=== PATIENT | male | born 1935 | race Caucasian/White ===

== ENCOUNTER 2024-04-27 17:08 | Outpatient (CLI) | payer MEDICARE, OTHER, SELFPAY | END 2024-04-27 17:09 | disposition home or self-care (01) | LOC: AMB 04-28 17:43 | PROVIDERS: PCP Family Medicine; Visit Provider Emergency Medicine | DX: R06.09 Other forms of dyspnea (principal); R53.1 Weakness | CPT/HCPCS: A0425; A0427 ==

== ENCOUNTER 2024-04-27 17:49 | Inpatient (IN) | payer MEDICARE, OTHER, SELFPAY ==
[2024-04-27] VITALS (52 sets, daily range): BP systolic 81–118; BP diastolic 43–64; PULSE 79–116; RESP 3–32; TEMP 37.4–39.1; O2SAT 88–99; BMI 38.6
--- NOTE | 2024-04-27 18:24 | ED.GENADULT ---
HPI - General Adult General Time Seen by Provider: 18:25 Date Seen: 04/27/24 Chief complaint: Shortness of Breath/Dyspnea Stated complaint: shortness of breath Time Seen by Provider: 04/27/24 18:21 Source: patient, EMS and RN notes reviewed Mode of arrival: EMS Limitations: altered mental status History of Present Illness HPI narrative: This 88-year-old male is brought in by [facility] from his home where his noted weakness, clearing of his throat or possibly coughing repetitively today. He he was shaky later this afternoon, stating he did not feel well. He tells me he has no pain anywhere but really does not answer much for questions. He resides independently with his . He has had no vomiting, no diarrhea, no complaints of urinary symptoms. She describes that he has been clearing his throat or almost coughing repetitively today. She is not aware of any ill contacts. He did not complain of pain anywhere. This evening he went to get out of his chair in simply went to the ground. He was seeming disoriented, she thought he was maybe having trouble breathing. EMS got his blood sugar to be 215. He has a history of stage 4 kidney disease, history of quadruple bypass, history of atrial fibrillation, history of type 2 diabetes. He was noted to be hypoxic per nursing staff. Related Data Home Medications ?Medication ?Instructions ?Recorded ?Confirmed apixaban 5 mg tablet (Eliquis) 5 mg PO BID 04/27/24 04/27/24 aspirin 81 mg capsule 81 mg PO DAILY 04/27/24 04/27/24 atenolol 50 mg tablet 50 mg PO DAILY 04/27/24 04/27/24 atorvastatin 20 mg tablet 20 mg PO DAILY 04/27/24 04/27/24 cholecalciferol (vitamin D3) 50 50 mcg PO DAILY 04/27/24 04/27/24 mcg (2,000 unit) capsule finasteride 5 mg tablet 5 mg PO DAILY 04/27/24 04/27/24 furosemide 20 mg tablet 20 mg PO DAILY 04/27/24 04/27/24 furosemide 40 mg tablet 40 mg PO DAILY 04/27/24 04/27/24 glimepiride 1 mg tablet 1 mg PO DAILY 04/27/24 04/27/24 lisinopril 2.5 mg tablet 2.5 mg PO DAILY 04/27/24 04/27/24 niacin 500 mg tablet,extended 500 mg PO DAILY 04/27/24 04/27/24 release 24 hr nitroglycerin 0.4 mg sublingual 0.4 mg sublingual Q5M PRN 04/27/24 04/27/24 tablet tamsulosin 0.4 mg capsule 0.8 mg PO DAILY 04/27/24 04/27/24 vitamin E 268 mg (400 unit) capsule 268 mg PO DAILY 04/27/24 04/27/24 zinc gluconate 50 mg tablet 100 mg PO DAILY 04/27/24 04/27/24 Allergies Allergy/AdvReac Type Severity Reaction Status Date / Time No Known Drug Allergies Allergy Verified 04/27/24 18:04 Review of Systems Status of ROS: Reports: unobtainable due to mental status Narrative: Most of history obtained from his . Did ask patient if he knew where he was, opened his eyes and stated no. I told him he was at [facility]. He really had no response to that. Exam Const: Vital Signs, click to edit/add: Vital Signs - 24 hr 04/27/24 17:57 04/27/24 17:58 04/27/24 18:03 Temperature Pulse Rate 108 H 116 H 109 H Pulse Rate [Pulse Oximeter] Respiratory Rate Blood Pressure 107/54 L Blood Pressure [Le ft Upper Arm] Pulse Oximetry 89 88 91 Oxygen Delivery Me thod Nasal Cannula Nasal Cannula Nasal Cannula Oxygen Flow Rate 2 2 2 04/27/24 18:04 04/27/24 18:07 04/27/24 18:15 Temperature 102.4 F H Pulse Rate 103 H 106 H Pulse Rate [Pulse Oximeter] 94 Respiratory Rate 28 H Blood Pressure 118/64 Blood Pressure [Le ft Upper Arm] 118/64 Pulse Oximetry 90 91 92 Oxygen Delivery Me thod Nasal Cannula Nasal Cannula Nasal Cannula Oxygen Flow Rate 2 2 04/27/24 18:30 04/27/24 18:31 04/27/24 18:32 Temperature Pulse Rate 88 103 H 85 Pulse Rate [Pulse Oximeter] Respiratory Rate Blood Pressure 117/64 Blood Pressure [Le ft Upper Arm] Pulse Oximetry 94 95 94 Oxygen Delivery Me thod Nasal Cannula Oxygen Flow Rate 2 04/27/24 18:45 04/27/24 19:00 04/27/24 19:02 Temperature Pulse Rate 101 H 104 H 91 Pulse Rate [Pulse Oximeter] Respiratory Rate Blood Pressure 103/50 L Blood Pressure [Le ft Upper Arm] Pulse Oximetry 94 92 97 Oxygen Delivery Me thod Nasal Cannula Nasal Cannula Nasal Cannula Oxygen Flow Rate 2 2 2 04/27/24 19:05 04/27/24 19:15 04/27/24 19:30 Temperature Pulse Rate 92 92 92 Pulse Rate [Pulse Oximeter] Respiratory Rate Blood Pressure 107/56 L Blood Pressure [Le ft Upper Arm] Pulse Oximetry 94 95 95 Oxygen Delivery Me thod Nasal Cannula Nasal Cannula Nasal Cannula Oxygen Flow Rate 2 2 2 04/27/24 19:32 04/27/24 19:43 04/27/24 19:45 Temperature Pulse Rate 93 100 93 Pulse Rate [Pulse Oximeter] Respiratory Rate Blood Pressure 88/52 L 106/46 L Blood Pressure [Le ft Upper Arm] Pulse Oximetry 96 94 95 Oxygen Delivery Me thod Nasal Cannula Nasal Cannula Nasal Cannula Oxygen Flow Rate 2 2 2 04/27/24 20:00 04/27/24 20:02 04/27/24 20:03 Temperature 99.4 F Pulse Rate 94 89 96 Pulse Rate [Pulse Oximeter] Respiratory Rate Blood Pressure 85/48 L Blood Pressure [Le ft Upper Arm] Pulse Oximetry 94 94 95 Oxygen Delivery Me thod Nasal Cannula Nasal Cannula Oxygen Flow Rate 2 2 04/27/24 20:09 04/27/24 20:15 04/27/24 20:35 Temperature Pulse Rate 103 H 96 102 H Pulse Rate [Pulse Oximeter] Respiratory Rate 30 H 32 H Blood Pressure 88/54 L 94/52 L Blood Pressure [Le ft Upper Arm] Pulse Oximetry 94 95 Oxygen Delivery Me thod Oxygen Flow Rate 04/27/24 20:41 04/27/24 20:45 04/27/24 20:47 Temperature Pulse Rate 96 92 100 Pulse Rate [Pulse Oximeter] Respiratory Rate 32 H Blood Pressure 84/51 L Blood Pressure [Le ft Upper Arm] Pulse Oximetry 94 94 93 Oxygen Delivery Me thod Oxygen Flow Rate 04/27/24 21:00 04/27/24 21:01 04/27/24 21:15 Temperature Pulse Rate 92 89 94 Pulse Rate [Pulse Oximeter] Respiratory Rate 3 L Blood Pressure 92/58 L Blood Pressure [Le ft Upper Arm] Pulse Oximetry 94 93 94 Oxygen Delivery Me thod Oxygen Flow Rate 04/27/24 21:19 04/27/24 21:37 04/27/24 21:47 Temperature Pulse Rate 94 Pulse Rate [Pulse Oximeter] Respiratory Rate 28 H Blood Pressure 86/59 L 86/53 L 85/43 L Blood Pressure [Le ft Upper Arm] Pulse Oximetry 94 Oxygen Delivery Me thod Oxygen Flow Rate 04/27/24 22:02 04/27/24 22:06 04/27/24 22:13 Temperature Pulse Rate 92 87 Pulse Rate [Pulse Oximeter] Respiratory Rate 28 H Blood Pressure 83/45 L 86/57 L Blood Pressure [Le ft Upper Arm] Pulse Oximetry 98 Oxygen Delivery Me thod Oxygen Flow Rate 04/27/24 22:15 04/27/24 22:17 04/27/24 22:30 Temperature Pulse Rate 85 88 93 Pulse Rate [Pulse Oximeter] Respiratory Rate 28 H Blood Pressure 81/52 L Blood Pressure [Le ft Upper Arm] Pulse Oximetry 98 98 99 Oxygen Delivery Me thod Oxygen Flow Rate 04/27/24 22:32 04/27/24 22:45 04/27/24 22:47 Temperature Pulse Rate 90 91 92 Pulse Rate [Pulse Oximeter] Respiratory Rate 30 H Blood Pressure 110/46 L Blood Pressure [Le ft Upper Arm] Pulse Oximetry 97 95 94 Oxygen Delivery Me thod Oxygen Flow Rate 04/27/24 22:49 Temperature Pulse Rate 86 Pulse Rate [Pulse Oximeter] Respiratory Rate 24 Blood Pressure 90/53 L Blood Pressure [Le ft Upper Arm] Pulse Oximetry 95 Oxygen Delivery Me thod Oxygen Flow Rate This patient is lying under the covers in exam room 8, shivering at times but no rigors noted. He will open his eyes when I speak to him or touch him. He is breathing independently, he is febrile. Pupils are equal round, sclera clear, conjugate gaze, symmetrical facial function when he does talk. Deck thick, do not feel any adenopathy or masses. Lungs anteriorly with no wheezing or crackles, is mildly tachypneic, unable to listen to his lungs sounds by myself posteriorly. CV is slightly fast, possibly irregular, at times sounds more regular. I do not hear any murmur, normal S1-S2, no S3-S4. Abdomen is soft, nontender, nondistended, no organomegaly. No lower extremity edema of feet her ankles but above his sock has maybe 1 to 2+ edema, skin visualize the out any rash or erythema. Will move arms and legs when ask him to. Documenting provider has reviewed patient's vital signs: yes Course Course ED Course: This is a febrile 88-year-old male. Certainly could be developing respiratory symptoms with what his describes, could be viral like COVID, possibly early influenza. Will do the triple viral swab. Pneumonia certainly is a possibility. He could have other infectious etiology, will be doing full complement of labs. We will only be doing 1 blood culture as we are still in the midst of a blood culture shortage and this is our current protocol. Likewise, need to consider sepsis in this patient with a fever but we are in a IV fluid crisis. Currently his blood pressure is maintaining, pulse is mildly elevated but he is known to have reportedly have atrial fibrillation and is febrile. Will give him Tylenol and see if that helps bring down his pulse. Will monitor his vitals, see where his lactate is before initiating IV fluids with the current IV fluids shortage. Will start with a portable chest x-ray, have requested urinalysis, will be getting full complement of labs. Do not have medication is on him yet but will work with nursing staff and family to see if we can get a list. Reevaluation(s) Time of Reevaluation #1: 19:13 Reevaluation #1: Did review triple viral swab is negative. Patient did open his eyes when I started talking in there. I asked him how he was doing and he said good. Have asked nursing staff to collect a in an out catheterized specimen for urinalysis. Did review with family that this can be a source of infection. He will continue to be worked up for infectious etiology. Radiology is just getting to his portable chest x-ray now, may need to consider CT imaging if we are not finding identifiable etiology. Lactate is just mildly elevated at 2.5, have ordered 500 mL of normal saline bolus, will continue to assess but do not feel he needs more fluids than that at this time given the IV fluid shortage crisis. Time of Reevaluation #2: 20:35 Reevaluation #2: Patient is just back from CT and I see that his blood pressure has dropped, he had a systolic of 88, recheck is 94/52. He has only received 100 mL of the 500 mL. His lung bases sound clear. He is more alert, states he is breathing fine, denies any pain. Will get antibiotics started, this is likely sepsis. His temperature is down in his pulse did improve with this. His blood pressure will be monitored closely. Complete the initial 500 mL, initiate broad-spectrum antibiotics. Family was here, but not here right now at this time. Will need to try to see if patient has a POLST. Time of Reevaluation #3: 21:09 Reevaluation #3: Have reviewed CT results with patient, patient's and his son (believe him to be his son). There is pneumonia, he does have a pleural effusion but there is no noted significant congestive heart failure on the CT. We discussed that we are starting antibiotics. I will talk to the hospitalist about admission, do feel he might meet criteria for full admission as I am seeing blood pressure changes consistent with sepsis. We did discuss that fluid management with his chronic kidney disease can be difficult. He does need some fluids in support of his blood pressure but need to be judicious because of his congestive heart failure. He may benefit from low-dose medication for blood pressure support. They have brought his CPAP which will be helpful. Hopefully initiating antibiotics, continuing with some low does judicious IV fluid dosing will be enough. He actually is more alert now and fever is improved. He is DNR DNI. Additional Reevaluation(s): Have reviewed his old records when he was hospitalized in 2020. His admission proBNP was in the 8000 range, looks like he stabilize any new where around [id number]. His EKG is stable with a wide complex AFib, no significant change from 2020. Family has not called back. I do not feel comfortable having this patient transfer to another facility without talking to the family 1st. The hospitalist did come back down. She is concerned she feels that he is in congestive heart failure and needs high-dose diuresis which could put him into renal failure requiring dialysis. We most certainly cannot do this without talking to the family, I did not broach any subjective dialysis before leaving. His lactate is slightly better at 2.3, was 2.5 on arrival. Again we have not given him extensive fluid so as not to precipitate CHF. Patient does have underlying atrial fibrillation, pressors are likely to escalated heart rate. I personally favor a short period of having him on his CPAP, watching quite closely, some low-dose fluid support followed by a dose of Lasix if he is becoming fluid overloaded. We may have to observe him here in the ER until he stabilizes. He did have lower blood pressures when he was in the hospital for his congestive heart failure in 2020, was not in for infection at that time. 10:23 p.m.: Did have almost a 15 minute conversation with Juan F. We discussed the concerns of the hospitalist, that she did not want to take him here for concerns that he would need Lasix and could potentiate the need for dialysis. They know his kidneys are bad, they have not had to broach the subject of dialysis. Even after discussion is unclear that this is something that they are aware of or considering. He is upset that the hospitalist would not accept the patient, does not understand how that can be a thing. Did review with him that she had concerns that he needed higher level of care and would benefit from being transferred. They really did not want to have him transferred, we did discuss that other facilities have other specialties such as Cardiology for an example. He has been hospitalized here in the past, they would prefer him to stay. I did discuss with him that may hope was is if we can give him enough time to allow the antibiotics to work, we may certainly see improvement without having to do pressor support, extensive IV fluids or even Lasix. It is my contention that he does have congestive heart failure but seems to be somewhat stable based on his clinical exam, improving vitals outside of the hypotension, has had decreased respiratory rate. His proBNP is stable. Juan F and I did discuss that pneumonia can be terminal in the elderly, it is the leading cause of . 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 We did discuss the lower blood pressures, possibility of starting pressor support, this could increase his heart rate in worsen is atrial fibrillation which would potentially strain is heart further in could precipitate congestive heart failure. Lasix may need to be given but I think we can hold off at this point. He would prefer that we not transfer, I did agree that we would observe the patient here further in the ER and see if he did stabilize. 11:20 p.m.: Dr. Jimenes the hospitalist did kindly come back down here, had an extensive discussion with her regarding this patient. I personally do not feel that he needs any Lasix at this point, we have had some trending upward of his systolic pressures and his map is not going below 60. I did go back in and evaluate patient, his respiratory rate is down, heart rate down, blood pressure was in the 90s systolic at that point. He is much more alert, talking to me, was able to roll over, lungs really do not have any significant crackles, overall he seems like he is stabilizing. In full review, he has not received these with her my sin for atypical coverage for pneumonia, will get this ordered. Did order 500 mg IV, there will be IV fluid with this which will give him his next small bolus. Hospitalist does say he will be admit. Consultations Consultation #1: Have reviewed with the hospitalist Dr. Jimenes. We have discussed that he is septic, does have chronic kidney disease, does have congestive heart failure, etiology for infection appears to be pneumonia on CT imaging. Discussed low-dose pressure support. She is concerned, have reviewed with her that I have talked to the family about his tenuous status and that there are concerns. She would like to see him here which I certainly support and feel is reasonable. Unfortunately family left in between my phone call with the hospitalist and her coming down here, did go out to the parking lot as a reportedly had just walked out, they were not there. We have placed phone calls to all the phone numbers we have and no one is answering, there are no return calls yet. The hospitalist is not accepting him, she is worried that he might need to go to dialysis. I have reviewed that he is DNR DNI, I do think that we have room to try some gentle fluid support, even low-dose pressor support and follow with gentle diuresis. She is worried about him potentially needing to go to dialysis, I unfortunately cannot pose this question the family now is they are not here. Time: 21:17 Vital Signs Vital signs: Initial Vital Signs Pulse Rate 108 H 04/27/24 17:57 Pulse Oximetry 89 04/27/24 17:57 Oxygen Delivery Method Nasal Cannula 04/27/24 17:57 Oxygen Flow Rate 2 04/27/24 17:57 Vital Signs Pulse Rate 108 H 04/27/24 17:57 Pulse Oximetry 89 04/27/24 17:57 Oxygen Delivery Method Nasal Cannula 04/27/24 17:57 Oxygen Flow Rate 2 04/27/24 17:57 Temperature 99.4 F 04/27/24 20:02 Pulse Rate 86 04/27/24 22:49 Respiratory Rate 24 04/27/24 22:49 Blood Pressure 90/53 L 04/27/24 22:49 Pulse Oximetry 95 04/27/24 22:49 Oxygen Delivery Method Nasal Cannula 04/27/24 20:02 Oxygen Flow Rate 2 04/27/24 20:02 Medications Administered Medications: Discontinued Medications Generic Name Dose Route Start Last Admin Trade Name Freq PRN Reason Stop Dose Admin Acetaminophen 1,000 mg 04/27/24 18:29 04/27/24 18:58 Acetaminophen 500 Mg Tablet PO 04/27/24 18:30 1,000 mg ONCE ONE Administration Sodium Chloride 500 mls @ 500 mls/hr 04/27/24 19:17 04/27/24 19:53 0.9 % Sodium Chloride 500 Ml IV 04/27/24 20:16 250 mls/hr .Q1H ONE Administration Vancomycin/PEG/NADA/Lysine/Water 1 gm in 200 mls @ 200 mls/hr 04/27/24 20:36 04/27/24 21:12 Vancomycin 1 Gm/200 Ml IVPB 04/27/24 21:35 200 mls/hr ONCE ONE Administration Protocol Cefepime HCl 1 gm/ Sodium 100 mls @ 200 mls/hr 04/27/24 20:36 04/27/24 21:10 Chloride IVPB 04/27/24 20:37 200 mls/hr ONCE ONE Administration Medical Decision Making Lab Data Labs: Lab Results 04/27/24 04/27/24 04/27/24 Range/Units 18:00 18:42 19:42 WBC 8.19 (4.50-11.00) K/uL RBC 3.98 L (4.30-5.90) m/uL Hgb 12.1 L (13.5-17.5) gm/dL Hct 39.0 (37.0-53.0) % MCV 98 (80-100) fL MCH 30 (26-34) pg MCHC 31 L (32-36) gm/dL RDW Coeff of Guillermo 14.5 (11.5-15.5) % Plt Count 52 L (140-440) K/uL Neut % (Auto) 94.8 H (42.0-72.0) % Lymph % (Auto) 2.8 L (20-44) % [place] % (Auto) 2.0 (0.0-11.0) % Eos % (Auto) 0.1 (0.0-7.0) % Baso % (Auto) 0.1 (0.0-3.0) % Neut # (Auto) 7.80 H (1.7-7.0) K/uL Lymph # (Auto) 0.20 L (0.90-2.90) K/uL [place] # (Auto) 0.20 (0.00-0.90) K/UL Eos # (Auto) 0.01 (0.00-0.50) K/uL Baso # (Auto) 0.01 (0.00-0.30) K/uL Abs Immat Gran (auto) 0.02 (0.00-0.30) K/uL Imm/Tot Granulo (auto) 0.2 % Sodium 140 (135-149) mmol/L Potassium 4.0 (3.6-5.1) mmol/L Chloride 107 (96-114) mmol/L Carbon Dioxide 20 (20-32) mmol/L Anion Gap 13 (7-15) mEq/L BUN 42 H (7-30) mg/dL Creatinine 2.7 H (0.5-1.5) mg/dL Estimated Creat Clear 19.00 Estimated GFR 22 ml/min Glucose 172 H (60-115) mg/dL Lactate 2.5 H (0.5-1.9) mmol/L Calcium 9.2 (8.4-10.6) mg/dL Total Bilirubin 2.0 H (0.1-1.5) mg/dL AST 23 (12-35) U/L ALT 20 (4-50) U/L Alkaline Phosphatase 64 (40-150) U/L Troponin I 0.02 (0.01-0.04) ng/mL C-Reactive Protein 0.7 (0.5-1.0) mg/dL NT-Pro-B Natriuret Pep 4530 pg/mL Total Protein 7.4 (6.0-8.3) g/dL Albumin 4.3 (3.3-5.0) g/dL Procalcitonin 1.88 H (<0.50) ng/mL Urine Color Yellow (Yellow) Urine Appearance Clear (Clear) Urine pH 5.5 (5.0-8.5) Ur Specific [place] 1.010 (1.000-1.030) Urine Protein Negative (Negative) Urine Glucose (UA) Negative (Negative) Urine Ketones Negative (Negative) Urine Blood Trace-lysed A (Negative) Urine Nitrite Negative (Negative) Urine Bilirubin Negative (Negative) Urine Urobilinogen 0.2 (0.2-1.0) Ur Leukocyte Esterase Negative (Negative) Urine RBC 0-2 (0-2) Urine WBC 0-2 (0-5) Ur Squamous Epith Cells Few (None-Few) Urine Bacteria Few A (None) SARS-CoV-2 (PCR) Negative SARS-CoV-2 (Negative) Influenza Type A (PCR) Negative PCR FLU A (Negative) Influenza Type B (PCR) Negative PCR FLU B (Negative) RSV (PCR) Negative PCR RSV (Negative) 04/27/24 Range/Units 22:02 WBC (4.50-11.00) K/uL RBC (4.30-5.90) m/uL Hgb (13.5-17.5) gm/dL Hct (37.0-53.0) % MCV (80-100) fL MCH (26-34) pg MCHC (32-36) gm/dL RDW Coeff of Guillermo (11.5-15.5) % Plt Count (140-440) K/uL Neut % (Auto) (42.0-72.0) % Lymph % (Auto) (20-44) % [place] % (Auto) (0.0-11.0) % Eos % (Auto) (0.0-7.0) % Baso % (Auto) (0.0-3.0) % Neut # (Auto) (1.7-7.0) K/uL Lymph # (Auto) (0.90-2.90) K/uL [place] # (Auto) (0.00-0.90) K/UL Eos # (Auto) (0.00-0.50) K/uL Baso # (Auto) (0.00-0.30) K/uL Abs Immat Gran (auto) (0.00-0.30) K/uL Imm/Tot Granulo (auto) % Sodium (135-149) mmol/L Potassium (3.6-5.1) mmol/L Chloride (96-114) mmol/L Carbon Dioxide (20-32) mmol/L Anion Gap (7-15) mEq/L BUN (7-30) mg/dL Creatinine (0.5-1.5) mg/dL Estimated Creat Clear Estimated GFR ml/min Glucose (60-115) mg/dL Lactate 2.3 H (0.5-1.9) mmol/L Calcium (8.4-10.6) mg/dL Total Bilirubin (0.1-1.5) mg/dL AST (12-35) U/L ALT (4-50) U/L Alkaline Phosphatase (40-150) U/L Troponin I (0.01-0.04) ng/mL C-Reactive Protein (0.5-1.0) mg/dL NT-Pro-B Natriuret Pep pg/mL Total Protein (6.0-8.3) g/dL Albumin (3.3-5.0) g/dL Procalcitonin (<0.50) ng/mL Urine Color (Yellow) Urine Appearance (Clear) Urine pH (5.0-8.5) Ur Specific [place] (1.000-1.030) Urine Protein (Negative) Urine Glucose (UA) (Negative) Urine Ketones (Negative) Urine Blood (Negative) Urine Nitrite (Negative) Urine Bilirubin (Negative) Urine Urobilinogen (0.2-1.0) Ur Leukocyte Esterase (Negative) Urine RBC (0-2) Urine WBC (0-5) Ur Squamous Epith Cells (None-Few) Urine Bacteria (None) SARS-CoV-2 (PCR) (Negative) Influenza Type A (PCR) (Negative) Influenza Type B (PCR) (Negative) RSV (PCR) (Negative) Imaging Data CT Chest/Ab/Pelvis: Attestation: I have reviewed the pertinent imaging results. Radiologist's impression: Patient: STEVEN CHAKRABORTY Facility:?[facility] Patient ID:?[id number] Site Patient ID:?[id number]. Site :?[id number] Study:?CT-Chest/Abd/Pelvis -04/27/2024 8:37:43 PM Ordering Physician:Ledy Gray Final Report: Indication: Fever of unknown origin Technique: Noncontrast CT of the chest, abdomen, and pelvis with multiplanar reformats. Comparison: CT chest performed 06/29/2021 Findings: Chest: Lungs: Moderate right pleural effusion. Patchy left basilar opacity. Mild atelectasis. Mediastinum: Cardiomegaly. Postoperative changes. Lymph nodes: Prominent and large nodes. Posterior right upper mediastinal node measures 13 millimeters. Soft tissues: No acute abnormality appreciated. Bones: Median sternotomy wires. Degenerative changes of the spine. Abdomen and Pelvis: Hepatobiliary: No significant parenchymal abnormality is appreciated. Cholelithiasis. Spleen: Unremarkable. Pancreas: No acute abnormality appreciated. Adrenal glands: No acute abnormality appreciated. Kidneys: Nonobstructing stones versus renal sinus vascular calcifications. No hydronephrosis or acute parenchymal abnormality. No solid-appearing mass. Bowel: No obstruction. No focal perienteric or pericolonic stranding is appreciated. Vascular: Calcified atherosclerosis. Mild infrarenal abdominal aortic ectasia. Lymph nodes: Prominent retroperitoneal nodes, not technically enlarged. Peritoneum: Mild stranding in the [id number]-right retroperitoneum. : No acute abnormality appreciated. Soft tissues: No acute abnormality appreciated. Bones: Degenerative changes of the spine. Left hip replacement. Impression: 1. Patchy consolidation in the left lung base compatible with pneumonia in the setting of fever. Follow-up CT in 3 months may be considered to ensure there is no underlying neoplasm. 2. Moderate right pleural effusion. 3. Additional chronic findings as above with no other acute abnormality appreciated. Please note that all CT scans at this facility use dose modulation, iterative reconstruction, and/or weight-based dosing when appropriate to reduce radiation dose to as low as reasonably achievable. Dictated by Spencer Jackson MD @ 04/27/2024 9:02:03 PM (Electronic Signature) ECG Data Attestation: I personally reviewed and interpreted this ECG as follows: (Significant artifact, poor quality, heart rate 115 beats per minute with wide complex, significant appearance minus the artifact to EKGs from 2020. Right bundle branch block.) Prior ECG tracings: available for review Interpretation: EKG timed 2213 shows atrial fibrillation with wide complex. Right bundle branch block. Rate has improved to 97 beats per minute. Critical Care Time Critical Care Time Critical Care Time: Yes Attestation: The patient required my highest level preparedness to intervene emergently and I personally spent this critical care time directly and personally managing the patient. This critical care time included: Obtaining a history; Examining the patient; Pulse oximetry; Ordering and reviewing of studies; Arranging urgent treatment with development of a management plan; Evaluation of patients response to treatment; Frequent reassessment discussions with other providers. This critical care time was performed to assess and manage the high probability of imminent life-threatening deterioration that could result in multiorgan failure. It was exclusive of separate billable procedures and treating other patients and teaching time. Total Critical Care Time in Minutes: 60 Discharge Plan Discharge Clinical Impression: Community acquired pneumonia Qualifiers: Laterality: left Lung location: lower lobe of lung Qualified Code(s): J18.9 - Pneumonia, unspecified organism Sepsis Qualifiers: Sepsis type: sepsis due to unspecified organism Sepsis acute organ dysfunction status: unspecified Qualified Code(s): A41.9 - Sepsis, unspecified organism Patient Disposition: Admitted As Inpatient Prescriptions: No Action aspirin 81 mg capsule 81 mg PO DAILY vitamin E 268 mg (400 unit) capsule 268 mg PO DAILY atorvastatin 20 mg tablet 20 mg PO DAILY atenolol 50 mg tablet 50 mg PO DAILY cholecalciferol (vitamin D3) 50 mcg (2,000 unit) capsule 50 mcg PO DAILY Eliquis 5 mg tablet 5 mg PO BID furosemide 40 mg tablet 40 mg PO DAILY furosemide 20 mg tablet 20 mg PO DAILY finasteride 5 mg tablet 5 mg PO DAILY niacin 500 mg tablet extended release 24 hr 500 mg PO DAILY glimepiride 1 mg tablet 1 mg PO DAILY nitroglycerin 0.4 mg tablet, sublingual 0.4 mg sublingual Q5M PRN lisinopril 2.5 mg tablet 2.5 mg PO DAILY tamsulosin 0.4 mg capsule 0.8 mg PO DAILY zinc gluconate 50 mg tablet 100 mg PO DAILY Follow Up/Referrals: Alok Persaud MD [Referring] -
--- NOTE | 2024-04-27 18:28 | CRLHL7_ITS ---
For Patients: As a result of the Century Cures Act, medical imaging exams and procedure reports are released immediately into your electronic medical record. You may view this report before your referring provider. If you have questions, please contact your health care provider. INDICATION: Fever. TECHNIQUE: Chest 1 view. COMPARISON: Chest radiograph 07/11/2021 FINDINGS: Low lung volumes. There are patchy bibasilar opacities which may be due to atelectasis or infiltrate. Probable tiny left pleural effusion. No pneumothorax. Stable mild cardiomegaly. Pulmonary vasculature is within normal limits. Sternotomy. The bones are unremarkable. IMPRESSION: 1. Patchy bibasilar opacities may be due to atelectasis or infiltrate. Probable tiny left pleural effusion. 2. Stable mild cardiomegaly. Dictated by Martha Russell MD @ 04/27/2024 8:09:57 PM (Electronically Signed)
[2024-04-27 18:49] LABS: Lactate* 2.5 mmol/L (0.5-1.9)
[2024-04-27 18:54] LABS: Basophils Absolute Auto 0.01 K/uL (0.00-0.30); Basophils Percent Auto 0.1 % (0.0-3.0); Eosinophils Absolute Auto 0.01 K/uL (0.00-0.50); Eosinophils Percent Auto 0.1 % (0.0-7.0); Hemoglobin* 12.1 gm/dL (13.5-17.5); Immature Granulocytes Abs Auto 0.02 K/uL (0.00-0.30); Immature Granulocytes Pct Auto 0.2 %; Lymphocytes Percent Auto 2.8 % (20-44); Mean Corpuscular HGB Conc 31 gm/dL (32-36); Mean Corpuscular Hemoglobin 30 pg (26-34); Mean Corpuscular Volume 98 fL (80-100); Neutrophils Percent Auto 94.8 % (42.0-72.0); Platelet Count* 52 K/uL (140-440); RDW Coefficient of Variation % 14.5 % (11.5-15.5); Red Blood Count 3.98 m/uL (4.30-5.90); White Blood Count* 8.19 K/uL (4.50-11.00)
[2024-04-27 18:56] LABS: Slide Review Reflex No
[2024-04-27 18:56] LABS: PCR FLU A Negative PCR FLU A (Negative); PCR FLU B Negative PCR FLU B (Negative); PCR RSV Negative PCR RSV (Negative); SARS PCR* Negative SARS-CoV-2 (Negative)
[2024-04-27] MEDS: ACETAMINOPHEN 500 MG TABLET 1000 MG PO (18:58)
[2024-04-27 19:07] LABS: Albumin* 4.3 g/dL (3.3-5.0); Chloride* 107 mmol/L (96-114); Sodium* 140 mmol/L (135-149)
[2024-04-27 19:09] LABS: Creatinine* 2.7 mg/dL (0.5-1.5); Estimated Glomerular Filt Rate 22 ml/min
[2024-04-27 19:10] LABS: Alanine Aminotransferase* 20 U/L (4-50); Alkaline Phosphatase* 64 U/L (40-150); Anion Gap 13 mEq/L (7-15); Aspartate Amino Transferase* 23 U/L (12-35); Blood Urea Nitrogen* 42 mg/dL (7-30); Carbon Dioxide* 20 mmol/L (20-32); Total Protein* 7.4 g/dL (6.0-8.3)
[2024-04-27 19:11] LABS: Calcium* 9.2 mg/dL (8.4-10.6); Glucose* 172 mg/dL (60-115)
[2024-04-27 19:13] LABS: C Reactive Protein* 0.7 mg/dL (0.5-1.0)
[2024-04-27 19:21] LABS: NT Pro B Type NatriureticPept* 4530 pg/mL
[2024-04-27 19:22] LABS: Troponin I* 0.02 ng/mL (0.01-0.04)
[2024-04-27 19:27] LABS: Procalcitonin* 1.88 ng/mL (<0.50)
[2024-04-27 19:47] LABS: Appearance Urine Clear (Clear); Bilirubin Urine Negative (Negative); Blood Urine Trace-lysed (Negative); Color Urine Yellow (Yellow); Glucose Urine Negative (Negative); Ketones Urine Negative (Negative); Leukocyte Esterase Urine Negative (Negative); Nitrite Urine Negative (Negative); Protein Urine Negative (Negative); Urobilinogen Urine 0.2 (0.2-1.0); pH Urine 5.5 (5.0-8.5)
[2024-04-27] MEDS: 0.9 % SODIUM CHLORIDE 500 ML 500 ML 250 ML IV (19:53)
--- NOTE | 2024-04-27 20:05 | CRLHL7_ITS ---
For Patients: As a result of the Century Cures Act, medical imaging exams and procedure reports are released immediately into your electronic medical record. You may view this report before your referring provider. If you have questions, please contact your health care provider. Indication: Fever of unknown origin Technique: Noncontrast CT of the chest, abdomen, and pelvis with multiplanar reformats. Comparison: CT chest performed 06/29/2021 Findings: Chest: Lungs: Moderate right pleural effusion. Patchy left basilar opacity. Mild atelectasis. Mediastinum: Cardiomegaly. Postoperative changes. Lymph nodes: Prominent and large nodes. Posterior right upper mediastinal node measures 13 millimeters. Soft tissues: No acute abnormality appreciated. Bones: Median sternotomy wires. Degenerative changes of the spine. Abdomen and Pelvis: Hepatobiliary: No significant parenchymal abnormality is appreciated. Cholelithiasis. Spleen: Unremarkable. Pancreas: No acute abnormality appreciated. Adrenal glands: No acute abnormality appreciated. Kidneys: Nonobstructing stones versus renal sinus vascular calcifications. No hydronephrosis or acute parenchymal abnormality. No solid-appearing mass. Bowel: No obstruction. No focal perienteric or pericolonic stranding is appreciated. Vascular: Calcified atherosclerosis. Mild infrarenal abdominal aortic ectasia. Lymph nodes: Prominent retroperitoneal nodes, not technically enlarged. Peritoneum: Mild stranding in the [id number]-right retroperitoneum. : No acute abnormality appreciated. Soft tissues: No acute abnormality appreciated. Bones: Degenerative changes of the spine. Left hip replacement. Impression: 1. Patchy consolidation in the left lung base compatible with pneumonia in the setting of fever. Follow-up CT in 3 months may be considered to ensure there is no underlying neoplasm. 2. Moderate right pleural effusion. 3. Additional chronic findings as above with no other acute abnormality appreciated. Please note that all CT scans at this facility use dose modulation, iterative reconstruction, and/or weight-based dosing when appropriate to reduce radiation dose to as low as reasonably achievable. Dictated by Spencer Jackson MD @ 04/27/2024 9:02:03 PM (Electronically Signed)
[2024-04-27 20:10] LABS: Bacteria Urine Few; RBC Urine 0-2 (0-2); Squamous Epithelial Cell Urine Few (None-Few); WBC Urine 0-2 (0-5)
[2024-04-27] MEDS: CEFEPIME HCL 1 GM in 0.9 % SODIUM CHLORIDE Mini-bag 100 ML IVPB (21:10)
[2024-04-27] MEDS: VANCOMYCIN 1 GM/200 ML 1 GM/200 ML PIGGYBACK IVPB (21:12)
[2024-04-27 22:07] LABS: Lactate* 2.3 mmol/L (0.5-1.9)
[2024-04-28] VITALS (40 sets, daily range): BP systolic 90–125; BP diastolic 29–81; PULSE 70–96; RESP 20–32; TEMP 36.4–37.8; O2SAT 93–99; BMI 39.6
--- NOTE | 2024-04-28 00:04 | PM.IMHP1 ---
Hospitalist- H&P: HPI History of Present Illness Date Seen: 04/28/24 Chief complaint: shortness of breath Narrative: Vernon Mckinley is a 88 year old male An 88-year-old male patient with past medical history of hypertension, hyperlipidemia, DM, CAD, congestive heart failure with low normal ejection fraction, AFib on apixaban, ASA and CKD stage 4 who presents to the ED with weakness altered mentation and was found feverish at the ED with a temperature of 102? F and hypoxia. CT chest showed left sided consolidation in addition to congestion and a moderate right pleural effusion. At the ED patient's blood pressure was/in the 80s/50s which improved with her 500 mL to the 90s. Upon presentation was tachycardic, but after IVF pulse was in the 80s. Lactic acid elevated at 2.5 pre calcitonin elevated at 1.8. Troponin was negative, his EKG showed wide QRS rhythm that is not new, has been seen on previous EKGs. Rhythm was intermittently irregular with frequent PVCs. Heart rate in the 80s, no ischemia noted at this EKG. Patient was given vancomycin and cefepime at the ED. Because of all the comorbidities and his age, this patient is at risk of serious complications including but not limited to KRYSTEN on his CKD 4 and the need for dialysis, and up to . Dr. Don talked extensively to the patient's son who understands these possibilities and want him to be admitted at [facility] and declined transfer to a higher level of care in another hospital. Review of Systems Status of ROS: Reports: 6 or more systems reviewed and unremarkable except as noted in History and below [facility] Medical History (Updated 04/28/24 @ 00:28 by Florina Jimenes MD) Diabetes type 2 with atherosclerosis of arteries of extremities ?E11.51 - Type 2 diabetes mellitus with diabetic peripheral angiopathy without gangrene (ICD-10) ?I70.209 - Unspecified atherosclerosis of [place] arteries of extremities, unspecified extremity (ICD-10) Hyperlipidemia ?E78.5 - Hyperlipidemia, unspecified (ICD-10) Hypertension ?I10 - Essential (primary) hypertension (ICD-10) 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Type apixaban 5 mg tablet (Eliquis) 5 mg PO BID 04/27/24 04/27/24 History aspirin 81 mg capsule 81 mg PO DAILY 04/27/24 04/27/24 History atenolol 50 mg tablet 50 mg PO DAILY 04/27/24 04/27/24 History atorvastatin 20 mg tablet 20 mg PO DAILY 04/27/24 04/27/24 History cholecalciferol (vitamin D3) 50 50 mcg PO DAILY 04/27/24 04/27/24 History mcg (2,000 unit) capsule finasteride 5 mg tablet 5 mg PO DAILY 04/27/24 04/27/24 History furosemide 20 mg tablet 20 mg PO DAILY 04/27/24 04/27/24 History furosemide 40 mg tablet 40 mg PO DAILY 04/27/24 04/27/24 History glimepiride 1 mg tablet 1 mg PO DAILY 04/27/24 04/27/24 History lisinopril 2.5 mg tablet 2.5 mg PO DAILY 04/27/24 04/27/24 History niacin 500 mg tablet,extended 500 mg PO DAILY 04/27/24 04/27/24 History release 24 hr nitroglycerin 0.4 mg sublingual 0.4 mg sublingual Q5M PRN 04/27/24 04/27/24 History tablet tamsulosin 0.4 mg capsule 0.8 mg PO DAILY 04/27/24 04/27/24 History vitamin E 268 mg (400 unit) capsule 268 mg PO DAILY 04/27/24 04/27/24 History zinc gluconate 50 mg tablet 100 mg PO DAILY 04/27/24 04/27/24 History Allergies Allergy/AdvReac Type Severity Reaction Status Date / Time No Known Drug Allergies Allergy Verified 04/27/24 18:04 Exam Narrative: Exam Narrative: Physical exam GENERAL: Elderly, obese, on 2 L oxygen HEAD AND NECK: Atraumatic, normocephalic CARDIOVASCULAR: RRR. Normal S1, S2. No murmurs. RESPIRATORY: Decreased lower right lobe breathing to auscultation , +ve crackles. GASTROINTESTINAL: Obese, not tender to palpation. NEUROLOGY: Alert, awake, confused mildly agitated. Const: Vital Signs, click to edit/add: Vital Signs - 24 hr 04/27/24 17:57 04/27/24 17:58 04/27/24 18:03 Temperature Pulse Rate 108 H 116 H 109 H Pulse Rate [Pulse Oximeter] Respiratory Rate Blood Pressure 107/54 L Blood Pressure [Le ft Upper Arm] Pulse Oximetry 89 88 91 Oxygen Delivery Me thod Nasal Cannula Nasal Cannula Nasal Cannula Oxygen Flow Rate 2 2 2 04/27/24 18:04 04/27/24 18:07 04/27/24 18:15 Temperature 102.4 F H Pulse Rate 103 H 106 H Pulse Rate [Pulse Oximeter] 94 Respiratory Rate 28 H Blood Pressure 118/64 Blood Pressure [Le ft Upper Arm] 118/64 Pulse Oximetry 90 91 92 Oxygen Delivery Me thod Nasal Cannula Nasal Cannula Nasal Cannula Oxygen Flow Rate 2 2 04/27/24 18:30 04/27/24 18:31 04/27/24 18:32 Temperature Pulse Rate 88 103 H 85 Pulse Rate [Pulse Oximeter] Respiratory Rate Blood Pressure 117/64 Blood Pressure [Le ft Upper Arm] Pulse Oximetry 94 95 94 Oxygen Delivery Me thod Nasal Cannula Oxygen Flow Rate 2 04/27/24 18:45 04/27/24 19:00 04/27/24 19:02 Temperature Pulse Rate 101 H 104 H 91 Pulse Rate [Pulse Oximeter] Respiratory Rate Blood Pressure 103/50 L Blood Pressure [Le ft Upper Arm] Pulse Oximetry 94 92 97 Oxygen Delivery Me thod Nasal Cannula Nasal Cannula Nasal Cannula Oxygen Flow Rate 2 2 2 04/27/24 19:05 04/27/24 19:15 04/27/24 19:30 Temperature Pulse Rate 92 92 92 Pulse Rate [Pulse Oximeter] Respiratory Rate Blood Pressure 107/56 L Blood Pressure [Le ft Upper Arm] Pulse Oximetry 94 95 95 Oxygen Delivery Me thod Nasal Cannula Nasal Cannula Nasal Cannula Oxygen Flow Rate 2 2 2 04/27/24 19:32 04/27/24 19:43 04/27/24 19:45 Temperature Pulse Rate 93 100 93 Pulse Rate [Pulse Oximeter] Respiratory Rate Blood Pressure 88/52 L 106/46 L Blood Pressure [Le ft Upper Arm] Pulse Oximetry 96 94 95 Oxygen Delivery Me thod Nasal Cannula Nasal Cannula Nasal Cannula Oxygen Flow Rate 2 2 2 04/27/24 20:00 04/27/24 20:02 04/27/24 20:03 Temperature 99.4 F Pulse Rate 94 89 96 Pulse Rate [Pulse Oximeter] Respiratory Rate Blood Pressure 85/48 L Blood Pressure [Le ft Upper Arm] Pulse Oximetry 94 94 95 Oxygen Delivery Me thod Nasal Cannula Nasal Cannula Oxygen Flow Rate 2 2 04/27/24 20:09 04/27/24 20:15 04/27/24 20:35 Temperature Pulse Rate 103 H 96 102 H Pulse Rate [Pulse Oximeter] Respiratory Rate 30 H 32 H Blood Pressure 88/54 L 94/52 L Blood Pressure [Le ft Upper Arm] Pulse Oximetry 94 95 Oxygen Delivery Me thod Oxygen Flow Rate 04/27/24 20:41 04/27/24 20:45 04/27/24 20:47 Temperature Pulse Rate 96 92 100 Pulse Rate [Pulse Oximeter] Respiratory Rate 32 H Blood Pressure 84/51 L Blood Pressure [Le ft Upper Arm] Pulse Oximetry 94 94 93 Oxygen Delivery Me thod Oxygen Flow Rate 04/27/24 21:00 04/27/24 21:01 04/27/24 21:15 Temperature Pulse Rate 92 89 94 Pulse Rate [Pulse Oximeter] Respiratory Rate 3 L Blood Pressure 92/58 L Blood Pressure [Le ft Upper Arm] Pulse Oximetry 94 93 94 Oxygen Delivery Me thod Oxygen Flow Rate 04/27/24 21:19 04/27/24 21:37 04/27/24 21:47 Temperature Pulse Rate 94 Pulse Rate [Pulse Oximeter] Respiratory Rate 28 H Blood Pressure 86/59 L 86/53 L 85/43 L Blood Pressure [Le ft Upper Arm] Pulse Oximetry 94 Oxygen Delivery Me thod Oxygen Flow Rate 04/27/24 22:02 04/27/24 22:06 04/27/24 22:13 Temperature Pulse Rate 92 87 Pulse Rate [Pulse Oximeter] Respiratory Rate 28 H Blood Pressure 83/45 L 86/57 L Blood Pressure [Le ft Upper Arm] Pulse Oximetry 98 Oxygen Delivery Me thod Oxygen Flow Rate 04/27/24 22:15 04/27/24 22:17 04/27/24 22:30 Temperature Pulse Rate 85 88 93 Pulse Rate [Pulse Oximeter] Respiratory Rate 28 H Blood Pressure 81/52 L Blood Pressure [Le ft Upper Arm] Pulse Oximetry 98 98 99 Oxygen Delivery Me thod Oxygen Flow Rate 04/27/24 22:32 04/27/24 22:45 04/27/24 22:47 Temperature Pulse Rate 90 91 92 Pulse Rate [Pulse Oximeter] Respiratory Rate 30 H Blood Pressure 110/46 L Blood Pressure [Le ft Upper Arm] Pulse Oximetry 97 95 94 Oxygen Delivery Me thod Oxygen Flow Rate 04/27/24 22:49 04/27/24 22:50 04/27/24 23:00 Temperature Pulse Rate 86 97 96 Pulse Rate [Pulse Oximeter] Respiratory Rate 24 Blood Pressure 90/53 L Blood Pressure [Le ft Upper Arm] Pulse Oximetry 95 91 92 Oxygen Delivery Me thod Oxygen Flow Rate 04/27/24 23:02 04/27/24 23:15 04/27/24 23:17 Temperature Pulse Rate 79 93 93 Pulse Rate [Pulse Oximeter] Respiratory Rate 24 24 Blood Pressure 93/48 L 90/59 L Blood Pressure [Le ft Upper Arm] Pulse Oximetry 90 92 94 Oxygen Delivery Me thod Oxygen Flow Rate 04/27/24 23:30 04/27/24 23:32 04/27/24 23:45 Temperature Pulse Rate 85 88 94 Pulse Rate [Pulse Oximeter] Respiratory Rate Blood Pressure 95/63 Blood Pressure [Le ft Upper Arm] Pulse Oximetry 94 94 91 Oxygen Delivery Me thod Oxygen Flow Rate 04/27/24 23:47 Temperature Pulse Rate 89 Pulse Rate [Pulse Oximeter] Respiratory Rate Blood Pressure 95/47 L Blood Pressure [Le ft Upper Arm] Pulse Oximetry 89 Oxygen Delivery Me thod Oxygen Flow Rate Hospitalist - H&P: Result Labs Labs: Short CBC 04/27/24 Range/Units 18:42 WBC 8.19 (4.50-11.00) K/uL Hgb 12.1 L (13.5-17.5) gm/dL Hct 39.0 (37.0-53.0) % Plt Count 52 L (140-440) K/uL BMP 04/27/24 18:42 Sodium 140 Potassium 4.0 Chloride 107 Carbon Dioxide 20 BUN 42 H Creatinine 2.7 H Glucose 172 H Calcium 9.2 Cardiac Enzymes 04/27/24 Range/Units 18:42 Troponin I 0.02 (0.01-0.04) ng/mL Liver Function 04/27/24 Range/Units 18:42 Total Bilirubin 2.0 H (0.1-1.5) mg/dL AST 23 (12-35) U/L ALT 20 (4-50) U/L Alkaline Phosphatase 64 (40-150) U/L Albumin 4.3 (3.3-5.0) g/dL Urine 04/27/24 Range/Units 19:42 Urine Color Yellow (Yellow) Urine Appearance Clear (Clear) Urine pH 5.5 (5.0-8.5) Ur Specific [place] 1.010 (1.000-1.030) Urine Protein Negative (Negative) Urine Glucose (UA) Negative (Negative) ECG Attestation: I personally reviewed and interpreted this ECG as follows: Interpretation: EKG showed wide QRS rhythm that is not new, has been seen on previous EKGs. ?Rhythm was intermittently irregular with frequent PVCs. ?Heart rate in the 80s, no ischemia noted at this EKG. ? Imaging CT scan - chest: Attestation: I have reviewed the pertinent imaging results. Radiologist's impression: Noncontrast CT of the chest, abdomen, and pelvis with multiplanar reformats. Comparison: CT chest performed 06/29/2021 Findings: Chest: Lungs: Moderate right pleural effusion. Patchy left basilar opacity. Mild atelectasis. Mediastinum: Cardiomegaly. Postoperative changes. Lymph nodes: Prominent and large nodes. Posterior right upper mediastinal node measures 13 millimeters. Soft tissues: No acute abnormality appreciated. Bones: Median sternotomy wires. Degenerative changes of the spine. Abdomen and Pelvis: Hepatobiliary: No significant parenchymal abnormality is appreciated. Cholelithiasis. Spleen: Unremarkable. Pancreas: No acute abnormality appreciated. Adrenal glands: No acute abnormality appreciated. Kidneys: Nonobstructing stones versus renal sinus vascular calcifications. No hydronephrosis or acute parenchymal abnormality. No solid-appearing mass. Bowel: No obstruction. No focal perienteric or pericolonic stranding is appreciated. Vascular: Calcified atherosclerosis. Mild infrarenal abdominal aortic ectasia. Lymph nodes: Prominent retroperitoneal nodes, not technically enlarged. Peritoneum: Mild stranding in the [id number]-irvddml-vbfc-right retroperitoneum. : No acute abnormality appreciated. Soft tissues: No acute abnormality appreciated. Bones: Degenerative changes of the spine. Left hip replacement. Impression: 1. Patchy consolidation in the left lung base compatible with pneumonia in the setting of fever. Follow-up CT in 3 months may be considered to ensure there is no underlying neoplasm. 2. Moderate right pleural effusion. 3. Additional chronic findings as above with no other acute abnormality appreciated. Please note that all CT scans at this facility use dose modulation, iterative reconstruction, and/or weight-based dosing when appropriate to reduce radiation dose to as low as reasonably achievable. Dictated by Spencer Jackson MD @ 04/27/2024 9:02:03 PM Assessment and Plan Assessment and plan (1) Acute hypoxic respiratory failure: Problem comment: -hair tinter -Urinary output monitoring with a Rivera catheter -oxygen support, O2 sat goal is is at range between 90 and 92%, if patient?s respiratory status deteriorates, will repeat a chest x-ray order an ABG/VBG and would put him on a CPAP. -follow-up blood culture and urine culture. -start broad IV antibiotics to cover community-acquired pneumonia, ceftriaxone and azithromycin IV. -follow-up lactic acid until < 2. -CPAP if needed Status: Acute (2) Sepsis associated hypotension: Problem comment: -follow-up blood culture and urine culture. -start broad IV antibiotics -follow-up lactic acid until < 2. -Resume apixaban for AFib -hold blood pressure medications due to soft blood pressures. -patient is fluid overloaded with moderate pleural effusion and elevated BNP of more than 4500. Cannot overload him with fluids though he is in sepsis. Once antibiotics kick in and unless he develops acute respiratory distress due to pulmonary edema we will hold Lasix for the next few hours and re-evaluate in the morning. Status: Acute (3) Severe sepsis: Status: Acute (4) Community acquired pneumonia: Problem comment: Start ceftriaxone and IV azithromycin Sputum culture Pneumoniae and legionella antigen Status: Acute (5) Pleural effusion on right: Problem comment: -consolidation and pleural effusion are suspicious of malignancy. If pleural effusion continues to be chronic it will need thoracentesis and analysis +cytology. Status: Acute (6) Lactic acidosis: Problem comment: Follow-up lactic acid Status post IV fluids IV fluid maintenance at 75 mL Status: Acute (7) CKD (chronic kidney disease) stage 4, GFR 15-29 ml/min: Problem comment: Patient is at his baseline Status: Acute (8) Coronary artery disease: Problem comment: No chest pain EKG and troponin are unremarkable Status: Acute (9) Fluid overload: Problem comment: -patient is fluid overloaded with moderate pleural effusion and elevated BNP of more than 4500. Cannot overload him with fluids though he is in sepsis. Once antibiotics kick in and unless he develops acute respiratory distress due to pulmonary edema we will hold Lasix for the next few hours and re-evaluate in the morning. Status: Acute (10) Diastolic congestive heart failure: Status: Acute (11) Atrial fibrillation: Problem comment: On apixaban Status: Acute (12) Current use of mcfp anticoagulation: Status: Chronic (13) Thrombocytopenia: Problem comment: Monitor labs at a.m. Status: Acute (14) Hypertension: Problem comment: Hold blood pressure medications Status: Acute (15) Hyperlipidemia: Status: Acute (16) Diabetes type 2 with atherosclerosis of arteries of extremities: Problem comment: Start low-dose insulin sliding scale Hold oral antidiabetic medication Status: Acute Plan -hair tinter -Urinary output monitoring with a Rivera catheter -oxygen support, O2 sat goal is is at range between 90 and 92%, if patient?s respiratory status deteriorates, will repeat a chest x-ray order an ABG/VBG and would put him on a CPAP. -follow-up blood culture and urine culture. -start broad IV antibiotics to cover community-acquired pneumonia, ceftriaxone and azithromycin IV. -follow-up lactic acid until < 2. -Resume apixaban for AFib -hold blood pressure medications due to soft blood pressures. -patient is fluid overloaded with moderate pleural effusion and elevated BNP of more than 4500. Cannot overload him with fluids though he is in sepsis. Once antibiotics kick in and unless he develops acute respiratory distress due to pulmonary edema we will hold Lasix for the next few hours and re-evaluate in the morning. -consolidation and pleural effusion are suspicious of malignancy. If pleural effusion continues to be chronic it will need thoracentesis and analysis +cytology. -PT/OT -Discuss goals of care with the family. Prognosis is guarded (D/W family at ED, 10:23 PM). Total Time Spent Total Time Spent: Time spent: Today I spent 75 minutes seeing the patient, discussing the patient with ER staff, reviewing [facility] and EPIC notes/diagnostics, discussing the care plan with our care time that includes social work, PT/OT, pharmacy, RT, penitentiary and documenting my impressions and plan in the medical record.
[2024-04-28] MEDS: AZITHROMYCIN 500 MG in 0.9 % SODIUM CHLORIDE 250 ml 250 ML 255 MG IVPB ×2 (00:30→23:49)
--- NOTE | 2024-04-28 01:50 | PC.NURSE ---
Patient arrived to the unit around 12 am. Was assisted to the bed by using the air flow mattress and three of us. Respiratory sounds were able to hear that he sounds course without using my stethoscope and did also verify by listening with it. He sounds very course throughout. It was reported that he was intermittently confused per ER nurse report. While doing his admission appears to answer all questions appropriately he is just very [place]. If you get down close to him appear to hear and understand what is being said. He did have IV fluids ordered holding off for the moment d/t how his lungs sound. Have also had him cough and deep breathe. He is currently on 1L NC and his sats are 97%. He does have a cpap and its currently hear but in transport the unit did get a little wet from the water in the machine. Heart rate is irregular and does have a history of afib and tele does show afib in a controlled rate. His blood pressure are better and have not had to start the Levophed medication. See charting for vitals. Will continue to monitor his respiratory status and update provider as needed.
[2024-04-28 03:13] LABS: Legionella pneumo Ag Urine L. pneumo Negative (Negative); S pneumo Ag Urine S. pneumo Negative (Negative)
[2024-04-28] MEDS: cefTRIAXone 2 GM in 0.9 % SODIUM CHLORIDE Mini-bag 100 ML IVPB (04:08)
--- NOTE | 2024-04-28 06:08 | PC.NURSE ---
End of Shift Note: Patient blood pressure has been stable all night. Resp rate has been on the higher side did ask him how much he uses his cpap at home and states I don't think that it does much Did consider applying his cpap but due to water possibly getting into places it should be when it was brought in did hold off on applying his cpap and his oxygen sat has been above 90%. Have also had him using a aerobika with vitals. He only slept a little bit tonight in between cares. He kept sliding down and bed so this am he did stand up with little assistance and took a few steps and sat in the recliner. He then ambulated from the recliner to the bathroom as he feels he needs to have a BM. Thought this time continues to be alert and orientated. Will continue to monitor until next shift arrives.
[2024-04-28 06:25] LABS: Lactate* 2.8 mmol/L (0.5-1.9)
[2024-04-28 06:31] LABS: Hematocrit 38.5 % (37.0-53.0); Hemoglobin* 11.8 gm/dL (13.5-17.5); Immature Granulocytes Pct Auto 0.4 %; Lymphocytes Percent Auto 5.9 % (20-44); Mean Corpuscular HGB Conc 31 gm/dL (32-36); Mean Corpuscular Hemoglobin 30 pg (26-34); Mean Corpuscular Volume 99 fL (80-100); Monocytes Percent Auto 7.3 % (0.0-11.0); Neutrophils Percent Auto 86.4 % (42.0-72.0); RDW Coefficient of Variation % 14.6 % (11.5-15.5); Red Blood Count 3.89 m/uL (4.30-5.90); White Blood Count* 13.77 K/uL (4.50-11.00)
[2024-04-28 06:34] LABS: Platelet Count* 48 K/uL (140-440); Slide Review Reflex Yes
[2024-04-28 06:49] LABS: Albumin* 3.9 g/dL (3.3-5.0); Chloride* 106 mmol/L (96-114)
[2024-04-28 06:50] LABS: Potassium* 4.3 mmol/L (3.6-5.1); Sodium* 139 mmol/L (135-149)
[2024-04-28 06:52] LABS: Alkaline Phosphatase* 61 U/L (40-150); Anion Gap 12 mEq/L (7-15); Aspartate Amino Transferase* 41 U/L (12-35); Bilirubin Total* 2.5 mg/dL (0.1-1.5); Carbon Dioxide* 21 mmol/L (20-32); Estimated Glomerular Filt Rate 20 ml/min; Total Protein* 6.9 g/dL (6.0-8.3)
[2024-04-28 06:53] LABS: Alanine Aminotransferase* 23 U/L (4-50); Blood Urea Nitrogen* 47 mg/dL (7-30); Calcium* 8.8 mg/dL (8.4-10.6); Glucose* 108 mg/dL (60-115); Magnesium* 2.2 mg/dL (1.5-2.6); Phosphorus* 3.9 mg/dL (2.5-4.5)
[2024-04-28 07:11] LABS: Slide Review Acceptable Review (Acceptable)
[2024-04-28] MEDS: SODIUM CHLORIDE 0.9 % (FLUSH) 10 ML SYRINGE 5 ML IVF ×3 (09:17→23:53)
[2024-04-28] MEDS: ATORVASTATIN 10 MG TABLET 20 MG PO (09:18)
[2024-04-28] MEDS: 0.9 % SODIUM CHLORIDE 250 ml 250 ML IV (09:18)
[2024-04-28] MEDS: ASPIRIN 81 MG TABLET EC PO (09:18)
--- NOTE | 2024-04-28 09:32 | PM.IMPN1 ---
Progress Note: A&P Assessment and plan (1) Acute hypoxic respiratory failure: Problem details: - secondary to pneumonia and possibly complicated by pleural effusion - not currently requiring oxygen support. Due to tachypnea I have obtained a VBG, which is fairly unremarkable, and started him on his usual home CPAP. If patient?s respiratory status deteriorates, will repeat a chest x-ray order a repeat ABG/VBG. - Treat pneumonia and diastolic CHF as below Status: Acute (2) Sepsis associated hypotension: Problem details: - Severe sepsis - continue follow-up blood culture and urine culture, both still pending. - continue broad IV antibiotics, azithromycin, cefepime and vanco for persistent severe sepsis (based on elevated lactate, no longer hypotensive) - continue to treat with IVF and follow lactic acid until < 2, IVF held overnight for concern of CHF/volume overload with developing tachypnea, pleural effusion and BNP >4500. Holding lasix. Ordering reduced IVF boluses this am due to CHF and pleural effusion. Will need to monitor respiratory status as patient is at risk for pulmonary edema. Patient is DNR/DNI. Patient uses CPAP at home and I have asked RT to see him and use his home CPAP today even while awake to try to prevent pulmonary edema during IVF resuscitation. -continue environmental monitoring specialist, CCU status, obtain ECHO, place central line for CVP monitoring. -Urinary output monitoring with a Rivera catheter, UO low, 0.11cc/hr. Continue IVF resuscitation as above, continue to monitor UO. -hold apixaban for AFib, as below - continue hold blood pressure medications due to soft blood pressures. Status: Acute (3) Severe sepsis: Problem details: - as above Status: Acute (4) Lactic acidosis: Problem details: Lactate continues to increase. Patient is not hypoxic despite having h/o CHF and signs of current volume overload. Be more aggressive with fluid resuscitation. Restart IV fluid maintenance at 75 mL. Give more boluses (low volume each), reassess labs. I've asked Dr. Tucker from gen surg to place a central line for CVP monitoring. Status: Acute (5) Community acquired pneumonia: Problem details: Treatment as above for sepsis Sputum culture pending Pneumoniae and legionella antigen negative MRSA screen pending Status: Acute (6) Pleural effusion on right: Problem details: -consolidation and pleural effusion are suspicious of malignancy. If pleural effusion continues to be chronic it will need thoracentesis and analysis +cytology. Discussed this with patient and family today. Status: Acute (7) KRYSTEN (acute kidney injury): Problem details: - Mild increase from baseline of 2.5. Cr 3 today. Continue to hold diuretics and give IVF as above. Monitor. Status: Acute (8) CKD (chronic kidney disease) stage 4, GFR 15-29 ml/min: Problem details: baseline Cr 2.5 Status: Chronic (9) Coronary artery disease: Problem details: No chest pain EKG and troponin are unremarkable Status: Chronic (10) Fluid overload: Problem details: -possible, see severe sepsis above, treating severe sepsis as above Status: Acute (11) Diastolic congestive heart failure: Problem details: chronic, stable Status: Chronic (12) Atrial fibrillation: Problem details: holding apixaban due to thrombocytopenia and KRYSTEN Status: Chronic (13) Current use of long term care pharmacist anticoagulation: Status: Chronic (14) Hypertension: Problem details: Hold blood pressure medications Status: Chronic (15) Hyperlipidemia: Status: Chronic (16) Thrombocytopenia: Problem details: - suspect due to sepsis Status: Acute (17) Diabetes type 2 with atherosclerosis of arteries of extremities: Problem details: Continue low-dose insulin sliding scale, goal inpatient glucoses are 140-180s to avoid hypoglycemia Hold oral antidiabetic medication Status: Chronic (18) Elevated LFTs: Problem details: - mild, suspect due to hypotension yesterday, monitor Status: Acute Time Spent With Patient Total time spent: Today I spent 55 minutes in critical care for the patient. Greater than 50% included discussing care with the patient, family, team, reviewing data, updating and managing the care plan, managing severe sepsis, contacting Dr. Tucker about central line. Subjective Time Seen by Provider: 08:50 Date Seen: 04/28/24 Interval history: Vernon is feeling much better today. He denies shortness of breath. He complains of a mild pain in his left abdomen from where he hit it on the armchair of his couch yesterday when he fell. His , Maritza, and son, Juan F, are here with him this morning. We discussed pneumonia, the possibility of postobstructive pneumonia, severe sepsis, thrombocytopenia, acute renal failure, chronic kidney disease, elevated lactate, elevated LFTs, anticoagulation, atrial fibrillation, tachypnea, hypotension, heart failure, potential for pulmonary edema, diuretics, and antibiotics. I answered any questions that they had for me. Exam Narrative: Exam Narrative: 04/28/24 08:50 a.m. General: No acute distress. Sitting comfortably in the chair. Able to talk in full sentences, smiling, expressing concerns about his who was supposed to have some tooth extractions today. Tachypneic. Awake, alert, oriented x3. No pallor. No jaundice. Oropharynx: Clear. Mucous membranes moist. Cardiovascular: Irregularly irregular. No murmurs, gallops, or rubs. Respiratory: Decreased breath sounds over bilateral lower lung cl[place]. No crackles, no wheezes. Poor air movement. Abdomen: Obese, protuberant. No ecchymosis. Bowel sounds present. Soft, nondistended, nontender. Extremities: Trace bilateral pretibial edema. 04/28/24 11:30 a.m. reassessment for more elevated lactate and fever. VS: T 100.1, BP 110/71, RR 32, HR 95, O2sats 97% on CPAP General: No acute distress. Sitting comfortably in the bedside chair. Able to talk in full sentences, smiling, using CPAP, took it off himself and put it back on himself to talk with me. Tachypneic. Awake, alert, oriented x3. No pallor. No jaundice. Oropharynx: Clear. Mucous membranes moist. Cardiovascular: Irregularly irregular. No murmurs, gallops, or rubs. Respiratory: Decreased breath sounds over bilateral lower lung [place]. No crackles, no wheezes. Improved air movement. Abdomen: Obese, protuberant. No ecchymosis. Bowel sounds present. Soft, nondistended, nontender. Extremities: Trace bilateral pretibial edema. Cap refill <2 seconds, good color, no mottling. Const: Vital Signs, click to edit/add: Vital Signs - 24 hr 04/27/24 17:57 04/27/24 17:58 04/27/24 18:03 Temperature Pulse Rate 108 H 116 H 109 H Pulse Rate [Pulse Oximeter] Pulse Rate [Right Radial] Respiratory Rate Blood Pressure 107/54 L Blood Pressure [Le ft Arm] Blood Pressure [Le ft Upper Arm] Blood Pressure [Ri ght Arm] Pulse Oximetry 89 88 91 Oxygen Delivery Me thod Nasal Cannula Nasal Cannula Nasal Cannula Oxygen Flow Rate 2 2 2 04/27/24 18:04 04/27/24 18:07 04/27/24 18:15 Temperature 102.4 F H Pulse Rate 103 H 106 H Pulse Rate [Pulse Oximeter] 94 Pulse Rate [Right Radial] Respiratory Rate 28 H Blood Pressure 118/64 Blood Pressure [Le ft Arm] Blood Pressure [Le ft Upper Arm] 118/64 Blood Pressure [Ri ght Arm] Pulse Oximetry 90 91 92 Oxygen Delivery Me thod Nasal Cannula Nasal Cannula Nasal Cannula Oxygen Flow Rate 2 2 04/27/24 18:30 04/27/24 18:31 04/27/24 18:32 Temperature Pulse Rate 88 103 H 85 Pulse Rate [Pulse Oximeter] Pulse Rate [Right Radial] Respiratory Rate Blood Pressure 117/64 Blood Pressure [Le ft Arm] Blood Pressure [Le ft Upper Arm] Blood Pressure [Ri ght Arm] Pulse Oximetry 94 95 94 Oxygen Delivery Me thod Nasal Cannula Oxygen Flow Rate 2 04/27/24 18:45 04/27/24 19:00 04/27/24 19:02 Temperature Pulse Rate 101 H 104 H 91 Pulse Rate [Pulse Oximeter] Pulse Rate [Right Radial] Respiratory Rate Blood Pressure 103/50 L Blood Pressure [Le ft Arm] Blood Pressure [Le ft Upper Arm] Blood Pressure [Ri ght Arm] Pulse Oximetry 94 92 97 Oxygen Delivery Me thod Nasal Cannula Nasal Cannula Nasal Cannula Oxygen Flow Rate 2 2 2 04/27/24 19:05 04/27/24 19:15 04/27/24 19:30 Temperature Pulse Rate 92 92 92 Pulse Rate [Pulse Oximeter] Pulse Rate [Right Radial] Respiratory Rate Blood Pressure 107/56 L Blood Pressure [Le ft Arm] Blood Pressure [Le ft Upper Arm] Blood Pressure [Ri ght Arm] Pulse Oximetry 94 95 95 Oxygen Delivery Me thod Nasal Cannula Nasal Cannula Nasal Cannula Oxygen Flow Rate 2 2 2 04/27/24 19:32 04/27/24 19:43 04/27/24 19:45 Temperature Pulse Rate 93 100 93 Pulse Rate [Pulse Oximeter] Pulse Rate [Right Radial] Respiratory Rate Blood Pressure 88/52 L 106/46 L Blood Pressure [Le ft Arm] Blood Pressure [Le ft Upper Arm] Blood Pressure [Ri ght Arm] Pulse Oximetry 96 94 95 Oxygen Delivery Me thod Nasal Cannula Nasal Cannula Nasal Cannula Oxygen Flow Rate 2 2 2 04/27/24 20:00 04/27/24 20:02 04/27/24 20:03 Temperature 99.4 F Pulse Rate 94 89 96 Pulse Rate [Pulse Oximeter] Pulse Rate [Right Radial] Respiratory Rate Blood Pressure 85/48 L Blood Pressure [Le ft Arm] Blood Pressure [Le ft Upper Arm] Blood Pressure [Ri ght Arm] Pulse Oximetry 94 94 95 Oxygen Delivery Me thod Nasal Cannula Nasal Cannula Oxygen Flow Rate 2 2 04/27/24 20:09 04/27/24 20:15 04/27/24 20:35 Temperature Pulse Rate 103 H 96 102 H Pulse Rate [Pulse Oximeter] Pulse Rate [Right Radial] Respiratory Rate 30 H 32 H Blood Pressure 88/54 L 94/52 L Blood Pressure [Le ft Arm] Blood Pressure [Le ft Upper Arm] Blood Pressure [Ri ght Arm] Pulse Oximetry 94 95 Oxygen Delivery Me thod Oxygen Flow Rate 04/27/24 20:41 04/27/24 20:45 04/27/24 20:47 Temperature Pulse Rate 96 92 100 Pulse Rate [Pulse Oximeter] Pulse Rate [Right Radial] Respiratory Rate 32 H Blood Pressure 84/51 L Blood Pressure [Le ft Arm] Blood Pressure [Le ft Upper Arm] Blood Pressure [Ri ght Arm] Pulse Oximetry 94 94 93 Oxygen Delivery Me thod Oxygen Flow Rate 04/27/24 21:00 04/27/24 21:01 04/27/24 21:15 Temperature Pulse Rate 92 89 94 Pulse Rate [Pulse Oximeter] Pulse Rate [Right Radial] Respiratory Rate 3 L Blood Pressure 92/58 L Blood Pressure [Le ft Arm] Blood Pressure [Le ft Upper Arm] Blood Pressure [Ri ght Arm] Pulse Oximetry 94 93 94 Oxygen Delivery Me thod Oxygen Flow Rate 04/27/24 21:19 04/27/24 21:37 04/27/24 21:47 Temperature Pulse Rate 94 Pulse Rate [Pulse Oximeter] Pulse Rate [Right Radial] Respiratory Rate 28 H Blood Pressure 86/59 L 86/53 L 85/43 L Blood Pressure [Le ft Arm] Blood Pressure [Le ft Upper Arm] Blood Pressure [Ri ght Arm] Pulse Oximetry 94 Oxygen Delivery Me thod Oxygen Flow Rate 04/27/24 22:02 04/27/24 22:06 04/27/24 22:13 Temperature Pulse Rate 92 87 Pulse Rate [Pulse Oximeter] Pulse Rate [Right Radial] Respiratory Rate 28 H Blood Pressure 83/45 L 86/57 L Blood Pressure [Le ft Arm] Blood Pressure [Le ft Upper Arm] Blood Pressure [Ri ght Arm] Pulse Oximetry 98 Oxygen Delivery Me thod Oxygen Flow Rate 04/27/24 22:15 04/27/24 22:17 04/27/24 22:30 Temperature Pulse Rate 85 88 93 Pulse Rate [Pulse Oximeter] Pulse Rate [Right Radial] Respiratory Rate 28 H Blood Pressure 81/52 L Blood Pressure [Le ft Arm] Blood Pressure [Le ft Upper Arm] Blood Pressure [Ri ght Arm] Pulse Oximetry 98 98 99 Oxygen Delivery Me thod Oxygen Flow Rate 04/27/24 22:32 04/27/24 22:45 04/27/24 22:47 Temperature Pulse Rate 90 91 92 Pulse Rate [Pulse Oximeter] Pulse Rate [Right Radial] Respiratory Rate 30 H Blood Pressure 110/46 L Blood Pressure [Le ft Arm] Blood Pressure [Le ft Upper Arm] Blood Pressure [Ri ght Arm] Pulse Oximetry 97 95 94 Oxygen Delivery Me thod Oxygen Flow Rate 04/27/24 22:49 04/27/24 22:50 04/27/24 23:00 Temperature Pulse Rate 86 97 96 Pulse Rate [Pulse Oximeter] Pulse Rate [Right Radial] Respiratory Rate 24 Blood Pressure 90/53 L Blood Pressure [Le ft Arm] Blood Pressure [Le ft Upper Arm] Blood Pressure [Ri ght Arm] Pulse Oximetry 95 91 92 Oxygen Delivery Me thod Oxygen Flow Rate 04/27/24 23:02 04/27/24 23:15 04/27/24 23:17 Temperature Pulse Rate 79 93 93 Pulse Rate [Pulse Oximeter] Pulse Rate [Right Radial] Respiratory Rate 24 24 Blood Pressure 93/48 L 90/59 L Blood Pressure [Le ft Arm] Blood Pressure [Le ft Upper Arm] Blood Pressure [Ri ght Arm] Pulse Oximetry 90 92 94 Oxygen Delivery Me thod Oxygen Flow Rate 04/27/24 23:30 04/27/24 23:32 04/27/24 23:45 Temperature Pulse Rate 85 88 94 Pulse Rate [Pulse Oximeter] Pulse Rate [Right Radial] Respiratory Rate Blood Pressure 95/63 Blood Pressure [Le ft Arm] Blood Pressure [Le ft Upper Arm] Blood Pressure [Ri ght Arm] Pulse Oximetry 94 94 91 Oxygen Delivery Me thod Oxygen Flow Rate 04/27/24 23:47 04/28/24 00:39 04/28/24 00:40 Temperature 97.9 F 97.5 F L Pulse Rate 89 Pulse Rate [Pulse Oximeter] Pulse Rate [Right Radial] 91 Respiratory Rate 24 Blood Pressure 95/47 L Blood Pressure [Le ft Arm] Blood Pressure [Le ft Upper Arm] Blood Pressure [Ri ght Arm] 100/59 L Pulse Oximetry 89 95 Oxygen Delivery Me thod Nasal Cannula Oxygen Flow Rate 1 04/28/24 00:40 04/28/24 01:02 04/28/24 01:22 Temperature Pulse Rate 87 Pulse Rate [Pulse Oximeter] Pulse Rate [Right Radial] 96 Respiratory Rate 24 24 Blood Pressure Blood Pressure [Le ft Arm] Blood Pressure [Le ft Upper Arm] Blood Pressure [Ri ght Arm] 101/58 L Pulse Oximetry 96 96 Oxygen Delivery Me thod Nasal Cannula Nasal Cannula Oxygen Flow Rate 1 1 04/28/24 01:39 04/28/24 02:00 04/28/24 02:02 Temperature Pulse Rate Pulse Rate [Pulse Oximeter] Pulse Rate [Right Radial] 77 Respiratory Rate 20 Blood Pressure Blood Pressure [Le ft Arm] Blood Pressure [Le ft Upper Arm] Blood Pressure [Ri ght Arm] 90/62 Pulse Oximetry 93 95 95 Oxygen Delivery Me thod Room Air Room Air Room Air Oxygen Flow Rate 04/28/24 03:00 04/28/24 03:02 04/28/24 03:03 Temperature Pulse Rate Pulse Rate [Pulse Oximeter] Pulse Rate [Right Radial] 74 Respiratory Rate 20 Blood Pressure Blood Pressure [Le ft Arm] Blood Pressure [Le ft Upper Arm] Blood Pressure [Ri ght Arm] 104/59 L Pulse Oximetry 96 94 96 Oxygen Delivery Me thod Room Air Room Air Room Air Oxygen Flow Rate 04/28/24 04:00 04/28/24 04:02 04/28/24 05:00 Temperature Pulse Rate Pulse Rate [Pulse Oximeter] Pulse Rate [Right Radial] 73 81 Respiratory Rate 23 28 H 28 H Blood Pressure Blood Pressure [Le ft Arm] Blood Pressure [Le ft Upper Arm] Blood Pressure [Ri ght Arm] 117/81 104/68 Pulse Oximetry 93 97 95 Oxygen Delivery Me thod Room Air Room Air Room Air Oxygen Flow Rate 04/28/24 05:02 04/28/24 06:00 04/28/24 06:02 Temperature Pulse Rate 83 Pulse Rate [Pulse Oximeter] Pulse Rate [Right Radial] 73 Respiratory Rate 29 H 29 H 29 H Blood Pressure 121/68 Blood Pressure [Le ft Arm] Blood Pressure [Le ft Upper Arm] Blood Pressure [Ri ght Arm] 121/68 Pulse Oximetry 97 95 96 Oxygen Delivery Me thod Room Air Oxygen Flow Rate 04/28/24 07:00 04/28/24 07:00 04/28/24 07:00 Temperature Pulse Rate 80 80 Pulse Rate [Pulse Oximeter] Pulse Rate [Right Radial] 84 Respiratory Rate 32 H 30 H Blood Pressure Blood Pressure [Le ft Arm] Blood Pressure [Le ft Upper Arm] Blood Pressure [Ri ght Arm] Pulse Oximetry 97 Oxygen Delivery Me thod Oxygen Flow Rate 04/28/24 07:02 04/28/24 08:00 Temperature 99.4 F Pulse Rate 76 Pulse Rate [Pulse Oximeter] 84 Pulse Rate [Right Radial] Respiratory Rate 30 H Blood Pressure 117/62 Blood Pressure [Le ft Arm] 125/62 Blood Pressure [Le ft Upper Arm] Blood Pressure [Ri ght Arm] Pulse Oximetry 95 97 Oxygen Delivery Me thod Room Air Room Air Oxygen Flow Rate Labs Labs: Laboratory Results - last 24 hr 04/27/24 04/27/24 04/27/24 18:00 18:42 19:42 WBC 8.19 RBC 3.98 L Hgb 12.1 L Hct 39.0 MCV 98 MCH 30 MCHC 31 L RDW Coeff of Guillermo 14.5 Plt Count 52 L Neut % (Auto) 94.8 H Lymph % (Auto) 2.8 L [place] % (Auto) 2.0 Eos % (Auto) 0.1 Baso % (Auto) 0.1 Neut # (Auto) 7.80 H Lymph # (Auto) 0.20 L [place] # (Auto) 0.20 Eos # (Auto) 0.01 Baso # (Auto) 0.01 Abs Immat Gran (auto) 0.02 Imm/Tot Granulo (auto) 0.2 Diff Slide Review Sodium 140 Potassium 4.0 Chloride 107 Carbon Dioxide 20 Anion Gap 13 BUN 42 H Creatinine 2.7 H Estimated Creat Clear 19.00 Estimated GFR 22 Glucose 172 H Lactate 2.5 H Calcium 9.2 Phosphorus Magnesium Total Bilirubin 2.0 H AST 23 ALT 20 Alkaline Phosphatase 64 Troponin I 0.02 C-Reactive Protein 0.7 NT-Pro-B Natriuret Pep 4530 Total Protein 7.4 Albumin 4.3 Procalcitonin 1.88 H Urine Color Yellow Urine Appearance Clear Urine pH 5.5 Ur Specific [place] 1.010 Urine Protein Negative Urine Glucose (UA) Negative Urine Ketones Negative Urine Blood Trace-lysed A Urine Nitrite Negative Urine Bilirubin Negative Urine Urobilinogen 0.2 Ur Leukocyte Esterase Negative Urine RBC 0-2 Urine WBC 0-2 Ur Squamous Epith Cells Few Urine Bacteria Few A Urine L. pneumophilia Ag Urine Strep pneumoniae Ag SARS-CoV-2 (PCR) Negative SARS-CoV-2 Influenza Type A (PCR) Negative PCR FLU A Influenza Type B (PCR) Negative PCR FLU B RSV (PCR) Negative PCR RSV 04/27/24 04/28/24 04/28/24 22:02 06:10 Unknown WBC 13.77 H RBC 3.89 L Hgb 11.8 L Hct 38.5 MCV 99 MCH 30 MCHC 31 L RDW Coeff of Guillermo 14.6 Plt Count 48 L* Neut % (Auto) 86.4 H Lymph % (Auto) 5.9 L [place] % (Auto) 7.3 Eos % (Auto) 0.0 Baso % (Auto) 0.0 Neut # (Auto) 11.90 H Lymph # (Auto) 0.80 L [place] # (Auto) 1.00 H Eos # (Auto) 0.00 Baso # (Auto) 0.00 Abs Immat Gran (auto) 0.10 Imm/Tot Granulo (auto) 0.4 Diff Slide Review Acceptable Review Sodium 139 Potassium 4.3 Chloride 106 Carbon Dioxide 21 Anion Gap 12 BUN 47 H Creatinine 3.0 H Estimated Creat Clear 17.10 Estimated GFR 20 Glucose 108 Lactate 2.3 H 2.8 H Calcium 8.8 Phosphorus 3.9 Magnesium 2.2 Total Bilirubin 2.5 H AST 41 H ALT 23 Alkaline Phosphatase 61 Troponin I C-Reactive Protein NT-Pro-B Natriuret Pep Total Protein 6.9 Albumin 3.9 Procalcitonin Urine Color Urine Appearance Urine pH Ur Specific [place] Urine Protein Urine Glucose (UA) Urine Ketones Urine Blood Urine Nitrite Urine Bilirubin Urine Urobilinogen Ur Leukocyte Esterase Urine RBC Urine WBC Ur Squamous Epith Cells Urine Bacteria Urine L. pneumophilia Ag L. pneumo Negative Urine Strep pneumoniae Ag S. pneumo Negative SARS-CoV-2 (PCR) Influenza Type A (PCR) Influenza Type B (PCR) RSV (PCR) 10:56 a.m. Lactate 5.2.
[2024-04-28 09:37] LABS: HCO3 VBG 20 mmol/L (21-28); PCO2 VBG 32 mmHG (40-50)
--- NOTE | 2024-04-28 09:39 | REH.OT ---
OT: Orders received, chart reviewed, OT/PT to hold today per MD. Will recheck status tomorrow and eval when appropriate.
--- NOTE | 2024-04-28 09:58 | NUTR.NU ---
Addendum entered and electronically signed by Precious Godfrey RD 04/28/24 10:06: I provided patient with a Heart Healthy menu which also has carbohydrates counts included, which is appropriate for his current diet orders. Original Note: RDN with diet education related to diabetic and heart healthy diet orders. Patient admitted for respiratory failure, sepsis and pneumonia. Past medical history includes Diabetes type 2 with atherosclerosis of arteries of extremities, Hyperlipidemia, Hypertension, Diastolic congestive heart failure, Coronary artery disease and CKD (chronic kidney disease) stage 4. Current weight 261 lb 4.8 oz; height 5ft 8in; BMI 39.7 kg/m2. No weight history to assess. Current diet diabetic and heart healthy. No intakes yet to assess. RDN visited with patient whom reported his weight has been stable recently. He reports good intakes at home. Tries to stick to a low sodium diet, never uses salt. RDN offered diet education related to diabetes, heart health, and CKD. Patient and designated caregiver () declined at this time. They had no questions or concerns. No nutrition interventions at this time as patient's weight is stable and intakes good. RDN will continue to monitor and follow-up prn.
[2024-04-28] MEDS: ACETAMINOPHEN 325 MG TABLET 975 MG PO (10:17)
[2024-04-28 11:01] LABS: Lactate* 5.2 mmol/L (0.5-1.9)
[2024-04-28] MEDS: 0.9 % SODIUM CHLORIDE 500 ML 500 ML 1000 ML IV ×2 (11:23→12:11)
--- NOTE | 2024-04-28 12:33 | PC.PHA ---
Vancomycin consult note: Indication for vancomycin: [SUSPTECTED SEPSIS] Age: [88] Height: [118.5 KG] Weight: [173 CM] Most recent SCr: [3.0] Estimated CrCL: [17 ML/MIN] Recommended dose and frequency: [1000 MG IV Q36 HR OVER ONE HOUR (AUC 512, TR APPROX 17)] to obtain an estimated AUC/GORGE of 400-600 mcg*hr/m Additional comment: [ALSO ON CEFTRIAXONE AND AZITHROMYCIN]
[2024-04-28 13:16] LABS: Lactate* 2.8 mmol/L (0.5-1.9)
[2024-04-28 13:34] LABS: Chloride* 108 mmol/L (96-114); Potassium* 4.2 mmol/L (3.6-5.1); Sodium* 139 mmol/L (135-149)
[2024-04-28 13:37] LABS: Creatinine* 3.1 mg/dL (0.5-1.5); Est. Creatinine Clearance* 16.55; Estimated Glomerular Filt Rate 19 ml/min
[2024-04-28 13:38] LABS: Anion Gap 13 mEq/L (7-15); Blood Urea Nitrogen* 55 mg/dL (7-30); Calcium* 8.6 mg/dL (8.4-10.6); Carbon Dioxide* 18 mmol/L (20-32); Glucose* 132 mg/dL (60-115)
--- NOTE | 2024-04-28 13:55 | CRLHL7_ITS ---
For Patients: As a result of the Century Cures Act, medical imaging exams and procedure reports are released immediately into your electronic medical record. You may view this report before your referring provider. If you have questions, please contact your health care provider. Indication: PICC placement Technique: AP view of the chest. Comparison: 04/27/2024. Findings: Postsurgical changes from median sternotomy. Right PICC with tip near the superior cavoatrial junction. Moderately enlarged cardiomediastinal silhouette. Low lung volumes. Retrocardiac opacity. Impression: Right PICC with tip near the superior cavoatrial junction. Retrocardiac opacity may represent atelectasis or infection. Dictated by Yaya Leal MD @ 04/28/2024 7:39:54 PM (Electronically Signed)
[2024-04-28] MEDS: PERFLUTREN LIPID MICROSPHERES 2 ML VIAL IVP (14:01)
[2024-04-28] MEDS: 0.9 % SODIUM CHLORIDE 1000 ml 1,000 ML 250 ML IV (14:20)
[2024-04-28 17:15] LABS: HCO3 VBG 21 mmol/L (21-28); Lactate* 2.3 mmol/L (0.5-1.9); PCO2 VBG 39 mmHG (40-50); PO2 VBG 31.3 mmHG (25-47); pH VBG 7.343 (7.32-7.43)
[2024-04-28] MEDS: INSULIN ASPART 100 UNIT/ML SUBCUT (17:17)
--- NOTE | 2024-04-28 18:55 | PC.NURSE ---
End of shift [id number]: Pt has been A&O this shift. He is very TRIBAL which could be mistaken for confusion. Pt had T-max of 100.1 late this morning which was resolved with x1 dose PRN Tylenol @ 1015. VSS with exception to intermittent soft BPs. MAP?s have maintained > 60. Pt received x1 250mL bolus and x2 500mL bolus. 1L maintenance fluids given @ 250 mL/hr. Pt had an XL loose BM this morning. Sputum & MRSA cultures obtained with results still pending. PIV in bilateral forearms SL and C/D/I. Myla is currently on hold d/t low platelets (48). TELE showed A. Fib with BBB and a known prolonged QT. He is on a heart healthy diet and has been compliant with ordering. Coarse crackles heard through bilateral bases this morning but more inspiratory rhonchi with diminished bases this afternoon. He is Ax1 with gait belt and 2ww for transfers and ambulation. Rivera catheter is intact & patent, urine has been clementina in color with some blood clots. Total output this shift: 400 mL. Pt has been wearing CPAP most of the day when he is not eating or visiting to prevent pulmonary edema. Blood sugars have been 104 > 133 > 239; see eMAR for insulin admin. Lactate has been 2.8 > 5.2 > 2.8 > 2.3. ABG?s were WNL with exception to a slightly low pCO2 at 39. Bedside ECHO completed today showing EF on the lower end of normal. PICC stat here at [address] PICC line. ?
[2024-04-28 21:06] LABS: HCO3 VBG 23 mmol/L (21-28); Lactate* 1.6 mmol/L (0.5-1.9); PCO2 VBG 38 mmHG (40-50); PO2 VBG < 30.1 mmHG (25-47); pH VBG 7.393 (7.32-7.43)
[2024-04-29] VITALS (12 sets, daily range): BP systolic 119–142; BP diastolic 64–86; PULSE 75–98; RESP 20–28; TEMP 36.4–37; O2SAT 96–99
[2024-04-29] MEDS: cefTRIAXone 2 GM in 0.9 % SODIUM CHLORIDE Mini-bag 100 ML IVPB (01:56)
[2024-04-29 06:16] LABS: Basophils Percent Auto 0.1 % (0.0-3.0); Hemoglobin* 10.4 gm/dL (13.5-17.5); Immature Granulocytes Pct Auto 0.5 %; Mean Corpuscular HGB Conc 31 gm/dL (32-36); Mean Corpuscular Hemoglobin 30 pg (26-34); Mean Corpuscular Volume 98 fL (80-100); Monocytes Percent Auto 6.3 % (0.0-11.0); Neutrophils Percent Auto 87.1 % (42.0-72.0); RDW Coefficient of Variation % 14.7 % (11.5-15.5); Red Blood Count 3.47 m/uL (4.30-5.90)
[2024-04-29 06:19] LABS: Platelet Count* 43 K/uL (140-440); Slide Review Reflex Yes
[2024-04-29 06:20] LABS: Slide Review Acceptable Review (Acceptable)
--- NOTE | 2024-04-29 06:23 | PC.NURSE ---
End of shift note [id number]: Pt noted to be alert & oriented x 4 and able to make needs known. He is OUZINKIE at baseline and reports he does not hear well out of L ear. He is transferring/ambulating with SBA using FWW and gait belt. Pt on telemetry with A fib noted throughout the shift which is not a new finding. Pt also has occasional PVCs noted & BBB which are also not new findings. Pt has been afebrile and CPAP has been worn throughout the shift with home settings in place. Pt has been denying pain throughout the shift. Lung sounds noted to have expiratory rhonchi at start of shift assessment though no further rhonchi heard upon auscultation for remainder of shift. Double lumen PICC in place to RUE per order given on 04/28/24. Pt also has IVs to bilateral forearms which are patent and SL. Bed/chair alarms on for safety and call light within reach. Rivera catheter in place with 775 mL of light clementina urinary output noted throughout the shift. Pt continent of bowel using toilet. Pt able to reposition independently in bed- staff did assist with placement of pillows and assist if pt needed help boosting up in bed.
[2024-04-29 06:29] LABS: Albumin* 3.6 g/dL (3.3-5.0); Chloride* 109 mmol/L (96-114)
[2024-04-29 06:30] LABS: Potassium* 3.9 mmol/L (3.6-5.1); Sodium* 138 mmol/L (135-149)
[2024-04-29 06:32] LABS: Alkaline Phosphatase* 63 U/L (40-150); Anion Gap 11 mEq/L (7-15); Aspartate Amino Transferase* 61 U/L (12-35); Bilirubin Direct* 0.6 mg/dL (0.0-0.5); Bilirubin Total* 1.7 mg/dL (0.1-1.5); Blood Urea Nitrogen* 54 mg/dL (7-30); Carbon Dioxide* 18 mmol/L (20-32); Creatinine* 2.8 mg/dL (0.5-1.5); Est. Creatinine Clearance* 18.32; Estimated Glomerular Filt Rate 21 ml/min; Glucose* 123 mg/dL (60-115); Total Protein* 6.8 g/dL (6.0-8.3)
[2024-04-29 06:33] LABS: Alanine Aminotransferase* 32 U/L (4-50); Calcium* 8.5 mg/dL (8.4-10.6)
[2024-04-29] MEDS: ATORVASTATIN 10 MG TABLET 20 MG PO (10:31)
[2024-04-29] MEDS: ASPIRIN 81 MG TABLET EC PO (10:31)
[2024-04-29] MEDS: SODIUM CHLORIDE 0.9 % (FLUSH) 10 ML SYRINGE 5 ML IVF ×3 (10:31→23:37)
[2024-04-29] MEDS: 0.9 % SODIUM CHLORIDE 250 ml IV (10:32)
[2024-04-29] MEDS: VANCOMYCIN 1 GM/200 ML 1 GM/200 ML PIGGYBACK IVPB (10:32)
--- NOTE | 2024-04-29 14:53 | P.IMPN_ITS ---
Progress Note: A&P Assessment and plan (1) Acute hypoxic respiratory failure: Problem details: - secondary to pneumonia and possibly complicated by pleural effusion - not currently requiring oxygen support. Due to tachypnea I have obtained a VBG, which is fairly unremarkable, and started him on his usual home CPAP. If patient?s respiratory status deteriorates, will repeat a chest x-ray order a repeat ABG/VBG. - Treat pneumonia and diastolic CHF as below - 04/29 No longer hypoxic or tachypneic Status: Resolved (2) Sepsis associated hypotension: Problem details: - Severe sepsis - continue follow-up blood culture and urine culture, both still pending. - continue broad IV antibiotics, azithromycin, cefepime and vanco for persistent severe sepsis (based on elevated lactate, no longer hypotensive) - continue to treat with IVF and follow lactic acid until < 2, IVF held overnight for concern of CHF/volume overload with developing tachypnea, pleural effusion and BNP >4500. Holding lasix. Ordering reduced IVF boluses this am due to CHF and pleural effusion. Will need to monitor respiratory status as patient is at risk for pulmonary edema. Patient is DNR/DNI. Patient uses CPAP at home and I have asked RT to see him and use his home CPAP today even while awake to try to prevent pulmonary edema during IVF resuscitation. -continue alarm security or surveillance monitor, CCU status, obtain ECHO, place central line for CVP monitoring. -Urinary output monitoring with a Olivares catheter, UO low, 0.11cc/hr. Continue IVF resuscitation as above, continue to monitor UO. -hold apixaban for AFib, as below - continue hold blood pressure medications due to soft blood pressures. - 04/29 Lactate improved to 1.6 yesterday after IVF. No longer hypotensive. Status: Resolved (3) Severe sepsis: Problem details: - as above Status: Resolved (4) Lactic acidosis: Problem details: Lactate continues to increase. Patient is not hypoxic despite having h/o CHF and signs of current volume overload. Be more aggressive with fluid resuscitation. Restart IV fluid maintenance at 75 mL. Give more boluses (low volume each), reassess labs. I've asked Dr. Tucker from gen surg to place a central line for CVP monitoring. Status: Resolved (5) Community acquired pneumonia: Problem details: Treatment as above for sepsis Sputum culture pending Pneumoniae and legionella antigen negative MRSA screen negative, stop vancomycin. Continue cefepime and azithromycin. Status: Acute (6) Pleural effusion on right: Problem details: -consolidation and pleural effusion are suspicious of malignancy. If pleural effusion continues to be chronic it will need thoracentesis and analysis +cytology. Discussed this with patient and family 04/28/24. Status: Acute (7) KRYTSEN (acute kidney injury): Problem details: - Cr 2.5 at baseline. Cr 3 on 04/28. Cr 2.8 today. - Restart home lasix this afternoon, recheck labs in am. - Probable d/c olivares in am. Status: Acute (8) CKD (chronic kidney disease) stage 4, GFR 15-29 ml/min: Problem details: baseline Cr 2.5 Status: Chronic (9) Coronary artery disease: Problem details: No chest pain EKG and troponin are unremarkable Status: Chronic (10) Fluid overload: Problem details: -possible, see severe sepsis above, treating severe sepsis as above, restarting home lasix this afternoon. Status: Acute (11) Diastolic congestive heart failure: Problem details: chronic, stable Status: Chronic (12) Atrial fibrillation: Problem details: holding apixaban due to thrombocytopenia (platelets less than 50). Status: Chronic (13) Current use of long term care social worker anticoagulation: Status: Chronic (14) Hypertension: Problem details: Hold blood pressure medications yet today. May restart them tomorrow. Status: Chronic (15) Hyperlipidemia: Status: Chronic (16) Thrombocytopenia: Problem details: - - Unclear if severe thrombocytopenia is chronic, may need anticoagulation held long term care social worker and outpatient w/u for severe thrombocytopenia, since platelets are less than 50. Most recent outpatient platelet count was at [facility] in 2017, platelets were 100. 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 Greater than 50% included discussing care with the patient, family, team, reviewing data, updating and managing the care plan. Subjective Time Seen by Provider: 07:55 Date Seen: 04/29/24 Interval history: Vernon tells me that he had trouble with his home CPAP for most of the night. This morning his RR has improved and he was able to take his BiPAP off when he woke up for the day. He denies shortness of breath. Pain in his left abdomen from where he hit it on the arm of his couch is getting better. UO improving. His , Maritza, and son, Juan F, came in later in the morning. I went back in to see him and gave them an update, noting that sepsis had resolved, pneumonia was responding to antibiotics and his platelets remain low. His son asked about the urinary catheter, noting that it was placed in the ER. Exam Narrative: Exam Narrative: General: No acute distress. Sitting comfortably in the chair. Able to talk in full sentences, smiling, expressing concerns about his who was supposed to have some tooth extractions today. Tachypneic. Awake, alert, oriented x3. No pallor. No jaundice. Oropharynx: Clear. Mucous membranes moist. Cardiovascular: Irregularly irregular. No murmurs, gallops, or rubs. Respiratory: Decreased breath sounds over bilateral lower lung clifton. No crackles, no wheezes. Abdomen: Obese, protuberant. No ecchymosis. Bowel sounds present. Soft, nondistended, nontender. Extremities: Trace bilateral pretibial edema, unchanged. Const: Vital Signs, click to edit/add: Vital Signs - 24 hr 04/28/24 15:00 04/28/24 15:00 04/28/24 16:00 Temperature 98.4 F Pulse Rate 74 Pulse Rate [Pulse Oximeter] 73 70 Respiratory Rate 28 H 26 H Blood Pressure [Le ft Arm] 117/61 Pulse Oximetry 99 Oxygen Delivery Me thod Room Air 04/28/24 18:00 04/28/24 19:22 04/28/24 19:31 Temperature 97.9 F 97.8 F Pulse Rate 82 Pulse Rate [Pulse Oximeter] 81 83 Respiratory Rate 28 H 28 H Blood Pressure [Le ft Arm] 108/66 116/68 Pulse Oximetry 99 97 Oxygen Delivery Me thod CPAP CPAP 04/28/24 19:59 04/28/24 21:03 04/28/24 22:52 Temperature 98.0 F Pulse Rate 84 Pulse Rate [Pulse Oximeter] 83 74 Respiratory Rate 28 H 24 Blood Pressure [Le ft Arm] 119/63 Pulse Oximetry 97 Oxygen Delivery Me thod CPAP 04/28/24 23:00 04/28/24 23:09 04/29/24 01:07 Temperature 97.7 F 97.7 F Pulse Rate Pulse Rate [Pulse Oximeter] 88 88 98 Respiratory Rate 20 20 24 Blood Pressure [Le ft Arm] 114/72 119/73 Pulse Oximetry 98 98 Oxygen Delivery Me thod CPAP CPAP 04/29/24 03:00 04/29/24 03:05 04/29/24 03:13 Temperature 98.1 F Pulse Rate 94 Pulse Rate [Pulse Oximeter] 85 85 Respiratory Rate 20 20 Blood Pressure [Le ft Arm] 123/64 Pulse Oximetry 97 Oxygen Delivery Me thod CPAP 04/29/24 05:02 04/29/24 07:00 04/29/24 07:00 Temperature 97.6 F Pulse Rate 91 Pulse Rate [Pulse Oximeter] 87 91 Respiratory Rate 24 26 H Blood Pressure [Le ft Arm] 123/69 Pulse Oximetry 98 Oxygen Delivery Me thod CPAP 04/29/24 07:00 04/29/24 11:00 Temperature 98.6 F 97.9 F Pulse Rate Pulse Rate [Pulse Oximeter] 91 89 Respiratory Rate 26 H 22 Blood Pressure [Le ft Arm] 140/72 H 142/86 H Pulse Oximetry 97 96 Oxygen Delivery Me thod Room Air Room Air Labs Labs: Laboratory Results - last 24 hr 04/28/24 04/28/24 04/29/24 17:05 21:03 05:57 WBC 15.20 H RBC 3.47 L Hgb 10.4 L Hct 34.0 L MCV 98 MCH 30 MCHC 31 L RDW Coeff of Guillermo 14.7 Plt Count 43 L* Neut % (Auto) 87.1 H Lymph % (Auto) 6.0 L [place] % (Auto) 6.3 Eos % (Auto) 0.0 Baso % (Auto) 0.1 Neut # (Auto) 13.20 H Lymph # (Auto) 0.90 [place] # (Auto) 1.00 H Eos # (Auto) 0.00 Baso # (Auto) 0.00 Abs Immat Gran (auto) 0.10 Imm/Tot Granulo (auto) 0.5 Diff Slide Review Acceptable Review VBG pH 7.343 7.393 VBG pCO2 39 L 38 L VBG pO2 31.3 < 30.1 VBG HCO3 21 23 Sodium 138 Potassium 3.9 Chloride 109 Carbon Dioxide 18 L Anion Gap 11 BUN 54 H Creatinine 2.8 H Estimated Creat Clear 18.32 Estimated GFR 21 Glucose 123 H Lactate 2.3 H 1.6 Calcium 8.5 Total Bilirubin 1.7 H Direct Bilirubin 0.6 H AST 61 H ALT 32 Alkaline Phosphatase 63 Total Protein 6.8 Albumin 3.6
[2024-04-29] MEDS: FUROSEMIDE 20 MG TABLET 60 MG PO (16:30)
--- NOTE | 2024-04-29 18:45 | PC.NURSE ---
PATIENT UP WITH A1, WALKER AND GAIT BELT TO BATHROOM AND RECLINER. SOB WITH EXERTION BUT O2 SATS 94-98%RA. PRODUCTIVE COUGH WITH RUST, BLOOD STREAKED SPUTUM. REPORTS DECREASED APPETITE BUT DENIES N/V. DENIES PAIN. BP'S 130'S-140'S/70-80'S. AFEBRILE.
[2024-04-29] MEDS: AZITHROMYCIN 500 MG in 0.9 % SODIUM CHLORIDE 250 ml 250 ML 255 MG IVPB (23:35)
[2024-04-30] VITALS (9 sets, daily range): BP systolic 120–135; BP diastolic 66–89; PULSE 73–97; RESP 20–28; TEMP 36.3–37.1; O2SAT 93–98
[2024-04-30] MEDS: cefTRIAXone 2 GM in 0.9 % SODIUM CHLORIDE Mini-bag 100 ML IVPB (02:08)
[2024-04-30 06:17] LABS: Basophils Percent Auto 0.1 % (0.0-3.0); Eosinophils Percent Auto 0.3 % (0.0-7.0); Hematocrit 32.2 % (37.0-53.0); Immature Granulocytes Pct Auto 0.4 %; Lymphocytes Percent Auto 5.8 % (20-44); Mean Corpuscular HGB Conc 31 gm/dL (32-36); Mean Corpuscular Hemoglobin 30 pg (26-34); Mean Corpuscular Volume 98 fL (80-100); Monocytes Percent Auto 5.6 % (0.0-11.0); Neutrophils Percent Auto 87.8 % (42.0-72.0); RDW Coefficient of Variation % 14.6 % (11.5-15.5); Red Blood Count 3.29 m/uL (4.30-5.90); White Blood Count* 12.81 K/uL (4.50-11.00)
[2024-04-30 06:22] LABS: Platelet Count* 42 K/uL (140-440); Slide Review Reflex Yes
[2024-04-30 06:25] LABS: Slide Review Acceptable Review (Acceptable)
[2024-04-30 06:33] LABS: Albumin* 3.4 g/dL (3.3-5.0)
[2024-04-30 06:34] LABS: Chloride* 109 mmol/L (96-114); Potassium* 3.6 mmol/L (3.6-5.1); Sodium* 139 mmol/L (135-149)
[2024-04-30 06:36] LABS: Anion Gap 10 mEq/L (7-15); Aspartate Amino Transferase* 54 U/L (12-35); Bilirubin Direct* 0.6 mg/dL (0.0-0.5); Bilirubin Total* 1.5 mg/dL (0.1-1.5); Blood Urea Nitrogen* 51 mg/dL (7-30); Carbon Dioxide* 20 mmol/L (20-32); Creatinine* 2.4 mg/dL (0.5-1.5); Est. Creatinine Clearance* 21.38; Estimated Glomerular Filt Rate 26 ml/min; Total Protein* 6.7 g/dL (6.0-8.3)
[2024-04-30 06:37] LABS: Alanine Aminotransferase* 45 U/L (4-50); Alkaline Phosphatase* 77 U/L (40-150); Calcium* 8.6 mg/dL (8.4-10.6); Glucose* 130 mg/dL (60-115)
[2024-04-30] MEDS: FUROSEMIDE 20 MG TABLET 60 MG PO ×2 (07:53→14:43)
[2024-04-30 08:02] LABS: Immature Reticulocyte Fraction 26.7 % (2.3-13.4); Reticulocyte Hemoglobin Equivi 28.1 pg (29.0-35.0); Reticulocyte Percent 1.6 % (0.5-2.0); Reticulocytes Absolute 0.05 # (0.03-0.08)
[2024-04-30] MEDS: TAMSULOSIN HCL 0.4 MG CAPSULE 0.8 MG PO (08:53)
[2024-04-30] MEDS: ATORVASTATIN 10 MG TABLET 20 MG PO (08:53)
[2024-04-30] MEDS: FINASTERIDE 5 MG TABLET PO (08:53)
--- NOTE | 2024-04-30 16:04 | P.IMPN_ITS ---
Progress Note: A&P Assessment and plan (1) Acute hypoxic respiratory failure: Problem details: - secondary to pneumonia and possibly complicated by pleural effusion - not currently requiring oxygen support. Due to tachypnea I have obtained a VBG, which is fairly unremarkable, and started him on his usual home CPAP. If patient?s respiratory status deteriorates, will repeat a chest x-ray order a repeat ABG/VBG. - Treat pneumonia and diastolic CHF as below - 04/29 No longer hypoxic or tachypneic Status: Resolved (2) Sepsis associated hypotension: Problem details: - Severe sepsis - continue follow-up blood culture and urine culture, both still pending. - continue broad IV antibiotics, azithromycin, cefepime and vanco for persistent severe sepsis (based on elevated lactate, no longer hypotensive) - continue to treat with IVF and follow lactic acid until < 2, IVF held overnight for concern of CHF/volume overload with developing tachypnea, pleural effusion and BNP >4500. Holding lasix. Ordering reduced IVF boluses this am due to CHF and pleural effusion. Will need to monitor respiratory status as patient is at risk for pulmonary edema. Patient is DNR/DNI. Patient uses CPAP at home and I have asked RT to see him and use his home CPAP today even while awake to try to prevent pulmonary edema during IVF resuscitation. -continue athletic monitor, CCU status, obtain ECHO, place central line for CVP monitoring. -Urinary output monitoring with a Olivares catheter, UO low, 0.11cc/hr. Continue IVF resuscitation as above, continue to monitor UO. -hold apixaban for AFib, as below - continue hold blood pressure medications due to soft blood pressures. - 04/29 Lactate improved to 1.6 yesterday after IVF. No longer hypotensive. Status: Resolved (3) Severe sepsis: Problem details: - as above Status: Resolved (4) Lactic acidosis: Problem details: Lactate continues to increase. Patient is not hypoxic despite having h/o CHF and signs of current volume overload. Be more aggressive with fluid resuscitation. Restart IV fluid maintenance at 75 mL. Give more boluses (low volume each), reassess labs. I've asked Dr. Tucker from gen surg to place a central line for CVP monitoring. Status: Resolved (5) Community acquired pneumonia: Problem details: Sputum culture negative Pneumoniae and legionella antigen negative MRSA screen negative, stopped vancomycin. - Continue cefepime and azithromycin, WBC improving, afebrile x24 hours, BP improving, no hypoxia. May be able to d/c home tomorrow. Status: Acute (6) Pleural effusion on right: Problem details: -consolidation and pleural effusion are suspicious of malignancy. If pleural effusion continues to be chronic it will need thoracentesis and analysis +cytology. Discussed this with patient and family 04/28/24. Status: Acute (7) KRYSTEN (acute kidney injury): Problem details: - Cr 2.5 at baseline. Cr 3 on 04/28. Cr 2.8 on 04/29. Cr 2.4 today. - Restarted home lasix yesterday. Restart home BP meds tomorrow. - d/c olivares today Status: Resolved (8) CKD (chronic kidney disease) stage 4, GFR 15-29 ml/min: Problem details: baseline Cr 2.5 Status: Chronic (9) Coronary artery disease: Problem details: No chest pain EKG and troponin are unremarkable Status: Chronic (10) Fluid overload: Problem details: -possible, see severe sepsis above, treating severe sepsis as above, restarted home lasix Status: Acute (11) Diastolic congestive heart failure: Problem details: chronic, stable Status: Chronic (12) Atrial fibrillation: Problem details: holding apixaban due to thrombocytopenia (platelets less than 50). Status: Chronic (13) Current use of predatory animal exterminator anticoagulation: Problem details: - on hold due to thrombocytopenia Status: Chronic (14) Hypertension: Problem details: Hold blood pressure medications yet today. Restart home meds tomorrow. Status: Chronic (15) Hyperlipidemia: Status: Chronic (16) Thrombocytopenia: Problem details: - Unclear if severe thrombocytopenia is chronic, may need anticoagulation held predatory animal exterminator and outpatient w/u for severe thrombocytopenia, since platelets are less than 50. Most recent outpatient platelet count was at [facility] in 2017, platelets were 100. - thrombocytopenia is stable - blood smear sent this morning - will have patient follow-up as an outpatient with his primary care provider to recheck a platelet count about 5-7 days. 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 Greater than 50% included discussing care with the patient, family, team, reviewing data, updating and managing the care plan. Subjective Time Seen by Provider: 11:05 Date Seen: 04/30/24 Interval history: Dejuan feels well. He denies complaints. His family was there with him in the late morning when I saw him. We talked extensively about thrombocytopenia, and I noted that he had a history of it, but his last platelet count was many years ago and so it is possible that he has had low platelets for a while and we just were not aware. We talked about how he will likely go home off Eliquis and aspirin due to the risk of bleeding with thrombocytopenia, however this also puts him at risk for stroke, but the risk of bleeding far outweighs the risk of stroke at this point. The patient and his family were understanding and will follow up with Dr. Chang as an outpatient for recheck of his labs. Exam Narrative: Exam Narrative: General: No acute distress. Awake, alert, oriented x3. No pallor. No jaundice. Oropharynx: Clear. Mucous membranes moist. Cardiovascular: Irregularly irregular. No murmurs, gallops, or rubs. Respiratory: Decreased breath sounds over bilateral lower lung clif[place]. No crackles, no wheezes. Abdomen: Obese, protuberant. Bowel sounds present. Soft, nondistended, nonten ronnie. Extremities: Trace bilateral pretibial edema, unchanged. Const: Vital Signs, click to edit/add: Vital Signs - 24 hr 04/29/24 19:21 04/29/24 22:33 04/29/24 22:35 Temperature 98.6 F 98.1 F Pulse Rate 75 Pulse Rate [Pulse Oximeter] 90 79 Respiratory Rate 28 H 24 Blood Pressure [Le ft Arm] 127/80 136/77 Pulse Oximetry 96 99 Oxygen Delivery Me thod Room Air CPAP Oxygen Flow Rate 0 04/29/24 22:57 04/30/24 04:11 04/30/24 07:00 Temperature 97.6 F Pulse Rate 84 Pulse Rate [Pulse Oximeter] 79 88 Respiratory Rate 24 28 H Blood Pressure [Le ft Arm] 127/71 Pulse Oximetry 97 Oxygen Delivery Me thod CPAP Oxygen Flow Rate 0 04/30/24 07:56 04/30/24 11:30 04/30/24 15:41 Temperature 98.7 F 98.5 F Pulse Rate 91 Pulse Rate [Pulse Oximeter] 97 Respiratory Rate 26 H 28 H Blood Pressure [Le ft Arm] 120/70 132/77 Pulse Oximetry 97 93 Oxygen Delivery Me thod Room Air Room Air Oxygen Flow Rate Labs Labs: Laboratory Results - last 24 hr 04/30/24 05:45 WBC 12.81 H RBC 3.29 L Hgb 10.0 L Hct 32.2 L MCV 98 MCH 30 MCHC 31 L RDW Coeff of Guillermo 14.6 Plt Count 42 L* Neut % (Auto) 87.8 H Lymph % (Auto) 5.8 L [place] % (Auto) 5.6 Eos % (Auto) 0.3 Baso % (Auto) 0.1 Neut # (Auto) 11.20 H Lymph # (Auto) 0.70 L [place] # (Auto) 0.70 Eos # (Auto) 0.00 Baso # (Auto) 0.00 Abs Immat Gran (auto) 0.10 Imm/Tot Granulo (auto) 0.4 Diff Slide Review Acceptable Review Absolute Retic 0.05 Percent Retic 1.6 Immature Retic Fraction 26.7 H Retic Hgb Equivalent 28.1 L Sodium 139 Potassium 3.6 Chloride 109 Carbon Dioxide 20 Anion Gap 10 BUN 51 H Creatinine 2.4 H Estimated Creat Clear 21.38 Estimated GFR 26 Glucose 130 H Calcium 8.6 Total Bilirubin 1.5 Direct Bilirubin 0.6 H AST 54 H ALT 45 Alkaline Phosphatase 77 Total Protein 6.7 Albumin 3.4
--- NOTE | 2024-04-30 16:08 | RESP.RT ---
Patient own CPAP was brought in by family and had water still in the reservoir that leaked throughout the CPAP unit. The CPAP was allowed to dry and seems to be working properly. We are recommending that he conitinue to wear his CPAP during the day when resting along with his traditional night time use.
--- NOTE | 2024-04-30 18:52 | PC.NURSE ---
End of Shift: The patient is alert and orientated. Although, the patient does not follow directions/ recommendations to press the call button to ambulate with assistance despite education throughout the day. The patients olivares was removed and has voided a few times since. No reports of pain. Tachypnea persist @ rest MD is aware. The patient hopes to go home tomorrow. NELLY PICC is patent. Tele in place. Nasreen KENNY BSN
[2024-05-01] MEDS: SODIUM CHLORIDE 0.9 % (FLUSH) 10 ML SYRINGE 5 ML IVF ×2 (01:59→08:25)
[2024-05-01] MEDS: cefTRIAXone 2 GM in 0.9 % SODIUM CHLORIDE Mini-bag 100 ML IVPB (02:00)
[2024-05-01 02:02] VITALS: BP 140/82; PULSE 78; RESP 20; TEMP 36.9; O2SAT 96
--- NOTE | 2024-05-01 06:18 | PC.NURSE ---
End of shift [id number]: Pt AxOx4, cooperative, and pleasant. Pt has used call light appropriately during shift.?Pt denies pain/nausea/headache. SOB upon exertion. TELE in place. Pt continent/incontinent of the bladder. Pt had 1 wet brief with a scant BM. Pt used the bathroom multiple times throughout the night. SBA GB W. CIPAP malfunction while Pt was wearing ? CPAP no longer operating correctly. Pt has been on RA since 2329, tolerating well. Pt appears resting comfortably with call light in reach. ?
[2024-05-01 06:44] LABS: Basophils Absolute Auto 0.01 K/uL (0.00-0.30); Basophils Percent Auto 0.1 % (0.0-3.0); Eosinophils Absolute Auto 0.07 K/uL (0.00-0.50); Eosinophils Percent Auto 0.8 % (0.0-7.0); Hematocrit 30.3 % (37.0-53.0); Hemoglobin* 9.4 gm/dL (13.5-17.5); Immature Granulocytes Abs Auto 0.06 K/uL (0.00-0.30); Immature Granulocytes Pct Auto 0.7 %; Lymphocytes Percent Auto 7.6 % (20-44); Mean Corpuscular HGB Conc 31 gm/dL (32-36); Mean Corpuscular Hemoglobin 30 pg (26-34); Mean Corpuscular Volume 97 fL (80-100); Monocytes Percent Auto 7.2 % (0.0-11.0); Neutrophils Percent Auto 83.6 % (42.0-72.0); RDW Coefficient of Variation % 14.4 % (11.5-15.5); Red Blood Count 3.12 m/uL (4.30-5.90); White Blood Count* 8.81 K/uL (4.50-11.00)
[2024-05-01 06:56] LABS: Platelet Count* 49 K/uL (140-440); Slide Review Reflex No
[2024-05-01 06:57] LABS: Albumin* 3.3 g/dL (3.3-5.0); Chloride* 109 mmol/L (96-114)
[2024-05-01 06:58] LABS: Potassium* 3.6 mmol/L (3.6-5.1); Sodium* 140 mmol/L (135-149)
[2024-05-01 07:00] VITALS: BP 152/92; PULSE 77; PULSE 96; RESP 22; TEMP 36.6; O2SAT 96
[2024-05-01 07:00] LABS: Anion Gap 9 mEq/L (7-15); Bilirubin Direct* 0.8 mg/dL (0.0-0.5); Bilirubin Total* 1.7 mg/dL (0.1-1.5); Carbon Dioxide* 22 mmol/L (20-32); Creatinine* 2.1 mg/dL (0.5-1.5); Est. Creatinine Clearance* 24.43; Estimated Glomerular Filt Rate 30 ml/min; Total Protein* 6.6 g/dL (6.0-8.3)
[2024-05-01 07:01] LABS: Alanine Aminotransferase* 70 U/L (4-50); Alkaline Phosphatase* 93 U/L (40-150); Aspartate Amino Transferase* 65 U/L (12-35); Blood Urea Nitrogen* 46 mg/dL (7-30); Calcium* 8.6 mg/dL (8.4-10.6); Glucose* 138 mg/dL (60-115)
[2024-05-01 07:45] LABS: INR 1.29 (0.91-1.10); Prothrombin Time 16.9 Seconds
[2024-05-01] MEDS: VITAMIN E 400 UNIT CAPSULE PO (08:23)
[2024-05-01] MEDS: atenoloL 50 MG TABLET PO (08:23)
[2024-05-01] MEDS: FUROSEMIDE 20 MG TABLET 60 MG PO ×2 (08:24→14:40)
[2024-05-01] MEDS: FINASTERIDE 5 MG TABLET PO (08:24)
[2024-05-01] MEDS: GLIMEPIRIDE 1 MG TABLET PO (08:24)
[2024-05-01] MEDS: TAMSULOSIN HCL 0.4 MG CAPSULE 0.8 MG PO (08:24)
[2024-05-01 12:26] LABS: Hemoglobin* 10.9 gm/dL (13.5-17.5)
--- NOTE | 2024-05-01 13:47 | PC.NURSE ---
End of shift Note: Patient has been up and about in his room indep with a walker. He was a little upset that he is not able to discharge as soon as he wants too. He needs to have an US d/t increase LFT's. He had breakfast early this am so d/t is why he is having to wait for this scan. He is currently NPO and is in bed awaiting his US will most likely discharge home after his scan. Will continue to monitor until next shift arrives. I have not taken out his IV's or PICC line as waiting to make sure he is for sure discharging home before removing these. His monitoring specialist was discontinued this am.
--- NOTE | 2024-05-01 14:00 | CRLHL7_ITS ---
For Patients: As a result of the Century Cures Act, medical imaging exams and procedure reports are released immediately into your electronic medical record. You may view this report before your referring provider. If you have questions, please contact your health care provider. INDICATION: Elevated LFTs. TECHNIQUE: Ultrasound abdomen limited. Sonographic images of the right upper quadrant were obtained using garza-scale and color Doppler images. COMPARISON: None. FINDINGS: Liver: Increased size and echogenicity. No masses. No intrahepatic biliary dilatation. Gallbladder: Multiple gallbladder stones are present. No sign of gallbladder wall thickening or pericholecystic fluid. Common bile duct: Not visualized. Pancreas: Not visualized. Right kidney: Normal in size. Cystic changes are appreciated. normal echotexture and cortex. No masses, stones, or hydronephrosis. Vasculature: Proximal abdominal aorta and IVC are normal. IMPRESSION: Cholelithiasis without further evidence of cholecystitis. Otherwise, mildly limited exam due to bowel gas shadowing. Dictated by Cornel Light MD @ 05/01/2024 3:03:58 PM (Electronically Signed)
--- NOTE | 2024-05-01 14:36 | P.DS_ITS ---
DS: Providers Provider Time Seen by Provider: 07:45 Date Seen: 05/01/24 Date of admission: 04/27/24 23:59 Primary care physician: Abdi Chang MD Admitting Clinician: Florina Jimenes MD Consults: 04/28/24 00:03 Consult to Occupational Therapy [CONS] Routine Comment: Reason(s) for OT Consult:: Evaluate and Treat Any Restrictions?:: No Restrictions Consult to Physical Therapy [CONS] Routine Comment: Reason(s) for PT Consult:: Evaluate and Treat Any Restrictions?:: No Restrictions Attending Physician on discharge: Imelda Barker MD Date of Discharge: 05/01/24 DS: Diagnosis Discharge Diagnosis (1) Acute hypoxic respiratory failure: Status: Resolved Problem details: - secondary to pneumonia and possibly complicated by pleural effusion - not currently requiring oxygen support. Due to tachypnea I have obtained a VBG, which is fairly unremarkable, and started him on his usual home CPAP. If patient?s respiratory status deteriorates, will repeat a chest x-ray order a repeat ABG/VBG. - Treat pneumonia and diastolic CHF as below - 04/29 No longer hypoxic or tachypneic (2) Sepsis associated hypotension: Status: Resolved Problem details: - Severe sepsis - continue follow-up blood culture and urine culture, both still pending. - continue broad IV antibiotics, azithromycin, ceftriaxone and vanco for persistent severe sepsis (based on elevated lactate, no longer hypotensive) - continue to treat with IVF and follow lactic acid until < 2, IVF held overnight for concern of CHF/volume overload with developing tachypnea, pleural effusion and BNP >4500. Holding lasix. Ordering reduced IVF boluses this am due to CHF and pleural effusion. Will need to monitor respiratory status as patient is at risk for pulmonary edema. Patient is DNR/DNI. Patient uses CPAP at home and I have asked RT to see him and use his home CPAP today even while awake to try to prevent pulmonary edema during IVF resuscitation. 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 -Urinary output monitoring with a Olivares catheter, UO low, 0.11cc/hr. Continue IVF resuscitation as above, continue to monitor UO. -hold apixaban for AFib, as below - continue hold blood pressure medications due to soft blood pressures. - 04/29 Lactate improved to 1.6 yesterday after IVF. No longer hypotensive. (3) Severe sepsis: Status: Resolved Problem details: - as above (4) Lactic acidosis: Status: Resolved Problem details: Lactate continues to increase. Patient is not hypoxic despite having h/o CHF and signs of current volume overload. Be more aggressive with fluid resuscitation. Restart IV fluid maintenance at 75 mL. Give more boluses (low volume each), reassess labs. I've asked Dr. Tucker from gen surg to place a central line for CVP monitoring. (5) Community acquired pneumonia: Status: Acute Problem details: Sputum culture negative Pneumoniae and legionella antigen negative MRSA screen negative, stopped vancomycin. - Continue cefepime and azithromycin, WBC improving, afebrile x24 hours, BP improving, no hypoxia. May be able to d/c home tomorrow. (6) Pleural effusion on right: Status: Acute Problem details: -consolidation and pleural effusion are suspicious of malignancy. If pleural effusion continues to be chronic it will need thoracentesis and analysis +cytology. Discussed this with patient and family 04/28/24. (7) KRYSTEN (acute kidney injury): Status: Resolved Problem details: - Cr 2.5 at baseline. Cr 3 on 04/28. Cr 2.8 on 04/29. Cr 2.4 today. - Restarted home lasix yesterday. Restart home BP meds tomorrow. - d/c olivares today (8) CKD (chronic kidney disease) stage 4, GFR 15-29 ml/min: Status: Chronic Problem details: baseline Cr 2.5 (9) Coronary artery disease: Status: Chronic Problem details: No chest pain EKG and troponin are unremarkable (10) Atrial fibrillation: Status: Chronic Problem details: holding apixaban due to thrombocytopenia (platelets less than 50). (11) Current use of chcf anticoagulation: Status: Chronic Problem details: - on hold due to thrombocytopenia (12) Hypertension: Status: Chronic Problem details: Hold blood pressure medications yet today. Restart home meds tomorrow. 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 Most recent outpatient platelet count was at [facility] in 2017, platelets were 100. - thrombocytopenia is stable - blood smear sent this morning - will have patient follow-up as an outpatient with his primary care provider to recheck a platelet count about 5-7 days. If it remains low, he may benefit from hematology referral (15) Diabetes type 2 with atherosclerosis of arteries of extremities: Status: Chronic Problem details: Continue low-dose insulin sliding scale, goal inpatient glucoses are 140-180s to avoid hypoglycemia Hold oral antidiabetic medication (16) Diastolic congestive heart failure: Status: Chronic Problem details: chronic, stable (17) Elevated LFTs: Status: Acute Problem details: - mild, stable, suspect due to hypotension/sepsis, improving DS: Summary Hospital Course Hospital Course: Per H&P: Vernon Mckinley is a 88 year old male An 88-year-old male patient with past medical history of hypertension, hyperlipidemia, DM, CAD, congestive heart failure with low normal ejection fraction, AFib on apixaban, ASA and CKD stage 4 who presents to the ED with weakness altered mentation and was found feverish at the ED with a temperature of 102? F and hypoxia. CT chest showed left sided consolidation in addition to congestion and a moderate right pleural effusion. At the ED patient's blood pressure was/in the 80s/50s which improved with her 500 mL to the 90s. Upon presentation was tachycardic, but after IVF pulse was in the 80s. Lactic acid elevated at 2.5 pre calcitonin elevated at 1.8. Troponin was negative, his EKG showed wide QRS rhythm that is not new, has been seen on previous EKGs. Rhythm was intermittently irregular with frequent PVCs. Heart rate in the 80s, no ischemia noted at this EKG. Patient was given vancomycin and cefepime at the ED. Because of all the comorbidities and his age, this patient is at risk of serious complications including but not limited to KRYSTEN on his CKD 4 and the need for dialysis, and up to . Dr. Don talked extensively to the patient's son who understands these possibilities and want him to be admitted at [facility] and declined transfer to a higher level of care in another hospital. Despite fluid resuscitation, azithromycin, cefepime, and vancomycin, patient had persistent severe sepsis. Lactate trended upward, he was hypotensive, and he had lower urine output as measured by Olivares catheter placed in the emergency department. It was a confusing picture because patient's BNP was greater than 4500 and he was tachypneic, has a history of CHF, and a pleural effusion seen on CT. He used his home CPAP during the day to help prevent pulmonary edema while we were more aggressive with IV fluid resuscitation. Severe sepsis, hypotension, lactic acidosis, and KRYSTEN resolved. MRSA swab was obtained and ultimately came back negative, so vancomycin was discontinued. After 3 doses of 500 mg each of azithromycin, azithromycin was discontinued. Platelets were persistently low, for which Eliquis and aspirin were held. Patient's urine did not appear blood tinged while the Olivares catheter was in place, but when this was discontinued patient had gross hematuria. Hemoglobin did trend downward from 12.1 on admission to a oanh of 9.4 and is now 10.9 on discharge. Some this is likely hemodilutional rather than due to blood loss. I have cautioned him what to look for with regards to hematuria, such as blood clots or inability to urinate. Additionally I spoke with him and his family about possible symptoms of anemia. I have asked him to return for re-evaluation for any of these. We discussed thrombocytopenia at length and he is aware that he should hold Eliquis and aspirin until he has been seen by his primary care provider with a repeat check of his platelet count. Additionally due to elevated LFTs I will have him get those rechecked when he sees his primary care provider in a week. He is much improved today and strongly desires homegoing. He told me that he does not want any further workup and is not even sure he wants further doctor's appointments, but his family has convinced him to follow the advice that I have given him. Note to PCP: Please follow-up on the following: - gross hematuria, I have ordered a UA to be done at the clinic appointment with you. I think this was secondary to having a Olivares catheter and thrombocytopenia with a platelet count of less than 50. He may need further investigation or a for all to Urology however. - anemia. His hemoglobin was stable at the time of discharge and I think that the oanh that we saw was likely hemodilutional and improved once we got him back on his usual diuretic. He does have evidence of gross hematuria, however, and platelet counts less than 50. - thrombocytopenia. As far as I can tell his last platelet check prior to admission was about 7 years ago. His platelets were 100 at that time. He does have a known history of thrombocytopenia, but I am unclear as to what the underlying cause is. His platelet count has been stable here, just below 50. So I have held Eliquis and aspirin until he sees you and get a recheck of his platelets. There is a peripheral smear that is pending at the time of this dictation. He may benefit from referral to Hematology. - he had a right pleural effusion and a possible lung nodule that will need to follow-up with a CT chest in 3 months. - his LFTs were mildly elevated. He has no right upper quadrant pain. I think this was likely secondary to antibiotics, however I did go ahead and obtain an abdominal ultrasound which was unremarkable other than cholelithiasis without evidence of cholecystitis. I have asked him to hold atorvastatin until he sees you to get his LFTs rechecked. Time Spent with Patient Time attestation: Total time spent providing and/or coordinating discharge services: Exam Narrative: Exam Narrative: General: No acute distress. Awake, alert, oriented x3. Mild pallor. No jaundice. Gross hematuria. Oropharynx: Clear. Mucous membranes moist. Cardiovascular: Irregularly irregular. No murmurs, gallops, or rubs. Respiratory: Decreased breath sounds over bilateral lower lung clifton, unchanged. No crackles, no wheezes. Abdomen: Obese, protuberant. Bowel sounds present. Soft, nondistended, nontender. Extremities: Trace bilateral pretibial edema, unchanged. Const: Vital Signs, click to edit/add: Vital Signs - 24 hr 04/30/24 15:00 04/30/24 15:00 04/30/24 15:41 Temperature 98.1 F Pulse Rate 91 Pulse Rate [Pulse Oximeter] 88 Respiratory Rate 22 22 Blood Pressure [Le ft Arm] 135/72 Pulse Oximetry 94 Oxygen Delivery Me thod Room Air Oxygen Flow Rate 04/30/24 19:00 04/30/24 22:22 04/30/24 22:43 Temperature 98.4 F 97.4 F L Pulse Rate 73 Pulse Rate [Pulse Oximeter] 85 80 Respiratory Rate 20 22 Blood Pressure [Le ft Arm] 126/66 134/89 Pulse Oximetry 96 98 Oxygen Delivery Me thod Room Air CPAP Oxygen Flow Rate 0 0 05/01/24 02:02 05/01/24 07:00 05/01/24 07:00 Temperature 98.5 F 97.8 F Pulse Rate 77 Pulse Rate [Pulse Oximeter] 78 96 Respiratory Rate 20 22 Blood Pressure [Le ft Arm] 140/82 H 152/92 H Pulse Oximetry 96 96 Oxygen Delivery Me thod Room Air Room Air Oxygen Flow Rate 0 05/01/24 07:00 Temperature Pulse Rate Pulse Rate [Pulse Oximeter] 96 Respiratory Rate 22 Blood Pressure [Le ft Arm] Pulse Oximetry Oxygen Delivery Me thod Oxygen Flow Rate DS: Data Data Completed and Pending Completed studies during hospitalization: 04/27/2024 EKG: Atrial fibrillation with premature ventricular or aberrantly conducted complexes. 97 beats per minute. Right bundle-branch block. 04/28/2024 echocardiogram: Technically limited exam. LVEF 40-45%. Normal LV size. RV not well seen. Severe LAE. Mild mitral regurgitation and moderate tricuspid regurgitation. Mean RAP 15 mm Hg. No LV thrombus (Contrast study). Ordering Physician: Marina Don M.D. Date of Service: 04/27/24 Procedure(s): XR chest 1V portable Accession Number(s): [id number] cc: Abdi Chang M.D.; Marina Don M.D.~ For Patients: As a result of the Century Cures Act, medical imaging exams and procedure reports are released immediately into your electronic medical record. You may view this report before your referring provider. If you have questions, please contact your health care provider. INDICATION: Fever. TECHNIQUE: Chest 1 view. COMPARISON: Chest radiograph 07/11/2021 FINDINGS: Low lung volumes. There are patchy bibasilar opacities which may be due to atelectasis or infiltrate. Probable tiny left pleural effusion. No pneumothorax. Stable mild cardiomegaly. Pulmonary vasculature is within normal limits. Sternotomy. The bones are unremarkable. IMPRESSION: 1. Patchy bibasilar opacities may be due to atelectasis or infiltrate. Probable tiny left pleural effusion. 2. Stable mild cardiomegaly. Dictated by Martha Russell MD @ 04/27/2024 8:09:57 PM (Electronically Signed) Ordering Physician: Marina Don M.D. Date of Service: 04/27/24 Procedure(s): CT chest abdomen pelv wo con Accession Number(s): [id number] cc: Abdi Chang M.D.; Marina Don M.D.~ For Patients: As a result of the Century Cures Act, medical imaging exams and procedure reports are released immediately into your electronic medical record. You may view this report before your referring provider. If you have questions, please contact your health care provider. Indication: Fever of unknown origin Technique: Noncontrast CT of the chest, abdomen, and pelvis with multiplanar reformats. Comparison: CT chest performed 06/29/2021 Findings: Chest: Lungs: Moderate right pleural effusion. Patchy left basilar opacity. Mild atelectasis. Mediastinum: Cardiomegaly. Postoperative changes. Lymph nodes: Prominent and large nodes. Posterior right upper mediastinal node measures 13 millimeters. Soft tissues: No acute abnormality appreciated. Bones: Median sternotomy wires. Degenerative changes of the spine. Abdomen and Pelvis: Hepatobiliary: No significant parenchymal abnormality is appreciated. Cholelithiasis. Spleen: Unremarkable. Pancreas: No acute abnormality appreciated. Adrenal glands: No acute abnormality appreciated. Kidneys: Nonobstructing stones versus renal sinus vascular calcifications. No hydronephrosis or acute parenchymal abnormality. No solid-appearing mass. Bowel: No obstruction. No focal perienteric or pericolonic stranding is appreciated. Vascular: Calcified atherosclerosis. Mild infrarenal abdominal aortic ectasia. Lymph nodes: Prominent retroperitoneal nodes, not technically enlarged. Peritoneum: Mild stranding in the cebd-szwctxm-cwfh-right retroperitoneum. : No acute abnormality appreciated. Soft tissues: No acute abnormality appreciated. Bones: Degenerative changes of the spine. Left hip replacement. Impression: 1. Patchy consolidation in the left lung base compatible with pneumonia in the setting of fever. Follow-up CT in 3 months may be considered to ensure there is no underlying neoplasm. 2. Moderate right pleural effusion. 3. Additional chronic findings as above with no other acute abnormality appreciated. Please note that all CT scans at this facility use dose modulation, iterative reconstruction, and/or weight-based dosing when appropriate to reduce radiation dose to as low as reasonably achievable. Dictated by Spencer Jackson MD @ 04/27/2024 9:02:03 PM (Electronically Signed) Ordering Physician: Maegan Tucker M.D. Date of Service: 04/28/24 Procedure(s): XR chest PICC placement conf Accession Number(s): [id number] cc: Maegan Tucker M.D.; Abdi Chang M.D.~ For Patients: As a result of the Cures Act, medical imaging exams and procedure reports are released immediately into your electronic medical record. You may view this report before your referring provider. If you have questions, please contact your health care provider. Indication: PICC placement Technique: AP view of the chest. Comparison: 04/27/2024. Findings: Postsurgical changes from median sternotomy. Right PICC with tip near the superior cavoatrial junction. Moderately enlarged cardiomediastinal silhouette. Low lung volumes. Retrocardiac opacity. Impression: Right PICC with tip near the superior cavoatrial junction. Retrocardiac opacity may represent atelectasis or infection. Dictated by Yaya Leal MD @ 04/28/2024 7:39:54 PM (Electronically Signed) Ordering Physician: Imelda Barker M.D. Date of Service: 05/01/24 Procedure(s): US abdomen limited Accession Number(s): [id number] cc: Imelda Barker M.D.; Abdi Chang M.D.~ For Patients: As a result of the Cures Act, medical imaging exams and procedure reports are released immediately into your electronic medical record. You may view this report before your referring provider. If you have questions, please contact your health care provider. INDICATION: Elevated LFTs. TECHNIQUE: Ultrasound abdomen limited. Sonographic images of the right upper quadrant were obtained using garza-scale and color Doppler images. COMPARISON: None. FINDINGS: Liver: Increased size and echogenicity. No masses. No intrahepatic biliary dilatation. Gallbladder: Multiple gallbladder stones are present. No sign of gallbladder wall thickening or pericholecystic fluid. Common bile duct: Not visualized. Pancreas: Not visualized. Right kidney: Normal in size. Cystic changes are appreciated. normal echotexture and cortex. No masses, stones, or hydronephrosis. Vasculature: Proximal abdominal aorta and IVC are normal. IMPRESSION: Cholelithiasis without further evidence of cholecystitis. Otherwise, mildly limited exam due to bowel gas shadowing. Dictated by Cornel Light MD @ 05/01/2024 3:03:58 PM (Electronically Signed) Pending studies at discharge: Peripheral blood smear for thrombocytopenia Labs on day of discharge: Labs from last 24 hours 05/01/24 05/01/24 05/01/24 12:20 06:25 05:55 WBC 8.81 RBC 3.12 L Hgb 10.9 L 9.4 L Hct 30.3 L MCV 97 MCH 30 MCHC 31 L RDW Coeff of Guillermo 14.4 Plt Count 49 L* Neut % (Auto) 83.6 H Lymph % (Auto) 7.6 L Johnston % (Auto) 7.2 Eos % (Auto) 0.8 Baso % (Auto) 0.1 Neut # (Auto) 7.40 H Lymph # (Auto) 0.70 L Johnston # (Auto) 0.60 Eos # (Auto) 0.07 Baso # (Auto) 0.01 Abs Immat Gran (auto) 0.06 Imm/Tot Granulo (auto) 0.7 INR 1.29 H Sodium 140 Potassium 3.6 Chloride 109 Carbon Dioxide 22 Anion Gap 9 BUN 46 H Creatinine 2.1 H Estimated Creat Clear 24.43 Estimated GFR 30 Glucose 138 H Calcium 8.6 Total Bilirubin 1.7 H Direct Bilirubin 0.8 H AST 65 H ALT 70 H Alkaline Phosphatase 93 Total Protein 6.6 Albumin 3.3 Preliminary micro results at discharge 04/27/24 18:42 Blood Culture - Preliminary Blood NO GROWTH AFTER 72 HOURS Discharge Plan Discharge Disposition: Home, Self-Care Date of Admission: 04/27/24 23:59 Attending Provider on Discharge: Imelda Barker Primary Care Provider: Abdi Chang Condition: Improved Anticipated Discharge Date/Time: 05/01/24 15:11 Discharge Medications: New cefdinir 300 mg capsule 300 mg PO BID 4 Days Qty: 8 0RF Continued vitamin E 268 mg (400 unit) capsule 268 mg PO DAILY atenolol 50 mg tablet 50 mg PO DAILY cholecalciferol (vitamin D3) 50 mcg (2,000 unit) capsule 50 mcg PO DAILY furosemide 40 mg tablet 40 mg PO BID Rx Instructions: PLUS 0 MG FOR TOTAL OF 60 MG TWICE A DAY furosemide 20 mg tablet 20 mg PO BID Rx Instructions: PLUS 40 MG FOR TOTAL OF 60 MG TWICE A DAY finasteride 5 mg tablet 5 mg PO DAILY niacin 500 mg tablet extended release 24 hr 500 mg PO DAILY glimepiride 1 mg tablet 1 mg PO DAILY nitroglycerin 0.4 mg tablet, sublingual 0.4 mg sublingual Q5M PRN lisinopril 2.5 mg tablet 2.5 mg PO DAILY tamsulosin 0.4 mg capsule 0.8 mg PO DAILY zinc gluconate 50 mg tablet 100 mg PO DAILY Held aspirin 81 mg capsule 81 mg PO DAILY Hold Instructions: Resume on 05/12/24. hold until addressed by Charlene atorvastatin 20 mg tablet 20 mg PO DAILY Hold Instructions: Resume on 05/12/24. hold until addressed by Charlene Eliquis 5 mg tablet 5 mg PO BID Hold Instructions: Resume on 05/12/24. hold until addressed by Charlene Discharge Orders: Discharge Order (Routine); Ordered 05/01/24 Ordered By: Imelda Barker Activity Level: Activity as Tolerated Discharge Diet: Diabetic Follow Up Appointments: Alok Persaud MD [Referring] - Abdi Chang MD [Primary Care Provider] - (5-7 days, CBC, LFTs, UA) Forms: [facility] Info Instructions
--- NOTE | 2024-05-01 17:12 | PC.NURSE ---
Discharge: The patient is eager to discharge this afternoon and is noted to not be receptive to teaching/ or recommendations. After the patients PICC was removed, he was found to have soiled his undergarments and pants. The patient was initially very against changing them... despite education regarding the risk for a UTI. All discharge information was also reviewed... the patient was noted to not be very receptive of this. The patients and son were at the bedside and were noted to be receptive. The patient did allow me to eventually change his pants and undergarments with the families encouragement as well. All belongings were sent home with the patient. Nasreen KENNY BSN
== END 2024-05-01 17:00 | disposition home or self-care (01) | DRG 871 ==
LOC: ED 23:35 → MEDSURG 04-28
PROVIDERS: Family Medicine; Internal Medicine; Admitting Provider Student in an Organized Health Care Education/Training Program; Emergency Provider Family Medicine; PCP Family Medicine; Visit Provider Student in an Organized Health Care Education/Training Program
DX: A41.9 Sepsis, unspecified organism (principal); I50.33 Acute on chronic diastolic (congestive) heart failure; J18.9 Pneumonia, unspecified organism; J96.01 Acute respiratory failure with hypoxia; J91.8 Pleural effusion in other conditions classified elsewhere; I13.0 Hypertensive heart and chronic kidney disease with heart failure and stage 1 through stage 4 chronic kidney disease, or unspecified chronic kidney disease; N18.4 Chronic kidney disease, stage 4 (severe); E87.21 Acute metabolic acidosis; N17.9 Acute kidney failure, unspecified; R65.20 Severe sepsis without septic shock; E11.22 Type 2 diabetes mellitus with diabetic chronic kidney disease; Z79.84 Long term (current) use of oral hypoglycemic drugs; D69.6 Thrombocytopenia, unspecified; E87.79 Other fluid overload; I25.10 Atherosclerotic heart disease of native coronary artery without angina pectoris; E78.5 Hyperlipidemia, unspecified; E11.51 Type 2 diabetes mellitus with diabetic peripheral angiopathy without gangrene; E11.65 Type 2 diabetes mellitus with hyperglycemia; I70.209 Unspecified atherosclerosis of native arteries of extremities, unspecified extremity; Z79.4 Long term (current) use of insulin
CPT/HCPCS: 36415; 36573; 71045; 71250; 74176; 76705; 80048; 80053; 80076; 81001; 82803; 82962; 83605; 83735; 83880; 84100; 84145; 84484; 85018; 85025; 85045; 85610; 86140; 87040; 87070; 87081; 87086; 87449; 87631; 87899; 93005; 93306; 94761; 97110; 97116; 97161; 97165; 97535; 99285; 99291; A9270; C1751; J0456; J0692; J0696; J3372; J7030; J7050; Q9957

== ENCOUNTER 2024-08-26 11:01 | Inpatient (IN) | payer MEDICARE, OTHER, SELFPAY ==
[2024-08-26] VITALS (11 sets, daily range): BP systolic 119–176; BP diastolic 64–93; PULSE 61–78; RESP 16–18; TEMP 36.2–36.5; O2SAT 98–100; BMI 36.9; BMI 37.5
--- OUTSIDE RECORDS SUMMARY | 2024-08-26 11:03 | XMS_ITS | Continuity of Care Document ---
Author Organization [facility] Address [address] [place] [address] Phone Care Team Providers Care Ingot Stripper Name Role Phone Domenic Patrick MD Unavailable Unavailable Allergies, Adverse Reactions, Alerts Substance Reaction Status Criticality No Known Allergies Active No Inform ation Medications Medication Instructions Dosage Effective Dates (start - stop) Status Comments ATENOLOL (unknown strength) Not Available - Active FINASTERIDE (unknown strength) Not Available - Active FUROSEMIDE (unknown strength) Not Available - Active LIPITOR (unknown strength) Not Available - Active NIACIN (unknown strength) Not Available - Active NITROSTAT (unknown strength) Not Available - Active VITAMIN E (unknown strength) Not Available - Active VITAMIN B COMPLEX (unknown strength) Not Available - Active ZINC (unknown strength) Not Available - Active TAMSULOSIN HCL (unknown strength) Not Available - Active DURLAZA (unknown strength) Not Available - Active Procedures Procedure Date Postop Followup Visit Remove Lumbar Spine Lamina, 1 Seg Remove Added Spine Lamina, 1 Seg 2016 Low Back Disk Surgery/Decompress 2016 Pa Assist Remove Lumbar Spine Lamina, 1 Seg Pa Assist Remove Added Spine Lamina, 1 S eg Low Back Disk Surgery/Decompress 2016 Office/Outpatient Visit,New, Mod 2016 X-Ray Exam Lwr Spine, Min 4 Views Advance Directives Directive Yes / No Effective Date File Name No Information Encounters Encounter Description Practice Location Reason(s) For Visit Diagnoses Date Provider Providers Copied on Encounter [facility], [address], [place], [place], [id number] , [place] tel:[phone] [facility] No Information 9 Transfeldt Ensor. [facility], [address], [facility] [address], [place], [place], [id number], [place]. tel:[phone] [facility], [address], [place], [place], [id number] , [place] tel:[phone] [facility] Encounter for other specified surgical aftercare 7 Silvana Valdez. [facility], [address] [place] [address] [address], [place], [address], [place]. tel:[phone] Referring Provider: Nicholas Ortega, [employer] [facility], [place], [address]. tel:[phone] [facility], [address], [place], [place], [id number] , [place] tel: [phone] [facility] No Information 7 Transfeldt Ensor. [facility], [address], [facility] [address], [place], [place], [id number], [place]. tel:[phone] Referring Provider: Nicholas Ortega, [employer] [facility], [place], [address]. tel:[phone] Office/Outpa tient Visit,[facility], [address], [place], [place], [id number] , [place] tel:[phone] [facility] Spinal stenosis, lumbar region 7 Transfeldt Ensor. [facility], [address], [facility] [address], [place], [place], [id number], [place]. tel:[phone] Referring Provider: [employer] [facility], [place], [address]. tel:[phone] Family History Family Member Type Diagnosis Age At Onset No Information Payers Payer name Insurance type Covered republican ID Authoriza tion(s) Medicare [id number] For Life/Retired [facility] [id number] Social History Type Description Quantity Date Captured Comments Sex Male Smoking Status No Information Chief Complaint And Reason For Visit No Information Reason For Referral Reason For Referral No Information Plan Of Treatment Date Type Action Status Future Order: Radiology Order AP /Lat/Flex/Ext Lumb (APLatFlExL), Ordered on: Ordered History Of Present Illness Encounter Date Complaint History Of Prese nt Illness No Information Functional Status Date Functional Assessmen t No Information Instructions Date Instruction Additional Infor cassius Weight Management Education Rela casimiro to Overweight Weight management: I nstructed to return to General Practitioner timeframe: 1 Month. Related to Overweight Assessments Type Assessment Date No Information Patient Care Teams Name Effective Dates (start - stop) Status Members No Information
--- OUTSIDE RECORDS SUMMARY | 2024-08-26 11:03 | XMS_ITS | Clinical Summary ---
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 Active VITAMIN E, DL,TOCOPHERYL ACET, (VITAMIN E, DL, ACETATE,) 400 unit capsule Take 400 Units by mouth once daily. Active zinc gluconate 50 mg tablet Take 100 mg by mouth once daily. Active Walker - 4 wheelsIndications:S humberto stenosis, lumbar region, without neurogenic claudication For home use. Length of need: 99 months 1 Device 01/05/20 18 Active cholecalciferol (Vitamin D-3) 2,000 unit capsuleIndications: Vitamin D deficiency Take 1 Capsule (2,000 units) by mouth once daily. 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 0 04/13/20 22 Active Additional Information Patient taking differently:81 mg Oral DAILY WITH MEAL,Held per hospital stay 04/2024, Reported on 05/09/2024 CPAPIndications:WILDA (obstructive sleep apnea) CPAP machine for home use at pressure 15 cm/H2O, full face mask x1/3month with a full face cushion x1/mo 1 Each 11 07/22/19 24 Active apixaban (Eliquis) 5 mg tabletIndications:N ew onset atrial fibrillation (HC) Take 1 Tablet (5 mg) by mouth two times daily. 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 90 Tablet 3 08/01/19 25 Active lisinopriL (PRINIVIL; ZESTRIL) 2.5 mg tabletIndications:E ssential hypertension Take 1 Tablet (2.5 mg) by mouth once daily. 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 90 Tablet 3 08/01/19 25 Active furosemide (LASIX) 40 mg tabletIndications:D iastolic CHF, chronic (HC),Hypertension Take 1 Tablet (40 mg) by mouth two times daily. Take with 20 mg tab to total 60 mg bid. 180 Tablet 3 08/01/19 25 Active furosemide (LASIX) 20 mg tabletIndications:E ssential hypertension,Diasto lic CHF, chronic (HC) Take 1 Tablet (20 mg) by mouth two times daily. Take with Lasix 40 mg to equal 60 mg twice daily. 180 Tablet 3 08/01/19 25 Active finasteride (PROSCAR) 5 mg tabletIndications:B PH with urinary obstruction Take 1 Tablet (5 mg) by mouth once daily in the morning. 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 90 Tablet 3 08/01/19 25 Active atenoloL (TENORMIN) 50 mg tabletIndications:E ssential hypertension Take 1 Tablet (50 mg) by mouth once daily. 90 Tablet 3 08/01/19 25 Active nitroglycerin (Nitrostat) 0.4 mg sublingual tabletIndications:C oronary atherosclerosis due to lipid rich plaque Place 1 Tablet (0.4 mg) under the tongue every 5 minutes if needed for Chest Pain. 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 90 Tablet 2 12/08/19 24 025 Discontin ued(Reord er (E-cancel not sent)) finasteride (PROSCAR) 5 mg tabletIndications:B PH with urinary obstruction Take 1 Tablet (5 mg) by mouth once daily in the morning. 90 Tablet 3 01/25/20 24 025 Discontin ued(Reord er (E-cancel not sent)) atenoloL (TENORMIN) 50 mg tabletIndications:E ssential hypertension Take 1 Tablet (50 mg) by mouth once daily. 90 Tablet 3 01/25/20 24 025 Discontin ued(Reord er (E-cancel not sent)) tamsulosin (FLOMAX) 0.4 mg capsuleIndications: BPH with urinary obstruction TAKE 2 CAPSULES ONCE DAILY AFTER A MEAL 180 Capsule 3 01/25/20 24 025 Discontin ued(Reord er (E-cancel not sent)) lisinopriL (PRINIVIL; ZESTRIL) 2.5 mg tabletIndications:E ssential hypertension Take 1 Tablet (2.5 mg) by mouth once daily. 90 Tablet 3 01/25/20 24 025 Discontin ued(Reord er (E-cancel not sent)) furosemide (LASIX) 20 mg tabletIndications:E ssential hypertension,Diasto lic CHF, chronic (HC) Take 1 Tablet (20 mg) by mouth two times daily. Take with Lasix 40 mg to equal 60 mg twice daily. 180 Tablet 3 01/25/20 025 Discontin ued(Reord er (E-cancel not sent)) furosemide (LASIX) 40 mg tabletIndications:D iastolic CHF, chronic (HC),Hypertension Take 1 Tablet (40 mg) by mouth two times daily. Take with 20 mg tab to total 60 mg bid. 180 Tablet 3 01/25/20 025 Discontin ued(Reord er (E-cancel not sent)) ferrous sulfate 325 mg delayed release tabletIndications:A nemia in stage 4 chronic kidney disease (HC) Take 1 Tablet (325 mg) by mouth once daily with a meal. 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 90 Tablet 2 07/13/20 24 025 Discontin ued(Reord er (E-cancel not sent)) Active Problems Problem Noted Date Diagnosed Date Thrombocytopenia 08/01/2024 Overview (08/01/2024): Due to his thrombocytopenia he has been off his Eliquis and aspirin since his 04/2024 hospitalization for pneumonia and hematuria. Acute on chronic diastolic heart failure 024 Essential hypertension 04/20/2023 Anemia in stage 4 chronic kidney disease 022 New onset atrial fibrillation 08/18/2021 CKD (chronic kidney disease) stage 4, GFR 15-29 ml/min 07/04/2020 Secondary renal hyperparathyroidism 05/11/2018 Vitamin D deficiency 02/10/2018 Status post hip replacement, left 04/30/2017 Spinal stenosis, lumbar hanna on, without neurogenic claudication 11/19/2016 Renal cysts, acquired, bilateral 09/29/2016 Exotropia of right eye 09/29/2016 Morbid obesity with BMI of 40.0-44.9, adult 04/19 Diastolic CHF, chronic 03/26/2016 WILDA 11/13/2015 AHI-82 11/27/2015 Sleep disorder, circadian, advanced sleep phase type 11/27/2015 Coronary atherosclerosis due to lipid rich plaqu e 05/13/2015 BPH with urinary obstruction 03/13/2015 Adenomatous colon polyp 05/16/2012 Overview (03/18/2021): Colonoscopy 04/2012 polyps repeat in 3 years Colonoscopy 04/2015 large polyp repeat in 2 years Colonoscopy 05/2017 3 polyps repeat in 3 years Colonoscopy 02/2021 4-TA, repeat in 5 years depending on the patient's overall health Hypertension 11/20/2009 Overview (02/15/2011): [facility] recommends BP <120. 02/15/2011 Unspecified hearing loss 11/28/2008 Overview (06/13/2012): Left; has Hearing Aide; uses occasionally 06/13/2012 Dupuytren's contracture of hand 11/28/2008 Overview (11/28/2008): left hand Elevated prostate specific antigen (PSA) 009 Overview (06/13/2012): PSA 3.0 11/2007; 4.19 11/2008 will recheck in early 2009 PSA TOTAL (SCREEN) (ng/mL) Date Value 11/22/2008 4.19* PSA TOTAL (DIAGNOSTIC) (ng/mL) Date Value 06/06/2012 4.65* Other and unspecified hyperlipidemia 01/24/2007 Overview (02/15/2011): [facility] recommends LDL < 70. 02/15/2011 Type 2 diabetes mellitus wit h stage 4 chronic kidney disease, without long-term current use of insulin 08/25/2006 Resolved Problems Problem Noted Date Diagnosed Date Resolved Date ACP (advance care planning) 12/18/2010 09/29/2016 Overview (12/18/2010): Papers submitted 12/18/2010 Hypertrophy of prostate with urinary obstruction and other lower urinary tract symptoms (LUTS) 12/18/2010 03/13/2015 Bilateral knee pain 11/28/2008 03/07/20 09 Encounters Date Type Department Care Team Description 08/26/2024 Telephone [facility] [place] [address] VoKg benjamin MD Abnormal Lab Results 08/25/2024 9:15 AM COPER HAND Orders Only [address] [facility] [place] [address] Lab, [place] [facility] 08/25/2024 Travel 08/01/2024 7:55 AM COPER HAND Office Visit [facility] [place] [address] Abdi Chang MD Medicare ANNUAL (subsequent) Visit (87 years); Immunization/Inject ion 08/01/2024 Travel 07/27/2024 Telephone [facility] [place] [address] Abdi Chang MD Abnormal Lab Results 07/26/2024 9:00 AM COPER HAND Ancillary Procedure [facility] [place] [address] 07/26/2024 Travel 07/25/2024 7:00 AM COPER HAND Orders Only [facility] [address] [facility] [address] Lab, [place] [facility] 07/24/2024 Travel 07/10/2024 Refill [facility] [address] [facility] [address] Abdi Chang MD Refill Request (Atorvastatin) 06/22/2024 Refill [facility] [address] [facility] [address] Abdi Chang MD Refill Request (Niacin Er) 06/08/2024 Telephone [facility] [address] [facility] [address] Abdi Chang MD Abnormal Lab Results from Last 3 Months Immunizations Name Administration Dates Next Due AMB INFLUENZA IIV3 (AGE 65+ YRS) PF (Flu Clinic Only) 05/03/2019 COVID-19 VACCINE SPIKEVAX (M ODERNA 50MCG/0.5ML) 12YO+ PFS 01/25/2024,05/04/2023 COVID-19 vaccine (Pfizer-Bio NTech 30mcg/0.3mL) 12YO+ BIVALENT PF, MDV 04/13/2022 COVID-19 vaccine (Pfizer-Bio NTech 30mcg/0.3mL) 12YO+ PAUL-SUCROSE PF, MDV 12/08/2021 COVID-19 vaccine (Pfizer-Bio NTech 30mcg/0.3mL) PF, MDV 06/09/2021,09/28/2020,09/07/2020 Influenza, High-dose Inactivated 05/26/2016,06/18,03/29/2014 Influenza, IIV3 (Age 6-35 mos) 05/11/2011 Influenza, IIV3 (Age >=3 years) 06/14/20 13,04/04/2012,05/11/2011,2009,04/16/2009,05/10/2008,09/01/2006 Influenza, Inactivated AIIV4 (Age 65+ Years) Preserv Free 04/20/2023,04/13/2022,03/31/2021,2020,08/26/2019 Influenza, Inactivated IIV3 (Age 65+ Years) Preserv Free 08/01/2024,05/04/2018,04/15/2017 Pneumococcal Poly,23-Valent (Pneumovax) 06/01/2005 Pneumococcal conj 13-Valent (Prevnar 13) 07/04/2015 Td (Age >=7 Years) 12/24/1998 Td, Preservative Free (age > = 7 Years) 11/28/2008 Tdap 07/04/2015 Family History Medical History Relation Name Comments Diabetes Maternal Grandmother Cancer-colon Mother Yelena of this at 73. Diabetes Mother Yelena Diabetes type II Sister 1 Annabella at 69 Stroke Sister 2 Marva Heart Disease Sister 3 Olga Bypass or Sten t approx 1999 Anesthesia Problem No Family History Blood Disease No Family History Relation Name Status Comments Father Perfecto (Age 63) of [place]! Maternal Grandmother Mother Yelena (Age 73) Colon Ca Sister 1 Annabella (Age 69) Diabetes a nd Heart Trouble Sister 2 Marva Alive Sister 3 Olga Alive Social History Tobacco Use Types Packs/Day Years Used Date Smoking Tobacco: Former Cigarettes 2 10 0 07/19/1975 - 07/19/1985 Smokeless Tobacco: Never Tobacco Cessation:Counseling Given: Yes Comments:quit in 1985 Alcohol Use Standard Drinks/Week Comments Yes 7 (1 standard drink = 0.6 oz pur e alcohol) PHQ-2 Answer Date Recorded PHQ-2 TOTAL SCORE 0 08/01/2024 Social Connections Answer Date Recorded Do you often feel lonely or isolated from those around you? 0 10/26/2023 Alcohol Use Answer Date Recorded How often do you have a drink containing alcohol ? 4 08/01/2024 How many drinks containing a lcohol do you have on a typical day when you are drinking? 0 08/01/2024 How often do you have five or more drinks on one occasion? 0 08/01/2024 Financial Resource Strain Answer Date R ecorded Difficulty of Paying Living Expenses 3 10/26/2023 Difficulty of Paying Living Expenses Not on file 10/26/2023 Food Insecurity Answer Date Recorded Do you worry your food will run out before you are able to buy more? 1 10/26/2023 Transportation Needs Answer Date Record ed Does lack of transportation keep you from medica l appointments? 1 10/26/2023 Does lack of transportation keep you from work, meetings or getting things that you need? 1 10/26/2023 Housing Stability Answer Date Recorded What is your housing situation today? 1 10/26/2023 Utilities Answer Date Recorded Do you have trouble paying f or utilities (for example, heat, electricity, water, phone)? 1 10/26/2023 Sex and Gender Information Value Date Recorded Sex Assigned at Not on file Legal Sex Male 6:41 AM COPER HAND Gender Identity Not on file Sexual Orientation Not on file Occupation Industry Job Start Date Job End Date Retired Not on file Not on file Not on file Obstetrics History Last Filed Vital Signs Vital Sign Reading Time Taken Comments Blood Pressure 123/71 08/01/2024 7:45 AM COPER HAND Pulse 65 08/01/2024 7:45 AM COPER HAND Temperature 36.2 C (97.1 F) 08/01/2024 7:45 AM COPER HAND Respiratory Rate 20 01/01/2022 1:45 PM CDT Oxygen Saturation 100% 08/01/2024 7:45 AM COPER HAND Inhaled Oxygen Concentration - - Weight 113.5 kg (250 lb 4.8 oz) 08/01/2024 7:40 AM COPER HAND Height 166.3 cm (5' 5.47) 08/01/2024 7:40 AM CS T Body Mass Index 41.05 08/01/2024 7:40 AM COPER HAND Plan of Treatment Upcoming Encounters Date Type Department Care Team (Late st Contact Info) Description 08/29/2024 8:20 AM COPER HAND [facility] [address] [facility] [address] Abdi Chang MD [address] [place] [address] 01/25/2025 7:00 AM CDT Orders Only [facility] [place] [address] Lab, [place] 01/30/2025 7:30 AM CDT Office Visit [facility] [place] [address] Abdi Chang MD [address] [place] [address] Health Maintenance Due Date Last Done Comments Zoster (shingles) series for age 50+ (1 of 2) 1987 RSV vaccine for adults or (1 - 1-dose 75+ series) 2012 COVID-19 vaccine series ( season) 2024 01/25/2024, 05/04/2023, 04/13/2022, Additional history exists Tetanus booster 07/04/2025 07/04/2015, 11/16, 12/24/1998 BMI (ht and wt on same day) for age 18+ 08/01/2025 08/01/2024, 07/22/2023, 06/18/2022, Additional history exists Depression screening for age 12+ 08/01/2025 08/01/2024, 04/20/2023, 04/14/2022, Additional history exists Medicare Wellness for age 65+ 08/02/2025, 04/20/2023, 04/13/2022, Additional history exists Pneumococcal series for age 50+ Completed 07/04/2015, 07/04/2015, 06/01/2005 Tdap Completed 07/04/2015 Influenza for age 65+ Completed 08/01/2024 , 04/20/2023, 04/13/2022, Additional history exists Procedures Procedure Name Priority Date/Time Associated Diagnosis Comments PLATELET ESTIMATION (QUEST REFLEX ONLY) Routine 08/25/2024 8:55 AM COPER HAND CBC WITH AUTO DIFFERENTIAL Routine 08/25/2024 8:55 AM COPER HAND Thrombocytopenia (HC) CT CHEST WO Routine 07/26/2024 8:39 AM COPER HAND Pneumonia of left lower lobe due to infectious organism PLATELET ESTIMATION (QUEST REFLEX ONLY) Routine 07/25/2024 6:59 AM COPER HAND CBC WITH AUTO DIFFERENTIAL Routine 07/25/2024 6:59 AM COPER HAND 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) HEMOGLOBIN A1C Routine 07/25/2024 6:59 AM COPER HAND Type 2 diabetes mellitus with stage 4 chronic kidney disease, 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) LIPID PANEL W REFLEX MEASURED LDL Routine 07/25/2024 6:59 AM COPER HAND Type 2 diabetes mellitus with stage 4 chronic kidney disease, 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) BASIC METABOLIC PANEL Routine 07/25/2024 6:59 AM COPER HAND Type 2 diabetes mellitus with stage 4 chronic kidney disease, 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) from Last 3 Months Results * (ABNORMAL) PLATELET ESTIMATION (QUEST REFLEX ONLY) (08/25/2024 8:55 AM COPER HAND) Only the most recent of2 resultswithin the time period is included. Pathologist [facility] PLATELET ESTIMATION DECREASED( A) ADEQUATE [facility] 08/25/2024 8:55 AM COPER HAND 08/25/2024 8:55 AM COPER HAND us Abdi Chang MD HEMATOLOGY Final Resu lt [facility] [address] [place] [address], [facility] [address] [place] [address] * (ABNORMAL) CBC AND DIFFERENTIAL (08/25/2024 8:55 AM COPER HAND) Only the most recent of2 resultswithin the time period is included. WHITE BLOOD CELL COUNT 6.3 3.8 - 10.8 Thousand/u L [facility] RED BLOOD CELL COUNT 4.28 4.20 - 5.80 Million/uL [facility] HEMOGLOBIN 13.0(L) 13.2 - 17.1 g/dL [facility] HEMATOCRIT 40.2 38.5 - 50.0 % [facility] MCV 93.9 80.0 - 100.0 fL [facility] MCH 30.4 27.0 - 33.0 pg [facility] MCHC 32.3 32.0 - 36.0 g/dL [facility] Comment: For adults, a slight decrease in the calculated MCHC value (in the range of 30 to 32 g/dL) is most likely not clinically significant; however, it should be interpreted with caution in correlation with other red cell parameters and the patient's clinical condition. RDW 13.8 11.0 - 15.0 % [facility] PLATELET COUNT 2(LL) 140 - 400 Thousand/u L [facility] Comment: Verified by repeat analysis. MPV [facility] Comment: Due to platelet or RBC variability in size or shape the result cannot be reported accurately. ABSOLUTE NEUTROPHILS 3,793 1,500 - 7,800 cells/uL [facility] ABSOLUTE LYMPHOCYTES 1,770 850 - 3,900 cells/uL [facility] ABSOLUTE MONOCYTES 599 200 - 950 cells/uL [facility] ABSOLUTE EOSINOPHILS 107 15 - 500 cells/uL [facility] ABSOLUTE BASOPHILS 32 0 - 200 cells/uL [facility] NEUTROPHILS 60.2 % [facility] LYMPHOCYTES 28.1 % [facility] MONOCYTES 9.5 % [facility] EOSINOPHILS 1.7 % [facility] BASOPHILS 0.5 % [facility] CBC (INCLUDES DIFF/PLT) COMMENTS [facility] Comment: Review of the peripheral smear reveals decreased numbers of platelets. Blood BLOOD SPECIMEN / Unknown 08/25/2024 8:55 AM COPER HAND 08/25/2024 8:55 AM COPER HAND us Abdi Chang MD HEMATOLOGY Final Resu lt [facility] [address] [place] [address], [facility] [address] [place] [address] * CT CHEST WO (07/26/2024 8:39 AM COPER HAND) Anatomical Region Laterality Modality CHEST, THORAX, HEART Computed To mography 07/26/2024 4:28 PM COPER HAND Narrative 07/26/2024 4:28 PM COPER HAND For Patients: As a result of the Cures Act, medical imaging exams and procedure reports are released immediately into your electronic medical record. You may view this report before your referring provider. If you have questions, please contact your health care provider. Indication: Follow-up pneumonia Technique: Noncontrast CT chest Please note that all CT scans at this facility use dose modulation, iterative reconstruction, and/or weight-based dosing when appropriate to reduce radiation dose to as low as reasonably achievable. Comparison: Outside CT 04/27/2024 Findings: Stable exophytic cyst anterior aspect upper pole left kidney. No adrenal nodule. Spleen is not enlarged. Pancreatic atrophy. Calcified stones in the gallbladder. Atherosclerotic changes. No upper abdominal adenopathy. No hiatal hernia. No thyroid nodule. No enlarged intrathoracic lymph nodes. Postop changes of CABG. Small bilateral pleural effusions. Bridging osteophyte formation throughout the thoracic spine. No vertebral body compression fracture. Round atelectasis within the right lower lobe again noted. Interval clearing of the airspace densities within the left lower lobe since the prior study. No suspicious pulmonary nodule. Impression: Clearing of previously noted left lower lobe pneumonia. Small bilateral pleural effusions with rounded atelectasis right lower lobe. Please note that all CT scans at this facility use dose modulation, iterative reconstruction, and/or weight-based dosing when appropriate to reduce radiation dose to as low as reasonably achievable. Dictated by Miky Dunne MD @ 07/26/2024 4:28:51 PM (Electronically Signed) Procedure Note Miky Dunne MD - 07/26/2024 For Patients: As a result of the Cures Act, medical imagingexams and procedure reports are released immediately into your electronicmedical record. You may view this report before your referring provider.If you have questions, please contact your health care provider. Indication: Follow-up pneumonia Technique: Noncontrast CT chest Please note that all CT scans at this facility use dose modulation,iterative reconstruction, and/or weight-based dosing when appropriate toreduce radiation dose to as low as reasonably achievable. Comparison: Outside CT 04/27/2024 Findings: Stable exophytic cyst anterior aspect upper pole left kidney. No adrenalnodule. Spleen is not enlarged. Pancreatic atrophy. Calcified stones inthe gallbladder. Atherosclerotic changes. No upper abdominal adenopathy.No hiatal hernia. No thyroid nodule. No enlarged intrathoracic lymphnodes. Postop changes of CABG. Small bilateral pleural effusions. Bridgingosteophyte formation throughout the thoracic spine. No vertebral bodycompression fracture. Round atelectasis within the right lower lobe againnoted. Interval clearing of the airspace densities within the left lowerlobe since the prior study. No suspicious pulmonary nodule. Impression: Clearing of previously noted left lower lobe pneumonia. Small bilateral pleural effusions with rounded atelectasis right lowerlobe. Please note that all CT scans at this facility use dose modulation,iterative reconstruction, and/or weight-based dosing when appropriate toreduce radiation dose to as low as reasonably achievable. Dictated by Miky Dunne MD @ 07/26/2024 4:28:51 PM (Electronically Signed) Abdi Chang MD CT Final Resu lt * (ABNORMAL) HEMOGLOBIN A1C (07/25/2024 6:59 AM COPER HAND) HEMOGLOBIN A1C 6.6(H) <5.7 % of total Hgb [facility] Comment: For someone without known diabetes, a hemoglobin A1c value of 6.5% or greater indicates that they may have diabetes and this should be confirmed with a follow-up test. For someone with known diabetes, a value <7% indicates that their diabetes is well controlled and a value greater than or equal to 7% indicates suboptimal control. A1c targets should be individualized based on duration of diabetes, age, comorbid conditions, and other considerations. Currently, no consensus exists regarding use of hemoglobin A1c for diagnosis of diabetes for children. Blood BLOOD SPECIMEN / Unknown 07/25/2024 6:59 AM COPER HAND 07/25/2024 6:59 AM COPER HAND Abdi Chang MD CHEMISTRY Final Resu lt Performing Organization Address City/[facility]/ZIP Co de Phone Number [facility] [address] [place] [address], [place] [phone] [facility] [address] [place] [address] * LIPID PANEL W REFLEX MEASURED LDL (07/25/2024 6:59 AM COPER HAND) [facility] CHOLESTEROL, TOTAL 108 <200 mg/dL [facility] HDL CHOLESTEROL 44 > OR = 40 mg/dL [facility] TRIGLYCERIDES 87 <150 mg/dL [facility] LDL-CHOLESTEROL 47 mg/dL (calc) [facility] Comment: Reference range: <100 Desirable range <100 mg/dL for primary prevention; <70 mg/dL for patients with CHD or diabetic patients with > or = 2 CHD risk factors. LDL-C is now calculated using the Chino-Jackie calculation, which is a validated novel method providing better accuracy than the Friedewald equation in the estimation of LDL-C. Chino SS et al. ZORAN. 2013;310(19): 2041-1393 (http://education.CrowdSystems/faq/QMO166) CHOL/HDLC RATIO 2.5 <5.0 (calc) [facility] NON HDL CHOLESTEROL 64 <130 mg/dL (calc) [facility] Comment: For patients with diabetes plus 1 major ASCVD risk factor, treating to a non-HDL-C goal of <100 mg/dL (LDL-C of <70 mg/dL) is considered a therapeutic option. Blood BLOOD SPECIMEN / Unknown 07/25/2024 6:59 AM COPER HAND 07/25/2024 6:59 AM COPER HAND Abdi Chang MD CHEMISTRY Final Resu lt Performing Organization Address City/[facility]/ZIP Co de Phone Number [facility] [address] [place] [address], [place] [phone] [facility] [address] [place] [address] * (ABNORMAL) BASIC METABOLIC PANEL (07/25/2024 6:59 AM COPER HAND) GLUCOSE 160(H) 65 - 99 mg/dL [facility] Comment: Fasting reference interval For someone without known diabetes, a glucose value >125 mg/dL indicates that they may have diabetes and this should be confirmed with a follow-up test. UREA NITROGEN (BUN) 68(H) 7 - 25 mg/dL [facility] CREATININE 2.40(H) 0.70 - 1.22 mg/dL [facility] EGFR 25(L) > OR = 60 mL/min/1.7 3m2 [facility] BUN/CREATININE RATIO 28(H) 6 - 22 (calc) [facility] SODIUM 142 135 - 146 mmol/L [facility] POTASSIUM 3.9 3.5 - 5.3 mmol/L [facility] CHLORIDE 110 98 - 110 mmol/L [facility] CARBON DIOXIDE 22 20 - 32 mmol/L [facility] ELECTROLYTE BALANCE 10 7 - 17 mmol/L (calc) [facility] CALCIUM 9.3 8.6 - 10.3 mg/dL [facility] Blood BLOOD SPECIMEN / Unknown 07/25/2024 6:59 AM COPER HAND 07/25/2024 6:59 AM COPER HAND us Abdi Chang MD CHEMISTRY Final Resu lt [facility] [address] [place] [address], [facility] [address] [place] [address] from Last [address] [place] [id number] MEDICARE PB ONLY FOR LIFE MEDICARE PART A HB ONLY MEDICARE PART B HB ONLY Advance Directives Documents on File Type Date Recorded Patient Sleeve Turner Expl anation Healthcare Directive 04/20/2005 LIVING WILL, [facility], 04/20/05 * Full Code (Latest Code Status on File) Date Activated Date Inactivated Comments 11/19/2016 3:17 PM 11/20/2016 4:26 PM * Full Code Date Activated Date Inactivated Comments 11/19/2016 7:12 AM 11/19/2016 2:43 PM Question Answer Comments Code Status Discussion: Not Discussed Care Teams Vacuum Cleaner Assembler Relationship Specialty Start Date End Date Abdi Chang MD [address] [facility] [place] [address] PCP - General Family Practice 07/13/22 Travis Mariano MD [address] [place] [address] Ophthalmology Surgery 02/24/12 Chino Valdez MD [address] [facility] [place] [address] Gastroenterology Gastroenterology 06/14/13 Vega Singh MD [address] [place] [address] Cardiology Cardiovascular Disease 06/14/13 Bear Barahona MD [address] [address] Nephrology Nephrology 06/14/13
--- OUTSIDE RECORDS SUMMARY | 2024-08-26 11:03 | XMS_ITS | Continuity of Care Document ---
Author Name [facility] Organization [facility] Care Team Providers Care Nail Sticker Name Role Phone [facility] Unavailable Unavailable Medications Combined list of outpatient medications from Department of Defense and Veterans Affairs facilities.Medications provided include 1) outpatient medications from the last 15 months, and 2) patient-reported medications. Medication Details Route Status Patient Instructions Prescription Expires Prescription Number Last Dispense Date Ordering Provider Order Date Order Qty Source ATENOLOL (ATENOLOL), 50 MG, TABLET, ORAL, [employer] 1000 ea. BOTTLE Cancele d [id number] : 2022 0 Pharmac y Data Transac tion Service Facilit y FUROSEMIDE (furosemide ), 40 MG, TABLET, ORAL, AVKARE, 1000 ea. BOTTLE Cancele d [id number] : 2022 0 Pharmac y Data Transac tion Service Facilit y GLIMEPIRIDE (glimepirid e), 1 MG, TABLET, ORAL, [employer] 100 ea. BOTTLE Active [id number] 4 2023 90 Pharmac y Data Transac tion Service Facilit y GLIMEPIRIDE (glimepirid e), 1 MG, TABLET, ORAL, [employer] 100 ea. BOTTLE Cancele d [id number] : 2023 0 Pharmac y Data Transac tion Service Facilit y GLIMEPIRIDE (glimepirid e), 1 MG, TABLET, ORAL, [employer] 100 ea. BOTTLE Active [id number] 4 2023 90 Pharmac y Data Transac tion Service Facilit y JARDIANCE (EMPAGLIFLO ZIN), 10 MG, TABLET, ORAL, BOEHRINGER ING., 90 ea. BOTTLE Active [id number] 4 2023 45 Pharmac y Data Transac tion Service Facilit y JARDIANCE (EMPAGLIFLO ZIN), 10 MG, TABLET, ORAL, BOEHRINGER ING., 90 ea. BOTTLE Cancele d [id number] : 2023 0 Pharmac y Data Transac tion Service Facilit y LISINOPRIL (lisinopril ), 5 MG, TABLET, ORAL, EXELAN PHARMACE, 1000 ea. BOTTLE Cancele d [id number] : 2022 0 Pharmac y Data Transac tion Service Facilit y NITROGLYCER IN (nitroglyce rin), 0.4 MG, TAB SUBL, SUBLINGUAL, [employer] 25 ea. BOTTLE Active [id number] 4 2023 25 Pharmac y Data Transac tion Service Facilit y Social History Combined list of available smoking, tobacco, and other social history from Department of Defense and Veterans Affairs facilities. Social History Type Response Date Comment [facility] e This section is an empty social history section. DoD
--- NOTE | 2024-08-26 11:35 | ED.GENADULT ---
HPI - General Adult General Chief complaint: Unspecified Complaint, Adult Stated complaint: sent by doctor [facility] platelets Time Seen by Provider: 08/26/24 11:05 History of Present Illness HPI narrative: Patient is an 89 year white male who had a history of low platelets in the 40,000 range, with his last hospitalization. He has had AFib, he was on Eliquis for period of time it has been held. He has been on aspirin as well and that is been held. It is not really clear why he has low platelets. He was sent to the ER by his clinic physician after he had ?abnormally low platelets and a ?. The patient's chart from the clinic was obtained and it looks like they could not read the platelet count because of the size of the red blood cells. The patient denies any bleeding although when he had his blood drawn he said he bled for about 40 minutes. He has not had any medication for low platelets he has not apparently had a bone marrow biopsy or other workup. He is asymptomatic. No chest pain, no shortness of breath, no bruising. Related Data Home Medications ?Medication ?Instructions ?Recorded ?Confirmed apixaban 5 mg tablet (Eliquis) 5 mg PO BID 04/27/24 04/27/24 aspirin 81 mg capsule 81 mg PO DAILY 04/27/24 04/27/24 atenolol 50 mg tablet 50 mg PO DAILY 04/27/24 04/27/24 atorvastatin 20 mg tablet 20 mg PO DAILY 04/27/24 04/27/24 cholecalciferol (vitamin D3) 50 50 mcg PO DAILY 04/27/24 04/27/24 mcg (2,000 unit) capsule finasteride 5 mg tablet 5 mg PO DAILY 04/27/24 04/27/24 furosemide 20 mg tablet 20 mg PO BID 04/27/24 04/29/24 furosemide 40 mg tablet 40 mg PO BID 04/27/24 04/29/24 glimepiride 1 mg tablet 1 mg PO DAILY 04/27/24 04/27/24 lisinopril 2.5 mg tablet 2.5 mg PO DAILY 04/27/24 04/27/24 niacin 500 mg tablet,extended 500 mg PO DAILY 04/27/24 04/27/24 release 24 hr nitroglycerin 0.4 mg sublingual 0.4 mg sublingual Q5M PRN 04/27/24 04/27/24 tablet tamsulosin 0.4 mg capsule 0.8 mg PO DAILY 04/27/24 04/27/24 vitamin E 268 mg (400 unit) capsule 268 mg PO DAILY 04/27/24 04/27/24 zinc gluconate 50 mg tablet 100 mg PO DAILY 04/27/24 04/27/24 Previous Rx's ?Medication ?Instructions ?Recorded cefdinir 300 mg capsule 300 mg PO BID 4 days #8 caps 05/01/24 Allergies Allergy/AdvReac Type Severity Reaction Status Date / Time No Known Drug Allergies Allergy Verified 08/26/24 11:09 Review of Systems Status of ROS: Reports: 6 or more systems reviewed and unremarkable except as noted in History and below [facility] Medical History Diabetes type 2 with atherosclerosis of arteries of extremities ?E11.51 - Type 2 diabetes mellitus with diabetic peripheral angiopathy without gangrene (ICD-10) ?I70.209 - Unspecified atherosclerosis of hughes arteries of extremities, unspecified extremity (ICD-10) Hyperlipidemia ?E78.5 - Hyperlipidemia, unspecified (ICD-10) Hypertension ?I10 - Essential (primary) hypertension (ICD-10) Current use of terminologist anticoagulation ?Z79.01 - half-way (current) use of anticoagulants (ICD-10) Atrial fibrillation ?I48.91 - Unspecified atrial fibrillation (ICD-10) Diastolic congestive heart failure ?I50.30 - Unspecified diastolic (congestive) heart failure (ICD-10) Coronary artery disease ?I25.10 - Atherosclerotic heart disease of hughes coronary artery without angina pectoris (ICD-10) CKD (chronic kidney disease) stage 4, GFR 15-29 ml/min ?N18.4 - Chronic kidney disease, stage 4 (severe) (ICD-10) Social History What is your current living situation?: I presently have a place to live Problems where you live: no known problems Problems where you live details: NA In the past 12 months, utilities in danger of being shut off: no In past 12 months, lack of transportation kept you from medical appts, meetings, work, or getting things needed for daily living: no In the past 12 mos, have been you worried that your food would run out before you had money to buy more?: never true In the past 12 mos, the food you bought just didn't last and you didn't have money to buy more?: never true Highest level of school completed/degree received: some college, no degree Smoking Status: Former smoker Do you use any of these nicotine containing products: None Second hand tobacco smoke exposure: No How often do you have a drink containing alcohol: 4 or more times a week Alcohol type: beer How many standard drinks containing alcohol do you have on a typical day: 1 or 2 How often do you have six or more drinks on one occasion: Never AUDIT-C Alcohol total score: 4 Non-prescribed substance use: denies use Caffeine: Yes (rarely) How often does anyone, including family, friends and others, physically hurt you: unable to answer How often does anyone, including family, friends and others, insult or talk down to you: unable to answer How often does anyone, including family, friends and others, threaten you with harm: unable to answer How often does anyone, including family, friends and others, scream or curse at you: unable to answer service: Yes Exam Narrative: Exam Narrative: Objective: Patient's vital signs look within normal limits he is alert orient x3 Skin a couple areas of bruising where his blood was drawn in his antecubital area. No focal neurologic weakness or other abnormalities in muscular strength. Const: Vital Signs, click to edit/add: Vital Signs - 24 hr 08/26/24 11:09 Temperature 97.7 F Pulse Rate [Pulse Oximeter] 74 Respiratory Rate 18 Blood Pressure [Ri ght Forearm] 124/74 Pulse Oximetry 99 Course Vital Signs Vital signs: Initial Vital Signs Temperature 97.7 F 08/26/24 11:09 Temperature Source Temporal Artery Scan 08/26/24 11:09 Pulse Rate 74 08/26/24 11:09 Pulse Rhythm Irregular 08/26/24 11:09 Respiratory Rate 18 08/26/24 11:09 Blood Pressure 124/74 08/26/24 11:09 Blood Pressure Mean 90 08/26/24 11:09 Blood Pressure Position Semi-Fowlers 08/26/24 11:09 Pulse Oximetry 99 08/26/24 11:09 Vital Signs Temperature 97.7 F 08/26/24 11:09 Pulse Rate 74 08/26/24 11:09 Respiratory Rate 18 08/26/24 11:09 Blood Pressure 124/74 08/26/24 11:09 Pulse Oximetry 99 08/26/24 11:09 Temperature 97.7 F 08/26/24 11:09 Pulse Rate 67 08/26/24 14:09 Respiratory Rate 18 08/26/24 14:09 Blood Pressure 136/80 08/26/24 14:09 Pulse Oximetry 100 08/26/24 14:09 Oxygen Delivery Method Room Air 08/26/24 14:09 Medications Administered Medications: Discontinued Medications Generic Name Dose Route Start Last Admin Trade Name Dominick PRN Reason Stop Dose Admin Dexamethasone 40 mg 08/26/24 12:57 08/26/24 13:32 Dexamethasone 4 Mg/Ml Vial PO 08/26/24 12:58 40 mg ONCE ONE Administration Medical Decision Making MDM Narrative Medical decision making narrative: [age] white male was on anticoagulation now that is been stopped, history of thrombocytopenia, unclear etiology. Patient looks like he did have a peripheral blood smear sent. He has not been on any other medication. At this point he is asymptomatic. Will recheck his platelets here at the hospital and see what they are. Consultation as needed. Addendum 1:00 p.m.: The patient had a discussion with Dr. Dozier in at [facility]. 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 He recommended dexamethasone 40 mg daily for 4 days, to see if he responds if it is ITP. 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 Discussed Dr. Isabel who will keep the patient in the hospital. With a low platelet count it is dangerous to send people home with this situation. We can monitor his counts as well. Lab Data Labs: Lab Results 08/26/24 08/26/24 Range/Units 11:37 13:45 WBC 4.61 (4.50-11.00) K/uL RBC 3.88 L (4.30-5.90) m/uL Hgb 11.7 L (13.5-17.5) gm/dL Hct 36.9 L (37.0-53.0) % MCV 95 (80-100) fL MCH 30 (26-34) pg MCHC 32 (32-36) gm/dL RDW Coeff of Guillermo 14.4 (11.5-15.5) % Plt Count 1 L* (140-440) K/uL Neut % (Auto) 70.0 (42.0-72.0) % Lymph % (Auto) 18.9 L (20-44) % [place] % (Auto) 8.7 (0.0-11.0) % Eos % (Auto) 2.0 (0.0-7.0) % Baso % (Auto) 0.2 (0.0-3.0) % Neut # (Auto) 3.23 (1.7-7.0) K/uL Lymph # (Auto) 0.90 (0.90-2.90) K/uL [place] # (Auto) 0.40 (0.00-0.90) K/UL Eos # (Auto) 0.09 (0.00-0.50) K/uL Baso # (Auto) 0.01 (0.00-0.30) K/uL Abs Immat Gran (auto) 0.01 (0.00-0.30) K/uL Imm/Tot Granulo (auto) 0.2 % Diff Slide Review Acceptable Review (Acceptable) Blood Type O Negative Discharge Plan Discharge Clinical Impression: Thrombocytopenia Patient Disposition: Admitted As Observation
[2024-08-26 11:43] LABS: Basophils Absolute Auto 0.01 K/uL (0.00-0.30); Basophils Percent Auto 0.2 % (0.0-3.0); Eosinophils Absolute Auto 0.09 K/uL (0.00-0.50); Hematocrit 36.9 % (37.0-53.0); Hemoglobin* 11.7 gm/dL (13.5-17.5); Immature Granulocytes Abs Auto 0.01 K/uL (0.00-0.30); Immature Granulocytes Pct Auto 0.2 %; Lymphocytes Percent Auto 18.9 % (20-44); Mean Corpuscular HGB Conc 32 gm/dL (32-36); Mean Corpuscular Hemoglobin 30 pg (26-34); Mean Corpuscular Volume 95 fL (80-100); Monocytes Percent Auto 8.7 % (0.0-11.0); Neutrophils Absolute Auto 3.23 K/uL (1.7-7.0); RDW Coefficient of Variation % 14.4 % (11.5-15.5); Red Blood Count 3.88 m/uL (4.30-5.90); White Blood Count* 4.61 K/uL (4.50-11.00)
--- OUTSIDE RECORDS SUMMARY | 2024-08-26 11:57 | XMS_ITS | Clinical Summary ---
Author Organization [employer] [facility] Address [place], [place] [address] Care Team Providers Care Paper Cup Machine Tender Name Role Phone Travis Mariano MD Unavailable Unavailable Chino Valdez MD Unavailable Vega Singh MD Unavailable [phone] Bear Barahona MD Unavailable [phone] Abdi Chang MD Primary Care Provider Allergies [...] patient's overall health Hypertension 11/20/2009 Overview (02/15/2011): [employer] recommends BP <120. 02/15/2011 Unspecified hearing loss [...] Other and unspecified hyperlipidemia 01/24/2007 Overview (02/15/2011): [employer] recommends LDL < 70. 02/15/2011 Type 2 [...] Type Department Care Team Description 08/26/2024 Telephone [facility] [facility] [place] [address] Abdi Chang MD Results 08/26/2024 Telephone [facility] [place] [address] Kg Rodriguez MD Abnormal Lab Results 08/25/2024 9:15 AM CURING MACHINE OPERATOR Orders Only [facility] [address] [place] [address] [place], [place] Lab 08/25/2024 Travel 08/01/2024 7:55 AM CURING MACHINE OPERATOR Office Visit [facility] [place] [address] [place] [address] Abdi Chang MD Medicare ANNUAL (subsequent) Visit (87 years); Immunization/Inject ion 08/01/2024 Travel 07/27/2024 Telephone [facility] Ava [place] [facility] [place] [address] Abdi Chang MD Abnormal Lab Results 07/26/2024 9:00 AM CURING MACHINE OPERATOR Ancillary Procedure [facility] [place] [address] 07/26/2024 Travel 07/25/2024 7:00 AM CURING MACHINE OPERATOR Orders Only [facility] [place] [address] [address] [place], [place] 07/24/2024 Travel 07/10/2024 Refill [facility] [place] [address] [address] Abdi Chang MD Refill Request (Atorvastatin) 06/22/2024 Refill [facility] [place] [address] [address] Abdi Chang MD Refill Request (Niacin Er) 06/08/2024 Telephone [facility] [address] Abdi Chang MD Abnormal Lab Results from [...] on file Legal Sex Male 6:41 AM CURING MACHINE OPERATOR Gender Identity Not on file Sexual Orientation Not on file Occupation Industry Job Start Date Job End Date Retired Not on file Not on file Not on file Obstetrics History Last Filed Vital Signs Vital Sign Reading Time Taken Comments Blood Pressure 123/71 08/01/2024 7:45 AM CURING MACHINE OPERATOR Pulse 65 08/01/2024 7:45 AM CURING MACHINE OPERATOR Temperature 36.2 C (97.1 F) 08/01/2024 7:45 AM CURING MACHINE OPERATOR Respiratory Rate 20 01/01/2022 1:45 PM CDT Oxygen Saturation 100% 08/01/2024 7:45 AM CURING MACHINE OPERATOR Inhaled Oxygen Concentration - - Weight 113.5 kg (250 lb 4.8 oz) 08/01/2024 7:40 AM CURING MACHINE OPERATOR Height 166.3 cm (5' 5.47) 08/01/2024 7:40 AM CS T Body Mass Index 41.05 08/01/2024 7:40 AM CURING MACHINE OPERATOR Plan of Treatment Upcoming Encounters Date Type Department Care Team (Late st Contact Info) Description 08/29/2024 8:20 AM CURING MACHINE OPERATOR Office Visit [facility] [address] [place] [address] Abdi Chang MD [address] [place] [address] 01/25/2025 7:00 AM CDT Orders Only [facility] [address] [place] [address] [address] [place] 01/30/2025 7:30 AM CDT Office Visit [facility] [address] [place] [address] Abdi Chang MD [address] [place] [address] Health Maintenance Due Date Last Done Comments [...] ([facility] REFLEX ONLY) Routine 08/25/2024 8:55 AM CURING MACHINE OPERATOR CBC WITH AUTO DIFFERENTIAL Routine 08/25/2024 8:55 AM CURING MACHINE OPERATOR Thrombocytopenia (HC) CT CHEST WO Routine 07/26/2024 8:39 AM CURING MACHINE OPERATOR Pneumonia of left lower lobe due to infectious organism PLATELET ESTIMATION ([facility] REFLEX ONLY) Routine 07/25/2024 6:59 AM CURING MACHINE OPERATOR CBC WITH AUTO DIFFERENTIAL Routine 07/25/2024 6:59 AM CURING MACHINE OPERATOR 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) HEMOGLOBIN A1C Routine 07/25/2024 6:59 AM CURING MACHINE OPERATOR Type 2 diabetes mellitus with stage 4 chronic kidney disease, 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) LIPID PANEL W REFLEX MEASURED LDL Routine 07/25/2024 6:59 AM CURING MACHINE OPERATOR Type 2 diabetes mellitus with stage 4 chronic kidney disease, 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) BASIC METABOLIC PANEL Routine 07/25/2024 6:59 AM CURING MACHINE OPERATOR Type 2 diabetes mellitus with stage 4 chronic kidney disease, 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) from Last 3 Months Results * (ABNORMAL) PLATELET ESTIMATION ([facility] REFLEX ONLY) (08/25/2024 8:55 AM CURING MACHINE OPERATOR) Only the most recent of2 resultswithin the time period is included. Pathologist [facility] PLATELET ESTIMATION DECREASED( A) ADEQUATE [facility] 08/25/2024 8:55 AM CURING MACHINE OPERATOR 08/25/2024 8:55 AM CURING MACHINE OPERATOR us Abdi Chang MD HEMATOLOGY Final Resu lt [facility] [address] [place] [address], [facility] [address] [place] [address] * (ABNORMAL) CBC AND DIFFERENTIAL (08/25/2024 8:55 AM CURING MACHINE OPERATOR) Only the most recent of2 resultswithin the [...] BLOOD SPECIMEN / Unknown 08/25/2024 8:55 AM CURING MACHINE OPERATOR 08/25/2024 8:55 AM CURING MACHINE OPERATOR us Abdi Chang MD HEMATOLOGY Final Resu lt [facility] [address] [place] [address], [facility] [address] [place] [address] * CT CHEST WO (07/26/2024 8:39 AM CURING MACHINE OPERATOR) Anatomical Region Laterality Modality CHEST, THORAX, HEART Computed To mography 07/26/2024 4:28 PM CURING MACHINE OPERATOR Narrative 07/26/2024 4:28 PM CURING MACHINE OPERATOR For Patients: As a result of the [...] For Patients: As a result of the 21st Century Cures Act, medical imagingexams and procedure reports [...] MD @ 07/26/2024 4:28:51 PM (Electronically Signed) us Abdi Chang MD CT Final Resu lt * (ABNORMAL) HEMOGLOBIN A1C (07/25/2024 6:59 AM CURING MACHINE OPERATOR) HEMOGLOBIN A1C 6.6(H) <5.7 % of total [...] BLOOD SPECIMEN / Unknown 07/25/2024 6:59 AM CURING MACHINE OPERATOR 07/25/2024 6:59 AM CURING MACHINE OPERATOR Abdi Chang MD CHEMISTRY Final Resu lt [facility] [address] [place] [address], [facility] [address] [place] [address] * LIPID PANEL W REFLEX MEASURED LDL (07/25/2024 6:59 AM CURING MACHINE OPERATOR) CHOLESTEROL, TOTAL 108 <200 mg/dL [facility] [...] factors. LDL-C is now calculated using the Chino-Mejia calculation, which is a validated novel method providing better accuracy than the Friedewald equation in the estimation of LDL-C. Chino LOPES et al. ZORAN. 2013;310(19): 0775-1720 (http://education.Compare And Share.Aniboom/faq/MSR866) CHOL/HDLC RATIO 2.5 <5.0 (calc) [facility] NON HDL CHOLESTEROL 64 <130 mg/dL (calc) [facility] Comment: For patients with diabetes plus 1 major ASCVD risk factor, treating to a non-HDL-C goal of <100 mg/dL (LDL-C of <70 mg/dL) is considered a therapeutic option. Blood BLOOD SPECIMEN / Unknown 07/25/2024 6:59 AM CURING MACHINE OPERATOR 07/25/2024 6:59 AM CURING MACHINE OPERATOR Abdi Chang MD CHEMISTRY Final Resu lt [facility] [address] [facility] [place] [address], [place] [phone] [facility] [address] [place] [address] * (ABNORMAL) BASIC METABOLIC PANEL (07/25/2024 6:59 AM CURING MACHINE OPERATOR) GLUCOSE 160(H) 65 - 99 mg/dL [facility] Comment: Fasting reference interval For [...] BLOOD SPECIMEN / Unknown 07/25/2024 6:59 AM CURING MACHINE OPERATOR 07/25/2024 6:59 AM CURING MACHINE OPERATOR us Abdi Chang MD CHEMISTRY Final Resu lt [employer] [facility] [address] [facility] [place] [address], [place] [phone] [facility] [address] [place] [address] from Last 3 Months Insurance MEDICARE PB ONLY FOR LIFE MEDICARE PART A HB ONLY MEDICARE PART B HB ONLY Advance Directives Documents on File Type Date Recorded Patient [place] Steward Expl anation Healthcare Directive 04/20/2005 LIVING WILL, [facility] [place], 04/20/05 * Full Code (Latest Code Status on File) Date Activated Date Inactivated Comments 11/19/2016 3:17 PM 11/20/2016 4:26 PM * Full Code Date Activated Date Inactivated Comments 11/19/2016 7:12 AM 11/19/2016 2:43 PM Question Answer Comments Code Status Discussion: Not Discussed Care Teams Paper Cup Machine Tender Relationship Specialty Start Date End Date Abdi Chang MD [address] [place] [address] PCP - General Family Practice 07/13/22 Travis Mariano MD [address] [place] [address] Ophthalmology Surgery 02/24/12 Chino Valdez MD [address] [place] [address] Gastroenterology Gastroenterology 06/14/13 Vega Singh MD [address] [place] [address] Cardiology Cardiovascular Disease 06/14/13 Bear Barahona MD [address] [address] Nephrology Nephrology 06/14/13
--- OUTSIDE RECORDS SUMMARY | 2024-08-26 11:57 | XMS_ITS | Continuity of Care Document ---
Author Name [facility] Organization [facility] Care Team Providers Care Paperboard Machine Operator Name Role Phone [facility] Unavailable Unavailable Medications Combined list of outpatient medications from Department of Defense and Veterans Affairs facilities.Medications provided include 1) outpatient medications from the last 15 months, and 2) patient-reported medications. Medication Details Route Status Patient Instructions Prescription Expires Prescription Number Last Dispense Date Ordering Provider Order Date Order Qty Source ATENOLOL (ATENOLOL), 50 MG, TABLET, ORAL, [employer] 1000 ea. BOTTLE Cancele d [id number] : 2022 0 Pharmac y Data Transac tion Service Facilit y FUROSEMIDE (furosemide ), 40 MG, TABLET, ORAL, AVKARE, 1000 ea. BOTTLE Cancele d [id number] : 2022 0 Pharmac y Data Transac tion Service Facilit y GLIMEPIRIDE (glimepirid e), 1 MG, TABLET, ORAL, [employer] 100 ea. BOTTLE Active [id number] 4 2023 90 Pharmac y Data Transac tion Service Facilit y GLIMEPIRIDE (glimepirid e), 1 MG, TABLET, ORAL, [employer] 100 ea. BOTTLE Cancele d [id number] : 2023 0 Pharmac y Data Transac tion Service Facilit y GLIMEPIRIDE (glimepirid e), 1 MG, TABLET, ORAL, [employer] 100 ea. BOTTLE Active [id number] 2023 90 Pharmac y Data Transac tion Service Facilit y JARDIANCE (EMPAGLIFLO ZIN), 10 MG, TABLET, ORAL, BOEHRINGER ING., 90 ea. BOTTLE Active [id number] 2023 45 Pharmac y Data Transac tion Service Facilit y JARDIANCE (EMPAGLIFLO ZIN), 10 MG, TABLET, ORAL, BOEHRINGER ING., 90 ea. BOTTLE Cancele d [id number] : 2023 0 Pharmac y Data Transac tion Service Facilit y LISINOPRIL (lisinopril ), 5 MG, TABLET, ORAL, EXELAN PHARMACE, 1000 ea. BOTTLE Cancele d [id number] : 2022 0 Pharmac y Data Transac tion Service Facilit y NITROGLYCER IN (nitroglyce rin), 0.4 MG, TAB SUBL, SUBLINGUAL, [employer] 25 ea. BOTTLE Active [id number] 4 2023 25 Pharmac y Data Transac tion Service Facilit y Social History Combined list of available smoking, tobacco, and other social history from Department of Defense and Veterans Affairs facilities. Social History Type Response Date Comment [facility] e This section is an empty social history section. DoD
--- OUTSIDE RECORDS SUMMARY | 2024-08-26 11:57 | XMS_ITS | Continuity of Care Document ---
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 Name Role Phone Domenic Patrick MD Unavailable Unavailable Allergies, Adverse Reactions, Alerts Substance Reaction Status Criticality No Known Allergies Active No Inform ation Medications Medication Instructions Dosage Effective Dates (start - stop) Status Comments DURLAZA (unknown strength) Not Available - Active TAMSULOSIN HCL (unknown strength) Not Available - Active ZINC (unknown strength) Not Available - Active VITAMIN B COMPLEX (unknown strength) Not Available - Active VITAMIN E (unknown strength) Not Available - Active NITROSTAT (unknown strength) Not Available - Active NIACIN (unknown strength) Not Available - Active LIPITOR (unknown strength) Not Available - Active FUROSEMIDE (unknown strength) Not Available - Active FINASTERIDE (unknown strength) Not Available - Active ATENOLOL (unknown strength) Not Available - Active Procedures [...] Copied on Encounter [facility], [address], [place], [place], [id number] , [place] tel:[phone] [facility] No Information 9 Transfeldt Ensor. [facility], [address], [facility] [address], [place], [place], [id number], [place]. tel:[phone] [facility], [address], [place], [place], [id number] , [place] tel:[phone] [facility] Encounter for other specified surgical aftercare 7 Silvana Valdez. [facility], [address] [place] [address] [address], [place], [address], [place]. tel:[phone] Referring Provider: Nicholas Ortega, [employer] [facility] [place] [facility], [place], [address]. tel:[phone] [facility], [address], [place], [place], [id number] , [place] tel: [phone] [facility] No Information 7 Transfeldt Ensor. [facility] [place], [address], [facility] [address], [place], [place], [id number], [place]. tel:[phone] Referring Provider: Nicholas Ortega, [employer] [facility] [facility] [facility], [place], [address]. tel:[phone] Office/Outpa tient Visit,[facility], [address], [place], [place], [id number] , [place] tel:[phone] [facility] Spinal stenosis, lumbar region 7 Transfeldt Ensor. [facility] [place], [address], [facility] [address], [place], [place], [id number], [place]. tel:[phone] Referring Provider: [employer] [facility] [facility], [place], [address]. tel:[phone] Family History Family Member Type Diagnosis Age At Onset No Information Payers Payer name Insurance type Covered constitution party ID Authoriza tion(s) Medicare [id number] For Life/Retired [facility] [id number] Social History Type Description Quantity Date Captured [...]
[2024-08-26 12:22] LABS: Slide Review Reflex Yes
[2024-08-26 12:25] LABS: Platelet Count* 1 K/uL (140-440); Slide Review Acceptable Review (Acceptable)
[2024-08-26] MEDS: dexAMETHasone 4 MG/ML VIAL 40 MG PO (13:32)
--- NOTE | 2024-08-26 16:17 | P.IMHP_ITS ---
Hospitalist- H&P: HPI History of Present Illness Date Seen: 08/26/24 Chief complaint: sent by doctor destiny ocampo Narrative: Vernon Mckinley is a 89 year old man who is known to have a history of thrombocytopenia although workup has not been done to establish the reason why, after having been assessed in the clinic today and found to have a platelet count too low for their machine to count, was sent to the emergency department at [facility] for further assessment. He has no symptoms. Has had no spontaneous bleeding or bruising. Has had no focal motor neurologic deficits. No recent illness. No recent trauma or injury. Most recent time he was seen in the clinic was on 08/01/2024 at which time [place] [id number]. Most recent hospitalization was due for from 04/28/2024 through 05/01/2024 when he presented with pneumonia and sepsis in association with this. At that time [place] count [place] 83127. He had been advised that time to seek hematologic consultation. Still has not sought hematologic consultation as of this date. Historically he has use aspirin on a regular basis 81 mg daily but quit that during the hospitalization in April of 2024. He believes it was around the same time in April 2024 that he quit taking his apixaban. Does not take any nonsteroidal anti-inflammatory medications. Does take furosemide and niacin which have been reported as causing thrombocytopenia. While in the hospital he did receive ceftriaxone which has also been implicated in thrombocytopenia. Did complete 4 additional days of cefdinir with his pneumonia diagnosis in April 2024, but the Ceftin ears not implicated in thrombocytopenia. He does drink alcohol on a regular basis, 16-32 oz of beer daily typically. Review of Systems Status of ROS: Reports: 6 or more systems reviewed and unremarkable except as noted in History and below Narrative: Leads a relatively sedate lifestyle. 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 Over the last few years he has become increasingly sedate and involved in very little outside of simply being in his home. Former smoker of 1 and half packs of cigarettes daily until 1985. He has roughly 40-50 pack-year history of smoking. Continues to consume alcohol regularly, 16 oz of beer at least daily and sometimes 2 or 3 times daily. Denies alcohol withdrawal. Tells me he takes his medications faithfully as prescribed. Lives with his , Maritza, and they have been for 45 years. He designates his as the individual to make decisions on his behalf should he become unable to make healthcare decisions on his own behalf. He requests DNR DNI resuscitation status in the event of cardiopulmonary demise. Has [place] heart Association class 2 [place] heart Association class 3 symptoms. Denies dyspnea at rest but acknowledges at times has more dyspnea with exertion than other times. Longstanding pain and discomfort in both legs with ambulation that resolves with rest. Interestingly he states if he uses his walker or a cane there is less pain in his legs as well. Seemingly describes claudication as well as arthrosis. Chronic bilateral lower extremity edema. Denies gastrointestinal or genitourinary concerns or complaints. [facility] Medical History Diabetes type 2 with atherosclerosis of arteries of extremities ?E11.51 - Type 2 diabetes mellitus with diabetic peripheral angiopathy without gangrene (ICD-10) ?I70.209 - Unspecified atherosclerosis of [place] arteries of extremities, unspecified extremity (ICD-10) Hyperlipidemia ?E78.5 - Hyperlipidemia, unspecified (ICD-10) Hypertension ?I10 - Essential (primary) hypertension (ICD-10) Current use of salvage determiner anticoagulation ?Z79.01 - senior living (current) use of anticoagulants (ICD-10) Atrial fibrillation ?I48.91 - Unspecified atrial fibrillation (ICD-10) Diastolic congestive heart failure ?I50.30 - Unspecified diastolic (congestive) heart failure (ICD-10) Coronary artery disease ?I25.10 - Atherosclerotic heart disease of [place] coronary artery without angina pectoris (ICD-10) CKD (chronic kidney disease) stage 4, GFR 15-29 ml/min ?N18.4 - Chronic kidney disease, stage 4 (severe) (ICD-10) Social History What is your current living situation?: I presently have a place to live Problems where you live: no known problems Problems where you live details: NA In the past 12 months, utilities in danger of being shut off: no In past 12 months, lack of transportation kept you from medical appts, meetings, work, or getting things needed for daily living: no In the past 12 mos, have been you worried that your food would run out before you had money to buy more?: never true In the past 12 mos, the food you bought just didn't last and you didn't have money to buy more?: never true Highest level of school completed/degree received: some college, no degree Smoking Status: Former smoker Do you use any of these nicotine containing products: None Second hand tobacco smoke exposure: No How often do you have a drink containing alcohol: 4 or more times a week Alcohol type: beer How many standard drinks containing alcohol do you have on a typical day: 1 or 2 How often do you have six or more drinks on one occasion: Never AUDIT-C Alcohol total score: 4 Non-prescribed substance use: denies use Caffeine: Yes (rarely) How often does anyone, including family, friends and others, physically hurt you : unable to answer How often does anyone, including family, friends and others, insult or talk down to you: unable to answer How often does anyone, including family, friends and others, threaten you with harm: unable to answer How often does anyone, including family, friends and others, scream or curse at you: unable to answer service: Yes Meds Home Medications and Allergies Home Medications ?Medication ?Instructions ?Recorded ?Confirmed ?Type apixaban 5 mg tablet (Eliquis) 5 mg PO BID 04/27/24 04/27/24 History aspirin 81 mg capsule 81 mg PO DAILY 04/27/24 04/27/24 History atenolol 50 mg tablet 50 mg PO DAILY 04/27/24 04/27/24 History atorvastatin 20 mg tablet 20 mg PO DAILY 04/27/24 04/27/24 History cholecalciferol (vitamin D3) 50 50 mcg PO DAILY 04/27/24 04/27/24 History mcg (2,000 unit) capsule finasteride 5 mg tablet 5 mg PO DAILY 04/27/24 04/27/24 History furosemide 20 mg tablet 20 mg PO BID 04/27/24 04/29/24 History furosemide 40 mg tablet 40 mg PO BID 04/27/24 04/29/24 History glimepiride 1 mg tablet 1 mg PO DAILY 04/27/24 04/27/24 History lisinopril 2.5 mg tablet 2.5 mg PO DAILY 04/27/24 04/27/24 History niacin 500 mg tablet,extended 500 mg PO DAILY 04/27/24 04/27/24 History release 24 hr nitroglycerin 0.4 mg sublingual 0.4 mg sublingual Q5M PRN 04/27/24 04/27/24 History tablet tamsulosin 0.4 mg capsule 0.8 mg PO DAILY 04/27/24 04/27/24 History vitamin E 268 mg (400 unit) capsule 268 mg PO DAILY 04/27/24 04/27/24 History zinc gluconate 50 mg tablet 100 mg PO DAILY 04/27/24 04/27/24 History Allergies Allergy/AdvReac Type Severity Reaction Status Date / Time No Known Drug Allergies Allergy Verified 08/26/24 11:09 Exam Narrative: Exam Narrative: I examine him in his hospital room. Very hard of hearing, hears better out of the right ear than on the left. Vision is adequate. Alert and oriented x3. Friendly, cooperative. Does not appear acutely ill, but does appear chronically incapacitated. 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 Muscle wasting in the right upper extremity compared to the left. No conjunctival injection or icterus. Conjugate gaze. Multiple missing dentition otherwise dentition in fair repair. Moist buccal mucosa. Cranial nerves 3-12 grossly normal. Neck is full. Midline trachea. No JVD or hepatojugular reflux in the sitting upright position. No head neck lymphadenopathy. Barrel-shaped chest. Chest wall excursions full with respiratory efforts. Lungs are clear to auscultation without wheezing, rhonchi, or rales. No CVA tenderness with thumping. Chaotic heart rhythm. Normal S1-S2. Soft systolic murmur. PMI not laterally displaced. Abdomen is obese with active bowel sounds, soft, nontender. Moves all 4 extremities. Independent with transfer, station, gait. Forward stooped posture. Takes short steps. 2-3 mm pitting edema pretibially bilater ally and also up into the thighs. Skin on both forearms with ecchymoses, all of them seem old, none seem fresh. Const: Vital Signs, click to edit/add: Vital Signs - 24 hr 08/26/24 11:09 08/26/24 14:09 Temperature 97.7 F Pulse Rate [Pulse Oximeter] 74 Pulse Rate [Right Pulse Oximeter] 67 Respiratory Rate 18 18 Blood Pressure [Le ft Arm] 136/80 Blood Pressure [Ri ght Forearm] 124/74 Pulse Oximetry 99 100 Oxygen Delivery Me thod Room Air Hospitalist - H&P: Result Labs Labs: Short CBC 08/26/24 Range/Units 11:37 WBC 4.61 (4.50-11.00) K/uL Hgb 11.7 L (13.5-17.5) gm/dL Hct 36.9 L (37.0-53.0) % Plt Count 1 L* (140-440) K/uL Assessment and Plan Assessment and plan (1) Thrombocytopenia: Problem comment: -etiology not yet determined. Differential diagnosis for such a low platelet count include idiopathic thrombocytopenia purpura, single lineage myelodysplastic syndrome, other. Additional factors that may contribute certainly include medications which she had previously been on or is currently still on including aspirin, furosemide, niacin, ceftriaxone. Dr. Estrada, [facility] Emergency Department, spoke with Dr. Dozier, [facility], who was most concerned about the possibility of ITP but acknowledges the possibility of single lineage myelodysplastic syndrome. -Dr. Dozier recommends prompt initiation of dexamethasone 40 mg daily for the next 4 days and monitoring platelets. Additionally, he suggest we consider a platelet transfusion and if he does not respond to the transfusion there is a possibility that this may more definitively point toward diagnosis of ITP. Status: Acute (2) Essential hypertension: Status: Acute (3) Hypertensive heart disease: Status: Acute (4) Diastolic congestive heart failure: Problem comment: -chronic, stable -will stop the furosemide 60 mg twice daily and switch to torsemide 30 mg twice daily Status: Chronic (5) Diabetes type 2 with atherosclerosis of arteries of extremities: Problem comment: Add low-dose insulin sliding scale, goal inpatient glucoses are 140-180s to avoid hypoglycemia Continue oral antidiabetic medication Status: Chronic (6) Atrial fibrillation: Problem comment: holding apixaban due to thrombocytopenia (platelets less than 50). Status: Chronic (7) CKD (chronic kidney disease) stage 4, GFR 15-29 ml/min: Problem comment: baseline Cr 2.5 Status: Chronic (8) Hypertensive kidney disease: Status: Acute (9) Coronary artery disease: Problem comment: No chest pain EKG and troponin are unremarkable Status: Chronic (10) Hyperlipidemia: Problem comment: Stop the niacin which can sometimes cause thrombocytopenia Status: Chronic Plan 1. I reviewed my impression and recommendations with the patient, his , and his stepson. Answered their questions to their satisfaction. They asked us to proceed. Total Time Spent Total Time Spent: 60 minutes
--- NOTE | 2024-08-26 18:50 | PC.NURSE ---
Nursing Care Hours: [id number] Pt this shift arrived to the floor via w/c, alert and oriented. Pain to LE chronic but able to use walker with SBA, steady gait. No c/o dizziness or lightheadedness. VSS on RA. Scattered bruises to bilat UE. Pt instructed to call for assist with ambulation d/t high risk of hemorrhage if pt falls or trips. Pt states he has been having low appetite for the last couple years. Did eat late lunch and a dinner this shift. Platelets infused without issue. Vitals remain stable.
[2024-08-26] MEDS: SODIUM CHLORIDE 0.9 % (FLUSH) 10 ML SYRINGE 5 ML IVF (20:29)
--- NOTE | 2024-08-26 21:30 | PC.NURSE ---
Per Teena Heaton stated time platelets infused. Verified with Doreen HEATON and Sona HEATON
[2024-08-26 21:33] LABS: Hematocrit 37.1 % (37.0-53.0); Hemoglobin* 11.8 gm/dL (13.5-17.5); Mean Corpuscular HGB Conc 32 gm/dL (32-36); Mean Corpuscular Hemoglobin 30 pg (26-34); Mean Corpuscular Volume 95 fL (80-100); Red Blood Count 3.89 m/uL (4.30-5.90); White Blood Count* 4.49 K/uL (4.50-11.00)
[2024-08-26 22:32] LABS: Platelet Count* 3 K/uL (140-440); Slide Review Reflex Yes
[2024-08-26 22:36] LABS: Slide Review Acceptable Review (Acceptable)
[2024-08-27] VITALS (8 sets, daily range): BP systolic 96–137; BP diastolic 60–86; PULSE 57–75; RESP 16–18; TEMP 36.4–36.6; O2SAT 97–100
[2024-08-27 07:19] LABS: HCO3 VBG 24 mmol/L (21-28); Lactate* 2.1 mmol/L (0.5-1.9); PCO2 VBG 40 mmHG (40-50); PO2 VBG < 30.1 mmHG (25-47); pH VBG 7.381 (7.32-7.43)
[2024-08-27 07:25] LABS: Hematocrit 35.3 % (37.0-53.0); Hemoglobin* 11.5 gm/dL (13.5-17.5); Immature Granulocytes Abs Auto 0.06 K/uL (0.00-0.30); Lymphocytes Percent Auto 5.4 % (20-44); Mean Corpuscular HGB Conc 33 gm/dL (32-36); Mean Corpuscular Hemoglobin 31 pg (26-34); Mean Corpuscular Volume 94 fL (80-100); Monocytes Percent Auto 1.5 % (0.0-11.0); Neutrophils Percent Auto 92.1 % (42.0-72.0); Red Blood Count 3.76 m/uL (4.30-5.90); White Blood Count* 6.09 K/uL (4.50-11.00)
--- NOTE | 2024-08-27 07:29 | PC.NURSE ---
Pt alert and oriented x3. Afebrile. Pt denies pain, chest pain, SOB, N/V and dizziness. Pt is up SBA with walker and gait belt, voiding, and tolerating a regular diet. Expanse down time from approximately [id number].?
[2024-08-27 07:37] LABS: Chloride* 108 mmol/L (96-114)
[2024-08-27 07:38] LABS: Albumin* 3.9 g/dL (3.3-5.0); Sodium* 141 mmol/L (135-149)
[2024-08-27 07:39] LABS: Potassium* 4.2 mmol/L (3.6-5.1)
[2024-08-27 07:41] LABS: Alanine Aminotransferase* 26 U/L (4-50); Alkaline Phosphatase* 63 U/L (40-150); Anion Gap 11 mEq/L (7-15); Aspartate Amino Transferase* 21 U/L (12-35); Bilirubin Total* 1.5 mg/dL (0.1-1.5); Blood Urea Nitrogen* 56 mg/dL (7-30); Carbon Dioxide* 22 mmol/L (20-32); Creatinine* 2.1 mg/dL (0.5-1.5); Est. Creatinine Clearance* 23.98; Estimated Glomerular Filt Rate 30 ml/min; Total Protein* 6.6 g/dL (6.0-8.3)
[2024-08-27 07:42] LABS: Glucose* 281 mg/dL (60-115); Magnesium* 2.2 mg/dL (1.5-2.6); Phosphorus* 2.9 mg/dL (2.5-4.5)
[2024-08-27 07:55] LABS: C Reactive Protein* < 0.5 mg/dL (0.5-1.0); NT Pro B Type NatriureticPept* 6060 pg/mL
[2024-08-27 08:01] LABS: Immature Reticulocyte Fraction 18.4 % (2.3-13.4); Reticulocyte Hemoglobin Equivi 33.1 pg (29.0-35.0); Reticulocyte Percent 1.8 % (0.5-2.0); Reticulocytes Absolute 0.07 # (0.03-0.08)
[2024-08-27 08:17] LABS: Platelet Count* 2 K/uL (140-440); Slide Review Reflex Yes
[2024-08-27 08:19] LABS: Slide Review Acceptable Review (Acceptable)
[2024-08-27] MEDS: atenoloL 50 MG TABLET PO (08:56)
[2024-08-27] MEDS: ATORVASTATIN CALCIUM 10 MG TABLET 20 MG PO (08:56)
[2024-08-27] MEDS: TORSEMIDE 20 MG TABLET 30 MG PO ×2 (08:56→14:30)
[2024-08-27] MEDS: GLIMEPIRIDE 1 MG TABLET PO (08:57)
[2024-08-27] MEDS: lisinopriL 5 MG TABLET 2.5 MG PO (08:57)
[2024-08-27] MEDS: FINASTERIDE 5 MG TABLET PO (08:57)
[2024-08-27] MEDS: SODIUM CHLORIDE 0.9 % (FLUSH) 10 ML SYRINGE 5 ML IVF ×2 (08:58→20:48)
[2024-08-27] MEDS: TAMSULOSIN HCL 0.4 MG CAPSULE 0.8 MG PO (08:58)
[2024-08-27] MEDS: dexAMETHasone 10 MG/ML inj 40 MG PO (09:37)
--- NOTE | 2024-08-27 19:10 | PC.NURSE ---
Nursing Care Hours:[id number] Pt this shift calm and cooperative, alert and oriented, no c/o pain. VSS. Scattered petechiae noted on bilat UE from BP cuff and bilat LE. Walked in the yu x2. Acu checks started d/t being DM with steroid use. Pt ate from 2768-3563 and BS check done at 1800. BS reading 362. Discussed hyperglycemia with steroid use and educated pt on insulin NovoLog. Pt hesitant to use insulin because of just eating and expecting a high BS. Agreeable to checking BS at HS and evaluating insulin need at that time.
[2024-08-27] MEDS: INSULIN ASPART 100 UNIT/ML SUBCUT (20:48)
--- NOTE | 2024-08-27 21:28 | PM.IMPN1 ---
Progress Note: A&P Assessment and plan (1) Thrombocytopenia: Problem details: -etiology not yet determined. Differential diagnosis for such a low platelet count include idiopathic thrombocytopenia purpura, single lineage myelodysplastic syndrome, other. Additional factors that may contribute certainly include medications which she had previously been on or is currently still on including aspirin, furosemide, niacin, ceftriaxone. Dr. Estrada, [facility] Emergency Department, spoke with Dr. Dozier, [facility], who was most concerned about the possibility of ITP but acknowledges the possibility of single lineage myelodysplastic syndrome. -Dr. Dozier recommends prompt initiation of dexamethasone 40 mg daily for the next 4 days and monitoring platelets. Additionally, he suggest we consider a platelet transfusion and if he does not respond to the transfusion there is a possibility that this may more definitively point toward diagnosis of ITP. 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 Status: Chronic (4) Essential hypertension: Status: Acute (5) Hypertensive heart disease: Status: Acute Plan Continue in-hospital for monitoring and treatment of severe thrombocytopenia. 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 Further hematology consultation as needed by phone, hospital transfer or as an outpatient. Time Spent With Patient Total time spent: Total time spent is 35 minutes in coordination of care discussing with patient other providers management of thrombocytopenia Subjective Date Seen: 08/27/24 Interval history: Vernon Mckinley is a 89 year old man who is known to have a history of thrombocytopenia although workup has not been done to establish the reason why, after having been assessed in the clinic today and found to have a platelet count too low for their machine to count, was sent to the emergency department at [facility] for further assessment. He has no symptoms. Has had no spontaneous bleeding or bruising. Has had no focal motor neurologic deficits. No recent illness. No recent trauma or injury. Most recent time he was seen in the clinic was on 08/01/2024 at which time his platelet count was 93842. Most recent hospitalization was due for from 04/28/2024 through 05/01/2024 when he presented with pneumonia and sepsis in association with this. At that time his platelet count was 27569. He had been advised that time to seek hematologic consultation. Still has not sought hematologic consultation as of this date. Historically he has use aspirin on a regular basis 81 mg daily but quit that during the hospitalization in April of 2024. He believes it was around June 2024 that he quit taking his apixaban. Does not take any nonsteroidal anti-inflammatory medications. Does take furosemide and niacin which have been reported as causing thrombocytopenia. While in the hospital he did receive ceftriaxone which has also been implicated in thrombocytopenia. Did complete 4 additional days of cefdinir with his pneumonia diagnosis in April 2024, but the Ceftin ears not implicated in thrombocytopenia. He does drink alcohol on a regular basis, 16-32 oz of beer daily typically. 08/27/2024: Patient reports feeling fine today. He is not aware of any bleeding. No recent illness. His platelets increased from 6705-2909 with platelet transfusion and are down to 2000 today suggestive of ITP. Exam Narrative: Exam Narrative: He is alert no distress. Multiple bruises over his body noted. No active bleeding. Respirations are clear to auscultation. Cardiovascular: S1, S2, regular rate and rhythm. Abdomen is soft without tenderness or mass. Const: Vital Signs, click to edit/add: Vital Signs - 24 hr 08/26/24 22:50 08/26/24 22:55 08/26/24 22:55 Temperature 97.5 F L Pulse Rate [Right Pulse Oximeter] 61 Respiratory Rate 18 18 Blood Pressure [Le ft Arm] 176/93 H 139/72 Blood Pressure [Ri ght Arm] Pulse Oximetry 98 98 Oxygen Delivery Me thod Room Air Room Air 08/27/24 01:24 08/27/24 09:05 08/27/24 09:05 Temperature 97.6 F Pulse Rate [Right Pulse Oximeter] 57 L 57 L Respiratory Rate 18 18 18 Blood Pressure [Le ft Arm] 137/79 Blood Pressure [Ri ght Arm] Pulse Oximetry 99 Oxygen Delivery Or thod Room Air Room Air 08/27/24 09:05 08/27/24 11:00 08/27/24 14:41 Temperature 97.9 F 97.7 F Pulse Rate [Right Pulse Oximeter] 75 72 59 L Respiratory Rate 18 16 18 Blood Pressure [Le ft Arm] Blood Pressure [Ri ght Arm] 128/60 129/61 114/64 Pulse Oximetry 97 97 98 [facility] Room Air 08/27/24 15:00 08/27/24 15:00 08/27/24 20:55 Temperature 97.7 F Pulse Rate [Right Pulse Oximeter] 59 L 69 Respiratory Rate 18 18 18 Blood Pressure [Le ft Arm] Blood Pressure [Ri ght Arm] 96/76 Pulse Oximetry 98 98 Oxygen Delivery Me thod Room Air Room Air Documenting provider has reviewed patient's vital signs: yes Labs Labs: Laboratory Results - last 24 hr 08/26/24 08/27/24 21:17 06:55 WBC 4.49 L 6.09 RBC 3.89 L 3.76 L Hgb 11.8 L 11.5 L Hct 37.1 35.3 L MCV 95 94 MCH 30 31 MCHC 32 33 RDW Coeff of Guillermo 14.0 Plt Count 3 L* 2 L* Neut % (Auto) 92.1 H Lymph % (Auto) 5.4 L [place] % (Auto) 1.5 Eos % (Auto) 0.0 Baso % (Auto) 0.0 Neut # (Auto) 5.60 Lymph # (Auto) 0.30 L [place] # (Auto) 0.10 Eos # (Auto) 0.00 Baso # (Auto) 0.00 Abs Immat Gran (auto) 0.06 Imm/Tot Granulo (auto) 1.0 Diff Slide Review Acceptable Review Acceptable Review Absolute Retic 0.07 Percent Retic 1.8 Immature Retic Fraction 18.4 H Retic Hgb Equivalent 33.1 VBG pH 7.381 VBG pCO2 40 VBG pO2 < 30.1 VBG HCO3 24 Sodium 141 Potassium 4.2 Chloride 108 Carbon Dioxide 22 Anion Gap 11 BUN 56 H Creatinine 2.1 H Estimated Creat Clear 23.98 Estimated GFR 30 Glucose 281 H Lactate 2.1 H Calcium 9.0 Phosphorus 2.9 Magnesium 2.2 Total Bilirubin 1.5 AST 21 ALT 26 Alkaline Phosphatase 63 C-Reactive Protein < 0.5 L NT-Pro-B Natriuret Pep 6060 Total Protein 6.6 Albumin 3.9 TSH 1.560
[2024-08-28] VITALS (7 sets, daily range): BP systolic 131–155; BP diastolic 46–91; PULSE 57–75; RESP 18; TEMP 36.3–36.6; O2SAT 98–99
--- NOTE | 2024-08-28 06:19 | PC.NURSE ---
Pt alert and oriented x3. Afebrile. Pt denies pain, SOB, and N/V. Pt is up SBA with walker and gait belt, voiding and tolerating a regular diet. Pt up walking halls x2. ?
[2024-08-28 07:05] LABS: Chloride* 109 mmol/L (96-114); Sodium* 140 mmol/L (135-149)
[2024-08-28 07:06] LABS: Potassium* 4.1 mmol/L (3.6-5.1)
[2024-08-28 07:08] LABS: Creatinine* 2.2 mg/dL (0.5-1.5); Est. Creatinine Clearance* 22.89; Estimated Glomerular Filt Rate 28 ml/min; Hemoglobin* 11.1 gm/dL (13.5-17.5); Immature Granulocytes Abs Auto 0.02 K/uL (0.00-0.30); Immature Granulocytes Pct Auto 0.3 %; Lymphocytes Percent Auto 5.8 % (20-44); Mean Corpuscular HGB Conc 33 gm/dL (32-36); Mean Corpuscular Hemoglobin 30 pg (26-34); Mean Corpuscular Volume 93 fL (80-100); Monocytes Percent Auto 2.7 % (0.0-11.0); Neutrophils Percent Auto 91.2 % (42.0-72.0); RDW Coefficient of Variation % 14.1 % (11.5-15.5); Red Blood Count 3.66 m/uL (4.30-5.90)
[2024-08-28 07:09] LABS: Anion Gap 12 mEq/L (7-15); Blood Urea Nitrogen* 65 mg/dL (7-30); Carbon Dioxide* 19 mmol/L (20-32); Glucose* 261 mg/dL (60-115)
[2024-08-28] MEDS: dexAMETHasone 10 MG/ML inj 40 MG PO (07:48)
[2024-08-28] MEDS: ATORVASTATIN CALCIUM 10 MG TABLET 20 MG PO (07:49)
[2024-08-28] MEDS: TAMSULOSIN HCL 0.4 MG CAPSULE 0.8 MG PO (07:49)
[2024-08-28] MEDS: GLIMEPIRIDE 1 MG TABLET PO (07:50)
[2024-08-28] MEDS: TORSEMIDE 20 MG TABLET 30 MG PO ×2 (07:50→14:17)
[2024-08-28] MEDS: atenoloL 50 MG TABLET PO (07:50)
[2024-08-28] MEDS: lisinopriL 5 MG TABLET 2.5 MG PO (07:51)
[2024-08-28] MEDS: FINASTERIDE 5 MG TABLET PO (07:51)
[2024-08-28] MEDS: INSULIN ASPART 100 UNIT/ML SUBCUT ×4 (07:52→21:16)
[2024-08-28] MEDS: SODIUM CHLORIDE 0.9 % (FLUSH) 10 ML SYRINGE 5 ML IVF ×2 (07:54→21:17)
[2024-08-28 07:56] LABS: Platelet Count* 9 K/uL (140-440); Slide Review Acceptable Review (Acceptable); Slide Review Reflex Yes
--- NOTE | 2024-08-28 15:29 | P.IMPN_ITS ---
Progress Note: A&P Assessment and plan (1) Thrombocytopenia: Problem details: -etiology not yet determined. Differential diagnosis for such a low platelet count include idiopathic thrombocytopenia purpura, single lineage myelodysplastic syndrome, other. Additional factors that may contribute certainly include medications which she had previously been on or is currently still on including aspirin, furosemide, niacin, ceftriaxone. Dr. Estrada, [facility], spoke with Dr. Dozier, [facility], who was most concerned about the possibility of ITP but acknowledges the possibility of single lineage myelodysplastic syndrome. -Dr. Dozier recommends prompt initiation of dexamethasone 40 mg daily for the next 4 days and monitoring platelets. Additionally, he suggest we consider a platelet transfusion and if he does not respond to the transfusion there is a possibility that this may more definitively point toward diagnosis of ITP. 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 Status: Chronic (4) Essential hypertension: Status: Acute (5) Hypertensive heart disease: Status: Acute Plan Continue in hospital for ongoing dexamethasone therapy per recommendation of Hematology. Depending on response to steroid therapy will develop a plan with Hematology for outpatient follow-up in the next couple days. Patient is interested in getting Hematology care locally at our or [facility]. 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 He has no symptoms. Has had no spontaneous bleeding or bruising. Has had no focal motor neurologic deficits. No recent illness. No recent trauma or injury. Most recent time he was seen in the clinic was on 08/01/2024 at which time [place] was [address]. Most recent hospitalization was due for from 04/28/2024 through 05/01/2024 when he presented with pneumonia and sepsis in association with this. At that time [place] platelet count was 65167. He had been advised that time to seek hematologic consultation. Still has not sought hematologic consultation as of this date. Historically he has use aspirin on a regular basis 81 mg daily but quit that during the hospitalization in April of 2024. He believes it was around June 2024 that he quit taking his apixaban. Does not take any nonsteroidal anti-inflammatory medications. Does take furosemide and niacin which have been reported as causing thrombocytopenia. While in the hospital he did receive ceftriaxone which has also been implicated in thrombocytopenia. Did complete 4 additional days of cefdinir with his pneumonia diagnosis in April 2024, but the Ceftin ears not implicated in thrombocytopenia. He does drink alcohol on a regular basis, 16-32 oz of beer daily typically. 08/27/2024: Patient reports feeling fine today. He is not aware of any bleeding. No recent illness. His platelets increased from 8058-7405 with platelet transfusion and are down to 2000 today suggestive of ITP. 08/28/2024: Patient reports feeling fine today he has no concerns. No sign of bleeding. Platelets have gone up from 0932-5267 without further transfusion. Exam Narrative: Exam Narrative: He is alert and appears in no distress. Breathing is unlabored. Respirations are clear to auscultation. Cardiovascular: S1, S2, regular rate and rhythm. Multiple bruising over his upper extremities noted. Const: Vital Signs, click to edit/add: Vital Signs - 24 hr 08/27/24 20:55 08/27/24 21:31 08/27/24 22:00 Temperature 97.7 F 97.6 F Pulse Rate [Right Pulse Oximeter] 69 66 Respiratory Rate 18 18 18 Blood Pressure [Le ft Arm] 122/86 Blood Pressure [Ri ght Arm] 96/76 Pulse Oximetry 98 99 100 Oxygen Delivery La thod Room Air Room Air Room Air 08/28/24 02:40 08/28/24 07:50 08/28/24 07:50 Temperature 97.6 F Pulse Rate [Right Pulse Oximeter] 57 L 64 Respiratory Rate 18 18 18 Blood Pressure [Le ft Arm] 155/91 H Blood Pressure [Ri ght Arm] Pulse Oximetry 98 98 [facility]xygen [facility] Room Air 08/28/24 07:50 08/28/24 11:15 08/28/24 15:00 Temperature 97.4 F L 97.6 F Pulse Rate [Right Pulse Oximeter] 64 75 59 L Respiratory Rate 18 18 18 Blood Pressure [Le ft Arm] 132/83 Blood Pressure [Ri ght Arm] 137/79 Pulse Oximetry 98 98 Oxygen Delivery Me thod Room Air Room Air 08/28/24 15:00 08/28/24 15:00 Temperature 97.7 F Pulse Rate [Right Pulse Oximeter] 59 L Respiratory Rate 18 18 Blood Pressure [Le ft Arm] Blood Pressure [Ri ght Arm] 152/80 H Pulse Oximetry 98 98 Oxygen Delivery Me thod Room Air Room Air Documenting provider has reviewed patient's vital signs: yes Labs Labs: Laboratory Results - last 24 hr 08/28/24 06:12 WBC 7.70 RBC 3.66 L Hgb 11.1 L Hct 34.0 L MCV 93 MCH 30 MCHC 33 RDW Coeff of Guillermo 14.1 Plt Count 9 L* Neut % (Auto) 91.2 H Lymph % (Auto) 5.8 L [place] % (Auto) 2.7 Eos % (Auto) 0.0 Baso % (Auto) 0.0 Neut # (Auto) 7.00 Lymph # (Auto) 0.40 L [place] # (Auto) 0.20 Eos # (Auto) 0.00 Baso # (Auto) 0.00 Abs Immat Gran (auto) 0.02 Imm/Tot Granulo (auto) 0.3 Diff Slide Review Acceptable Review Sodium 140 Potassium 4.1 Chloride 109 Carbon Dioxide 19 L Anion Gap 12 BUN 65 H Creatinine 2.2 H Estimated Creat Clear 22.89 Estimated GFR 28 Glucose 261 H Calcium 9.0
--- NOTE | 2024-08-28 17:52 | PC.NURSE ---
End of shift summary: Pt has been A&O, afebrile and VSS today. He is SBA with walker for transfers & has walked the halls 3x today. PIV in right FA SL and C/D/I. Patient?s platelets are up to 9 today and he is noticing that ?he?s not bleeding as much with pokes?. Blood sugars were 235 > 264 > 297; see eMAR for insulin admin. Pt is very GALENA and hears better out of his right ear. Right facial asymmetry is baseline. Plan is to discharge home with his tomorrow, 08/29 with follow up scheduled with a quality control tester for ITP.?
[2024-08-29 02:50] VITALS: BP 139/75; PULSE 60; RESP 18; TEMP 36.5; O2SAT 99
--- NOTE | 2024-08-29 06:51 | PC.NURSE ---
End of shift [id number]: Pt AxOx4, pleasant, and cooperative. Pt completed 4/4 walks upon initial assessment. SBA GB W. Pt denies pain/dizziness/SOB/headache with activity/nonactivity. BG 314, see MAR for insulin administration. Pt able to sleep for majority of the shift. Pt continent of the bladder. Does not use call light appropriately, bed alarm in place. LUMBEE, hearing better out of his right ear. Pt appears resting with a call light in reach. ?
[2024-08-29 07:00] VITALS: RESP 18; O2SAT 99
[2024-08-29 07:02] LABS: Hematocrit 35.8 % (37.0-53.0); Hemoglobin* 11.7 gm/dL (13.5-17.5); Immature Granulocytes Abs Auto 0.05 K/uL (0.00-0.30); Immature Granulocytes Pct Auto 0.6 %; Lymphocytes Percent Auto 5.5 % (20-44); Mean Corpuscular HGB Conc 33 gm/dL (32-36); Mean Corpuscular Hemoglobin 30 pg (26-34); Mean Corpuscular Volume 93 fL (80-100); Monocytes Percent Auto 3.8 % (0.0-11.0); Neutrophils Percent Auto 90.1 % (42.0-72.0); RDW Coefficient of Variation % 13.8 % (11.5-15.5); Red Blood Count 3.86 m/uL (4.30-5.90); White Blood Count* 8.89 K/uL (4.50-11.00)
[2024-08-29 07:06] LABS: Chloride* 106 mmol/L (96-114); Sodium* 139 mmol/L (135-149)
[2024-08-29 07:07] LABS: Potassium* 4.2 mmol/L (3.6-5.1)
[2024-08-29 07:09] LABS: Anion Gap 12 mEq/L (7-15); Carbon Dioxide* 21 mmol/L (20-32); Creatinine* 1.8 mg/dL (0.5-1.5); Est. Creatinine Clearance* 27.97; Estimated Glomerular Filt Rate 36 ml/min
[2024-08-29 07:10] LABS: Blood Urea Nitrogen* 65 mg/dL (7-30); Calcium* 8.8 mg/dL (8.4-10.6); Glucose* 237 mg/dL (60-115)
[2024-08-29 07:30] VITALS: BP 135/85; PULSE 63; RESP 18; TEMP 36.8; O2SAT 99
[2024-08-29 07:32] LABS: Slide Review Reflex Yes
[2024-08-29 07:33] LABS: Slide Review Acceptable Review (Acceptable)
[2024-08-29 07:34] LABS: Platelet Count* 13 K/uL (140-440)
[2024-08-29] MEDS: INSULIN ASPART 100 UNIT/ML SUBCUT (08:15)
[2024-08-29] MEDS: TORSEMIDE 20 MG TABLET 30 MG PO (08:15)
[2024-08-29] MEDS: ATORVASTATIN CALCIUM 10 MG TABLET 20 MG PO (08:51)
[2024-08-29] MEDS: atenoloL 50 MG TABLET PO (08:51)
[2024-08-29] MEDS: GLIMEPIRIDE 1 MG TABLET PO (08:51)
[2024-08-29] MEDS: FINASTERIDE 5 MG TABLET PO (08:51)
[2024-08-29] MEDS: lisinopriL 5 MG TABLET 2.5 MG PO (08:51)
[2024-08-29] MEDS: SODIUM CHLORIDE 0.9 % (FLUSH) 10 ML SYRINGE 5 ML IVF (08:52)
[2024-08-29] MEDS: TAMSULOSIN HCL 0.4 MG CAPSULE 0.8 MG PO (09:12)
[2024-08-29] MEDS: dexAMETHasone 10 MG/ML inj 40 MG PO (09:12)
[2024-08-29 09:26] VITALS: PULSE 63; RESP 18
[2024-08-29] MEDS: INSULIN PROT/ASP (NOVOLOG 70/30) 100 UNIT/ML 10 UNIT SUBCUT (09:50)
--- NOTE | 2024-08-29 11:31 | PC.NURSE ---
Discharge: Patient pleasant and cooperative, A&O. VSS, afebrile. SpO2 maintained above 90% on RA. Patient denies pain this shift. Discharge instructions provided, all questions answered. Discharged to home with .
--- NOTE | 2024-08-29 16:55 | P.DS_ITS ---
DS: Providers Provider Date Seen: 08/29/24 Date of admission: 08/26/24 19:56 Primary care physician: Abdi Chang MD Admitting Clinician: Bear Isabel MD Attending Physician on discharge: Bear Isabel MD Date of Discharge: 08/29/24 DS: Diagnosis Discharge Diagnosis (1) Thrombocytopenia: Status: Acute Problem details: Patient is admitted to the hospital for thrombocytopenia. He was known to have thrombocytopenia with platelet count around 50,000 in April 2024. Referred to Hematology but did not get follow-up. Was seen for routine blood tests in clinic on the day prior to admission where he was found to have a platelet count of 2000. In the emergency department platelet count was 1000. He received a transfusion of platelets with the platelets going up to 3000 then down to 2000 the next morning. 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 Now requiring insulin to deal with hyperglycemia caused by dexamethasone. Will need outpatient follow-up to provide ongoing adjustments to insulin dose as his steroid dose is titrated down. Continue oral antidiabetic medication. (4) Essential hypertension: Status: Acute (5) Hypertensive heart disease: Status: Acute DS: Summary Hospital Course Hospital Course: Patient admitted the hospital for thrombocytopenia. He had routine blood draw the day prior to admission showing low platelet count. He did have prolonged period of time getting his bleeding from vena puncture to stop, about 45 minutes. Subsequently has had no further bleeding. He has been feeling well. He had been on aspirin and Eliquis in the past but those have been stopped for more than a month. Platelet counts in April 2024 were around 50,000. During his hospital stay he received a transfusion of platelets which had minimal effect suggesting ITP and autoimmune platelet consumption. He received dexamethasone 40 mg daily and his platelet counts increased to 13,000 on the day of discharge. He has had no further bleeding. No other symptoms of illness. He had moderate hyperglycemia related to dexamethasone therapy and was treated with insulin in addition to his oral hypoglycemic. He will have follow-up with hematology clinic next week at [facility] and follow-up with primary care to manage his insulin while his high-dose steroids are tapered. Status at Discharge Functional status at discharge: uses cane/walker Overall status at discharge: patient is progressing back to baseline Time Spent with Patient Time attestation: Total time spent providing and/or coordinating discharge services: 40 minutes Time spent: Greater than 30 minutes Exam Narrative: Exam Narrative: He is alert and appears in no distress. He is forgetful for much of the information that I have given him on a daily basis regarding his thrombocytopenia and possible causes and plan a follow-up. No apparent bleeding. Multiple old bruises on upper extremities. Const: Vital Signs, click to edit/add: Vital Signs - 24 hr 08/28/24 19:00 08/28/24 22:31 08/28/24 23:00 Temperature 97.7 F 98 F Pulse Rate [Right Pulse Oximeter] 60 62 Respiratory Rate 18 18 18 Blood Pressure [Le ft Arm] 143/46 H Blood Pressure [Ri ght Arm] 131/83 Pulse Oximetry 99 99 99 Oxygen Delivery Me thod Room Air Room Air Room Air 08/29/24 02:50 08/29/24 07:00 08/29/24 07:30 Temperature 97.7 F 98.3 F Pulse Rate [Right Pulse Oximeter] 60 63 Respiratory Rate 18 18 18 Blood Pressure [Le ft Arm] Blood Pressure [Ri ght Arm] 139/75 135/85 Pulse Oximetry 99 99 99 Oxygen Delivery Me thod Room Air Room Air Room Air 08/29/24 09:26 Temperature Pulse Rate [Right Pulse Oximeter] 63 Respiratory Rate 18 Blood Pressure [Le ft Arm] Blood Pressure [Ri ght Arm] Pulse Oximetry Oxygen Delivery Me thod Documenting provider has reviewed patient's vital signs: yes DS: Data Data Completed and Pending Completed studies during hospitalization: Procedures Insertion of Infusion Device into Superior Vena Cava, Percutaneous Approach (04/27/24) Introduction of Other Gas into Respiratory Tract, Via Natural or Artificial Opening (04/27/24) Ultrasonography of Superior Vena Cava, Guidance (04/27/24) Labs on day of discharge: Labs from last 24 hours 08/29/24 08/26/24 06:17 11:37 WBC 8.89 RBC 3.86 L Hgb 11.7 L Hct 35.8 L MCV 93 MCH 30 MCHC 33 RDW Coeff of Guillermo 13.8 Plt Count 13 L* Neut % (Auto) 90.1 H Lymph % (Auto) 5.5 L [place] % (Auto) 3.8 Eos % (Auto) 0.0 Baso % (Auto) 0.0 Neut # (Auto) 8.00 H Lymph # (Auto) 0.50 L [place] # (Auto) 0.30 Eos # (Auto) 0.00 Baso # (Auto) 0.00 Abs Immat Gran (auto) 0.05 Imm/Tot Granulo (auto) 0.6 Diff Slide Review Acceptable Review Peripher Smr Path Cons See Scanned Report Sodium 139 Potassium 4.2 Chloride 106 Carbon Dioxide 21 Anion Gap 12 BUN 65 H Creatinine 1.8 H Estimated Creat Clear 27.97 Estimated GFR 36 Glucose 237 H Calcium 8.8 Discharge Plan Discharge Disposition: Home, Self-Care Date of Admission: 08/26/24 19:56 Attending Provider on Discharge: Bear Isabel Primary Care Provider: Abdi Chang Condition: Improved Anticipated Discharge Date/Time: 08/29/24 09:30 Discharge Medications: New Novolin 70-30 FlexPen U-100 100 unit/mL (70-30) insulin pen 15 unit subcut BID Qty: 9 2RF Rx Instructions: Take 20 units before breakfast and 10 units before evening meal. dexamethasone 6 mg tablet 36 mg PO DAILY Qty: 100 0RF Rx Instructions: Take 6 tablets daily for 4 days than and 5 tablets daily until you see the milling supervisor next week Continued atorvastatin 20 mg tablet 20 mg PO DAILY atenolol 50 mg tablet 50 mg PO DAILY cholecalciferol (vitamin D3) 50 mcg (2,000 unit) capsule 50 mcg PO DAILY furosemide 40 mg tablet 40 mg PO BID Rx Instructions: PLUS 0 MG FOR TOTAL OF 60 MG TWICE A DAY furosemide 20 mg tablet 20 mg PO BID Rx Instructions: PLUS 40 MG FOR TOTAL OF 60 MG TWICE A DAY finasteride 5 mg tablet 5 mg PO DAILY niacin 500 mg tablet extended release 24 hr 500 mg PO DAILY glimepiride 1 mg tablet 1 mg PO DAILY nitroglycerin 0.4 mg tablet, sublingual 0.4 mg sublingual Q5M PRN lisinopril 2.5 mg tablet 2.5 mg PO DAILY tamsulosin 0.4 mg capsule 0.8 mg PO DAILY zinc gluconate 50 mg tablet 100 mg PO DAILY Discontinued aspirin 81 mg capsule 81 mg PO DAILY Eliquis 5 mg tablet 5 mg PO BID Discharge Orders: Discharge Order (Routine); Ordered 08/29/24 Ordered By: Bear Isabel Patient Education: Dexamethasone (By mouth), Insulin Aspart, Recombinant (By injection) (Novolog, Novolog..., How to Give an Insulin Injection (DC), Insulin Pens (ED), How to Check your Blood Sugar (DC) Additional Instructions: You were admitted to the hospital for low platelet count. Platelets are blood cells that stop bleeding. Your low platelet count is probably due to your immune system destroying your platelets. This is being treated with a medicine called dexamethasone. This is a steroid medicine that is causing your blood sugar to be very high. Because of this you are needing insulin to control your blood sugar. I have prescribed Novolin 70/30 insulin for you to take twice a day. Take 20 units before breakfast and 10 units before evening meal. Before taking insulin check your blood sugar also twice a day. Likely your blood sugar was still be a little too high. Your doctor can look at blood sugars and adjust your insulin dose. Your steroid dose will be reduced over time and you will probably need less insulin. You can discuss this with your doctor as well. You will have appointments with Dr. Hurt, a milling supervisor or blood specialist, at [facility] next week and with Dr. Chang next week. Activity Level: Activity as Tolerated Discharge Diet: Diabetic Follow Up Appointments: Michelle Hurt MD [Staff Physician] - (Dr. Hurt from our Hematology department will call you tomorrow, 08/30, with an appointment date and time for next week. ) Abdi Chang MD [Primary Care Provider] - 09/01/24 1:55 pm ([facility] to review diabetes management, and follow-up for Hospital stay.) Forms: Paired Health Info Instructions
== END 2024-08-29 11:15 | disposition home or self-care (01) | DRG 813 ==
LOC: ED 13:00 → MEDSURG 14:08
PROVIDERS: Internal Medicine; Admitting Provider Family Medicine; Emergency Provider Family Medicine; PCP Family Medicine; Visit Provider Family Medicine
DX: D69.6 Thrombocytopenia, unspecified (principal); I13.0 Hypertensive heart and chronic kidney disease with heart failure and stage 1 through stage 4 chronic kidney disease, or unspecified chronic kidney disease; N18.4 Chronic kidney disease, stage 4 (severe); I50.32 Chronic diastolic (congestive) heart failure; I48.20 Chronic atrial fibrillation, unspecified; D69.3 Immune thrombocytopenic purpura; E11.65 Type 2 diabetes mellitus with hyperglycemia; T38.0X5A Adverse effect of glucocorticoids and synthetic analogues, initial encounter; Z79.01 Long term (current) use of anticoagulants; E11.22 Type 2 diabetes mellitus with diabetic chronic kidney disease; E11.51 Type 2 diabetes mellitus with diabetic peripheral angiopathy without gangrene; I70.209 Unspecified atherosclerosis of native arteries of extremities, unspecified extremity; E78.5 Hyperlipidemia, unspecified; I25.10 Atherosclerotic heart disease of native coronary artery without angina pectoris
CPT/HCPCS: 36415; 36430; 80048; 80053; 82803; 82962; 83605; 83735; 83880; 84100; 84443; 85025; 85027; 85045; 86140; 86900; 86901; 97110; 97116; 97161; 97165; 97535; 99285; A9270; G0378; J1100; P9019

== ENCOUNTER 2024-09-05 09:03 | Outpatient (CLI) | payer MEDICARE, OTHER, SELFPAY ==
--- NOTE | 2024-09-05 09:15 | CRLHL7_ITS ---
For Patients: As a result of the Century Cures Act, medical imaging exams and procedure reports are released immediately into your electronic medical record. You may view this report before your referring provider. If you have questions, please contact your health care provider. HISTORY: Thrombocytopenia. TECHNIQUE: Grayscale and color Doppler ultrasound images of the abdomen. COMPARISON: 05/01/2024. FINDINGS: Noncirrhotic liver morphology. Liver measures 18.1 cm in craniocaudal dimension. Mildly increased echogenicity which can be seen in the setting of fatty infiltration. No discrete intrahepatic lesions. Main portal vein is patent with normal flow direction. There is no significant biliary dilatation, and the common bile duct measures 0.4 cm. There is no ascites. Gallbladder contains multiple echogenic shadowing stones. Normal echogenicity is seen in both kidneys. There is no hydronephrosis. Multiple renal cysts measuring up to 3.1 x 2.7 x 2.6 cm on the right and 3.7 x 4.4 x 3.6 cm on the left. No shadowing echogenic focus is identified to suggest nephrolithiasis. Left kidney demonstrates abnormally increased echogenicity. Spleen measures up to 12.7 cm The visualized pancreas is sonographically unremarkable. The aorta is normal in course and caliber to the level of the bifurcation. The intrahepatic IVC appears unremarkable. Small right pleural effusion is incidentally noted. IMPRESSION: 1. Borderline hepatomegaly with mild fatty infiltration. 2. Spleen borderline enlarged measuring 12.7 cm. 3. Small right pleural effusion. 4. Cholelithiasis. Dictated by Chemo Hernandes MD @ 09/05/2024 7:18:32 PM (Electronically Signed)
== END 2024-09-05 09:04 | disposition home or self-care (01) ==
LOC: US 09:03
PROVIDERS: PCP Family Medicine; Visit Provider Internal Medicine Hematology & Oncology
DX: D69.6 Thrombocytopenia, unspecified (principal); K76.0 Fatty (change of) liver, not elsewhere classified; R16.1 Splenomegaly, not elsewhere classified; J90 Pleural effusion, not elsewhere classified; K80.20 Calculus of gallbladder without cholecystitis without obstruction
CPT/HCPCS: 76700

== ENCOUNTER 2024-09-13 14:00 | Outpatient (RCR) | payer MEDICARE, OTHER, SELFPAY ==
[2024-09-05 10:20] LABS: Basophils Percent Auto 0.1 % (0.0-3.0); Hematocrit 42.9 % (37.0-53.0); Hemoglobin* 14.4 gm/dL (13.5-17.5); Immature Granulocytes Pct Auto 2.4 %; Mean Corpuscular HGB Conc 34 gm/dL (32-36); Mean Corpuscular Hemoglobin 30 pg (26-34); Mean Corpuscular Volume 90 fL (80-100); Monocytes Percent Auto 7.3 % (0.0-11.0); Neutrophils Percent Auto 87.2 % (42.0-72.0); RDW Coefficient of Variation % 13.6 % (11.5-15.5); Red Blood Count 4.76 m/uL (4.30-5.90); White Blood Count* 15.78 K/uL (4.50-11.00)
[2024-09-05 10:44] LABS: Chloride* 96 mmol/L (96-114)
[2024-09-05 10:45] LABS: Albumin* 4.3 g/dL (3.3-5.0); Potassium* 4.7 mmol/L (3.6-5.1); Sodium* 133 mmol/L (135-149)
[2024-09-05 10:46] LABS: INR 1.11 (0.91-1.10); Prothrombin Time 15.1 Seconds
[2024-09-05 10:47] LABS: Anion Gap 14 mEq/L (7-15); Carbon Dioxide* 23 mmol/L (20-32); Creatinine* 2.3 mg/dL (0.5-1.5); Est. Creatinine Clearance* 19.68; Estimated Glomerular Filt Rate 27 ml/min; Partial Thromboplastin Time* 23 Seconds (23-33)
[2024-09-05 10:48] LABS: Alanine Aminotransferase* 138 U/L (4-50); Alkaline Phosphatase* 72 U/L (40-150); Aspartate Amino Transferase* 33 U/L (12-35); Bilirubin Total* 2.3 mg/dL (0.1-1.5); Blood Urea Nitrogen* 94 mg/dL (7-30); Calcium* 8.9 mg/dL (8.4-10.6); Total Protein* 6.9 g/dL (6.0-8.3)
[2024-09-05 10:52] LABS: Platelet Count* 26 K/uL (140-440); Slide Review Acceptable Review (Acceptable); Slide Review Reflex Yes
[2024-09-05 10:54] LABS: Glucose* 625 mg/dL (60-115)
[2024-09-05 11:18] LABS: Thyroid Stimulating Hormone* 0.495 uIU/mL (0.270-4.20)
[2024-09-05 11:29] LABS: HIV 1/2/P24 Combo Screen* Negative (Negative)
[2024-09-05 11:37] LABS: Hepatitis C Virus Antibody* Negative (Negative)
[2024-09-05 11:41] LABS: Vitamin B12* > 1000 pg/mL (243-894)
--- NOTE | 2024-09-05 14:08 | ONC.NURNOTE ---
Platelets reviewed by Dr. Hurt. Platelets 26,000, pt instructed per Dr. Hurt to continue to hold eliquis. Pt denies any bleeding. Pt also instructed to continue taking the dexamethasone as instructed until reevaluated by Dr. Hurt on 09/13/24. Blood glucose critical level today-625, pt's automotive fuel systems converter Dr. Chang notified and Dr. Chang has given pt instructions on increasing his insulin dosing. Pt's Maritza verbalized understanding of plan of care.
[2024-09-07 05:08] LABS: Folate, Serum 12.3 ng/mL (>=5.9)
[2024-09-13 14:38] LABS: Basophils Percent Auto 0.1 % (0.0-3.0); Hematocrit 39.9 % (37.0-53.0); Hemoglobin* 13.3 gm/dL (13.5-17.5); Immature Granulocytes Pct Auto 1.5 %; Lymphocytes Percent Auto 3.3 % (20-44); Mean Corpuscular HGB Conc 33 gm/dL (32-36); Mean Corpuscular Hemoglobin 31 pg (26-34); Mean Corpuscular Volume 92 fL (80-100); Monocytes Percent Auto 5.9 % (0.0-11.0); Neutrophils Percent Auto 89.2 % (42.0-72.0); Platelet Count* 56 K/uL (140-440); Red Blood Count 4.33 m/uL (4.30-5.90); White Blood Count* 23.15 K/uL (4.50-11.00)
[2024-09-13 14:51] LABS: Slide Review Reflex Yes
[2024-09-13 14:52] LABS: Albumin* 3.7 g/dL (3.3-5.0); Chloride* 97 mmol/L (96-114); Potassium* 5.4 mmol/L (3.6-5.1); Sodium* 130 mmol/L (135-149)
[2024-09-13 14:55] LABS: Alanine Aminotransferase* 93 U/L (4-50); Alkaline Phosphatase* 76 U/L (40-150); Anion Gap 18 mEq/L (7-15); Aspartate Amino Transferase* 40 U/L (12-35); Bilirubin Total* 2.3 mg/dL (0.1-1.5); Carbon Dioxide* 15 mmol/L (20-32); Creatinine* 2.5 mg/dL (0.5-1.5); Est. Creatinine Clearance* 18.11; Estimated Glomerular Filt Rate 24 ml/min; Total Protein* 5.9 g/dL (6.0-8.3)
[2024-09-13 14:56] LABS: Calcium* 8.5 mg/dL (8.4-10.6)
[2024-09-13 15:05] LABS: Blood Urea Nitrogen* 123 mg/dL (7-30)
[2024-09-13 15:07] LABS: Glucose* 571 mg/dL (60-115)
[2024-09-13 16:56] LABS: Slide Review Acceptable Review (Acceptable)
--- NOTE | 2024-09-18 14:15 | ONC.NURNOTE ---
and son stopped by, Vernon is being discharged from [facility] tomorrow to rehab, Wednesdays appt has been canceled, was asked to call and reschedule appt in a few week.
== END 2024-10-16 23:59 | disposition home or self-care (01) ==
LOC: CCIC 14:00
PROVIDERS: PCP Family Medicine; Referring Provider Family Medicine; Visit Provider Internal Medicine Hematology & Oncology
DX: D69.6 Thrombocytopenia, unspecified (principal); R79.89 Other specified abnormal findings of blood chemistry; E11.65 Type 2 diabetes mellitus with hyperglycemia; Z79.4 Long term (current) use of insulin; I10 Essential (primary) hypertension; E78.5 Hyperlipidemia, unspecified; Z79.01 Long term (current) use of anticoagulants; I48.91 Unspecified atrial fibrillation
CPT/HCPCS: 36415; 80053; 82607; 82746; 84443; 85025; 85610; 85730; 86703; 86803; 99202; 99204; 99213; 99214; G0463

== ENCOUNTER 2024-09-13 15:28 | Emergency (ER) | payer MEDICARE, OTHER, SELFPAY ==
--- OUTSIDE RECORDS SUMMARY | 2024-09-13 15:30 | XMS_ITS | Continuity of Care Document ---
Author Name [facility] Organization [facility] Care Team Providers Care Keel Press Operator Name Role Phone [facility] Unavailable Unavailable Medications Combined list of outpatient medications from Department of Defense and Veterans Affairs facilities.Medications provided include 1) outpatient medications from the last 15 months, and 2) patient-reported medications. Medication Details Route Status Patient Instructions Prescription Expires Prescription Number Last Dispense Date Ordering Provider Order Date Order Qty Source ATENOLOL (ATENOLOL), 50 MG, TABLET, ORAL, [employer] 1000 ea. BOTTLE Cancele d [id number] : 2022 0 Pharmac y Data Transac tion Service Facilit y FUROSEMIDE (furosemide ), 40 MG, TABLET, ORAL, [employer], 1000 ea. BOTTLE Cancele d [id number] : 2022 0 Pharmac y Data Transac tion Service Facilit y GLIMEPIRIDE (glimepirid e), 1 MG, TABLET, ORAL, [employer] 100 ea. BOTTLE Active [id number] 2023 90 Pharmac y Data Transac tion Service Facilit y GLIMEPIRIDE (glimepirid e), 1 MG, TABLET, ORAL, [employer] 100 ea. BOTTLE Cancele d [id number] : 2023 0 Pharmac y Data Transac tion Service Facilit y GLIMEPIRIDE (glimepirid e), 1 MG, TABLET, ORAL, [employer] 100 ea. BOTTLE Active [id number] 2023 90 Pharmac y Data Transac tion Service Facilit y JARDIANCE (EMPAGLIFLO ZIN), 10 MG, TABLET, ORAL, [employer]G., 90 ea. BOTTLE Active [id number] 2023 45 Pharmac y Data Transac tion Service Facilit y JARDIANCE (EMPAGLIFLO ZIN), 10 MG, TABLET, ORAL, BOEHRINGER ING., 90 ea. BOTTLE Cancele d [id number] : 2023 0 Pharmac y Data Transac tion Service Facilit y LISINOPRIL (lisinopril ), 5 MG, TABLET, ORAL, EXELAN PHARMACE, 1000 ea. BOTTLE Cancele d [id number] : 2022 0 Pharmac y Data Transac tion Service Facilit y NITROGLYCER IN (nitroglyce rin), 0.4 MG, TAB SUBL, SUBLINGUAL, [employer] 25 ea. BOTTLE Active [id number] 4 2023 25 Pharmac y Data Transac tion Service Facilit y Social History Combined list of available smoking, tobacco, and other social history from Department of Defense and Veterans Affairs facilities. Social History Type Response Date Comment [facility] e This section is an empty social history section. [employer]
--- OUTSIDE RECORDS SUMMARY | 2024-09-13 15:31 | XMS_ITS | Clinical Summary ---
Author Organization [employer] s & [facility] Address [address] [place] [address] Care Team Providers Care Iso Coordinator Name Role Phone Travis Mariano MD Unavailable Unavailable Chino Valdez MD Unavailable [phone] Vega Singh MD Unavailable [phone] Bear Barahona MD Unavailable [phone] Abdi Chang MD Primary Care Provider Allergies No known active allergies Medications vitamin B complex (B-COMPLEX VITAMIN) tablet Take 1 tablet by mouth once daily. Active VITAMIN E, DL,TOCOPHERYL ACET, (VITAMIN E, DL, ACETATE,) 400 unit capsule Take 400 Units by mouth once daily. Active zinc gluconate 50 mg tablet Take 100 mg by mouth once daily. Active Walker - 4 wheelsIndications: Spinal stenosis, lumbar region, without neurogenic claudication For home use. Length of need: 99 months 1 Device 01/05/20 18 Active cholecalciferol (Vitamin D-3) 2,000 unit capsuleIndications :Vitamin D deficiency Take 1 Capsule (2,000 units) by mouth once daily. 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 0 04/13/20 22 Active Additional Information Patient taking differently:81 mg Oral DAILY WITH MEAL,Held per hospital stay 04/2024, Reported on 05/09/2024 CPAPIndications:OS A (obstructive sleep apnea) CPAP machine for home use at pressure 15 cm/H2O, full face mask x1/3month with a full face cushion x1/mo 1 Each 11 07/22/19 24 Active apixaban (Eliquis) 5 mg tabletIndications: New onset atrial fibrillation (HC) Take 1 Tablet (5 mg) by mouth two times daily. 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 90 Tablet 3 08/01/19 25 Active lisinopriL (PRINIVIL; ZESTRIL) 2.5 mg tabletIndications: Essential hypertension Take 1 Tablet (2.5 mg) by mouth once daily. 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 90 Tablet 3 08/01/19 25 Active furosemide (LASIX) 40 mg tabletIndications: Diastolic CHF, chronic (HC),Hypertension Take 1 Tablet (40 mg) by mouth two times daily. Take with 20 mg tab to total 60 mg bid. 180 Tablet 3 08/01/19 25 Active furosemide (LASIX) 20 mg tabletIndications: Essential hypertension,Diast olic CHF, chronic (HC) Take 1 Tablet (20 mg) by mouth two times daily. Take with Lasix 40 mg to equal 60 mg twice daily. 180 Tablet 3 08/01/19 25 Active finasteride (PROSCAR) 5 mg tabletIndications: BPH with urinary obstruction Take 1 Tablet (5 mg) by mouth once daily in the morning. 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 90 Tablet 08/01/19 25 Active atenoloL (TENORMIN) 50 mg tabletIndications: Essential hypertension Take 1 Tablet (50 mg) by mouth once daily. 90 Tablet 08/01/19 25 Active dexAMETHasone 6 mg tablet TAKE 6 TABLETS BY MOUTH DAILY FOR 4 DAYS, THEN TAKE 5 TABS DAILY UNTIL YOU SEE BLACK TOPPER NEXT WEEK* 08/31/19 25 Active blood sugar diagnostic (True Metrix Glucose Test Strip) stripIndications:T ype 2 diabetes mellitus with stage 3b chronic kidney disease, 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) Test 3-4 times daily due to Hyperglycemia on steroids. 100 Each 11 09/06/19 25 Active NovoLIN 70-30 FlexPen U-100 100 unit/mL (70-30) penIndications:Typ e 2 diabetes mellitus with stage 3b chronic kidney disease, 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),Type 2 diabetes mellitus with stage 4 chronic kidney disease, with long-term current use of insulin (HC) 32 units in the morning, 24 units in the evening. 09/06/19 25 Active blood sugar diagnostic (True Metrix Glucose Test Strip) stripIndications:T ype 2 diabetes mellitus with stage 3b chronic kidney disease, 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) TEST ONE TIME DAILY 100 Each 3 04/21/20 24 025 Disconti nued(Reo rder (E-cance l not sent)) NovoLIN 70-30 FlexPen U-100 100 unit/mL (70-30) pen INJECT 20 UNITS UNDER THE SKIN BEFORE BREAKFAST AND 10 UNITS BEFORE EVENING MEAL* 08/29/19 25 025 Disconti nued(*Me dication adjustme nt) NovoLIN 70-30 FlexPen U-100 100 unit/mL (70-30) penIndications:Typ e 2 diabetes mellitus with stage 4 chronic kidney disease, with long-term current use of insulin (HC) 27 units in the morning, 19 units in the evening. 09/05/19 25 025 Disconti nued(*Me dication adjustme nt) Active Problems Problem Noted Date Diagnosed Date [...] patient's overall health Hypertension 11/20/2009 Overview (02/15/2011): Cryptologic Support Specialist recommends BP <120. 02/15/2011 Unspecified hearing loss [...] Other and unspecified hyperlipidemia 01/24/2007 Overview (02/15/2011): Cryptologic Support Specialist recommends LDL < 70. 02/15/2011 Type 2 [...] Encounters Date Type Department Care Team Description 09/13/2024 11:00 AM ENVIRONMENTAL FIELD TECHNICIAN Phone Office Visit [facility] [address] [place] [address] Phone Visit (DM education ) 09/13/2024 Travel 09/06/2024 10:05 AM ENVIRONMENTAL FIELD TECHNICIAN Phone Office Visit [facility] [address] [place] [address] Abdi Chang MD Diabetes (Has been having high readings/Needs more test strips sent to the pharmacy); Phone Visit (No vitals) 09/06/2024 Telephone [facility] [address] [place] [address] Abdi Chang MD Referral 09/06/2024 Travel 09/05/2024 Orders Only [facility] Scanner 1 scan: (1-Ord) [facility], ABDOMEN COMPLETE, 09/05/2024 09/05/2024 Telephone [facility] [address] [facility] [address] Abdi Chang MD Abnormal Lab Results (CRITICAL GLUCOSE - 625) 09/04/2024 3:00 PM ENVIRONMENTAL FIELD TECHNICIAN Nurse/Clinic Staff Only [facility] [address] [facility] [address] Education (Insulin 70/30 injections) 09/04/2024 Travel 09/04/2024 Telephone [facility] [address] [facility] [address] Abdi Chang MD Appointment 09/01/2024 1:55 PM ENVIRONMENTAL FIELD TECHNICIAN Office Visit [address] [place] [address] Abdi Chang MD Hospital F/U (Dangerously low platelet counts - follow up from [facility]) 09/01/2024 Travel 08/28/2024 Lab Requisition [facility] [phone] Unknown, Doctor 08/26/2024 Telephone [facility] [address] [facility] [place] [address] Abdi Chang MD Results 08/26/2024 Telephone [facility] [address] [facility] [address] Kg Rodriguez MD Abnormal Lab Results 08/25/2024 9:15 AM ENVIRONMENTAL FIELD TECHNICIAN Orders [place] [address] [place] [address] [place], [place] [facility] 08/25/2024 Orders Only [facility] Scanner 1 scan: (1-Ord) [facility], CBC W/ PLTS, 08/25/2024 08/25/2024 Travel 08/01/2024 7:55 AM ENVIRONMENTAL FIELD TECHNICIAN Office Visit [facility] [address] [facility] [place] [address] Abdi Chang MD Medicare ANNUAL (subsequent) Visit (87 years); Immunization/Inject ion 08/01/2024 Travel 07/27/2024 Telephone [facility] [address] [facility] [address] Abdi Chang MD Abnormal Lab Results 07/26/2024 9:00 AM ENVIRONMENTAL FIELD TECHNICIAN Ancillary Procedure [facility] [place] [address] [address] 07/26/2024 Travel 07/25/2024 7:00 AM ENVIRONMENTAL FIELD TECHNICIAN Orders Only [facility] [address] [place] [address] [address] Lab[place] [facility] 07/24/2024 Travel 07/10/2024 Refill [facility] [address] [place] [address] Abdi Chang MD Refill Request (Atorvastatin) 06/22/2024 Refill [facility] [place] [address] [address] Abdi Chang MD Refill Request (Niacin Er) from Last 3 Months Immunizations Name Administration [...] Diabetes a nd Heart Trouble Sister 2 Mrava Alive Sister 3 Olga Alive Social History [...] on file Legal Sex Male 6:41 AM ENVIRONMENTAL FIELD TECHNICIAN Gender Identity Not on file Sexual Orientation Not on file Occupation Industry Job Start Date Job End Date Retired Not on file Not on file Not on file Obstetrics History Last Filed Vital Signs Vital Sign Reading Time Taken Comments Blood Pressure 143/73 09/01/2024 2:11 PM ENVIRONMENTAL FIELD TECHNICIAN Pulse 66 09/01/2024 2:11 PM ENVIRONMENTAL FIELD TECHNICIAN Temperature 36.6 C (97.8 F) 09/01/2024 2:11 PM ENVIRONMENTAL FIELD TECHNICIAN Respiratory Rate 20 01/01/2022 1:45 PM CDT Oxygen Saturation 100% 09/01/2024 2:11 PM ENVIRONMENTAL FIELD TECHNICIAN Inhaled Oxygen Concentration - - Weight 110.2 kg (243 lb) 09/01/2024 2:11 PM ENVIRONMENTAL FIELD TECHNICIAN Height 166.3 cm (5' 5.47) 08/01/2024 7:40 AM CS T Body Mass Index 39.86 08/01/2024 7:40 AM ENVIRONMENTAL FIELD TECHNICIAN Plan of Treatment Upcoming Encounters Date Type Department Care Team (Late st Contact Info) Description 09/21/2024 3:00 PM ENVIRONMENTAL FIELD TECHNICIAN Phone Office Visit [address] [place] [address] Lizbeth Quiles RN [address] [place] [address] 01/25/2025 7:00 AM CDT Orders Only [facility] [address] [place] [address] [place] 01/30/2025 7:30 AM CDT Office Visit [facility] [address] [place] [address] Abdi Chang MD [address] [place] [address] Health Maintenance Due Date Last Done Comments [...] Procedure Name Priority Date/Time Associated Diagnosis Comments SCAN-ULTRASOUND REPORT 09/05/2024 12:00 AM ENVIRONMENTAL FIELD TECHNICIAN LAB TRACKING EVENT Routine 08/28/2024 2: 00 PM ENVIRONMENTAL FIELD TECHNICIAN PERIPHERAL BLD MORPHOLOGY Routine 08/26/2024 2:00 PM ENVIRONMENTAL FIELD TECHNICIAN PLATELET ESTIMATION ([facility] REFLEX ONLY) Routine 08/25/2024 8:55 AM ENVIRONMENTAL FIELD TECHNICIAN CBC WITH AUTO DIFFERENTIAL Routine 08/25/2024 8:55 AM ENVIRONMENTAL FIELD TECHNICIAN Thrombocytopenia SCAN-LABORATORY REPORT 08/25/2024 12:00 AM ENVIRONMENTAL FIELD TECHNICIAN CT CHEST WO Routine 07/26/2024 8:39 AM ENVIRONMENTAL FIELD TECHNICIAN Pneumonia of left lower lobe due to infectious organism PLATELET ESTIMATION ([facility] REFLEX ONLY) Routine 07/25/2024 6:59 AM ENVIRONMENTAL FIELD TECHNICIAN CBC WITH AUTO DIFFERENTIAL Routine 07/25/2024 6:59 AM ENVIRONMENTAL FIELD TECHNICIAN 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) HEMOGLOBIN A1C Routine 07/25/2024 6:59 AM ENVIRONMENTAL FIELD TECHNICIAN Type 2 diabetes mellitus with stage 4 chronic kidney disease, 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) LIPID PANEL W REFLEX MEASURED LDL Routine 07/25/2024 6:59 AM ENVIRONMENTAL FIELD TECHNICIAN Type 2 diabetes mellitus with stage 4 chronic kidney disease, 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) BASIC METABOLIC PANEL Routine 07/25/2024 6:59 AM ENVIRONMENTAL FIELD TECHNICIAN Type 2 diabetes mellitus with stage 4 chronic kidney disease, 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 [address], * PERIPHERAL BLD MORPHOLOGY (08/26/2024 2:00 PM ENVIRONMENTAL FIELD TECHNICIAN) Case Report Special Hematology Report Case: [id number] Authorizing Provider: Unknown, Doctor Collected: 08/26/2024 1400 Ordering Location: [facility] Received: 08/28/20241999 Pathologist: Balta Taveras MD Specimen: Peripheral Blood 08/29/2024 9:55 AM [facility] Final Diagnosis PERIPHERAL BLOOD: 1. Mild normocytic anemia 2. Severe thrombocytopenia 3. See comment 08/29/2024 9:55 AM [facility] Comment The current blood smear shows significant thrombocytopenia, defined as platelet count less than 100 x 109/L. There is no evidence of microangiopathic hemolysis. No definite myelodysplastic features are seen. The thrombocytopenia may be secondary to various etiologies, including autoimmune disease (especially SLE), viral infections (including HIV and HCV), bacterial infections (including Helicobacter pylori), heparin (heparin-induced thrombocytopenia), and thrombocytopenia induced by other drugs (often quickly remits after withdrawal of the inciting drug). 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 Note that the acronym ITP now refers to immune thrombocytopenia rather than idiopathic thrombocytopenic purpura, as most cases have an immune mediated etiology and are not associated with bleeding (purpura) symptoms. Reference: Blood 113: 2386, 2009. The features of the anemia are nonspecific. The differential includes iron deficiency, anemia of chronic disease, anemia of chronic renal insufficiency, anatomic blood loss and medication effect. There no evidence of hemolysis. 08/29/2024 9:55 AM [facility] Clinical Information The patient is not 89-year-old male. Per CBC scan: Thrombocytopenia 08/29/2024 9:55 AM [facility] CBC and Differential [facility]OLOG[facility]AMET[facility] RESULTS EXPECTED VALUES WBC: 6.4 4.5-61b4415/cumm RBC: 3.81 4.30-5.90 mil/cumm DECREASED HGB: 11.5 13.5-17.5 gm/di DECREASED HCT: 35.7 37-53% DECREASED MCV: 93.7 80-100 fl NORMOCYTIC MCH: 30.2 26-34 pg MCHC: 32.2 32-36 gm/dl NORMOCHROMIC RDW: 13.7 11.5-15.5% PLT: 2 140-299z1957/uL DECREASED Retic: 1.81 0.5-1.5% ELEVATED Differential Absolute (%) Expected (%) (x10*9/L) (x10*9/L) Neutrophils: 5.88 (92.3) 1.7-7.0 (42-72%) Lymphocytes: 0.36 (5.7) 0.9-2.9 (20-44%) DECREASED Monocytes: 0.11 (1.7) <0.9 (0-11%) Imm Grans: 0.02 (.3) <0.3 (0-3%) (Metas, Myelos,Pros) 08/29/2024 9:55 AM ENVIRONMENTAL FIELD TECHNICIAN [facility] Microscopic Description The final diagnosis is based on microscopic examination of an appropriately stained blood smear. 08/29/2024 9:55 AM ENVIRONMENTAL FIELD TECHNICIAN [facility] Additional Information Interpreted at [facility], Central Laboratory - [address] [facility] [address], [place] [address] 08/29/2024 9:55 AM ENVIRONMENTAL FIELD TECHNICIAN [facility] Blood (Peripheral Blood) 08/26/2024 2:00 PM ENVIRONMENTAL FIELD TECHNICIAN 08/28/2024 8:00 PM ENVIRONMENTAL FIELD TECHNICIAN Doctor Unknown HEMATOLOGY Final Result [facility] [address] [place] [address], * (ABNORMAL) PLATELET ESTIMATION ([facility] REFLEX ONLY) (08/25/2024 8:55 AM ENVIRONMENTAL FIELD TECHNICIAN) Only the most recent of2 resultswithin the time period is included. PLATELET ESTIMATION DECREASED( A) ADEQUATE [facility] 08/25/2024 8:55 AM ENVIRONMENTAL FIELD TECHNICIAN 08/25/2024 8:55 AM ENVIRONMENTAL FIELD TECHNICIAN us Abdi Chang MD HEMATOLOGY Final Resu lt [facility] [place] [address] [address], [place] [phone] [facility] [address] [place] [address] * (ABNORMAL) CBC AND DIFFERENTIAL (08/25/2024 8:55 AM ENVIRONMENTAL FIELD TECHNICIAN) Only the most recent of2 resultswithin the time period is included. [facility] WHITE BLOOD CELL COUNT 6.3 3.8 - [...] BLOOD SPECIMEN / Unknown 08/25/2024 8:55 AM ENVIRONMENTAL FIELD TECHNICIAN 08/25/2024 8:55 AM ENVIRONMENTAL FIELD TECHNICIAN Abdi Chang MD HEMATOLOGY Final Resu lt [facility] [address] [place] [address], [facility] [address] [place] [address] * SCAN-LABORATORY REPORT (08/25/2024 12:00 AM ENVIRONMENTAL FIELD TECHNICIAN) us Scanner OTHER Final Result * CT CHEST WO (07/26/2024 8:39 AM ENVIRONMENTAL FIELD TECHNICIAN) Anatomical Region Laterality Modality CHEST, THORAX, HEART Computed To mography 07/26/2024 4:28 PM ENVIRONMENTAL FIELD TECHNICIAN Narrative 07/26/2024 4:28 PM ENVIRONMENTAL FIELD TECHNICIAN For Patients: As a result of the [...] * (ABNORMAL) HEMOGLOBIN A1C (07/25/2024 6:59 AM ENVIRONMENTAL FIELD TECHNICIAN) HEMOGLOBIN A1C 6.6(H) <5.7 % of total Hgb [facility] Comment: For someone without known diabetes, [...] BLOOD SPECIMEN / Unknown 07/25/2024 6:59 AM ENVIRONMENTAL FIELD TECHNICIAN 07/25/2024 6:59 AM ENVIRONMENTAL FIELD TECHNICIAN Abdi Chang MD CHEMISTRY Final Resu lt [facility] [address] [place] [address], [facility] [address] * LIPID PANEL W REFLEX MEASURED LDL (07/25/2024 6:59 AM ENVIRONMENTAL FIELD TECHNICIAN) CHOLESTEROL, TOTAL 108 <200 mg/dL [facility] HDL CHOLESTEROL 44 > OR = 40 mg/dL [facility] TRIGLYCERIDES 87 <150 mg/dL [facility] LDL-CHOLESTEROL 47 mg/dL (calc) [facility] Comment: Reference range: <100 Desirable range <100 mg/dL for primary prevention; <70 mg/dL for patients with CHD or diabetic patients with > or = 2 CHD risk factors. LDL-C is now calculated using the Lee calculation, which is a validated novel method providing better accuracy than the Friedewald equation in the estimation of LDL-C. Chino SS et al. ZORAN. 2013;310(85): 8765-2389 (http://education.[facility].com/faq/HXE074) CHOL/HDLC RATIO 2.5 <5.0 (calc) [facility] NON HDL CHOLESTEROL 64 <130 mg/dL (calc) [facility] Comment: For patients with diabetes plus 1 major ASCVD risk factor, treating to a non-HDL-C goal of <100 mg/dL (LDL-C of <70 mg/dL) is considered a therapeutic option. Blood BLOOD SPECIMEN / Unknown 07/25/2024 6:59 AM ENVIRONMENTAL FIELD TECHNICIAN 07/25/2024 6:59 AM ENVIRONMENTAL FIELD TECHNICIAN us Abdi Chang MD CHEMISTRY Final Resu lt [facility] [address] [place] [address], [facility] [address] [place] [address] * (ABNORMAL) BASIC METABOLIC PANEL (07/25/2024 6:59 AM ENVIRONMENTAL FIELD TECHNICIAN) GLUCOSE 160(H) 65 - 99 mg/dL [facility] Comment: Fasting reference interval For someone without known diabetes, a glucose value >125 mg/dL indicates that they may have diabetes and this should be confirmed with a follow-up test. UREA NITROGEN (BUN) 68(H) 7 - 25 mg/dL [facility] CREATININE 2.40(H) 0.70 - 1.22 mg/dL [facility] EGFR 25(L) > OR = [...] BLOOD SPECIMEN / Unknown 07/25/2024 6:59 AM ENVIRONMENTAL FIELD TECHNICIAN 07/25/2024 6:59 AM ENVIRONMENTAL FIELD TECHNICIAN Abdi Chang MD CHEMISTRY Final Resu lt [facility] [place] [facility] [address] [place] [address], [place] [phone] [facility] [address] [place] [address] from Last 3 Months Insurance MEDICARE PB ONLY [employer] MEDICARE PART A HB ONLY MEDICARE PART B HB ONLY Advance Directives Documents on File Type Date Recorded Patient Drug Coordinator Expl anation Healthcare Directive 04/20/2005 [facility], [facility], 04/20/05 * Full Code (Latest Code Status on File) Date Activated Date Inactivated Comments 11/19/2016 3:17 PM 11/20/2016 4:26 PM * Full Code Date Activated Date Inactivated Comments 11/19/2016 7:12 AM 11/19/2016 2:43 PM Question Answer Comments Code Status Discussion: Not Discussed Care Teams Iso Coordinator Relationship Specialty Start Date End Date Abdi Chang MD [address] [place] [address] PCP - General Family Practice 07/13/22 Travis Mariano MD [address] [facility] [address] [place] [address] Ophthalmology Surgery 02/24/12 Chino Valdez MD [address] [place] [address] Gastroenterology Gastroenterology 06/14/13 Vega Singh MD [address] [place] [address] Cardiology Cardiovascular Disease 06/14/13 Bear Barahona MD [address] [facility] [address] [address] Nephrology Nephrology 06/14/13
--- OUTSIDE RECORDS SUMMARY | 2024-09-13 15:31 | XMS_ITS | Continuity of Care Document ---
Author Organization [facility] Address [address] [place] [address] Phone Care Team Providers Care Leaf Tier Name Role Phone Domenic Patrick MD Unavailable [...] Copied on Encounter [facility], [address], [place], [place], [id number] , [place] tel:[phone] No Information 9 Transfeldt Ensor. [facility], [address], [facility] [address], [place], [place], [id number], [place]. tel:[phone] [facility], [address], [place], [place], [id number] , [place] tel:[phone] [facility] Encounter for other specified surgical aftercare 7 Silvana Valdez. [facility], [address] [place] [address] [address], [place], [address], [place]. tel:[phone] Referring Provider: Nicholas Ortega, [facility], [place], [address]. tel:[phone] [facility], [address], [place], [place], [id number] , [place] tel: [phone] No Information 7 Transfeldt Ensor. [facility] [place], [address], [facility] [address], [place], [place], [id number], [place]. tel:[phone] Referring Provider: Nicholas Ortega, [facility]onAppdra [facility], [place], [address]. tel:[phone] Office/Outpa tient Visit,[facility], [address], [place], [place], [id number] , [place] tel:[phone] [facility] Spinal stenosis, lumbar region 7 Transfeldt Ensor. [facility] [place], [address], [facility] [address], [place], [place], [id number], [place]. tel:[phone] Referring Provider: Edson ShafferAppdra [facility], [place], [address]. tel:[phone] Family History Family Member Type Diagnosis Age At Onset No Information Payers Payer name Insurance type Covered republican ID Authoriza tion(s) Medicare [id number] For Life/Retired [facility] [id number] Social History Type Description Quantity Date Captured [...]
[2024-09-13 15:35] VITALS: BP 98/64; PULSE 77; RESP 20; TEMP 36; O2SAT 98; BMI 36.6
[2024-09-13 16:02] VITALS: BP 104/59; PULSE 77; O2SAT 99
[2024-09-13 16:03] VITALS: PULSE 68; O2SAT 99
--- NOTE | 2024-09-13 16:05 | ED.GENADULT ---
HPI - General Adult General Chief complaint: Diabetic Related Problem Stated complaint: diabetes, needs fluids/insulin Time Seen by Provider: 09/13/24 16:05 History of Present Illness HPI narrative: Pt sent by [facility] for concerns about diabetes and labwork ( high Potassium, high BUN, various other abnormalities). BG is 521 in triage. Pt states That ain't bad, regarding his BG. Pt also complains of sore bottom. Pt is very Hard of Hearing. 89-year-old man presenting to the emergency department as directed from [facility]. Says he feels fine and like horseshit all the time. Does not really want to be in the ER would prefer to go home. Blood sugars have been elevated particularly over this last week. Notes to have been on steroids for the last couple of weeks. This was in the setting of a history of ITP. Treatment has improved platelets now to 56,000 on dexamethasone. He is beginning taper now to 24 mg of dexamethasone daily over this coming week. Concern from [facility] is need for fluids; blood pressure was a little low today as low as 100/61. Also requesting blood sugar management as his blood sugars noted to be 571. No fever. Denies cough cold symptoms or dysuria. No abdominal pain. Has not nauseated and has not been vomiting. Review [place] labs [place] [address]. Hemoglobin of 13 [place] [address] neutrophilic predominance. Sodium 130 potassium of 5.4. Is in the setting of blood sugar of 571 so corrected sodium would be 138 BUN is 123 and a creatinine of 2.5. History of chronic kidney disease stage IV. This is a little elevated from prior measurement Related Data Home Medications ?Medication ?Instructions ?Recorded ?Confirmed atenolol 50 mg tablet 50 mg PO DAILY 04/27/24 09/14/24 atorvastatin 20 mg tablet 20 mg PO DAILY 04/27/24 09/14/24 finasteride 5 mg tablet 5 mg PO DAILY 04/27/24 09/14/24 furosemide 20 mg tablet 20 mg PO BID 04/27/24 09/14/24 furosemide 40 mg tablet 40 mg PO BID 04/27/24 09/14/24 glimepiride 1 mg tablet 1 mg PO DAILY 04/27/24 09/14/24 lisinopril 2.5 mg tablet 2.5 mg PO DAILY 04/27/24 09/14/24 niacin 500 mg tablet,extended 500 mg PO DAILY 04/27/24 09/14/24 release 24 hr nitroglycerin 0.4 mg sublingual 0.4 mg sublingual Q5M PRN 04/27/24 09/14/24 tablet tamsulosin 0.4 mg capsule 0.8 mg PO DAILY 04/27/24 09/14/24 zinc gluconate 50 mg tablet 100 mg PO DAILY 04/27/24 09/14/24 cholecalciferol (vitamin D3) 50 100 mcg PO DAILY 08/30/24 09/14/24 mcg (2,000 unit) capsule dexamethasone 6 mg tablet 24 mg PO DAILY 09/14/24 09/14/24 Previous Rx's ?Medication ?Instructions ?Recorded insulin NPH-regular 70-30 U-100 15 unit (0.15 mL) subcut BID #9 mL 08/29/24 insulin 100 unit/mL subcutaneous pen (Novolin 70-30 FlexPen U-100 Insulin) Allergies Allergy/AdvReac Type Severity Reaction Status Date / Time No Known Drug Allergies Allergy Verified 09/13/24 14:46 Review of Systems Status of ROS: Reports: 6 or more systems reviewed and unremarkable except as noted in History and below [facility] Medical History Hypertensive kidney disease ?I12.9 - Hypertensive chronic kidney disease with stage 1 through stage 4 chronic kidney disease, or unspecified chronic kidney disease (ICD-10) Hypertensive heart disease ?I11.9 - Hypertensive heart disease without heart failure (ICD-10) Essential hypertension ?I10 - Essential (primary) hypertension (ICD-10) Diabetes type 2 with atherosclerosis of arteries of extremities ?E11.51 - Type 2 diabetes mellitus with diabetic peripheral angiopathy without gangrene (ICD-10) ?I70.209 - Unspecified atherosclerosis of [place] arteries of extremities, unspecified extremity (ICD-10) Hyperlipidemia ?E78.5 - Hyperlipidemia, unspecified (ICD-10) Hypertension ?I10 - Essential (primary) hypertension (ICD-10) Current use of [facility] anticoagulation ?Z79.01 - assisted (current) use of anticoagulants (ICD-10) Atrial fibrillation ?I48.91 - Unspecified atrial fibrillation (ICD-10) Diastolic congestive heart failure ?I50.30 - Unspecified diastolic (congestive) heart failure (ICD-10) Coronary artery disease ?I25.10 - Atherosclerotic heart disease of [place] coronary artery without angina pectoris (ICD-10) CKD (chronic kidney disease) stage 4, GFR 15-29 ml/min ?N18.4 - Chronic kidney disease, stage 4 (severe) (ICD-10) Social History What is your current living situation?: I presently have a place to live Problems where you live: no known problems Problems where you live details: NA In the past 12 months, utilities in danger of being shut off: no In past 12 months, lack of transportation kept you from medical appts, meetings, work, or getting things needed for daily living: no In the past 12 mos, have been you worried that your food would run out before you had money to buy more?: never true In the past 12 mos, the food you bought just didn't last and you didn't have money to buy more?: never true Highest level of school completed/degree received: some college, no degree Smoking Status: Former smoker Do you use any of these nicotine containing products: None Second hand tobacco smoke exposure: No How often do you have a drink containing alcohol: 4 or more times a week Alcohol type: beer How many standard drinks containing alcohol do you have on a typical day: 1 or 2 How often do you have six or more drinks on one occasion: Never AUDIT-C Alcohol total score: 4 Non-prescribed substance use: denies use Caffeine: Yes (rarely) How often does anyone, including family, friends and others, physically hurt you: never How often does anyone, including family, friends and others, insult or talk down to you: never How often does anyone, including family, friends and others, threaten you with harm: never How often does anyone, including family, friends and others, scream or curse at you: never service: Yes Exam Narrative: Exam Narrative: Hard of hearing and repeatedly asking if he can leave. I have informed that he is able to do so if he wishes but then proposing other workup and he is saying that we should do whatever we need to and then returns to asking to leave. Of good energy. Is breathing easily. Lungs are clear. Heart is distant. Appears to be in regular rate. Abdomen is soft nontender. Protruberant. Tense. Skin warm and dry. Lower extremities with some light bruising and bilaterally with 1+ pitting edema. He says this is as usual. Later exam of buttock shows some spots of bruising but I do not see skin breakdown. Unfortunately also had a small bowel movement. He is unaware that he had been complaining of a sore bottom apparently. Const: Vital Signs, click to edit/add: Vital Signs - 24 hr 09/13/24 15:35 09/13/24 16:02 09/13/24 16:03 Temperature 96.8 F L Pulse Rate 77 68 Pulse Rate [Pulse Oximeter] 77 Respiratory Rate 20 Blood Pressure 104/59 L Blood Pressure [Ri ght Upper Arm] 98/64 Pulse Oximetry 98 99 99 Oxygen Delivery Me thod Room Air 09/13/24 19:23 Temperature Pulse Rate Pulse Rate [Pulse Oximeter] 91 Respiratory Rate 24 Blood Pressure Blood Pressure [Ri ght Upper Arm] 134/53 L Pulse Oximetry 24 L Oxygen Delivery Me thod Room Air Documenting provider has reviewed patient's vital signs: yes Course Vital Signs Vital signs: Initial Vital Signs Temperature 96.8 F L 09/13/24 15:35 Temperature Source Temporal Artery Scan 09/13/24 15:35 Pulse Rate 77 09/13/24 15:35 Respiratory Rate 20 09/13/24 15:35 Blood Pressure 98/64 09/13/24 15:35 Blood Pressure Mean 75 09/13/24 15:35 Blood Pressure Position Sitting 09/13/24 15:35 Pulse Oximetry 98 09/13/24 15:35 Oxygen Delivery Method Room Air 09/13/24 15:35 Vital Signs Temperature 96.8 F L 09/13/24 15:35 Pulse Rate 77 09/13/24 15:35 Respiratory Rate 20 09/13/24 15:35 Blood Pressure 98/64 09/13/24 15:35 Pulse Oximetry 98 09/13/24 15:35 Oxygen Delivery Method Room Air 09/13/24 15:35 Temperature 96.8 F L 09/13/24 15:35 Pulse Rate 91 09/13/24 19:23 Respiratory Rate 24 09/13/24 19:23 Blood Pressure 134/53 L 09/13/24 19:23 Pulse Oximetry 24 L 09/13/24 19:23 Oxygen Delivery Method Room Air 09/13/24 19:23 Medications Administered Medications: Discontinued Medications Generic Name Dose Route Start Last Admin Trade Name Dominick PRN Reason Stop Dose Admin Sodium Chloride 1,000 mls @ 1,000 mls/hr 09/13/24 16:22 09/13/24 19:23 0.9 % Sodium Chloride 1000 Ml IV 09/13/24 17:21 Infused .Q1H ONE Infusion Insulin Human Regular 12 unit 09/13/24 16:24 09/13/24 17:22 Insulin Regular, Human 100 Unit/Ml Vial IVP 09/13/24 16:25 12 unit ONCE ONE Administration Medical Decision Making MDM Narrative Medical decision making narrative: Surely needs hydration. Will try to affect blood sugars as well. Will look for source of infection. Reviewed labs from a few hours ago. Ordered for normal saline. Chest x-ray shows postoperative changes by my independent read. Radiology over-read though below. INDICATION: ELEVATED WBC. TECHNIQUE: Chest 2 views. COMPARISON: Chest radiograph dated 04/28/2024. FINDINGS: Unchanged cardiomediastinal contours. Mild streaky bibasilar opacities. No sign of pleural effusion. No pneumothorax. Sternotomy wires. IMPRESSION: Nonspecific mild streaky bibasilar opacities, which could reflect atelectasis, aspiration, or pneumonia. Dictated by Paul Jackson MD @ 09/13/2024 5:27:42 PM Potassium is mildly elevated shortly related to hyperglycemia. Sodium of 130 would be corrected to 138 in the setting of hyperglycemia. Elevated BUN implies this dehydration. IV hydration given. Improving hyperglycemia should lower this potassium level. Discussing potential workup here is says certainly that he does not have any infection; says everything is related to the steroids. Given 12 units of regular insulin. An hour later blood sugar has improved by about 140 points to 418. While information is complicated by hard of hearing, I had initially presumed some difficulty with memory but Mr. Mckinley is quite clear about his management of blood sugar lately. Checked his blood sugar this morning at 350 approximately he thinks. Has actually seen his primary care provider since discharge from the hospital. NPH was increased last week he says to 28 units in the morning in 24 units in the afternoon/evening. I have proposed admission for further monitoring and hydration but Mr. Mckinley is clear that he is absolutely not going to be admitted and intends to return home this evening I discussed with our hospitalist potential plan, challenges in outpatient management. See patient discharge plan for further discussion You really need to focus on hydration with water. You were dehydrated here today; your kidneys were stressed. Please follow-up with your primary care doctor as soon as possible. Call tomorrow for an appointment. It would be good if you could be seen this week but ideally by early next week. In the meantime please increase your NPH insulin to 36 units in the morning and 26 units in the afternoon/evening based on what you told me you were taking. Please continue to check your blood sugars twice daily. Return for increasing shortness of breath, worsening lightheadedness, fever. Medical Records Medical records reviewed: Yes I reviewed the patient's medical records Lab Data Lab results reviewed: Yes I reviewed the patient's lab results Labs: Lab Results 09/13/24 09/13/24 09/13/24 Range/Units 16:22 17:17 18:25 Urine Color Yellow (Yellow) Urine Appearance Clear (Clear) Urine pH 5.0 (5.0-8.5) Ur Specific [place] 1.010 (1.000-1.030) Urine Protein Negative (Negative) Urine Glucose (UA) 2+ A (Negative) Urine Ketones Negative (Negative) Urine Blood Negative (Negative) Urine Nitrite Negative (Negative) Urine Bilirubin Negative (Negative) Urine Urobilinogen 0.2 (0.2-1.0) Ur Leukocyte Esterase Negative (Negative) Urine RBC 0-2 (0-2) Urine WBC 0-2 (0-5) Ur Squamous Epith Cells None (None-Few) Urine Bacteria None (None) SARS-CoV-2 (PCR) Negative SARS-CoV-2 (Negative) Influenza Type A (PCR) Negative PCR FLU A (Negative) Influenza Type B (PCR) Negative PCR FLU B (Negative) RSV (PCR) Negative PCR RSV (Negative) POC Glucose 572 H* 418 H* (60-115) mg/dl Discharge Plan Discharge Clinical Impression: Hyperglycemia, Stage 4 chronic kidney disease, Dehydration Patient Disposition: Home w/ Parent or Adult Condition: Improved Additional Instructions: You really need to focus on hydration with water. You were dehydrated here today; your kidneys were stressed. Please follow-up with your primary care doctor as soon as possible. Call tomorrow for an appointment. It would be good if you could be seen this week but ideally by early next week. In the meantime please increase your NPH insulin to 36 units in the morning and 26 units in the afternoon/evening based on what you told me you were taking. Please continue to check your blood sugars twice daily. Return for increasing shortness of breath, worsening lightheadedness, fever. Prescriptions: No Action Novolin 70-30 FlexPen U-100 100 unit/mL (70-30) insulin pen 15 unit subcut BID Qty: 9 2RF Rx Instructions: Take 20 units before breakfast and 10 units before evening meal. atorvastatin 20 mg tablet 20 mg PO DAILY atenolol 50 mg tablet 50 mg PO DAILY furosemide 40 mg tablet 40 mg PO BID Rx Instructions: PLUS 0 MG FOR TOTAL OF 60 MG TWICE A DAY furosemide 20 mg tablet 20 mg PO BID Rx Instructions: PLUS 40 MG FOR TOTAL OF 60 MG TWICE A DAY finasteride 5 mg tablet 5 mg PO DAILY niacin 500 mg tablet extended release 24 hr 500 mg PO DAILY glimepiride 1 mg tablet 1 mg PO DAILY nitroglycerin 0.4 mg tablet, sublingual 0.4 mg sublingual Q5M PRN lisinopril 2.5 mg tablet 2.5 mg PO DAILY tamsulosin 0.4 mg capsule 0.8 mg PO DAILY zinc gluconate 50 mg tablet 100 mg PO DAILY cholecalciferol (vitamin D3) 50 mcg (2,000 unit) capsule 100 mcg PO DAILY dexamethasone 6 mg tablet 24 mg PO DAILY Rx Instructions: Take 4 tablets daily until you see the prosthetic aide next week Follow Up/Referrals: Abdi Chang MD [Primary Care Provider] - Stand Alone [facility]
[2024-09-13] MEDS: 0.9 % SODIUM CHLORIDE 1000 ml 1,000 ML IV (17:06)
[2024-09-13 17:18] LABS: Glucose, Point-of-Care* 572 mg/dl (60-115)
[2024-09-13] MEDS: INSULIN REGULAR, HUMAN 100 UNIT/ML VIAL 12 UNIT IVP (17:22)
[2024-09-13 17:48] LABS: PCR FLU A Negative PCR FLU A (Negative); PCR FLU B Negative PCR FLU B (Negative); PCR RSV Negative PCR RSV (Negative); SARS PCR* Negative SARS-CoV-2 (Negative)
[2024-09-13 18:06] LABS: Appearance Urine Clear (Clear); Bilirubin Urine Negative (Negative); Blood Urine Negative (Negative); Color Urine Yellow (Yellow); Glucose Urine 2+ (Negative); Ketones Urine Negative (Negative); Leukocyte Esterase Urine Negative (Negative); Nitrite Urine Negative (Negative); Protein Urine Negative (Negative); Urobilinogen Urine 0.2 (0.2-1.0)
--- OUTSIDE RECORDS SUMMARY | 2024-09-13 18:10 | XMS_ITS | Continuity of Care Document ---
Author Name [facility] Organization [facility] Care Team Providers Care Fundraiser Name Role Phone [facility] Unavailable Unavailable Medications Combined list of outpatient medications from Department of Defense and Veterans Affairs facilities.Medications provided include 1) outpatient medications from the last 15 months, and 2) patient-reported medications. Medication Details Route Status Patient Instructions Prescription Expires Prescription Number Last Dispense Date Ordering Provider Order Date Order Qty Source ATENOLOL (ATENOLOL), 50 MG, TABLET, ORAL, [employer] 1000 ea. BOTTLE Cancele d [id number] : 2022 0 Pharmac y Data Transac tion Service Facilit y FUROSEMIDE (furosemide ), 40 MG, TABLET, ORAL, [employer], 1000 ea. BOTTLE Cancele d [id number] : 2022 0 Pharmac y Data Transac tion Service Facilit y GLIMEPIRIDE (glimepirid e), 1 MG, TABLET, ORAL, [employer] 100 ea. BOTTLE Active [id number] 4 2023 90 Pharmac y Data Transac tion Service Facilit y GLIMEPIRIDE (glimepirid e), 1 MG, TABLET, ORAL, [employer] 100 ea. BOTTLE Cancele d [id number] : 2023 0 Pharmac y Data Transac tion Service Facilit y GLIMEPIRIDE (glimepirid e), 1 MG, TABLET, ORAL, [employer] 100 ea. BOTTLE Active [id number] 4 2023 90 Pharmac y Data Transac tion Service Facilit y JARDIANCE (EMPAGLIFLO ZIN), 10 MG, TABLET, ORAL, [employer]., 90 ea. BOTTLE Active [id number] 4 2023 45 Pharmac y Data Transac tion Service Facilit y JARDIANCE (EMPAGLIFLO ZIN), 10 MG, TABLET, ORAL, [employer] ING., 90 ea. BOTTLE Cancele d [id number] : 2023 0 Pharmac y Data Transac tion Service Facilit y LISINOPRIL (lisinopril ), 5 MG, TABLET, ORAL, [employer]AN [employer]ARMACE, 1000 ea. BOTTLE Cancele d [id number] : 2022 0 Pharmac y Data Transac tion Service Facilit y NITROGLYCER IN (nitroglyce rin), 0.4 MG, TAB SUBL, SUBLINGUAL, [employer] 25 ea. BOTTLE Active [id number] 4 2023 25 Pharmac y Data Transac tion Service Facilit y Social History Combined list of available smoking, tobacco, and other social history from Department of Defense and Veterans Affairs facilities. Social History Type Response Date Comment [facility] This section is an empty social history section. [facility]
--- OUTSIDE RECORDS SUMMARY | 2024-09-13 18:10 | XMS_ITS | Clinical Summary ---
Author Organization [employer] [facility] Address [address] [place] [address] Care Team Providers Care Easter Bunny Name Role Phone Travis Mariano MD Unavailable Unavailable Chino Valdez MD Unavailable [phone] Vega Singh MD Unavailable [phone] Bear Barahona MD Unavailable Abdi Chang MD Primary Care Provider Allergies [...] TAKE 5 TABS DAILY UNTIL YOU SEE BAG MAKER NEXT WEEK* 08/31/19 25 Active blood sugar [...] patient's overall health Hypertension 11/20/2009 Overview (02/15/2011): Comfort Advisor recommends BP <120. 02/15/2011 Unspecified hearing loss [...] Other and unspecified hyperlipidemia 01/24/2007 Overview (02/15/2011): Comfort Advisor recommends LDL < 70. 02/15/2011 Type 2 [...] Department Care Team Description 09/13/2024 11:00 AM PUTTIER Phone Office Visit [facility] [address] [place] [address] Phone Visit (DM education ) 09/13/2024 Travel 09/06/2024 10:05 AM PUTTIER Phone Office Visit [facility] [address] [place] [address] Abdi Chang MD Diabetes (Has been having high readings/Needs more test strips sent to the pharmacy); Phone Visit (No vitals) 09/06/2024 Telephone [facility] [address] [place] [address] Abdi Chang MD Referral 09/06/2024 Travel 09/05/2024 Orders Only [facility] Scanner 1 scan: (1-Ord) [facility], ABDOMEN COMPLETE, 09/05/2024 09/05/2024 Telephone [facility] [address] [facility] [place] [address] Abdi Chang MD Abnormal Lab Results (CRITICAL GLUCOSE - 625) 09/04/2024 3:00 PM PUTTIER Nurse/Clinic Staff Only [facility] [address] [facility] [place] [address] Education (Insulin 70/30 injections) 09/04/2024 Travel 09/04/2024 Telephone [facility] [address] [facility] [place] [address] Abdi Chang MD Appointment 09/01/2024 1:55 PM PUTTIER Office Visit [address] [place] [address] Abdi Chang MD Hospital F/U (Dangerously low platelet counts - follow up from [facility]) 09/01/2024 Travel 08/28/2024 Lab Requisition [facility] [phone] Unknown, Doctor 08/26/2024 Telephone [facility] [address] [facility] [place] [address] Abdi Chang MD Results 08/26/2024 Telephone [facility] [address] [facility] [place] [address] Kg Rodriguez MD Abnormal Lab Results 08/25/2024 9:15 AM PUTTIER Orders [place] [address] [place] [address] [place] [place] [facility] 08/25/2024 Orders Only [facility] Scanner 1 scan: (1-Ord) [facility], CBC W/ PLTS, 08/25/2024 08/25/2024 Travel 08/01/2024 7:55 AM PUTTIER Office Visit [facility] [address] [facility] [place] [address] Abdi Chang MD Medicare ANNUAL (subsequent) Visit (87 years); Immunization/Inject ion 08/01/2024 Travel 07/27/2024 Telephone [facility] [address] [facility] [place] [address] Abdi Chang MD Abnormal Lab Results 07/26/2024 9:00 AM PUTTIER Ancillary Procedure [facility] [place] [address] [address] 07/26/2024 Travel 07/25/2024 7:00 AM PUTTIER Orders Only [facility] [address] [place] [address] [place] [place] [facility] 07/24/2024 Travel 07/10/2024 Refill [facility] [address] [place] [address] [address] Abdi Chang MD Refill Request (Atorvastatin) 06/22/2024 Refill [facility] [place] [address] [address] Abdi Chang MD Refill Request (Niacin Er) [...] on file Legal Sex Male 6:41 AM PUTTIER Gender Identity Not on file Sexual Orientation Not on file Occupation Industry Job Start Date Job End Date Retired Not on file Not on file Not on file Obstetrics History Last Filed Vital Signs Vital Sign Reading Time Taken Comments Blood Pressure 143/73 09/01/2024 2:11 PM PUTTIER Pulse 66 09/01/2024 2:11 PM PUTTIER Temperature 36.6 C (97.8 F) 09/01/2024 2:11 PM PUTTIER Respiratory Rate 20 01/01/2022 1:45 PM CDT Oxygen Saturation 100% 09/01/2024 2:11 PM PUTTIER Inhaled Oxygen Concentration - - Weight 110.2 kg (243 lb) 09/01/2024 2:11 PM PUTTIER Height 166.3 cm (5' 5.47) 08/01/2024 7:40 AM CS T Body Mass Index 39.86 08/01/2024 7:40 AM PUTTIER Plan of Treatment Upcoming Encounters Date Type Department Care Team (Late st Contact Info) Description 09/21/2024 3:00 PM PUTTIER Phone Office Visit [address] [facility] [place] [address] Lizbeth Quiles RN [address] [place] [address] 01/25/2025 7:00 AM CDT Orders Only [facility] [address] [place] [address] [place] 01/30/2025 7:30 AM CDT Office Visit [facility] [address] [place] [address] [address] Abdi Chang MD [address] [place] [address] Health Maintenance Due Date Last Done Comments [...] Diagnosis Comments SCAN-ULTRASOUND REPORT 09/05/2024 12:00 AM PUTTIER LAB TRACKING EVENT Routine 08/28/2024 2: 00 PM PUTTIER PERIPHERAL BLD MORPHOLOGY Routine 08/26/2024 2:00 PM PUTTIER PLATELET ESTIMATION ([facility] REFLEX ONLY) Routine 08/25/2024 8:55 AM PUTTIER CBC WITH AUTO DIFFERENTIAL Routine 08/25/2024 8:55 AM PUTTIER Thrombocytopenia SCAN-LABORATORY REPORT 08/25/2024 12:[address] CHEST WO Routine 07/26/2024 8:39 AM PUTTIER Pneumonia of left lower lobe due to infectious organism PLATELET ESTIMATION ([facility] REFLEX ONLY) Routine 07/25/2024 6:59 AM PUTTIER CBC WITH AUTO DIFFERENTIAL Routine 07/25/2024 6:59 AM PUTTIER 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) HEMOGLOBIN A1C Routine 07/25/2024 6:59 AM PUTTIER Type 2 diabetes mellitus with stage 4 chronic kidney disease, 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) LIPID PANEL W REFLEX MEASURED LDL Routine 07/25/2024 6:59 AM PUTTIER Type 2 diabetes mellitus with stage 4 chronic kidney disease, 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 [address], * PERIPHERAL BLD MORPHOLOGY (08/26/2024 2:00 PM PUTTIER) Case Report Special Hematology Report Case: [id number] Authorizing Provider: Unknown, Doctor Collected: 08/26/2024 1400 Ordering Location: [facility] Received: 08/28/20241999 Pathologist: Balta Taveras MD Specimen: Peripheral Blood 08/29/2024 9:55 AM [facility]AT[facility] Final Diagnosis PERIPHERAL BLOOD: 1. Mild normocytic anemia 2. Severe thrombocytopenia 3. See comment 08/29/2024 9:55 AM [facility]- ENTR[facility] LAB[facility]AT[facility] Comment The current blood [...] no evidence of hemolysis. 08/29/2024 9:55 AM [facility] [employer] [facility] Clinical Information The patient is not 89-year-old male. Per CBC scan: Thrombocytopenia 08/29/2024 9:55 AM [facility] CBC and Differential [facility]OLOG[facility]AM[facility] RESULTS EXPECTED VALUES WBC: 6.4 4.5-68g9174/cumm RBC: 3.81 4.30-5.90 mil/cumm DECREASED HGB: 11.5 13.5-17.5 gm/di DECREASED HCT: 35.7 37-53% DECREASED MCV: 93.7 80-100 fl NORMOCYTIC MCH: 30.2 26-34 pg MCHC: 32.2 32-36 gm/dl NORMOCHROMIC RDW: 13.7 11.5-15.5% PLT: 2 140-201t7376/uL DECREASED Retic: 1.81 0.5-1.5% ELEVATED Differential Absolute (%) Expected (%) (x10*9/L) (x10*9/L) Neutrophils: 5.88 (92.3) 1.7-7.0 (42-72%) Lymphocytes: 0.36 (5.7) 0.9-2.9 (20-44%) DECREASED Monocytes: 0.11 (1.7) <0.9 (0-11%) Imm Grans: 0.02 (.3) <0.3 (0-3%) (Metas, Myelos,Pros) 08/29/2024 9:55 AM PUTTIER [facility]-C ENTRAL LABORATORY Microscopic Description The final diagnosis is based on microscopic examination of an appropriately stained blood smear. 08/29/2024 9:55 AM PUTTIER [facility] Additional Information Interpreted at [facility], Central Laboratory - [address] [facility] [address] [facility] [address] [address] 08/29/2024 9:55 AM PUTTIER [facility] Blood (Peripheral Blood) 08/26/2024 2:00 PM PUTTIER 08/28/2024 8:00 PM PUTTIER Doctor Unknown HEMATOLOGY Final Result [facility] [address] [place] [address], * (ABNORMAL) PLATELET ESTIMATION ([facility] REFLEX ONLY) (08/25/2024 8:55 AM PUTTIER) Only the most recent of2 resultswithin the time period is included. PLATELET ESTIMATION DECREASED( A) ADEQUATE [facility] 08/25/2024 8:55 AM PUTTIER 08/25/2024 8:55 AM PUTTIER us Abdi Chang MD HEMATOLOGY Final Resu lt [facility] [address] [address], [place] [phone] [facility] [place] [address] [place] [address] * (ABNORMAL) CBC AND DIFFERENTIAL (08/25/2024 8:55 AM PUTTIER) Only the most recent of2 resultswithin the time period is included. [facility] WHITE BLOOD CELL COUNT 6.3 3.8 - [...] BLOOD SPECIMEN / Unknown 08/25/2024 8:55 AM PUTTIER 08/25/2024 8:55 AM PUTTIER Abdi Chang MD HEMATOLOGY Final Resu lt [facility] [address] [place] [address], [facility] [address] [place] [address] * SCAN-LABORATORY REPORT (08/25/2024 12:00 AM PUTTIER) us Scanner OTHER Final Result * CT CHEST WO (07/26/2024 8:39 AM PUTTIER) Anatomical Region Laterality Modality CHEST, THORAX, HEART Computed To mography 07/26/2024 4:28 PM PUTTIER Narrative 07/26/2024 4:28 PM PUTTIER For Patients: As a result of the [...] * (ABNORMAL) HEMOGLOBIN A1C (07/25/2024 6:59 AM PUTTIER) HEMOGLOBIN A1C 6.6(H) <5.7 % of total Hgb [facility] Comment: For someone without known diabetes, [...] BLOOD SPECIMEN / Unknown 07/25/2024 6:59 AM PUTTIER 07/25/2024 6:59 AM PUTTIER Abdi Chang MD CHEMISTRY Final Resu lt [place] [address] [place] [address], [facility] [address] * LIPID PANEL W REFLEX MEASURED LDL (07/25/2024 6:59 AM PUTTIER) CHOLESTEROL, TOTAL 108 <200 mg/dL [facility] [...] of LDL-C. Chino SS et al. ZORAN. 2013;310(36): 1338-2556 (http://education.[facility].com/faq/TQM325) CHOL/HDLC RATIO 2.5 <5.0 (calc) [facility] NON HDL CHOLESTEROL 64 <130 mg/dL (calc) [facility] Comment: For patients with diabetes plus 1 major ASCVD risk factor, treating to a non-HDL-C goal of <100 mg/dL (LDL-C of <70 mg/dL) is considered a therapeutic option. Blood BLOOD SPECIMEN / Unknown 07/25/2024 6:59 AM PUTTIER 07/25/2024 6:59 AM PUTTIER us Abdi Chang MD CHEMISTRY Final Resu lt [place] [facility] [address] [place] [address], [facility] [place] [address] [place] [address] * (ABNORMAL) BASIC METABOLIC PANEL (07/25/2024 6:59 AM PUTTIER) GLUCOSE 160(H) 65 - 99 mg/dL [facility] Comment: Fasting reference interval For someone without known diabetes, a glucose value >125 mg/dL indicates that they may have diabetes and this should be confirmed with a follow-up test. 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 Healthcare Directive 04/20/2005 LIVING WILL, [facility], 04/20/05 * Full Code (Latest Code Status on File) Date Activated Date Inactivated Comments 11/19/2016 3:17 PM 11/20/2016 4:26 PM * Full Code Date Activated Date Inactivated Comments 11/19/2016 7:12 AM 11/19/2016 2:43 PM Question Answer Comments Code Status Discussion: Not Discussed Care Teams Easter Bunny Relationship Specialty Start Date End Date Abdi Chang MD [address] [place] [address] PCP - General Family Practice 07/13/22 Travis Mariano MD [address] [facility] [address] [place] [address] Ophthalmology Surgery 02/24/12 Chino Valdez MD [address] [place] [address] Gastroenterology Gastroenterology 06/14/13 Vega Singh MD [address] [place] [address] Cardiology Cardiovascular Disease 06/14/13 Bear Barahona MD [address] [facility] [address] [address] Nephrology Nephrology 06/14/13
--- OUTSIDE RECORDS SUMMARY | 2024-09-13 18:10 | XMS_ITS | Continuity of Care Document ---
Author Organization [facility] Address [address] [place] [address] Phone Care Team Providers Care Refrigeration Person Name Role Phone Domenic Patrick MD Unavailable [...] Copied on Encounter [facility], [address], [place], [place], [id number] , [place] tel:[phone] [facility] No Information 9 Transfeldt Ensor. [facility], [address], [facility] [address], [place], [place], [id number], [place]. tel:[phone] [facility], [address], [place], [place], [id number] , [place] tel:[phone] [facility] Encounter for other specified surgical aftercare 7 Silvana Valdez. [facility], [address] [place] [address] [address], [place], [address], [place]. tel:[phone] Referring Provider: Nicholas Ortega, [email or web address] [facility], [place], [address]. tel:[phone] [facility], [address], [place], [place], [id number] , [place] tel: [phone] [facility] No Information 7 [employer] Ensor. [facility] [place], [address], [facility] [address], [place], [place], [id number], [place]. tel:[phone] Referring Provider: Nicholas Ortega, [email or web address] [facility], [place], [address]. tel:[phone] Office/Outpa tient Visit,[facility], [address], [place], [place], [id number] , [place] tel:[phone] [facility] Spinal stenosis, lumbar region 7 [employer]fel[employer] Ensor. [facility] [place], [address], [facility] [address], [place], [place], [id number], [place]. tel:[phone] Referring Provider: Edson [email or web address] [facility], [place], [address]. tel:[phone] Family History Family Member Type Diagnosis Age At Onset No Information Payers Payer name Insurance type Covered alliance party ID Authoriza tion(s) Medicare [id number] For Life/Retired [facility] [id number] Social History Type Description Quantity Date Captured [...]
[2024-09-13 18:18] LABS: RBC Urine 0-2 (0-2); WBC Urine 0-2 (0-5)
[2024-09-13 19:00] LABS: Glucose, Point-of-Care* 418 mg/dl (60-115)
[2024-09-13 19:23] VITALS: BP 134/53; PULSE 91; RESP 24; O2SAT 24
== END 2024-09-13 19:24 | disposition home or self-care (01) ==
PROVIDERS: Emergency Provider Family Medicine; PCP Family Medicine
DX: E11.22 Type 2 diabetes mellitus with diabetic chronic kidney disease (principal); E11.65 Type 2 diabetes mellitus with hyperglycemia; N18.4 Chronic kidney disease, stage 4 (severe); E86.0 Dehydration; Z79.4 Long term (current) use of insulin
CPT/HCPCS: 36415; 71046; 81001; 82947; 82962; 87040; 87631; 96360; 96361; 99284; J1815; J7030

== ENCOUNTER 2024-09-15 12:49 | Outpatient (CLI) | payer MEDICARE, OTHER, SELFPAY | END 2024-09-15 12:50 | disposition home or self-care (01) | PROVIDERS: PCP Family Medicine; Visit Provider Emergency Medicine Emergency Medical Services | DX: R73.9 Hyperglycemia, unspecified (principal); I95.9 Hypotension, unspecified; D69.6 Thrombocytopenia, unspecified | CPT/HCPCS: A0425; A0429 ==

== ENCOUNTER 2024-09-15 13:18 | Inpatient (IN) | payer MEDICARE, OTHER, SELFPAY ==
[2024-09-15] VITALS (45 sets, daily range): BP systolic 64–116; BP diastolic 21–76; PULSE 57–77; RESP 7–24; TEMP 36.2–36.6; O2SAT 88–100; BMI 34.5
[2024-09-15] MEDS: 0.9 % SODIUM CHLORIDE 1000 ml 1,000 ML IV (14:00)
--- NOTE | 2024-09-15 14:02 | ED.GENADULT ---
HPI - General Adult General Chief complaint: Hypotension Stated complaint: Diabetic complications Time Seen by Provider: 09/15/24 13:47 History of Present Illness HPI narrative: This 89-year-old male went to clinic today and was sent here for further evaluation and need for admission into the hospital. He lives at home with his and his states that she is not able to take care of him any longer. He sits in his recliner for almost all the day. He arrived at clinic today with a systolic blood pressure of 86. He has a history of thrombocytopenia and is currently on a steroid. He has been in the hospital for similar circumstances and was discharged home and instructed to follow up for ongoing management. He did follow up with his primary physician who promptly sent him back here. He arrives with some blood pressures in the 60s for systolic value and a few in the 90s. He is tired but does not report any lightheadedness. He reports chronic left hip pain. He does not indicate any signs of infection. His states that she recognizes that he needs some kind of care facility for ongoing management. Related Data Home Medications ?Medication ?Instructions ?Recorded ?Confirmed atenolol 50 mg tablet 50 mg PO DAILY 04/27/24 09/15/24 atorvastatin 20 mg tablet 20 mg PO DAILY 04/27/24 09/15/24 finasteride 5 mg tablet 5 mg PO DAILY 04/27/24 09/15/24 furosemide 20 mg tablet 20 mg PO BID 04/27/24 09/15/24 furosemide 40 mg tablet 40 mg PO BID 04/27/24 09/15/24 glimepiride 1 mg tablet 1 mg PO DAILY 04/27/24 09/15/24 lisinopril 2.5 mg tablet 2.5 mg PO DAILY 04/27/24 09/15/24 niacin 500 mg tablet,extended 500 mg PO DAILY 04/27/24 09/15/24 release 24 hr nitroglycerin 0.4 mg sublingual 0.4 mg sublingual Q5M PRN 04/27/24 09/15/24 tablet tamsulosin 0.4 mg capsule 0.8 mg PO DAILY 04/27/24 09/15/24 zinc gluconate 50 mg tablet 100 mg PO DAILY 04/27/24 09/15/24 cholecalciferol (vitamin D3) 50 100 mcg PO DAILY 08/30/24 09/15/24 mcg (2,000 unit) capsule dexamethasone 6 mg tablet 24 mg PO DAILY 09/14/24 09/15/24 insulin NPH-regular 70-30 U-100 26 unit subcut QPM 09/15/24 09/15/24 insulin 100 unit/mL subcutaneous pen (Novolin 70-30 FlexPen U-100 Insulin) insulin NPH-regular 70-30 U-100 36 unit subcut QAM 09/15/24 09/15/24 insulin 100 unit/mL subcutaneous pen (Novolin 70-30 FlexPen U-100 Insulin) Allergies Allergy/AdvReac Type Severity Reaction Status Date / Time No Known Drug Allergies Allergy Verified 09/13/24 14:46 Review of Systems Status of ROS: Reports: 10 or more systems reviewed and unremarkable except as noted in History and below Narrative: Constitutional: No fevers, no weight gain or loss. Eyes: No discharge. No vision changes. HENT: No congestion, no sore throat, no ear pain. Cardiovascular: No chest pain, no palpitations. Respiratory: No shortness of breath, no wheezes, no cough. Gastrointestinal: No abdominal pain, no vomiting, no diarrhea. Genitourinary: No dysuria, no hematuria. Musculoskeletal: Chronic left hip pain. Skin: No rashes, no pruritis. Neurological: No sensory change, speech change. Generalized weakness and deconditioning. Endo/Heme/Allergies: No bruising or bleeding. No polydipsia. All other systems reviewed and are negative. [facility] Medical History (Updated 09/16/24 @ 17:10 by Imelda Barker MD) Hyperlipidemia ?E78.5 - Hyperlipidemia, unspecified (ICD-10) Atrial fibrillation ?I48.91 - Unspecified atrial fibrillation (ICD-10) Diastolic congestive heart failure ?I50.30 - Unspecified diastolic (congestive) heart failure (ICD-10) Coronary artery disease ?I25.10 - Atherosclerotic heart disease of redding coronary artery without angina pectoris (ICD-10) Hypertensive kidney disease ?I12.9 - Hypertensive chronic kidney disease with stage 1 through stage 4 chronic kidney disease, or unspecified chronic kidney disease (ICD-10) Hypertensive heart disease ?I11.9 - Hypertensive heart disease without heart failure (ICD-10) Essential hypertension ?I10 - Essential (primary) hypertension (ICD-10) Diabetes type 2 with atherosclerosis of arteries of extremities ?E11.51 - Type 2 diabetes mellitus with diabetic peripheral angiopathy without gangrene (ICD-10) ?I70.209 - Unspecified atherosclerosis of redding arteries of extremities, unspecified extremity (ICD-10) Hypertension ?I10 - Essential (primary) hypertension (ICD-10) Current use of intermediate accountant anticoagulation ?Z79.01 - [facility]CI (current) use of anticoagulants (ICD-10) CKD (chronic kidney disease) stage 4, GFR 15-29 ml/min ?N18.4 - Chronic kidney disease, stage 4 (severe) (ICD-10) Social History What is your current living situation?: I presently have a place to live Problems where you live: no known problems Problems where you live details: none In the past 12 months, utilities in danger of being shut off: no In past 12 months, lack of transportation kept you from medical appts, meetings, work, or getting things needed for daily living: no In the past 12 mos, have been you worried that your food would run out before you had money to buy more?: never true In the past 12 mos, the food you bought just didn't last and you didn't have money to buy more?: never true Highest level of school completed/degree received: some college, no degree Smoking Status: Former smoker Do you use any of these nicotine containing products: None Second hand tobacco smoke exposure: No How often do you have a drink containing alcohol: never How many standard drinks containing alcohol do you have on a typical day: 1 or 2 How often do you have six or more drinks on one occasion: Never AUDIT-C Alcohol total score: 0 Non-prescribed substance use: denies use Caffeine: No How often does anyone, including family, friends and others, physically hurt you: never How often does anyone, including family, friends and others, insult or talk down to you: never How often does anyone, including family, friends and others, threaten you with harm: never How often does anyone, including family, friends and others, scream or curse at you: never service: Yes Exam Narrative: Exam Narrative: Constitutional: Well-developed, well-nourished. Lethargic but easily arousable. HEENT: Normocephalic, atraumatic. Neck: Normal range of motion. Nontender. Supple. Heart: Irregular. No murmurs. Normal rate. Intact distal pulses. Lungs: Clear to auscultation. No chest discomfort. No wheezes, rhonchi, or rales. Abdomen: Normal bowel sounds. Nontender. No rebound tenderness. Genitalia: Deferred. Extremities: No injury. Skin: Intact. No rash. Warm. No erythema or pallor. Neurologic: No altered sensation. Alert and oriented. Generalized weakness. Nursing notes and vitals signs are reviewed. Const: Vital Signs, click to edit/add: Vital Signs - 24 hr 09/15/24 23:00 09/16/24 00:16 09/16/24 02:49 Temperature 97.8 F 96.9 F L Pulse Rate 75 Pulse Rate [Pulse Oximeter] 72 78 Respiratory Rate 18 22 Blood Pressure [Ri ght Arm] 114/61 108/69 Pulse Oximetry 100 98 Oxygen Delivery Me thod Room Air Room Air 09/16/24 07:26 09/16/24 08:00 09/16/24 08:00 Temperature 97 F L Pulse Rate 65 Pulse Rate [Pulse Oximeter] 78 73 Respiratory Rate 18 18 Blood Pressure [Ri ght Arm] 118/65 Pulse Oximetry 99 Oxygen Delivery Me thod Room Air 09/16/24 11:00 09/16/24 15:00 09/16/24 15:30 Temperature 97.4 F L 96.9 F L Pulse Rate 62 Pulse Rate [Pulse Oximeter] 70 63 Respiratory Rate 18 18 Blood Pressure [Ri ght Arm] 96/61 109/58 L Pulse Oximetry 99 99 Oxygen Delivery Me thod Room Air Room Air Course Vital Signs Vital signs: Initial Vital Signs Temperature 97.1 F L 09/15/24 13:25 Temperature Source Temporal Artery Scan 09/15/24 13:25 Pulse Rate 71 09/15/24 13:25 Respiratory Rate 16 09/15/24 13:25 Blood Pressure 64/21 L 09/15/24 13:25 Blood Pressure Mean 35 L 09/15/24 13:25 Blood Pressure Position Supine 09/15/24 13:25 Oxygen Delivery Method Room Air 09/15/24 13:25 Vital Signs Temperature 97.1 F L 09/15/24 13:25 Pulse Rate 71 09/15/24 13:25 Respiratory Rate 16 09/15/24 13:25 Blood Pressure 64/21 L 09/15/24 13:25 Oxygen Delivery Method Room Air 09/15/24 13:25 Temperature 96.9 F L 09/16/24 15:00 Pulse Rate 62 09/16/24 15:30 Respiratory Rate 18 09/16/24 15:00 Blood Pressure 109/58 L 09/16/24 15:00 Pulse Oximetry 99 09/16/24 15:00 Oxygen Delivery Method Room Air 09/16/24 15:00 Medications Administered Medications: Generic Name Dose Route Start Last Admin Trade Name Freq PRN Reason Stop Dose Admin Atenolol 50 mg 09/16/24 09:00 09/16/24 09:11 Atenolol 50 Mg Tablet PO 50 mg DAILY FRANCESCA Administration Atorvastatin Calcium 20 mg 09/16/24 09:00 09/16/24 09:11 Atorvastatin Calcium 10 Mg Tablet PO 20 mg DAILY FRANCESCA Administration Dexamethasone 24 mg 09/16/24 09:45 09/16/24 09:48 Dexamethasone 4 Mg Tablet PO 24 mg DAILY FRANCESCA Administration Finasteride 5 mg 09/16/24 09:00 09/16/24 09:10 Finasteride 5 Mg Tablet PO 5 mg DAILY FRANCESCA Administration Furosemide 40 mg 09/16/24 09:00 09/16/24 14:03 Furosemide 40 Mg Tablet PO 40 mg BID@09,14 FRANCESCA Administration Sodium Chloride 1,000 mls @ 75 mls/hr 09/15/24 21:15 09/16/24 11:09 0.9 % Sodium Chloride 1000 Ml IV 75 mls/hr .[id number] FRANCESCA Administration Sodium Chloride 250 mls @ 250 mls/hr 09/16/24 19:30 09/16/24 19:36 0.9 % Sodium Chloride 250 Ml IV 09/16/24 20:29 250 mls/hr .Q1H FRANCESCA Administration Insulin Aspart 26 unit 09/16/24 18:00 09/16/24 17:44 Insulin Prot/Asp (Novolog 70/30) 100 Unit/Ml SUBCUT 26 unit QPM FRANCESCA Administration Insulin Aspart 36 unit 09/16/24 09:00 09/16/24 09:11 Insulin Prot/Asp (Novolog 70/30) 100 Unit/Ml SUBCUT 36 unit QAM FRANCESCA Administration Insulin Aspart 0 unit 09/16/24 08:00 09/16/24 17:14 Insulin Aspart 100 Unit/Ml SUBCUT Not Given TIDWM [facility] Protocol Sodium Chloride 5 ml 09/15/24 21:01 09/16/24 09:11 Sodium Chloride 0.9 % (Flush) 10 Ml Syringe IVF Not Given BID FRANCESCA Tamsulosin HCl 0.8 mg 09/16/24 09:00 09/16/24 09:11 Tamsulosin Hcl 0.4 Mg Capsule PO 0.8 mg DAILY FRANCESCA Administration Discontinued Medications Generic Name Dose Route Start Last Admin Trade Name Dominick PRN Reason Stop Dose Admin Sodium Chloride 1,000 mls @ 1,000 mls/hr 09/15/24 14:00 09/15/24 14:56 0.9 % Sodium Chloride 1000 Ml IV 09/15/24 14:59 Infused .Q1H FRANCESCA Infusion Sodium Chloride 500 mls @ 500 mls/hr 09/15/24 14:47 09/15/24 15:33 0.9 % Sodium Chloride 500 Ml IV 09/15/24 15:46 Infused .Q1H ONE Infusion Sodium Chloride 1,000 mls @ 500 mls/hr 09/16/24 11:29 09/16/24 11:45 0.9 % Sodium Chloride 1000 Ml IV 09/16/24 13:28 500 mls/hr .Q2H FRANCESCA Administration Sodium Chloride 250 mls @ 250 mls/hr 09/16/24 16:06 09/16/24 16:19 0.9 % Sodium Chloride 250 Ml IV 09/16/24 17:05 250 mls/hr .Q1H ONE Administration Medical Decision Making MDM Narrative Medical decision making narrative: This patient comes in from clinic and arrives with low systolic blood pressure. An IV was established any received total of 1500 mL of normal saline intravenously. He does not describe any signs of infection and states that he did not feel lightheaded. He does feel tired all the time and his states that she is really not able to take care of him anymore and they are interested in shelter care. The patient has been on a steroid for thrombocytopenia so his plate levels have increased but so also has his white blood cell count. His lactate level returned at 2.7. I did not give more fluids because of renal insufficiency stage 4 chronic kidney disease. A blood cultures obtained but I am not suspicious of an infection and did not prescribe an antibiotic. I did speak with the hospitalist on-call, Dr. Jimenes, who accepts his admission for observation status pending discussion with the patient's . Lab Data Labs: Lab Results 09/15/24 09/15/24 09/15/24 Range/Units 13:40 13:42 14:57 WBC 20.90 H (4.50-11.00) K/uL RBC 4.41 (4.30-5.90) m/uL Hgb 13.6 (13.5-17.5) gm/dL Hct 39.0 (37.0-53.0) % MCV 88 (80-100) fL MCH 31 (26-34) pg MCHC 35 (32-36) gm/dL RDW Coeff of Guillermo 14.0 (11.5-15.5) % Plt Count 53 L (140-440) K/uL Neut % (Auto) 87.7 H (42.0-72.0) % Lymph % (Auto) 4.6 L (20-44) % [place] % (Auto) 6.0 (0.0-11.0) % Eos % (Auto) 0.0 (0.0-7.0) % Baso % (Auto) 0.2 (0.0-3.0) % Neut # (Auto) 18.30 H (1.7-7.0) K/uL Lymph # (Auto) 1.00 (0.90-2.90) K/uL [place] # (Auto) 1.30 H (0.00-0.90) K/UL Eos # (Auto) 0.00 (0.00-0.50) K/uL Baso # (Auto) 0.00 (0.00-0.30) K/uL Abs Immat Gran (auto) 0.30 (0.00-0.30) K/uL Imm/Tot Granulo (auto) 1.5 % Diff Slide Review Acceptable Review (Acceptable) Sodium 132 L (135-149) mmol/L Potassium 5.6 H (3.6-5.1) mmol/L Chloride 101 (96-114) mmol/L Carbon Dioxide 18 L (20-32) mmol/L Anion Gap 13 (7-15) mEq/L BUN 128 H (7-30) mg/dL Creatinine 2.9 H (0.5-1.5) mg/dL Estimated Creat Clear 17.36 Estimated GFR 20 ml/min Glucose 292 H (60-115) mg/dL Lactate 2.7 H (0.5-1.9) mmol/L Calcium 8.6 (8.4-10.6) mg/dL Phosphorus (2.5-4.5) mg/dL Magnesium (1.5-2.6) mg/dL Total Bilirubin (0.1-1.5) mg/dL AST (12-35) U/L ALT (4-50) U/L Alkaline Phosphatase (40-150) U/L Troponin I (0.01-0.04) ng/mL NT-Pro-B Natriuret Pep 3110 pg/mL Total Protein (6.0-8.3) g/dL Albumin (3.3-5.0) g/dL SARS-CoV-2 (PCR) Negative SARS-CoV-2 (Negative) Influenza Type A (PCR) Negative PCR FLU A (Negative) Influenza Type B (PCR) Negative PCR FLU B (Negative) RSV (PCR) Negative PCR RSV (Negative) POC Troponin I 0.05 H (0.01-0.04) ng/ml 09/15/24 09/16/24 09/16/24 Range/Units 20:35 06:07 13:30 WBC 15.86 H (4.50-11.00) K/uL RBC 4.13 L (4.30-5.90) m/uL Hgb 12.9 L (13.5-17.5) gm/dL Hct 38.2 (37.0-53.0) % MCV 93 (80-100) fL MCH 31 (26-34) pg MCHC 34 (32-36) gm/dL RDW Coeff of Guillermo (11.5-15.5) % Plt Count 38 L* (140-440) K/uL Neut % (Auto) (42.0-72.0) % Lymph % (Auto) (20-44) % [place] % (Auto) (0.0-11.0) % Eos % (Auto) (0.0-7.0) % Baso % (Auto) (0.0-3.0) % Neut # (Auto) (1.7-7.0) K/uL Lymph # (Auto) (0.90-2.90) K/uL [place] # (Auto) (0.00-0.90) K/UL Eos # (Auto) (0.00-0.50) K/uL Baso # (Auto) (0.00-0.30) K/uL Abs Immat Gran (auto) (0.00-0.30) K/uL Imm/Tot Granulo (auto) % Diff Slide Review (Acceptable) Sodium 132 L (135-149) mmol/L Potassium 5.6 H (3.6-5.1) mmol/L Chloride 105 (96-114) mmol/L Carbon Dioxide 18 L (20-32) mmol/L Anion Gap 9 (7-15) mEq/L BUN 119 H (7-30) mg/dL Creatinine 2.4 H (0.5-1.5) mg/dL Estimated Creat Clear 20.98 Estimated GFR 25 ml/min Glucose 184 H (60-115) mg/dL Lactate 2.4 H 3.3 H 2.2 H (0.5-1.9) mmol/L Calcium 7.8 L (8.4-10.6) mg/dL Phosphorus 5.0 H (2.5-4.5) mg/dL Magnesium 2.7 H (1.5-2.6) mg/dL Total Bilirubin 2.4 H (0.1-1.5) mg/dL AST 32 (12-35) U/L ALT 103 H (4-50) U/L Alkaline Phosphatase 60 (40-150) U/L Troponin I 0.05 H (0.01-0.04) ng/mL NT-Pro-B Natriuret Pep pg/mL Total Protein 5.7 L (6.0-8.3) g/dL Albumin 3.1 L (3.3-5.0) g/dL SARS-CoV-2 (PCR) (Negative) Influenza Type A (PCR) (Negative) Influenza Type B (PCR) (Negative) RSV (PCR) (Negative) POC Troponin I (0.01-0.04) ng/ml Imaging Data Chest x-ray: Radiologist's impression: No focal consolidation, effusion or pneumothorax. Stable mild cardiomegaly without pulmonary edema. No acute osseous findings. ECG Data Attestation: I personally reviewed and interpreted this ECG as follows: Interpretation: Atrial fibrillation. Rate is 67 beats per minute. There are no specific ST or T-wave abnormalities. Right bundle branch block. Discharge Plan Discharge Clinical Impression: Weakness, Thrombocytopenia, Hypotension, Stage 4 chronic kidney disease Patient Disposition: Admitted As Observation Condition: Unchanged
[2024-09-15 14:08] LABS: Troponin, Point-of-Care* 0.05 ng/ml (0.01-0.04)
[2024-09-15 14:39] LABS: Lactate* 2.7 mmol/L (0.5-1.9)
[2024-09-15 14:46] LABS: Chloride* 101 mmol/L (96-114); Potassium* 5.6 mmol/L (3.6-5.1); Sodium* 132 mmol/L (135-149)
[2024-09-15 14:49] LABS: Anion Gap 13 mEq/L (7-15); Calcium* 8.6 mg/dL (8.4-10.6); Carbon Dioxide* 18 mmol/L (20-32); Creatinine* 2.9 mg/dL (0.5-1.5); Est. Creatinine Clearance* 17.36; Estimated Glomerular Filt Rate 20 ml/min; Glucose* 292 mg/dL (60-115)
[2024-09-15 14:56] LABS: Blood Urea Nitrogen* 128 mg/dL (7-30)
[2024-09-15] MEDS: 0.9 % SODIUM CHLORIDE 500 ML 500 ML IV (14:56)
[2024-09-15 15:05] LABS: NT Pro B Type NatriureticPept* 3110 pg/mL
[2024-09-15 15:08] LABS: Basophils Percent Auto 0.2 % (0.0-3.0); Hemoglobin* 13.6 gm/dL (13.5-17.5); Immature Granulocytes Pct Auto 1.5 %; Lymphocytes Percent Auto 4.6 % (20-44); Mean Corpuscular HGB Conc 35 gm/dL (32-36); Mean Corpuscular Hemoglobin 31 pg (26-34); Mean Corpuscular Volume 88 fL (80-100); Neutrophils Percent Auto 87.7 % (42.0-72.0); Platelet Count* 53 K/uL (140-440); Red Blood Count 4.41 m/uL (4.30-5.90)
[2024-09-15 15:27] LABS: Slide Review Reflex Yes
[2024-09-15 15:52] LABS: PCR FLU A Negative PCR FLU A (Negative); PCR FLU B Negative PCR FLU B (Negative); PCR RSV Negative PCR RSV (Negative); SARS PCR* Negative SARS-CoV-2 (Negative)
[2024-09-15 15:55] LABS: Slide Review Acceptable Review (Acceptable)
--- NOTE | 2024-09-15 19:30 | PM.IMHP1 ---
Hospitalist- H&P: HPI History of Present Illness Date Seen: 09/15/24 Chief complaint: Diabetic complications Narrative: Vernon Mckinley is a 89 year old male with past medical history of hypertension, hyperlipidemia, DM, CAD, congestive heart failure with low normal ejection fraction, AFib (currently not on apixaban) and CKD stage 4 who presents to the ED with weakness and hypotension that is likely secondary to dehydration. Patient is alert and oriented, he denies headache, chest pain, shortness of breath, cough, abdominal pain or any other issues. On my examination patient was not fluid overloaded, he is currently on furosemide 60 b.i.d. at the ED, labs show a slightly lower GFR that is most likely prerenal. Patient was given IV fluids at the ED and his blood pressure improved. Patient was admitted recently for severe thrombocytopenia, currently he is on steroids and his last platelet count was 53. WBCs are elevated due to dexamethasone but they are trending down. I talked to the son over the phone, we discussed the patient's medical issues in addition to the family expectations for discharge, currently they think if he gets stronger then they will take him home other than that they will be looking for a nursing facility on discharge. Review of Systems Status of ROS: Reports: 6 or more systems reviewed and unremarkable except as noted in History and below PFSH [facility] Medical History Hypertensive kidney disease ?I12.9 - Hypertensive chronic kidney disease with stage 1 through stage 4 chronic kidney disease, or unspecified chronic kidney disease (ICD-10) Hypertensive heart disease ?I11.9 - Hypertensive heart disease without heart failure (ICD-10) Essential hypertension ?I10 - Essential (primary) hypertension (ICD-10) Diabetes type 2 with atherosclerosis of arteries of extremities ?E11.51 - Type 2 diabetes mellitus with diabetic peripheral angiopathy without gangrene (ICD-10) ?I70.209 - Unspecified atherosclerosis of [place] arteries of extremities, unspecified extremity (ICD-10) Hyperlipidemia ?E78.5 - Hyperlipidemia, unspecified (ICD-10) Hypertension ?I10 - Essential (primary) hypertension (ICD-10) Current use of detention anticoagulation ?Z79.01 - intermediate manager (current) use of anticoagulants (ICD-10) Atrial fibrillation ?I48.91 - Unspecified atrial fibrillation (ICD-10) Diastolic congestive heart failure ?I50.30 - Unspecified diastolic (congestive) heart failure (ICD-10) Coronary artery disease ?I25.10 - Atherosclerotic heart disease of [place] coronary artery without angina pectoris (ICD-10) CKD (chronic kidney disease) stage 4, GFR 15-29 ml/min ?N18.4 - Chronic kidney disease, stage 4 (severe) (ICD-10) Social History What is your current living situation?: I presently have a place to live Problems where you live: no known problems Problems where you live details: none In the past 12 months, utilities in danger of being shut off: no In past 12 months, lack of transportation kept you from medical appts, meetings, work, or getting things needed for daily living: no In the past 12 mos, have been you worried that your food would run out before you had money to buy more?: never true In the past 12 mos, the food you bought just didn't last and you didn't have money to buy more?: never true Highest level of school completed/degree received: some college, no degree Smoking Status: Former smoker Do you use any of these nicotine containing products: None Second hand tobacco smoke exposure: No How often do you have a drink containing alcohol: never How many standard drinks containing alcohol do you have on a typical day: 1 or 2 How often do you have six or more drinks on one occasion: Never AUDIT-C Alcohol total score: 0 Non-prescribed substance use: denies use Caffeine: No How often does anyone, including family, friends and others, physically hurt you: never How often does anyone, including family, friends and others, insult or talk down to you: never How often does anyone, including family, friends and others, threaten you with harm: never How often does anyone, including family, friends and others, scream or curse at you: never service: Yes Meds Home Medications and Allergies Home Medications ?Medication ?Instructions ?Recorded ?Confirmed ?Type atenolol 50 mg tablet 50 mg PO DAILY 04/27/24 09/15/24 History atorvastatin 20 mg tablet 20 mg PO DAILY 04/27/24 09/15/24 History finasteride 5 mg tablet 5 mg PO DAILY 04/27/24 09/15/24 History furosemide 20 mg tablet 20 mg PO BID 04/27/24 09/15/24 History furosemide 40 mg tablet 40 mg PO BID 04/27/24 09/15/24 History glimepiride 1 mg tablet 1 mg PO DAILY 04/27/24 09/15/24 History lisinopril 2.5 mg tablet 2.5 mg PO DAILY 04/27/24 09/15/24 History niacin 500 mg tablet,extended 500 mg PO DAILY 04/27/24 09/15/24 History release 24 hr nitroglycerin 0.4 mg sublingual 0.4 mg sublingual Q5M PRN 04/27/24 09/15/24 History tablet tamsulosin 0.4 mg capsule 0.8 mg PO DAILY 04/27/24 09/15/24 History zinc gluconate 50 mg tablet 100 mg PO DAILY 04/27/24 09/15/24 History cholecalciferol (vitamin D3) 50 100 mcg PO DAILY 08/30/24 09/15/24 History mcg (2,000 unit) capsule dexamethasone 6 mg tablet 24 mg PO DAILY 09/14/24 09/15/24 History insulin NPH-regular 70-30 U-100 26 unit subcut QPM 09/15/24 09/15/24 History insulin 100 unit/mL subcutaneous pen (Novolin 70-30 FlexPen U-100 Insulin) insulin NPH-regular 70-30 U-100 36 unit subcut QAM 09/15/24 09/15/24 History insulin 100 unit/mL subcutaneous pen (Novolin 70-30 FlexPen U-100 Insulin) Allergies Allergy/AdvReac Type Severity Reaction Status Date / Time No Known Drug Allergies Allergy Verified 09/13/24 14:46 Exam Narrative: Exam Narrative: Physical exam GENERAL: Comfortable, no acute distress. HEAD AND NECK: Atraumatic, normocephalic CARDIOVASCULAR: RRR. Normal S1, S2. No murmurs. RESPIRATORY: Clear to auscultation B/L. Good air entry B/L. No wheezes or rhonchi. GASTROINTESTINAL: Not distended, not tender to palpation. NEUROLOGY: Alert, awake, oriented X 3. Normal speech. PSYCH: Normal mood, normal affect. Const: Vital Signs, click to edit/add: Vital Signs - 24 hr 09/15/24 13:09/15/24 13:25 13:26 Temperature 97.1 F L Pulse Rate Pulse Rate [Pulse Oximeter] 71 Respiratory Rate 16 13 19 Blood Pressure 64/21 L Blood Pressure [Le ft Upper Arm] 64/21 L Pulse Oximetry Oxygen Delivery Me thod Room Air 09/15/24 13:30 09/15/24 13:32 09/15/24 13:36 Temperature Pulse Rate Pulse Rate [Pulse Oximeter] Respiratory Rate 15 17 7 L Blood Pressure 89/33 L 69/35 L Blood Pressure [Le ft Upper Arm] Pulse Oximetry Oxygen Delivery Me od 09/15/24 13:44 09/15/24 13:45 09/15/24 13:46 Temperature Pulse Rate 60 73 Pulse Rate [Pulse Oximeter] Respiratory Rate 18 15 Blood Pressure 96/66 Blood Pressure [Le ft Upper Arm] Pulse Oximetry 97 100 93 Oxygen Delivery Me od Room Air 09/15/24 14:00 09/15/24 14:02 09/15/24 14:03 Temperature Pulse Rate 77 66 63 Pulse Rate [Pulse Oximeter] Respiratory Rate 19 10 L 15 Blood Pressure 89/68 L Blood Pressure [Le ft Upper Arm] Pulse Oximetry 88 100 97 Oxygen Delivery Me od 09/15/24 14:15 09/15/24 14:16 09/15/24 14:30 Temperature Pulse Rate 66 64 67 Pulse Rate [Pulse Oximeter] Respiratory Rate 12 16 13 Blood Pressure 99/65 Blood Pressure [Le ft Upper Arm] Pulse Oximetry 99 89 96 Oxygen Delivery Me thod 09/15/24 14:32 09/15/24 14:45 09/15/24 14:47 Temperature Pulse Rate 64 71 70 Pulse Rate [Pulse Oximeter] Respiratory Rate 14 13 14 Blood Pressure 98/66 102/66 Blood Pressure [Le ft Upper Arm] Pulse Oximetry 98 92 99 Oxygen Delivery Me thod 09/15/24 14:59 09/15/24 15:00 09/15/24 15:01 Temperature Pulse Rate 66 65 65 Pulse Rate [Pulse Oximeter] Respiratory Rate 19 Blood Pressure 113/73 102/64 Blood Pressure [Le ft Upper Arm] Pulse Oximetry 96 98 95 Oxygen Delivery Me thod 09/15/24 15:02 09/15/24 15:15 09/15/24 15:17 Temperature Pulse Rate 65 70 68 Pulse Rate [Pulse Oximeter] Respiratory Rate 12 18 14 Blood Pressure 96/70 Blood Pressure [Le ft Upper Arm] Pulse Oximetry 97 96 [facility] 15:30 09/15/24 15:32 09/15/24 15:33 Temperature Pulse Rate 63 65 60 Pulse Rate [Pulse Oximeter] Respiratory Rate 24 10 L Blood Pressure 107/68 Blood Pressure [Le ft Upper Arm] Pulse Oximetry 94 98 [facility] 09/15/24 15:45 09/15/24 15:46 09/15/24 15:47 Temperature Pulse Rate 59 L 57 L 64 Pulse Rate [Pulse Oximeter] Respiratory Rate 14 14 Blood Pressure 102/57 L Blood Pressure [Le ft Upper Arm] Pulse Oximetry 96 99 99 Oxygen Delivery [facility] 09/15/24 16:00 09/15/24 16:01 09/15/24 16:15 Temperature Pulse Rate 67 62 66 Pulse Rate [Pulse Oximeter] Respiratory Rate 10 L 13 14 Blood Pressure 116/72 Blood Pressure [Le ft Upper Arm] Pulse Oximetry 92 100 94 [facility] 09/15/24 16:17 09/15/24 16:30 09/15/24 16:32 Temperature Pulse Rate 64 57 L 69 Pulse Rate [Pulse Oximeter] Respiratory Rate 18 Blood Pressure 109/65 106/59 L Blood Pressure [Le ft Upper Arm] Pulse Oximetry 99 99 98 [facility] 09/15/24 16:45 09/15/24 16:46 09/15/24 17:00 Temperature Pulse Rate 76 67 67 Pulse Rate [Pulse Oximeter] Respiratory Rate 20 15 14 Blood Pressure 116/76 Blood Pressure [Le ft Upper Arm] Pulse Oximetry 97 99 98 [facility] 09/15/24 17:02 09/15/24 17:03 09/15/24 17:15 Temperature Pulse Rate 67 68 58 L Pulse Rate [Pulse Oximeter] Respiratory Rate 15 16 17 Blood Pressure 92/51 L Blood Pressure [Le ft Upper Arm] Pulse Oximetry 98 92 98 [facility] 09/15/24 17:16 Temperature Pulse Rate 67 Pulse Rate [Pulse Oximeter] Respiratory Rate 14 Blood Pressure 115/64 Blood Pressure [Le ft Upper Arm] Pulse Oximetry 99 Oxygen Delivery [facility] Hospitalist - H&P: Result Labs Labs: Short CBC 09/15/24 Range/Units 13:42 WBC 20.90 H (4.50-11.00) K/uL Hgb 13.6 (13.5-17.5) gm/dL Hct 39.0 (37.0-53.0) % Plt Count 53 L (140-440) K/uL [facility] 09/15/24 13:42 Sodium 132 L Potassium 5.6 H Chloride 101 Carbon Dioxide 18 L BUN 128 H Creatinine 2.9 H Glucose 292 H Calcium 8.6 ECG Attestation: I personally reviewed and interpreted this ECG as follows: ECG interpretation date: 09/15/24 Interpretation: EKG is showing AFib with controlled rhythm, 67 beats per minute, right bundle branch block and a left axis deviation. Normal QTC. Imaging Chest x-ray: Attestation: I have reviewed the pertinent imaging results. Radiologist's impression: INDICATION: Hypotension. TECHNIQUE: Chest 1 views. COMPARISON: X-ray chest September 13, 2024 FINDINGS/IMPRESSION: No focal consolidation, effusion or pneumothorax. Stable mild cardiomegaly without pulmonary edema. No acute osseous findings. Dictated by Jennifer Soto MD @ 09/15/2024 2:59:57 PM Assessment and Plan Assessment and plan (1) Weakness: Status: Acute Assessment and Plan: Patient is currently on high-dose of steroids and it might be part of his generalized weakness symptoms, in addition to dehydration. (2) Dehydration: Problem comment: -patient got a bolus at the ED -currently on 75 mL per hour will stop once his lactate is normal Status: Acute (3) CKD (chronic kidney disease) stage 4, GFR 15-29 ml/min: Problem comment: His GFR is mildly decreased but it is still within stage IV Holding for some might tonight due to lactic acid elevation, will evaluate tomorrow and resume furosemide Status: Inactive (4) Coronary artery disease: Problem comment: No chest pain EKG unremarkable Troponin poke was done at the ED and it was 0.05, repeated at the floor and it still this seem so it is flat and it is mostly related to his CKD and congestive heart failure Status: Inactive (5) Diastolic congestive heart failure: Problem comment: Holding for some might tonight due to lactic acid elevation, will evaluate tomorrow and resume furosemide Status: Inactive (6) Atrial fibrillation: Problem comment: His apixaban for AFib was held by oncologist because platelets were below 50 K before but currently it is above 50 K we need to check with Oncology if apixaban is okay to be resumed. Status: Inactive (7) Current use of detention anticoagulation: Problem comment: - on hold due to thrombocytopenia - His apixaban for AFib was held by oncologist because platelets were below 50 K before but currently it is above 50 K we need to check with Oncology if apixaban is okay to be resumed. Status: Chronic (8) Thrombocytopenia: Problem comment: - following up with Oncology - currently on dexamethasone tapering dose Status: Acute (9) Diabetes type 2 with atherosclerosis of arteries of extremities: Problem comment: On insulin at home SSI low-dose Status: Chronic (10) Hyperlipidemia: Problem comment: Stop the niacin which can sometimes cause thrombocytopenia Status: Inactive Total Time Spent Total Time Spent: Time spent: Today I spent 75 minutes seeing the patient, discussing the patient with ER staff, reviewing Expanse and EPIC notes/diagnostics, discussing the care plan with our care time that includes social work, PT/OT, pharmacy, RT, halfway and documenting my impressions and plan in the medical record.
[2024-09-15 20:39] LABS: Lactate* 2.4 mmol/L (0.5-1.9)
[2024-09-15 21:10] LABS: Troponin I* 0.05 ng/mL (0.01-0.04)
[2024-09-15] MEDS: SODIUM CHLORIDE 0.9 % (FLUSH) 10 ML SYRINGE 5 ML IVF (22:06)
[2024-09-15] MEDS: 0.9 % SODIUM CHLORIDE 1000 ml 1,000 ML 75 ML IV (22:08)
--- NOTE | 2024-09-15 23:36 | PC.NURSE ---
End of shift: The patient arrived to the unit alert, but drowsy. Only orientated to self and place. Buttock wound is noted upon skin assessment, blanchable although in buttock crevice does have broken skin. Reports pain in buttock when it is wiped. IV patent in L AC. IV fluids infusing. Does well with Ax1 and RW. Ate an omelet for dinner. Tele, afib with NVR. Up to the BR and now resting comfortably in bed. Call light with in reach and bed alarm is on. Nasreen KENNY BSN
[2024-09-16] VITALS (9 sets, daily range): BP systolic 82–118; BP diastolic 58–82; PULSE 60–78; RESP 18–22; TEMP 36.1–36.6; O2SAT 96–100
--- NOTE | 2024-09-16 06:45 | PC.NURSE ---
shift note: vss stable. afeb. restless throught the night and slept poorly. frequent reorientation to place & time. buttocks red with sacral drsg placed.
[2024-09-16 07:14] LABS: Hematocrit 38.2 % (37.0-53.0); Hemoglobin* 12.9 gm/dL (13.5-17.5); Mean Corpuscular HGB Conc 34 gm/dL (32-36); Mean Corpuscular Hemoglobin 31 pg (26-34); Mean Corpuscular Volume 93 fL (80-100); Red Blood Count 4.13 m/uL (4.30-5.90); White Blood Count* 15.86 K/uL (4.50-11.00)
[2024-09-16 07:17] LABS: Platelet Count* 38 K/uL (140-440); Slide Review Reflex No
[2024-09-16 07:40] LABS: Lactate* 3.3 mmol/L (0.5-1.9)
[2024-09-16] MEDS: INSULIN ASPART 100 UNIT/ML SUBCUT ×2 (07:51→12:38)
[2024-09-16 08:01] LABS: Albumin* 3.1 g/dL (3.3-5.0); Chloride* 105 mmol/L (96-114); Potassium* 5.6 mmol/L (3.6-5.1); Sodium* 132 mmol/L (135-149)
[2024-09-16 08:03] LABS: Anion Gap 9 mEq/L (7-15); Bilirubin Total* 2.4 mg/dL (0.1-1.5); Carbon Dioxide* 18 mmol/L (20-32); Creatinine* 2.4 mg/dL (0.5-1.5); Est. Creatinine Clearance* 20.98; Estimated Glomerular Filt Rate 25 ml/min
[2024-09-16 08:04] LABS: Alanine Aminotransferase* 103 U/L (4-50); Alkaline Phosphatase* 60 U/L (40-150); Aspartate Amino Transferase* 32 U/L (12-35); Calcium* 7.8 mg/dL (8.4-10.6); Glucose* 184 mg/dL (60-115); Magnesium* 2.7 mg/dL (1.5-2.6); Total Protein* 5.7 g/dL (6.0-8.3)
[2024-09-16 08:10] LABS: Blood Urea Nitrogen* 119 mg/dL (7-30)
[2024-09-16] MEDS: FINASTERIDE 5 MG TABLET PO (09:10)
[2024-09-16] MEDS: ATORVASTATIN CALCIUM 10 MG TABLET 20 MG PO (09:11)
[2024-09-16] MEDS: INSULIN PROT/ASP (NOVOLOG 70/30) 100 UNIT/ML 36 UNIT SUBCUT (09:11)
[2024-09-16] MEDS: FUROSEMIDE 40 MG TABLET PO ×2 (09:11→14:03)
[2024-09-16] MEDS: atenoloL 50 MG TABLET PO (09:11)
[2024-09-16] MEDS: TAMSULOSIN HCL 0.4 MG CAPSULE 0.8 MG PO (09:11)
[2024-09-16] MEDS: dexAMETHasone 4 MG TABLET 24 MG PO (09:48)
[2024-09-16] MEDS: 0.9 % SODIUM CHLORIDE 1000 ml 1,000 ML 75 ML IV (11:09)
[2024-09-16] MEDS: 0.9 % SODIUM CHLORIDE 1000 ml 1,000 ML 500 ML IV (11:45)
[2024-09-16 13:34] LABS: Lactate* 2.2 mmol/L (0.5-1.9)
[2024-09-16] MEDS: 0.9 % SODIUM CHLORIDE 250 ml 250 ML IV ×2 (16:19→19:36)
--- NOTE | 2024-09-16 16:55 | PM.IMPN1 ---
Progress Note: A&P Assessment and plan (1) Weakness: Problem details: - Continue PT and OT - I suspect he will need rehab, then AL Status: Acute (2) Dehydration: Problem details: -patient got a bolus at the ED -currently on 75 mL per hour will stop once his lactate is normal - 3 Lactate more elevated today. I gave a bolus of 1L NS over 2 hours, which brought his lactate lower. Will give another small bolus of NS 250 cc and recheck lactate. Status: Acute (3) Hyperkalemia: Problem details: - I have reviewed his mediations. Hold lisinopril. Furosemide should help renally excrete K, so I will keep that on board and give IVF as above. Recheck K. Also monitor on telemetry. EKG this am is as above. I suspect potassium is due to dehydration in the setting of chronic kidney disease stage 4 to 5. Status: Acute (4) CKD (chronic kidney disease) stage 4, GFR 15-29 ml/min: Problem details: His GFR is mildly decreased but it is still within stage IV Restart furosemide as this may help with hyperkalemia and creatinine is near baseline Status: Chronic (5) Coronary artery disease: Problem details: No chest pain EKG unremarkable Troponin poke was done at the ED and it was 0.05, repeated at the floor and it still this seem so it is flat and it is mostly related to his CKD and congestive heart failure Status: Chronic (6) Diastolic congestive heart failure: Problem details: Continue furosemide, monitor Status: Chronic (7) Atrial fibrillation: Problem details: His apixaban for AFib was held by oncologist because platelets were below 50 K before but currently it is above 50 K we need to check with Oncology if apixaban is okay to be resumed. - 09/16 platelets are still under 50, will continue to hold Eliquis Status: Chronic (8) Current use of rodent exterminator anticoagulation: Problem details: - on hold due to thrombocytopenia - His apixaban for AFib was held by oncologist because platelets were below 50 K before but currently it is above 50 K we need to check with Oncology if apixaban is okay to be resumed. - 09/16 as above Status: Chronic (9) Thrombocytopenia: Problem details: Patient is admitted to the hospital for thrombocytopenia. He was known to have thrombocytopenia with platelet count around 50,000 in April 2024. Referred to Hematology but did not get follow-up. Was seen for routine blood tests in clinic on the day prior to admission where he was found to have a platelet count of 2000. In the emergency department platelet count was 1000. He received a transfusion of platelets with the platelets going up to 3000 then down to 2000 the next morning. 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 - continue dexamethasone, will discuss taper with pharmacy Status: Acute (10) Diabetes type 2 with atherosclerosis of arteries of extremities: Problem details: On insulin at home SSI low-dose Status: Chronic (11) Hyperlipidemia: Problem details: Stop the niacin which can sometimes cause thrombocytopenia Status: Chronic Subjective Time Seen by Provider: 11:30 Date Seen: 09/16/24 Interval history: Dejuan tells me he is feeling a bit better. He denies pain. His and son were here this afternoon and I spoke with them as well. His son, Hari, is concerned about Dejuan going home. Both his and his son note that Dejuan has a pattern of doing a bit better in the hospital, but then declining about 3 days after he gets home. His tells me that he has been sneaking pop, cookies, other foods that he is not supposed to have and she is not sure if he is giving himself the right doses of medications, including insulin. She notes that he is having more trouble getting around the house and she is less able to help him. They both agree that he would do better in a long-term care facility at this point and understand that he will likely never return home. I happen to speak with Dr. Chang today who noted that, although he had previously told the that he did not think Dejuan was ready for hospice, he is now changing his mind and thinks that it may be time to consider it. When I spoke with his and son about that, they were understanding and considering that possibility. I did not get a chance to speak with Dejuan about a possibility of hospice today. His family is hopeful that we can get his labs to improve a bit and he could go for rehab and then maybe long-term care somewhere like assisted living. Exam Narrative: Exam Narrative: General: No acute distress. His usual smiley self. Awake, alert, oriented x3. No pallor. No jaundice. Oropharynx: Clear. Mucous membranes moist. Cardiovascular: Regular rate and rhythm. No murmurs, gallops, or rubs. Respiratory: Clear to auscultation bilaterally. No wheezes or crackles. Abdomen: Bowel sounds present. Soft, nondistended, nontender. Extremities: No lower extremity edema. Const: Vital Signs, click to edit/add: Vital Signs - 24 hr 09/15/24 17:00 09/15/24 17:02 09/15/24 17:03 Temperature Pulse Rate 67 67 68 Pulse Rate [Pulse Oximeter] Respiratory Rate 14 15 16 Blood Pressure 92/51 L Blood Pressure [Ri ght Arm] Pulse Oximetry 98 98 92 Oxygen Delivery Me thod 09/15/24 17:15 09/15/24 17:16 09/15/24 17:59 Temperature 97.8 F Pulse Rate 58 L 67 Pulse Rate [Pulse Oximeter] 70 Respiratory Rate 17 14 20 Blood Pressure 115/64 Blood Pressure [Ri ght Arm] 94/76 Pulse Oximetry 98 99 100 Oxygen Delivery Me thod Room Air 09/15/24 19:00 09/15/24 23:00 09/16/24 00:16 Temperature 97.8 F Pulse Rate 75 Pulse Rate [Pulse Oximeter] 72 Respiratory Rate 18 Blood Pressure Blood Pressure [Ri ght Arm] 92/48 L 114/61 Pulse Oximetry 100 Oxygen Delivery Me thod Room Air 09/16/24 02:49 09/16/24 07:26 09/16/24 08:00 Temperature 96.9 F L Pulse Rate 65 Pulse Rate [Pulse Oximeter] 78 78 Respiratory Rate 22 18 Blood Pressure Blood Pressure [Ri ght Arm] 108/69 Pulse Oximetry 98 Oxygen Delivery Me thod Room Air 09/16/24 08:00 09/16/24 11:00 09/16/24 15:00 Temperature 97 F L 97.4 F L 96.9 F L Pulse Rate Pulse Rate [Pulse Oximeter] 73 70 63 Respiratory Rate 18 18 18 Blood Pressure Blood Pressure [Ri ght Arm] 118/65 96/61 109/58 L Pulse Oximetry 99 99 99 Oxygen Delivery Me thod Room Air Room Air Room Air 09/16/24 15:30 Temperature Pulse Rate 62 Pulse Rate [Pulse Oximeter] Respiratory Rate Blood Pressure Blood Pressure [Ri ght Arm] Pulse Oximetry Oxygen Delivery Me thod Labs Labs: Laboratory Results - last 24 hr 09/15/24 09/16/24 09/16/24 20:35 06:07 13:30 WBC 15.86 H RBC 4.13 L Hgb 12.9 L Hct 38.2 MCV 93 MCH 31 MCHC 34 Plt Count 38 L* Sodium 132 L Potassium 5.6 H Chloride 105 Carbon Dioxide 18 L Anion Gap 9 BUN 119 H Creatinine 2.4 H Estimated Creat Clear 20.98 Estimated GFR 25 Glucose 184 H Lactate 2.4 H 3.3 H 2.2 H Calcium 7.8 L Phosphorus 5.0 H Magnesium 2.7 H Total Bilirubin 2.4 H AST 32 ALT 103 H Alkaline Phosphatase 60 Troponin I 0.05 H Total Protein 5.7 L Albumin 3.1 L 09/16/2024 EKG: Atrial fibrillation, 63 beats per minute, left axis deviation, right bundle-branch block. No concerning T-wave changes that would be consistent with hyperkalemia.
[2024-09-16] MEDS: INSULIN PROT/ASP (NOVOLOG 70/30) 100 UNIT/ML 26 UNIT SUBCUT (17:44)
[2024-09-16 17:51] LABS: Lactate* 2.1 mmol/L (0.5-1.9)
[2024-09-16 18:09] LABS: Chloride* 109 mmol/L (96-114); Sodium* 134 mmol/L (135-149)
[2024-09-16 18:10] LABS: Potassium* 5.6 mmol/L (3.6-5.1)
[2024-09-16 18:13] LABS: Anion Gap 8 mEq/L (7-15); Blood Urea Nitrogen* 108 mg/dL (7-30); Calcium* 7.5 mg/dL (8.4-10.6); Carbon Dioxide* 17 mmol/L (20-32); Creatinine* 2.2 mg/dL (0.5-1.5); Est. Creatinine Clearance* 22.89; Estimated Glomerular Filt Rate 28 ml/min; Glucose* 137 mg/dL (60-115)
--- NOTE | 2024-09-16 18:55 | PC.NURSE ---
Shift Summary: Patient pleasant and cooperative. Up with 1-2 assist, walker and gait belt. Vitals stable and WNL. patient has been able to ambulate to bathroom to void. Used urinal this evening with 100cc out, bladder scan done shortly after and showed 138cc. Tolerating regular diet. Denies pain or nausea.
[2024-09-17] VITALS (10 sets, daily range): BP systolic 85–116; BP diastolic 48–69; PULSE 56–93; RESP 18–20; TEMP 36–36.6; O2SAT 92–100
[2024-09-17] MEDS: 0.9 % SODIUM CHLORIDE 1000 ml 1,000 ML 75 ML IV (03:04)
[2024-09-17 06:14] LABS: Lactate* 2.3 mmol/L (0.5-1.9)
[2024-09-17 06:19] LABS: Basophils Percent Auto 0.1 % (0.0-3.0); Hematocrit 35.1 % (37.0-53.0); Hemoglobin* 11.7 gm/dL (13.5-17.5); Immature Granulocytes Pct Auto 0.9 %; Lymphocytes Percent Auto 3.1 % (20-44); Mean Corpuscular HGB Conc 33 gm/dL (32-36); Mean Corpuscular Hemoglobin 31 pg (26-34); Mean Corpuscular Volume 94 fL (80-100); Neutrophils Percent Auto 93.9 % (42.0-72.0); Red Blood Count 3.75 m/uL (4.30-5.90); White Blood Count* 12.43 K/uL (4.50-11.00)
[2024-09-17 06:23] LABS: Platelet Count* 24 K/uL (140-440)
--- NOTE | 2024-09-17 06:24 | PC.NURSE ---
shift note: [id number] + 3 incont briefs.
[2024-09-17 06:30] LABS: Albumin* 2.8 g/dL (3.3-5.0)
[2024-09-17 06:31] LABS: Chloride* 109 mmol/L (96-114); Potassium* 4.9 mmol/L (3.6-5.1); Sodium* 135 mmol/L (135-149)
[2024-09-17 06:33] LABS: Anion Gap 9 mEq/L (7-15); Aspartate Amino Transferase* 23 U/L (12-35); Bilirubin Total* 2.6 mg/dL (0.1-1.5); Blood Urea Nitrogen* 101 mg/dL (7-30); Carbon Dioxide* 17 mmol/L (20-32); Est. Creatinine Clearance* 25.18; Estimated Glomerular Filt Rate 32 ml/min; Glucose* 137 mg/dL (60-115); Total Protein* 5.2 g/dL (6.0-8.3)
[2024-09-17 06:34] LABS: Alanine Aminotransferase* 86 U/L (4-50); Alkaline Phosphatase* 66 U/L (40-150); Calcium* 7.5 mg/dL (8.4-10.6); Magnesium* 2.5 mg/dL (1.5-2.6); Phosphorus* 4.3 mg/dL (2.5-4.5)
[2024-09-17] MEDS: TAMSULOSIN HCL 0.4 MG CAPSULE 0.8 MG PO (09:25)
[2024-09-17] MEDS: dexAMETHasone 4 MG TABLET 24 MG PO (09:25)
[2024-09-17] MEDS: FINASTERIDE 5 MG TABLET PO (09:25)
[2024-09-17] MEDS: ATORVASTATIN CALCIUM 10 MG TABLET 20 MG PO (09:25)
[2024-09-17] MEDS: FUROSEMIDE 40 MG TABLET PO (09:25)
[2024-09-17] MEDS: atenoloL 50 MG TABLET PO (09:25)
[2024-09-17] MEDS: INSULIN PROT/ASP (NOVOLOG 70/30) 100 UNIT/ML 36 UNIT SUBCUT (09:29)
[2024-09-17 09:46] LABS: Slide Review Reflex No
[2024-09-17] MEDS: 0.9 % SODIUM CHLORIDE 250 ml 250 ML IV (10:54)
[2024-09-17] MEDS: INSULIN ASPART 100 UNIT/ML SUBCUT ×3 (11:49→21:30)
--- NOTE | 2024-09-17 17:01 | PM.IMPN1 ---
Progress Note: A&P Assessment and plan (1) Weakness: Problem details: - Continue PT and OT - I suspect he will need rehab, then AL. Patient and family are agreeable to this plan. Status: Acute (2) Dehydration: Problem details: -patient got a bolus at the ED -currently on 75 mL per hour will stop once his lactate is normal - 3/ Lactate more elevated today. I gave a bolus of 1L NS over 2 hours, which brought his lactate lower. Will give another small bolus of NS 250 cc and recheck lactate. - 3/2 lactate improving. Creatinine much improved, possibly slightly fluid overloaded. Stop IV fluids. Continue furosemide. Monitor. Status: Acute (3) Hyperkalemia: Problem details: - 09/16 I have reviewed his mediations. Hold lisinopril. Furosemide should help renally excrete K, so I will keep that on board and give IVF as above. Recheck K. Also monitor on telemetry. EKG this am is as above. I suspect potassium is due to dehydration in the setting of chronic kidney disease stage 4 to 5. - 3/ resolved Status: Resolved (4) CKD (chronic kidney disease) stage 4, GFR 15-29 ml/min: Problem details: His GFR is mildly decreased but it is still within stage IV - 3 Restart furosemide as this may help with hyperkalemia and creatinine is near baseline - 3/2 creatinine much improved, below baseline, may be slightly fluid overloaded Status: Chronic (5) Coronary artery disease: Problem details: No chest pain EKG unremarkable Troponin poke was done at the ED and it was 0.05, repeated at the floor and it still this seem so it is flat and it is mostly related to his CKD and congestive heart failure Status: Chronic (6) Diastolic congestive heart failure: Problem details: Continue furosemide, monitor Status: Chronic (7) Atrial fibrillation: Problem details: His apixaban for AFib was held by oncologist because platelets were below 50 K before but currently it is above 50 K we need to check with Oncology if apixaban is okay to be resumed. - 3/2 platelets are still under 50, will continue to hold Eliquis Status: Chronic (8) Current use of provider enrollment specialist anticoagulation: Problem details: - on hold due to thrombocytopenia - His apixaban for AFib was held by oncologist because platelets were below 50 K before but currently it is above 50 K we need to check with Oncology if apixaban is okay to be resumed. - 3 as above Status: Chronic (9) Thrombocytopenia: Problem details: Patient is admitted to the hospital for thrombocytopenia. He was known to have thrombocytopenia with platelet count around 50,000 in April 2024. Referred to Hematology but did not get follow-up. Was seen for routine blood tests in clinic on the day prior to admission where he was found to have a platelet count of 2000. In the emergency department platelet count was 1000. He received a transfusion of platelets with the platelets going up to 3000 then down to 2000 the next morning. 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 Subjective Time Seen by Provider: 09:40 Date Seen: 09/17/24 Interval history: I saw Dejuan this morning and then went back to talk with him this afternoon when his and son were there. All their questions were answered. Dejuan feels better today. His family also notes that he looks much better. All 3 of them are agreeable with him going to rehab and then longer-term care such as assisted living. Exam Narrative: Exam Narrative: General: No acute distress. Awake, alert, oriented. No pallor. No jaundice. Oropharynx: Clear. Mucous membranes moist. Cardiovascular: Regular rate and rhythm. No murmurs, gallops, or rubs. Respiratory: Clear to auscultation bilaterally. No wheezes or crackles. Abdomen: Bowel sounds present. Soft, nondistended, nontender. Extremities: No lower extremity edema. Const: Vital Signs, click to edit/add: Vital Signs - 24 hr 09/16/24 19:00 09/16/24 23:00 09/16/24 23:00 Temperature 97.8 F 97.7 F Pulse Rate 64 Pulse Rate [Pulse Oximeter] 69 60 Respiratory Rate 20 20 Blood Pressure [Ri ght Arm] 82/82 L 101/67 Pulse Oximetry 96 99 Oxygen Delivery Ny thod Room Air Room Air 09/17/24 03:02 09/17/24 08:00 09/17/24 08:29 Temperature 97.8 F 97 F L Pulse Rate 65 Pulse Rate [Pulse Oximeter] 56 L 69 Respiratory Rate 18 20 Blood Pressure [Ri ght Arm] 110/67 108/54 L Pulse Oximetry 100 100 Oxygen Delivery Ny thod Room Air Room Air 09/17/24 11:00 09/17/24 12:00 09/17/24 14:14 Temperature 97 F L Pulse Rate 73 Pulse Rate [Pulse Oximeter] 93 70 Respiratory Rate 18 18 Blood Pressure [Ri ght Arm] 85/48 L 116/69 Pulse Oximetry 92 Oxygen Delivery Ny thod Room Air 09/17/24 14:34 Temperature 96.8 F L Pulse Rate Pulse Rate [Pulse Oximeter] 67 Respiratory Rate 18 Blood Pressure [Ri ght Arm] 105/59 L Pulse Oximetry 98 Oxygen Delivery Me thod Room Air Labs Labs: Laboratory Results - last 24 hr 09/16/24 09/17/24 17:41 06:01 WBC 12.43 H RBC 3.75 L Hgb 11.7 L Hct 35.1 L MCV 94 MCH 31 MCHC 33 RDW Coeff of Guillermo 14.0 Plt Count 24 L* Neut % (Auto) 93.9 H Lymph % (Auto) 3.1 L [place] % (Auto) 2.0 Eos % (Auto) 0.0 Baso % (Auto) 0.1 Neut # (Auto) 11.70 H Lymph # (Auto) 0.40 L [place] # (Auto) 0.20 Eos # (Auto) 0.00 Baso # (Auto) 0.00 Abs Immat Gran (auto) 0.10 Imm/Tot Granulo (auto) 0.9 Sodium 134 L 135 Potassium 5.6 H 4.9 Chloride 109 109 Carbon Dioxide 17 L 17 L Anion Gap 8 9 BUN 108 H 101 H Creatinine 2.2 H 2.0 H Estimated Creat Clear 22.89 25.18 Estimated GFR 28 32 Glucose 137 H 137 H Lactate 2.1 H 2.3 H Calcium 7.5 L 7.5 L Phosphorus 4.3 Magnesium 2.5 Total Bilirubin 2.6 H AST 23 ALT 86 H Alkaline Phosphatase 66 Total Protein 5.2 L Albumin 2.8 L
[2024-09-17] MEDS: INSULIN PROT/ASP (NOVOLOG 70/30) 100 UNIT/ML 26 UNIT SUBCUT (17:49)
--- NOTE | 2024-09-17 18:43 | PC.NURSE ---
Shift Summary: Patient pleasant and cooperative. Up with one assist, walker and gait belt. BP soft around 1100, patient asymptomatic, MD updated and ordered one time bolus, BP taken one hour later and improved. Tolerated being in recliner for short periods of time throughout day. Tolerating regular diet, denies nausea. Lung sounds continue to be clear, o2 sat >90% on RA. Tired this afternoon and had episode of incontinence after dinner. IV saline locked.
[2024-09-17] MEDS: SODIUM CHLORIDE 0.9 % (FLUSH) 10 ML SYRINGE 5 ML IVF (21:29)
[2024-09-18] VITALS (8 sets, daily range): BP systolic 96–119; BP diastolic 62–92; PULSE 62–81; RESP 14–20; TEMP 36.1–36.6; O2SAT 99–100
[2024-09-18 06:36] LABS: Basophils Percent Auto 0.1 % (0.0-3.0); Hematocrit 34.1 % (37.0-53.0); Hemoglobin* 11.3 gm/dL (13.5-17.5); Immature Granulocytes Pct Auto 0.6 %; Lymphocytes Percent Auto 2.5 % (20-44); Mean Corpuscular HGB Conc 33 gm/dL (32-36); Mean Corpuscular Hemoglobin 31 pg (26-34); Mean Corpuscular Volume 93 fL (80-100); Monocytes Percent Auto 3.3 % (0.0-11.0); Neutrophils Percent Auto 93.5 % (42.0-72.0); RDW Coefficient of Variation % 14.1 % (11.5-15.5); Red Blood Count 3.66 m/uL (4.30-5.90); White Blood Count* 15.79 K/uL (4.50-11.00)
--- NOTE | 2024-09-18 06:50 | PC.NURSE ---
End of shift summary: Pt has been A&O, afebrile and VSS with exception to low BP?s. He was 80s/50s, 90s/60s and then 100s/60s all with a stable MAP > 65. HS BG was 185 requiring 2 units Novolog. He had no c/o pain, dizziness or nausea overnight. He was awake most of the night & couldn?t fall asleep but declined any PRN sleep aides. He is SBA with [facility] for transfers. Continent of urine but had x2 incontinent BM?s. PIV in left AC SL and C/D/I. TELE read A. Fib with BBB. ?
[2024-09-18 06:52] LABS: Chloride* 110 mmol/L (96-114); Platelet Count* 37 K/uL (140-440)
[2024-09-18 06:53] LABS: Albumin* 2.8 g/dL (3.3-5.0); Potassium* 4.8 mmol/L (3.6-5.1); Slide Review Reflex No; Sodium* 137 mmol/L (135-149)
[2024-09-18 06:55] LABS: Blood Urea Nitrogen* 83 mg/dL (7-30); Creatinine* 1.9 mg/dL (0.5-1.5); Estimated Glomerular Filt Rate 34 ml/min
[2024-09-18 06:56] LABS: Alanine Aminotransferase* 84 U/L (4-50); Alkaline Phosphatase* 69 U/L (40-150); Anion Gap 8 mEq/L (7-15); Aspartate Amino Transferase* 21 U/L (12-35); Calcium* 7.8 mg/dL (8.4-10.6); Carbon Dioxide* 19 mmol/L (20-32); Glucose* 74 mg/dL (60-115); Total Protein* 5.3 g/dL (6.0-8.3)
[2024-09-18] MEDS: TAMSULOSIN HCL 0.4 MG CAPSULE 0.8 MG PO (09:02)
[2024-09-18] MEDS: FUROSEMIDE 40 MG TABLET PO ×2 (09:02→13:36)
[2024-09-18] MEDS: FINASTERIDE 5 MG TABLET PO (09:03)
[2024-09-18] MEDS: ATORVASTATIN CALCIUM 10 MG TABLET 20 MG PO (09:03)
[2024-09-18] MEDS: dexAMETHasone 4 MG TABLET 24 MG PO (09:03)
[2024-09-18] MEDS: INSULIN PROT/ASP (NOVOLOG 70/30) 100 UNIT/ML 36 UNIT SUBCUT (09:04)
[2024-09-18] MEDS: SODIUM CHLORIDE 0.9 % (FLUSH) 10 ML SYRINGE 5 ML IVF ×2 (09:13→21:57)
--- NOTE | 2024-09-18 09:35 | NUTR.NU ---
RDN with diet education related to current diet order. Patient admitted with weakness and dehydration. Medical history significant for Diabetes type 2 with atherosclerosis of arteries of extremities, Hyperlipidemia, Hypertension, Diastolic congestive heart failure, Coronary artery disease and CKD (chronic kidney disease) stage 4. Current weight 232 lb; height 5ft 8in; BMI 35.3 kg/m2. Per weight history, loss of about 30 lbs however bedscale was used to obtain weight in April 2024 and standing scale used to obtain weight for this admission. MST score 0. Per MD report, patient's reports patient has been sneaking pop, cookies, and other foods. Do not suspect patient has had a true significant weight loss recently. Of note, diet education provided to him in 04/2024 related to diabetes and heart healthy diet. RDN will not attempt to provide diet education at this time as patient recently had education and plan is to be discharging to [facility]. RDN will continue to monitor.
[2024-09-18] MEDS: INSULIN ASPART 100 UNIT/ML SUBCUT ×3 (11:35→21:56)
--- NOTE | 2024-09-18 11:48 | PC.SOCIAL ---
Discharge planning: Met with pt, and son in room regarding d/c plan. They are all in agreement that they want pt to go to [facility] for short term rehab and then stay prison on that campus at an appropriate level of care. Son has already spoken with Junie at [facility]. Called and spoke with Junie. Secure emailed information to Junie for evaluation for admit. process worker to follow up as needed.
--- NOTE | 2024-09-18 13:08 | PC.NURSE ---
Patient denies pain and vital signs are stable. Patient has redness and skin breakdown between buttocks, area cleansed and barrier cream was applied. Patient ambulates with gait belt, walker and 1 assist. Patient needs renal diet reinforcement, tolerates meals well. Able to walk and agreeable to walk in halls with staff x1. Denies SOB and chest pain. Has been continent of bladder, small incontinent BM in brief.
--- NOTE | 2024-09-18 15:12 | PM.IMPN1 ---
Progress Note: A&P Assessment and plan (1) Weakness: Problem details: - Continue PT and OT - He will need rehab, then probably AL. Patient and family are agreeable to this plan. Status: Acute (2) Dehydration: Problem details: -patient got a bolus at the ED -currently on 75 mL per hour will stop once his lactate is normal - 3/ Lactate more elevated today. I gave a bolus of 1L NS over 2 hours, which brought his lactate lower. Will give another small bolus of NS 250 cc and recheck lactate. - 3/ lactate improving. Creatinine much improved, possibly slightly fluid overloaded. Stop IV fluids. Continue furosemide. Monitor. - 3/ does not appear dehydrated. Lactate borderline elevated, but no longer appears dehydrated. I suspect he is now on the verge of becoming fluid overloaded. I will not give more IVF boluses at this time. Continue oral furosemide. Monitor. Status: Resolved (3) Hyperkalemia: Problem details: - 09/16 I have reviewed his mediations. Hold lisinopril. Furosemide should help renally excrete K, so I will keep that on board and give IVF as above. Recheck K. Also monitor on telemetry. EKG this am is as above. I suspect potassium is due to dehydration in the setting of chronic kidney disease stage 4 to 5. - 3/ resolved Status: Resolved (4) CKD (chronic kidney disease) stage 4, GFR 15-29 ml/min: Problem details: His GFR is mildly decreased but it is still within stage IV - 3 Restart furosemide as this may help with hyperkalemia and creatinine is near baseline - 3/2 creatinine much improved, below baseline, may be slightly fluid overloaded - 3/ Cr continues to trend down Status: Chronic (5) Coronary artery disease: Problem details: No chest pain EKG unremarkable Troponin poke was done at the ED and it was 0.05, repeated at the floor and it still this seem so it is flat and it is mostly related to his CKD and congestive heart failure Status: Chronic (6) Diastolic congestive heart failure: Problem details: Continue furosemide, monitor Status: Chronic (7) Atrial fibrillation: Problem details: His apixaban for AFib was held by oncologist because platelets were below 50 K before but currently it is above 50 K we need to check with Oncology if apixaban is okay to be resumed. - 3 platelets are still under 50, will continue to hold Eliquis Status: Chronic (8) Current use of group home anticoagulation: Problem details: - on hold due to thrombocytopenia - His apixaban for AFib was held by oncologist because platelets were below 50 K before but currently it is above 50 K we need to check with Oncology if apixaban is okay to be resumed. - 09/16 as above Status: Chronic (9) Thrombocytopenia: Problem details: Patient is admitted to the hospital for thrombocytopenia. He was known to have thrombocytopenia with platelet count around 50,000 in April 2024. Referred to Hematology but did not get follow-up. Was seen for routine blood tests in clinic on the day prior to admission where he was found to have a platelet count of 2000. In the emergency department platelet count was 1000. He received a transfusion of platelets with the platelets going up to 3000 then down to 2000 the next morning. 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 He denies pain or SOB. Exam Narrative: Exam Narrative: General: No acute distress. Awake, alert, oriented. No pallor. No jaundice. Cardiovascular: Regular rate and rhythm. No murmurs, gallops, or rubs. Respiratory: Clear to auscultation bilaterally. No wheezes or crackles. Extremities: No lower extremity edema. Const: Vital Signs, click to edit/add: Vital Signs - 24 hr 09/17/24 19:00 09/17/24 19:10 09/17/24 23:05 Temperature 97.5 F L Pulse Rate 61 Pulse Rate [Pulse Oximeter] 71 Respiratory Rate 18 Blood Pressure [Ri ght Arm] 87/65 L 88/57 L Pulse Oximetry 98 Oxygen Delivery Me thod Room Air 09/17/24 23:05 09/18/24 00:15 09/18/24 04:00 Temperature 97.1 F L 97.1 F L Pulse Rate Pulse Rate [Pulse Oximeter] 72 72 62 Respiratory Rate 20 20 18 Blood Pressure [Ri ght Arm] 99/67 106/62 Pulse Oximetry 99 100 Oxygen Delivery Me thod Room Air Room Air 09/18/24 07:30 09/18/24 07:30 09/18/24 08:17 Temperature 96.9 F L Pulse Rate 80 Pulse Rate [Pulse Oximeter] 67 67 Respiratory Rate 14 14 Blood Pressure [Ri ght Arm] 119/75 Pulse Oximetry 99 Oxygen Delivery Me thod Room Air 09/18/24 11:00 Temperature 97.7 F Pulse Rate Pulse Rate [Pulse Oximeter] 81 Respiratory Rate 20 Blood Pressure [Ri ght Arm] 115/92 H Pulse Oximetry 100 Oxygen Delivery Me thod Room Air Labs Labs: Laboratory Results - last 24 hr 09/18/24 06:25 WBC 15.79 H RBC 3.66 L Hgb 11.3 L Hct 34.1 L MCV 93 MCH 31 MCHC 33 RDW Coeff of Guillermo 14.1 Plt Count 37 L* Neut % (Auto) 93.5 H Lymph % (Auto) 2.5 L [place] % (Auto) 3.3 Eos % (Auto) 0.0 Baso % (Auto) 0.1 Neut # (Auto) 14.80 H Lymph # (Auto) 0.40 L [place] # (Auto) 0.50 Eos # (Auto) 0.00 Baso # (Auto) 0.00 Abs Immat Gran (auto) 0.10 Imm/Tot Granulo (auto) 0.6 Sodium 137 Potassium 4.8 Chloride 110 Carbon Dioxide 19 L Anion Gap 8 BUN 83 H Creatinine 1.9 H Estimated Creat Clear 26.50 Estimated GFR 34 Glucose 74 Calcium 7.8 L Total Bilirubin 2.0 H AST 21 ALT 84 H Alkaline Phosphatase 69 Total Protein 5.3 L Albumin 2.8 L
[2024-09-18] MEDS: INSULIN PROT/ASP (NOVOLOG 70/30) 100 UNIT/ML 20 UNIT SUBCUT (16:43)
--- NOTE | 2024-09-18 23:16 | PC.NURSE ---
Patient up to the bathroom multiple times this shift with assist of 1, waker and the gait belt. Patient requesting juice/pop throughout the shift. Encouraged patient to drink diet due to increased blood sugars.
[2024-09-19 00:20] VITALS: BP 115/59; PULSE 61; RESP 20; TEMP 36.3; O2SAT 99
[2024-09-19 04:28] VITALS: BP 117/73; PULSE 64; RESP 20; TEMP 36.4; O2SAT 100
--- NOTE | 2024-09-19 06:54 | PC.NURSE ---
End of shift summary: Pt has been A&O, afebrile and VSS overnight. He has no c/o pain, nausea or dizziness. Pt seemed to sleep well until about 0200 then he?s been awake ever since. He is SBA with [facility] for transfers. He had x1 incontinent episode of both B&B (blames it on the fish sandwich). TELE read A. Fib with occasional PVC?s and BBB. SW and family facilitating discharge to [facility] for rehab with ultimate permanent stay.
[2024-09-19 07:00] VITALS: BP 123/74; PULSE 67; PULSE 72; RESP 20; O2SAT 100
[2024-09-19] MEDS: FINASTERIDE 5 MG TABLET PO (08:53)
[2024-09-19] MEDS: FUROSEMIDE 40 MG TABLET PO (08:53)
[2024-09-19] MEDS: TAMSULOSIN HCL 0.4 MG CAPSULE 0.8 MG PO (08:53)
[2024-09-19] MEDS: dexAMETHasone 4 MG TABLET 24 MG PO (08:53)
[2024-09-19] MEDS: ATORVASTATIN CALCIUM 10 MG TABLET 20 MG PO (08:54)
[2024-09-19] MEDS: SODIUM CHLORIDE 0.9 % (FLUSH) 10 ML SYRINGE 5 ML IVF (08:54)
[2024-09-19] MEDS: INSULIN PROT/ASP (NOVOLOG 70/30) 100 UNIT/ML 40 UNIT SUBCUT (08:58)
[2024-09-19 11:00] VITALS: BP 131/78; PULSE 64; RESP 20; O2SAT 100
--- NOTE | 2024-09-19 11:08 | PC.SOCIAL ---
Addendum entered by KURT uDke 09/19/24 12:22: Discharge planning: Received call from Junie at [facility] accepting pt for rehab today. Pt need to arrive by 2:00pm. Called son, Juan F, who is aware and agrees with this plan. Family will pick pt up at 1:00 for transport. PAS completed. Social work to follow up as needed. Original Note: Discharge planning: Late entry: On 09/18/24, received email from [facility] at 4:30pm stating they can not accept pt for admit. Called and spoke with family who are very unhappy with this decision and requested to speak with [facility]. Called Junie in admitting at [facility] and asked her to contact family regarding decision as the family had been speaking with her prior to hospital admission about moving pt to this campus. Junie stated she would pass the message to nursing. On 09/19/24, called and spoke with Junie who stated they can reassess pt for admit to rehab today. Called and informed son of this. Son is pleased they are willing to reassess and indicated that [facility] and [facility] could all be contacted for placement if [facility] declines again. tin worker to follow up as needed.
--- NOTE | 2024-09-19 12:55 | PM.DS1 ---
DS: Providers Provider Time Seen by Provider: 09:47 Date Seen: 09/19/24 Date of admission: 09/16/24 16:48 Primary care physician: Abdi Chang MD Admitting Clinician: Florina Jimenes MD Consults: 09/15/24 21:01 Consult to Occupational Therapy [CONS] Routine Comment: Reason(s) for OT Consult:: Evaluate and Treat Any Restrictions?:: No Restrictions Consult to Physical Therapy [CONS] Routine Comment: Reason(s) for PT Consult:: Evaluate and Treat Any Restrictions?:: No Restrictions Consult to Wrecking Supervisor [CONS] Routine Comment: Reason for Consult:: Discharge Planning Needs Attending Physician on discharge: Imelda Barker MD Date of Discharge: 09/19/24 DS: Diagnosis Discharge Diagnosis (1) Weakness: Status: Acute Problem details: - Continue PT and OT at 3L, dishcarging today (2) Dehydration: Status: Resolved Problem details: -patient got a bolus at the ED -currently on 75 mL per hour will stop once his lactate is normal - 09/16 Lactate more elevated today. I gave a bolus of 1L NS over 2 hours, which brought his lactate lower. Will give another small bolus of NS 250 cc and recheck lactate. - 3/ lactate improving. Creatinine much improved, possibly slightly fluid overloaded. Stop IV fluids. Continue furosemide. Monitor. - 09/18 does not appear dehydrated. Lactate borderline elevated, but no longer appears dehydrated. I suspect he is now on the verge of becoming fluid overloaded. I will not give more IVF boluses at this time. Continue oral furosemide. (3) Hyperkalemia: Status: Resolved Problem details: - 3 I have reviewed his mediations. Hold lisinopril. Furosemide should help renally excrete K, so I will keep that on board and give IVF as above. Recheck K. Also monitor on telemetry. EKG this am is as above. I suspect potassium is due to dehydration in the setting of chronic kidney disease stage 4 to 5. - 3/2 resolved (4) CKD (chronic kidney disease) stage 4, GFR 15-29 ml/min: Status: Chronic Problem details: His GFR is mildly decreased but it is still within stage IV - 3/ Restart furosemide as this may help with hyperkalemia and creatinine is near baseline - 3/2 creatinine much improved, below baseline, may be slightly fluid overloaded - 3/3 Cr continues to trend down (5) Coronary artery disease: Status: Chronic Problem details: No chest pain EKG unremarkable Troponin poke was done at the ED and it was 0.05, repeated at the floor and it still this seem so it is flat and it is mostly related to his CKD and congestive heart failure (6) Diastolic congestive heart failure: Status: Chronic Problem details: Continue furosemide, monitor (7) Atrial fibrillation: Status: Chronic Problem details: His apixaban for AFib was held by oncologist because platelets were below 50 K before but currently it is above 50 K we need to check with Oncology if apixaban is okay to be resumed. - 3 platelets are still under 50, will continue to hold Eliquis (8) Current use of alf anticoagulation: Status: Chronic Problem details: - on hold due to thrombocytopenia - His apixaban for AFib was held by oncologist because platelets were below 50 K before but currently it is above 50 K we need to check with Oncology if apixaban is okay to be resumed. 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 Patient is alert and oriented, he denies headache, chest pain, shortness of breath, cough, abdominal pain or any other issues. On my examination patient was not fluid overloaded, he is currently on furosemide 60 b.i.d. at the ED, labs show a slightly lower GFR that is most likely prerenal. Patient was given IV fluids at the ED and his blood pressure improved. Patient was admitted recently for severe thrombocytopenia, currently he is on steroids and his last platelet count was 53. WBCs are elevated due to dexamethasone but they are trending down. I talked to the son over the phone, we discussed the patient's medical issues in addition to the family expectations for discharge, currently they think if he gets stronger then they will take him home other than that they will be looking for a nursing facility on discharge. Dejuan received IVF for hydration with improvement of labs. Lactate remained mildly elevated and stabilized despite Cr improving well below baseline and starting to appear volume overloaded, so further IVF were deferred. Dejuan is improved from admission and discharged to for rehab in stable condition. Please see diagnoses above for further details. Time Spent with Patient Time attestation: Total time spent providing and/or coordinating discharge services: Today I spent 40 minutes discharging this patient, reviewing Expanse and EPIC notes/diagnostics/labs, discussing the care plan with our care team that includes social work, PT/OT, pharmacy, RT, intermediate and documenting my impressions and plan in the medical record. Exam Narrative: Exam Narrative: General: No acute distress. Awake, alert, oriented. No pallor. No jaundice. Cardiovascular: Regular rate and rhythm. No murmurs, gallops, or rubs. Respiratory: Clear to auscultation bilaterally. No wheezes or crackles. Extremities: No lower extremity edema. Const: Vital Signs, click to edit/add: Vital Signs - 24 hr 09/18/24 15:00 09/18/24 15:00 09/18/24 15:00 Temperature 97.8 F Pulse Rate 63 Pulse Rate [Pulse Oximeter] 62 62 Respiratory Rate 18 18 Blood Pressure [Ri ght Arm] 96/68 Pulse Oximetry 100 Oxygen Delivery Me thod Room Air 09/18/24 19:00 09/18/24 23:40 09/19/24 00:20 Temperature 98 F Pulse Rate 76 Pulse Rate [Pulse Oximeter] 64 61 Respiratory Rate 18 20 Blood Pressure [Ri ght Arm] 98/72 Pulse Oximetry 100 Oxygen Delivery Me thod Room Air 09/19/24 00:20 09/19/24 04:28 09/19/24 07:00 Temperature 97.4 F L 97.6 F Pulse Rate Pulse Rate [Pulse Oximeter] 61 64 72 Respiratory Rate 20 20 20 Blood Pressure [Ri ght Arm] 115/59 L 117/73 Pulse Oximetry 99 100 Oxygen Delivery Me thod Room Air Room Air DS: Data Data Completed and Pending Completed studies during hospitalization: 09/16/2024 EKG: Atrial fibrillation, 63 beats per minute, left axis deviation, right bundle-branch block. Ordering Physician: Matthew Graf M.D. Date of Service: 09/15/24 Procedure(s): XR chest 1V portable Accession Number(s): [id number] cc: Matthew Graf M.D.; Abdi Chang M.D.~ For Patients: As a result of the Cures Act, medical imaging exams and procedure reports are released immediately into your electronic medical record. You may view this report before your referring provider. If you have questions, please contact your health care provider. INDICATION: Hypotension. TECHNIQUE: Chest 1 views. COMPARISON: X-ray chest September 13, 2024 FINDINGS/IMPRESSION: No focal consolidation, effusion or pneumothorax. Stable mild cardiomegaly without pulmonary edema. No acute osseous findings. Dictated by Jennifer Soto MD @ 09/15/2024 2:59:57 PM (Electronically Signed) Labs on day of discharge: Preliminary micro results at discharge 09/15/24 14:57 Blood Culture - Preliminary Blood NO GROWTH AFTER 72 HOURS Discharge Plan Discharge Disposition: [facility] SNF Discharge Location: [facility] [place] Date of Admission: 09/16/24 16:48 Attending Provider on Discharge: mIelda Barker Primary Care Provider: Abdi Chang Condition: Unchanged Discharge Medications: New insulin aspart U-100 100 unit/mL (3 mL) Insulin Pen See Rx Instructions .ROUTE .COMPLEX Qty: 15 0RF Rx Instructions: Blood Glucose 150 or less No coverage Blood Glucose 151-200 2 unit Blood Glucose 201-250 4 units Blood Glucose 251-300 6 units Blood Glucose 301-350 8 units Blood Glucose 351 to 400 10 units Blood Glucose 401 and greater 12 units and recheck in 2 hours Continued atorvastatin 20 mg tablet 20 mg PO DAILY atenolol 50 mg tablet 50 mg PO DAILY furosemide 40 mg tablet 40 mg PO BID Rx Instructions: PLUS 0 MG FOR TOTAL OF 60 MG TWICE A DAY finasteride 5 mg tablet 5 mg PO DAILY glimepiride 1 mg tablet 1 mg PO DAILY nitroglycerin 0.4 mg tablet, sublingual 0.4 mg sublingual Q5M PRN lisinopril 2.5 mg tablet 2.5 mg PO DAILY tamsulosin 0.4 mg capsule 0.8 mg PO DAILY zinc gluconate 50 mg tablet 100 mg PO DAILY cholecalciferol (vitamin D3) 50 mcg (2,000 unit) capsule 100 mcg PO DAILY dexamethasone 6 mg tablet 24 mg PO DAILY Rx Instructions: Take 4 tablets daily until you see the maori physiotherapist next week Changed Novolin 70-30 FlexPen U-100 100 unit/mL (70-30) insulin pen 20 unit subcut QPM Qty: 15 0RF Novolin 70-30 FlexPen U-100 100 unit/mL (70-30) insulin pen 40 unit subcut QAM Qty: 15 0RF Discontinued furosemide 20 mg tablet 20 mg PO BID Rx Instructions: PLUS 40 MG FOR TOTAL OF 60 MG TWICE A DAY niacin 500 mg tablet extended release 24 hr 500 mg PO DAILY Discharge Orders: Discharge Order (Routine); Ordered 09/19/24 Ordered By: Imelda Barker Additional Instructions: See hematology in 1-2 weeks Activity Level: Up with assist and Use Walker Discharge Diet: Heart Healthy (2 gm sodium, low fat) Follow Up Appointments: Abdi Chang MD [Primary Care Provider] - Forms: [facility] Info Instructions Admit to: SNF Discharge Potential: Fair Length of Stay: <30 days Can use facility standing orders?: Yes Code Status: DNR/DNI Rehab Potential: Fair Therapy: Physical Therapy and Occupational Therapy Therapy Orders: Evaluate and Treat Oxygen: No Urinary Catheter: No Lab Orders: CBC, BMP 1 week Orders are good >30 days: No Signature: Imelda Barker MD
[2024-09-19 14:00] LABS: SARS Antigen* Negative (Negative)
--- NOTE | 2024-09-19 15:31 | PC.NURSE ---
Nursing Care Hours: [id number] Pt this shift calm and cooperative, alert and oriented. No c/o pain. VSS. Ax1 with walker and gait belt. Mepilex in place on coccyx, additional smaller one applied to open sore just distal to Mepilex. Bruises noted to R lateral abdomen, bilat LE and UE. IV removed for discharge. Packet sent with pt son to SNF. Family drive pt there. Pt wheeled out to vehicle in stable condition. Insulin was not given prior to discharge because REINSURANCE ANALYST took blood sugar but no documentation found and pt already ate lunch.
--- NOTE | 2024-09-19 16:35 | PC.NURSE ---
Clarified prescription questions for [facility]: SSI frequency to be ACHS and Lasix will be 40mg po BID.
--- NOTE | 2024-09-19 16:36 | PC.NURSE ---
Prescription clarification per Dr. Barker
== END 2024-09-19 13:58 | DRG 641 ==
LOC: ED 16:09 → MEDSURG 17:16
PROVIDERS: Admitting Provider Family Medicine; Emergency Provider Emergency Medicine Emergency Medical Services; PCP Family Medicine; Visit Provider Student in an Organized Health Care Education/Training Program
DX: E86.0 Dehydration (principal); I13.0 Hypertensive heart and chronic kidney disease with heart failure and stage 1 through stage 4 chronic kidney disease, or unspecified chronic kidney disease; N18.4 Chronic kidney disease, stage 4 (severe); I50.32 Chronic diastolic (congestive) heart failure; I48.20 Chronic atrial fibrillation, unspecified; R53.1 Weakness; I95.89 Other hypotension; E87.5 Hyperkalemia; I95.9 Hypotension, unspecified; D69.6 Thrombocytopenia, unspecified; R53.83 Other fatigue; E11.22 Type 2 diabetes mellitus with diabetic chronic kidney disease; E11.65 Type 2 diabetes mellitus with hyperglycemia; E11.51 Type 2 diabetes mellitus with diabetic peripheral angiopathy without gangrene; Z79.4 Long term (current) use of insulin; Z79.84 Long term (current) use of oral hypoglycemic drugs; Z79.01 Long term (current) use of anticoagulants; I70.209 Unspecified atherosclerosis of native arteries of extremities, unspecified extremity; I45.10 Unspecified right bundle-branch block; I25.10 Atherosclerotic heart disease of native coronary artery without angina pectoris; E78.5 Hyperlipidemia, unspecified
CPT/HCPCS: 36415; 51798; 71045; 71046; 80048; 80053; 81001; 82962; 83605; 83735; 83880; 84100; 84484; 85025; 85027; 87040; 87426; 87631; 93005; 96360; 96361; 97116; 97161; 97166; 97530; 97535; 99214; 99284; 99285; G0463; A9270; G0378; J1815; J7030; J7050